=== PATIENT | female | born 1940 | race Caucasian/White ===

== ENCOUNTER 2016-04-25 16:51 | Emergency (ER) | payer MEDICARE ==
[2016-04-25] MEDS ORDERED: Ibuprofen TAB* 600 MG PO ONE (18:44)
--- NOTE | 2016-04-25 18:45 | UC ---
UC General HPI - HPI Summary HPI Summary: 75 year old presents complaining of fatigue, SOB with exertion, cough, chills and fever. Patient has had a recent exposure to influenza in the past two weeks. 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 Onset/Duration: Sudden Onset - Allergy/Home Medications Allergies/Adverse Reactions: Allergies Allergy/AdvReac Type Severity Reaction Status Date / Time Clopidogrel Allergy Severe Dizziness Verified 04/25/16 18:50 Penicillins AdvReac Severe YEAST/THRUSH Verified 04/25/16 18:50 INFECTION Nitrofurantoin AdvReac Intermediate GI Reaction Verified 04/25/16 18:50 [From Macrobid] PMH/Surg Hx/FS Hx/Imm Hx Previously Healthy: Yes Endocrine History Of: Denies: Diabetes, Thyroid Disease Cardiovascular History Of: Reports: Cardiac Disorders - CAD, RI, Hypertension, Deep Vein Thrombosis Respiratory History Of: Reports: COPD Denies: Asthma GI/ History Of: Reports: Ulcer - gerd, hx of ulcers Denies: Renal Disease Psychological History Of: Reports: Anxiety - Surgical History Surgical History: Yes Surgery Procedure, Year, and Place: Neck Surgery. HAND SURGERY (Releasing the pinky finger). Hysterectomy. Carpal tunnel release - Family History Known Family History: Positive: Unknown - Social History Alcohol Use: Occasionally Alcohol Amount: 2 max/day, usually 1 drink per day Substance Use Type: None Smoking Status (MU): Former Smoker - has had thrush in past Type: Cigarettes Amount Used/How Often: 2.5 packs/day for those years Length of Time of Smoking/Using Tobacco: 34 years of smoking Have You Smoked in the Last Year: No When Did the Patient Quit Smoking/Using Tobacco: 1989 - Immunization History Most Recent Influenza Vaccination: 12/11/14 Most Recent Tetanus Shot: Unknown (not within last 10 years) Most Recent Pneumonia Vaccination: Has had, unknown year Review of Systems Constitutional: Negative Skin: Negative Eyes: Negative ENT: Sore Throat, Nasal Discharge Respiratory: Shortness Of Breath - With exertion, Cough Cardiovascular: Negative Gastrointestinal: Other - Feeling nauseated Genitourinary: Negative Motor: Negative Neurovascular: Negative Musculoskeletal: Myalgia - Generalized Neurological: Headache Psychological: Negative All Other Systems Reviewed And Are Negative: Yes Physical Exam Triage Information Reviewed: Yes Appearance: Ill-Appearing Vital Signs Reviewed: Yes Eye Exam: Normal Eyes: Positive: Conjunctiva Clear ENT: Positive: Hearing grossly normal, Pharyngeal erythema, Nasal congestion, TMs normal Dental Exam: Normal Neck: Positive: Supple, Enlarged Nodes @ - Left tonsilar Respiratory: Positive: Chest non-tender, Lungs clear, No respiratory distress, No accessory muscle use, Decreased breath sounds - Posterior lower lobes, Wheezing Cardiovascular: Positive: RRR, No Murmur, Pulses Normal Abdomen Description: Positive: Nontender, No Organomegaly, Soft Bowel Sounds: Positive: Present Musculoskeletal: Positive: Strength Intact, ROM Intact Neurological: Positive: Alert Psychological Exam: Normal Skin Exam: Normal Course/Dx - Differential Dx - Multi-Symptom Provider Diagnoses: R middle lobe pneumonia. COPD exacerbation Discharge - Discharge Plan Condition: Stable Disposition: HOME Prescriptions: Clarithromycin TAB* [Biaxin TAB*] 500 mg PO BID #14 tab Fluconazole 100 MG TAB* [Diflucan 100 MG TAB*] 100 mg PO SEE INSTRUCTIONS #2 tab Patient Education Materials: Pneumonia (ED) Forms: *Work Release Referrals: Noel Johnson MD [Primary Care Provider] - 3 Days ()
[2016-04-25 18:50] VITALS: BP 130/76
[2016-04-25] MEDS ORDERED: cefTRIAXone VIAL(*) 1,000 MG VIAL IM ONE (19:18)
--- NOTE | 2016-04-25 19:30 | RAD ---
INDICATION: Cough and fever. COMPARISON: Comparison is made with a prior chest x-ray study from December 09, 2014. Correlation is also made with a study from March 08, 2009. TECHNIQUE: Dual-energy PA and lateral views of the chest were obtained. FINDINGS: The heart is within normal limits in size. Mediastinal and hilar contours appear within normal limits. The lungs are markedly hyperinflated consistent with chronic obstructive pulmonary disease. There is a focal infiltrate present in the right middle lobe. The lungs are otherwise clear. No pleural effusion is seen. There is a chronic compression fracture of a lower dorsal vertebral body which appears unchanged. IMPRESSION: 1. RIGHT MIDDLE LOBE INFILTRATE. 2. COPD.
[2016-04-25] MEDS ORDERED: Lidocaine 1% MPF* 2 ML VIAL ONE (19:34)
== END 2016-04-25 19:47 | disposition home or self-care (01) ==
LOC: UCEAST 16:51
DX: J18.9 Pneumonia, unspecified organism (principal); J44.1 Chronic obstructive pulmonary disease with (acute) exacerbation; Z88.1 Allergy status to other antibiotic agents; Z88.0 Allergy status to penicillin; Z88.8 Allergy status to other drugs, medicaments and biological substances; F10.99 Alcohol use, unspecified with unspecified alcohol-induced disorder; Z87.891 Personal history of nicotine dependence
CPT/HCPCS: 71020; 87502; 96372; 99212; A9270-GY; G0463; J0696

== ENCOUNTER 2016-06-05 18:56 | Emergency (ER) | payer MEDICARE ==
[2016-06-05 19:54] VITALS: BP 122/58
--- NOTE | 2016-06-05 22:09 | UC ---
Cody, DoctorMyriam, scribed for Nohemy Quinteros MD on 06/05/16 at 2013 . Back Pain HPI - HPI Summary HPI Summary: 75 year old female [place] [facility] [place] pain beginning in the right back extending through the front right groin. She describes the pain as constant since onset this morning at 4:30 AM, and describes the sensation as being "pricked with pins"; her pain is exacerbated with movement. She took [facility] at 14:00 today but did not notice any change to her symptoms. She currently rates her pain as 7/10. Pt also notes that she has chronic pain in the right hip that is no worse than baseline today. She recently recovered from a UTI (dx on 05/16/16, finished abx on 05/22/16); has PMHx of shingles in the same area as her current pain which was diagnosed 1 year ago. She also has PMHx of diverticulitis, Crohn's Disease, COPD, frequent UTIs, and is recovering from pneumonia. She is a former smoker (smoked regularly for 35 years); quit in 1989. - History of Current Complaint Chief Complaint: UC Stated Complaint: FLANK,BANK & ABD PAIN Hx Obtained From: Patient Onset/Duration: Gradual Onset, Lasting Hours - onset 4:30 this morning, Still Present Severity Initially: Moderate Severity Currently: Moderate Pain Intensity: 7 Pain Scale Used: 0-10 Numeric Back Pain: Is Discrete @ - right flank, radiates to RLQ, Radiates To - RLQ Character: Unable to Describe - like "being pricked" Aggravating: Nothing Alleviating: Nothing Associated Signs And Symptoms: Positive: Flank Pain, Other - back pain, groin pain (lower right side). Negative: Swelling, Redness, Fever, Bladder Incontinence, Bowel Incontinence Related History: Similar Episode Dx As - shingles - Risk Factors AAA Risk Factors: Smoking - prior TAD Risk Factors: Smoking - prior Cauda Equina Risk Factors: Negative Epidural Abscess Risk Factors: Negative - Allergies/Home Medications Allergies/Adverse Reactions: Allergies Allergy/AdvReac Type Severity Reaction Status Date / Time Clopidogrel Allergy Severe Dizziness Verified 06/05/16 19:54 Penicillins AdvReac Severe YEAST/THRUSH Verified 06/05/16 19:54 INFECTION Nitrofurantoin AdvReac Intermediate GI Reaction Verified 06/05/16 19:54 [From Macrobid] PMH/Surg Hx/FS Hx/Imm Hx Endocrine History Of: Denies: Diabetes, Thyroid Disease Cardiovascular History Of: Reports: Cardiac Disorders - CAD, ID, Hypertension, Deep Vein Thrombosis Respiratory History Of: Reports: COPD Denies: Asthma GI/ History Of: Reports: Ulcer - gerd, hx of ulcers Denies: Renal Disease Psychological History Of: Reports: Anxiety - Surgical History Surgical History: Yes Surgery Procedure, Year, and Place: Neck Surgery. HAND SURGERY (Releasing the pinky finger). Hysterectomy. Carpal tunnel release - Family History Known Family History: Positive: Cardiac Disease, Diabetes - mother of DM - Social History Alcohol Use: Occasionally Alcohol Amount: 2 max/day, usually 1 drink per day Substance Use Type: None Smoking Status (MU): Former Smoker Type: Cigarettes Amount Used/How Often: 2.5 packs/day for those years Length of Time of Smoking/Using Tobacco: 34 years of smoking Have You Smoked in the Last Year: No When Did the Patient Quit Smoking/Using Tobacco: 1989 - Immunization History Most Recent Influenza Vaccination: 12/11/14 Most Recent Tetanus Shot: Unknown (not within last 10 years) Most Recent Pneumonia Vaccination: Has had, unknown year Review of Systems Constitutional: Other - no fever Respiratory: Negative Cardiovascular: Negative Genitourinary: Negative, Other - no increased frequency, no dysuria Musculoskeletal: Other: - lower right back pain, radiating to groin on right side and RLQ All Other Systems Reviewed And Are Negative: Yes Physical Exam Triage Information Reviewed: Yes Appearance: Well-Nourished, Ill-Appearing, Pain Distress Vital Signs: Initial Vital Signs Temp 98.9 F 06/05/16 19:47 Pulse 92 06/05/16 19:47 Resp 20 06/05/16 19:47 BP 122/58 06/05/16 19:47 Pulse Ox 89 06/05/16 19:47 Vital Signs Reviewed: Yes Eyes: Positive: Conjunctiva Clear ENT: Positive: Normal ENT inspection Neck: Positive: Supple Respiratory: Positive: Lungs clear, Normal breath sounds, No respiratory distress Cardiovascular: Positive: RRR, No Murmur, Pulses Normal, Brisk Capillary Refill Abdomen Description: Positive: No Organomegaly, Soft, McBurney's Point Tenderness, Other: - slight tenderness in RLQ. Negative: Nontender, Bruit, CVA Tenderness (R), CVA Tenderness (L), Distended, Guarding, Hernia @, Hepatomegaly , Peritoneal Signs, Pulsatile Mass, Splenomegaly Bowel Sounds: Positive: Present Musculoskeletal: Positive: Strength Intact, ROM Intact Neurological: Positive: Alert, Muscle Tone Normal Psychological Exam: Normal Skin Exam: Normal Skin: Negative: rashes - no rash in lower right back Back Pain Course/Dx - Course Course Of Treatment: UA neg for blood and leuks - Differential Dx/Diagnosis Differential Diagnosis/HQI/PQRI: Herniated Disc, Renal Colic, Other - Herpes Zoster, AAA, appendicitis, Crohn's exacerbation, pancreatitis, diverticulitis Provider Diagnoses: right flank pain and right abdominal pain - Physician Notifications Discussed Patient Care With: 20:50 - Discussed pt care with Catie Ferreira at [facility]. Agrees with treatment plan to transfer. Pt signs AMA for ambulance. Friend drives pt by private car. Discharge - Discharge Plan Condition: Stable Disposition: AGAINST MEDICAL ADVICE Referrals: Noel Johnson MD [Primary Care Provider] - The documentation as recorded by the Doctor chandra Tahera accurately reflects the service I personally performed and the decisions made by me, Nohemy Quinteros MD.
== END 2016-06-05 21:07 | disposition left against medical advice (07) ==
LOC: UCEAST 18:56
DX: R10.9 Unspecified abdominal pain (principal); I25.2 Old myocardial infarction; J44.9 Chronic obstructive pulmonary disease, unspecified; K21.9 Gastro-esophageal reflux disease without esophagitis; I10 Essential (primary) hypertension; Z87.891 Personal history of nicotine dependence
CPT/HCPCS: 81003; 99213; G0463

== ENCOUNTER 2016-06-05 21:09 | Emergency (ER) | payer MEDICARE ==
[2016-06-05] MEDS ORDERED: NS 0.9% 1000 ML* 1,000 ML IV ONE (21:39)
[2016-06-05 22:10] LABS: Hematocrit 36 % (35-47); Mean Corpuscular HGB Conc 33 g/dl (31-36); Mean Corpuscular Hemoglobin 28 pg (27-31); Mean Corpuscular Volume 85 fL (80-97); Mean Platelet Volume 8 um3 (7.4-10.4); Red Blood Count 4.27 10^6/ul (4.0-5.4); Red Cell Distribution Width 16 % (10.5-15)
[2016-06-05 22:21] LABS: Albumin 3.7 g/dL (3.2-5.2); Calcium 8.9 mg/dL (8.6-10.3); EGFR African American 97.4 (>60); EGFR Non-African American 75.7 (>60); Globulin 3.9 g/dL (2-4); Potassium 3.6 mmol/L (3.5-5.0); Total Bilirubin 0.6 mg/dL (0.2-1.0); Total Protein 7.6 g/dL (6.4-8.9)
[2016-06-05] MEDS ORDERED: Iohexol 300* (CONTRAST) 10 ML SDV IV ONE (22:38)
--- NOTE | 2016-06-05 22:38 | RAD ---
Indication: Right flank pain. 2 views of the chest including dual energy PA views demonstrates hyperinflated lung culver. Chronic pleural changes are noted. When compared to previous exam of April 25, 2016 right base scarring is again noted. Persistent scarring and density is noted in the right lung base. IMPRESSION: Hyperinflated lung culver with persistent scarring or atelectasis in the right lung base.
--- NOTE | 2016-06-05 23:11 | RAD ---
Indication: Right lower quadrant pain. Contrast: Administered 60.0 ml of OMNIPAQUE 300 mgi/ml CT of the abdomen and pelvis was performed after IV contrast administration. No oral contrast was administered. The lung bases demonstrate some scarring and or nodularity in the right middle lobe. This was present on previous exam and is not significantly changed. Scarring is noted in the left lingula. Heart demonstrates no pericardial effusion. Liver is normal in size. No focal lesions or intrahepatic ductal dilatation is noted. The gallbladder demonstrates no calcified gallstones. No pericholecystic fluid or wall thickening is identified. The pancreas demonstrates no mass or pancreatic duct dilatation. The common duct isn't dilated. The spleen is normal in size. No adrenal lesions are noted. The kidneys demonstrate symmetric nephrograms without focal lesions. No hydronephrosis of either kidney is noted. Atherosclerotic aorta without evidence of aneurysmal dilatation is noted. Common iliac and external iliac arteries are unremarkable. No retroperitoneal adenopathy is noted. CT of the pelvis demonstrates no pelvic adenopathy. Urinary bladder is unremarkable. Right hip pinning is noted. Patient is status post hysterectomy. The colon is filled with stool. A segment of narrowing is noted in the ascending colon. This may represent diverticulitis. I cannot totally exclude inflammatory change. This may represent diverticulitis although underlying mass is not excluded. Follow-up exam is suggested after treatment. There are scattered diverticula in the right colon noted. There may be diverticula of the small bowel present as well. No free fluid is identified. The urinary bladder is otherwise unremarkable. The bony structures demonstrates diffuse osteopenia. Mild compression of T12 superior endplate is noted. Grade 1 spondylolisthesis of L4 on 5 is noted. Compression fracture is unchanged from September 06, 2014. IMPRESSION: THERE IS A 2 CM SEGMENT OF NARROWING OF THE ASCENDING COLON OF WHICH ETIOLOGY IS NOT CLEAR. THIS MAY REPRESENT INFLAMMATORY CHANGE ALTHOUGH AN UNDERLYING MASS OR STRICTURE IS NOT EXCLUDED. FOLLOW-UP EXAM IS SUGGESTED. THERE MAY BE UNDERLYING DIVERTICULITIS WITH SCATTERED DIVERTICULA IN THE RIGHT COLON AND SMALL BOWEL. ATHEROSCLEROTIC AORTA. COMPRESSION OF T12 WHICH IS UNCHANGED FROM SEPTEMBER 06, 2014.
[2016-06-05] MEDS ORDERED: metroNIDAZOLE IV 500 MG/100ML* 500 MG/100 ML BAG IVPB ONE (23:22)
[2016-06-05] MEDS ORDERED: Levofloxacin 500 MG IVPREMIX(* 500 MG/100 ML BAG IVPB ONE (23:22)
[2016-06-06 00:22] LABS: Urine Bilirubin Negative (Negative); Urine Glucose Negative (Negative); Urine Nitrite Negative (Negative)
[2016-06-06] MEDS ORDERED: diPHENhydraMINE IV* 50 MG/ML 1 ml VIAL (BENADRYL) IV ONE (01:18)
--- NOTE | 2016-06-06 01:50 | CONSULT ---
Consult Consult: PCP: Ree Johnson MD Date/Time of Evaluation: 06/06/2016 0200 CC: R abdominal/flank pain HPI: Mrs Martínez is a 75YO female HX Crohn's who presents reporting onset of R abdominal/flank pain onset the AM of 06/05 which has continued and worsened to . She denies injury, F/C, N/V/D, B/U/F of urine, black/bloody/mucous stools, or other issues. She does have a HX of shingles in this area, but denies rash. There are no noted exacerbating or alleviating factors. Her last colonoscopy was ~2 years ago and negative per her report. PMedHx Crohn's COPD CAD/[place] POAD s/p RLE bypass graft DVL, lower extremity (uncertain which) anxiety Allergies Clopidogrel Allergy (Severe, Verified 06/05/16 19:54) Dizziness Penicillins Adverse Reaction (Severe, Verified 06/05/16 19:54) YEAST/THRUSH INFECTION Nitrofurantoin [From Macrobid] Adverse Reaction (Intermediate, Verified 19:54) GI Reaction nausia, vomiting, diarrhea Ambulatory Orders Albuterol HFA INHALER* [Proair Hfa Inhaler*] 2 puff INH Q4H PRN 06/02/13 Aspirin EC TAB* [Ecotrin EC TAB*] 325 mg PO DAILY 06/02/13 Pantoprazole TAB (NF) [Protonix TAB (NF)] 40 mg PO DAILY 06/02/13 Acetaminophen TAB* [Tylenol TAB*] 500 mg PO Q6H PRN 09/06/14 ALPRAZolam TAB* [Xanax TAB*] 0.25 mg PO BID PRN 12/09/14 Atorvastatin* [Lipitor*] 20 mg PO DAILY 12/09/14 Gabapentin CAP(*) [Neurontin CAP(*)] 600 mg PO TID 12/09/14 Montelukast Sodium TAB* [Singulair TAB*] 10 mg PO DAILY 12/09/14 Tiotropium CAP.INH* [Spiriva CAP.INH*] 1 cap.inh INH DAILY 12/09/14 amLODIPine TAB* [Norvasc TAB*] 5 mg PO DAILY 12/09/14 Lactulose (Encephalopathy) [Lactulose] DAILY 12/15/14 Mometasone Furoate [Elocon] BID 12/15/14 Metronidazole [Flagyl 500 MG TAB] 500 mg PO TID #30 tab 06/06/16 Sulfamethox/Trimethoprim DS* [Bactrim DS 800/160 TAB*] 1 tab PO BID #20 tab SocHx: former smoker quit ~25years ago w/ >20PYHX, no alcohol or recreational drugs; lives alone; full code status FamHx: positive for CAD, DM ROS: as above, otherwise reviewed and all were negative Constitutional: NAD, normally developed, well-nourished white female vitals: Vital Signs Temp 36.4 C 06/06/16 02:48 Pulse 92 06/06/16 02:48 Resp 16 06/05/16 21:16 BP 128/63 06/06/16 02:48 Pulse Ox 96 06/05/16 21:16 HEENM: atraumatic; sclera/conjunctiva: non-icteric/clear; hearing: clinically intact; oropharynx: clear, mucosa moist Neck: soft tissue: non-tender; thyroid: normal Pulmonary: clear to auscultation bilaterally, good aeration, no accessory muscle use CV: RR/RR, normal S1S2, no carotid bruit, no jugular venous distention, 2+ B DP/ PT, no edema Abdominal: soft, non-distended, mild R lateral abdominal tenderness, no rebound/ guarding/rigidity, normoactive bowel sounds, no hepatosplenomegaly or masses, no costovertebral angle tenderness Musculoskeletal: general: grossly intact Integumental: stippled scarring from H Zoster on L flank near current pain but without hypersensitivity; otherwise normal appearance and texture Psychiatric orientation: AA&O to PPTS affect: calm mood: cooperative eye contact: good content: reliable responses: timely insight: good Testing: Lab Results 06/05/16 06/05/16 06/05/16 Range/Units 21:54 21:54 21:54 WBC 8.0 (3.5-10.8) 10^3/ul RBC 4.27 (4.0-5.4) 10^6/ul Hgb 12.0 (12.0-16.0) g/dl Hct 36 (35-47) % MCV 85 (80-97) fL MCH 28 (27-31) pg MCHC 33 (31-36) g/dl RDW 16 H (10.5-15) % Plt Count 351 (150-450) 10^3/ul MPV 8 (7.4-10.4) um3 Neut % (Auto) 65.2 (38-83) % Lymph % (Auto) 21.8 L (25-47) % Glacier % (Auto) 8.8 (1-9) % Eos % (Auto) 3.3 (0-6) % Baso % (Auto) 0.9 (0-2) % Absolute Neuts (auto) 5.2 (1.5-7.7) 10^3/ul Absolute Lymphs (auto) 1.7 (1.0-4.8) 10^3/ul Absolute Monos (auto) 0.7 (0-0.8) 10^3/ul Absolute Eos (auto) 0.3 (0-0.6) 10^3/ul Absolute Basos (auto) 0.1 (0-0.2) 10^3/ul Absolute Nucleated RBC 0.01 10^3/ul Nucleated RBC % 0.1 INR (Anticoag Therapy) 0.90 (0.89-1.11) APTT 29.6 (26.0-36.3) seconds Sodium 137 (133-145) mmol/L Potassium 3.6 (3.5-5.0) mmol/L Chloride 101 (101-111) mmol/L Carbon Dioxide 27 (22-32) mmol/L Anion Gap 9 (2-11) mmol/L BUN 12 (6-24) mg/dL Creatinine 0.75 (0.51-0.95) mg/dL Est GFR ( Amer) 97.4 (>60) Est GFR (Non-Af Amer) 75.7 (>60) BUN/Creatinine Ratio 16.0 (8-20) Glucose 91 (70-100) mg/dL Calcium 8.9 (8.6-10.3) mg/dL Total Bilirubin 0.60 (0.2-1.0) mg/dL AST 16 (13-39) U/L ALT 6 L (7-52) U/L Alkaline Phosphatase 97 (34-104) U/L Troponin I 0.00 (<0.04) ng/mL Total Protein 7.6 (6.4-8.9) g/dL Albumin 3.7 (3.2-5.2) g/dL Globulin 3.9 (2-4) g/dL Albumin/Globulin Ratio 0.9 L (1-3) Lipase 21 (11.0-82.0) U/L Urine Color Urine Appearance Urine pH (5-9) Ur Specific Orting (1.010-1.030) Urine Protein (Negative) Urine Ketones (Negative) Urine Blood (Negative) Urine Nitrate (Negative) Urine Bilirubin (Negative) Urine Urobilinogen (Negative) Ur Leukocyte Esterase (Negative) Urine Glucose (Negative) 06/05/16 Range/Units 23:40 WBC (3.5-10.8) 10^3/ul RBC (4.0-5.4) 10^6/ul Hgb (12.0-16.0) g/dl Hct (35-47) % MCV (80-97) fL MCH (27-31) pg MCHC (31-36) g/dl RDW (10.5-15) % Plt Count (150-450) 10^3/ul MPV (7.4-10.4) um3 Neut % (Auto) (38-83) % Lymph % (Auto) (25-47) % Glac[place] % (Auto) (1-9) % Eos % (Auto) (0-6) % Baso % (Auto) (0-2) % Absolute Neuts (auto) (1.5-7.7) 10^3/ul Absolute Lymphs (auto) (1.0-4.8) 10^3/ul Absolute Monos (auto) (0-0.8) 10^3/ul Absolute Eos (auto) (0-0.6) 10^3/ul Absolute Basos (auto) (0-0.2) 10^3/ul Absolute Nucleated RBC 10^3/ul Nucleated RBC % INR (Anticoag Therapy) (0.89-1.11) APTT (26.0-36.3) seconds Sodium (133-145) mmol/L Potassium (3.5-5.0) mmol/L Chloride (101-111) mmol/L Carbon Dioxide (22-32) mmol/L Anion Gap (2-11) mmol/L BUN (6-24) mg/dL Creatinine (0.51-0.95) mg/dL Est GFR ( Amer) (>60) Est GFR (Non-Af Amer) (>60) BUN/Creatinine Ratio (8-20) Glucose (70-100) mg/dL Calcium (8.6-10.3) mg/dL Total Bilirubin (0.2-1.0) mg/dL AST (13-39) U/L ALT (7-52) U/L Alkaline Phosphatase (34-104) U/L Troponin I (<0.04) ng/mL Total Protein (6.4-8.9) g/dL Albumin (3.2-5.2) g/dL Globulin (2-4) g/dL Albumin/Globulin Ratio (1-3) Lipase (11.0-82.0) U/L Urine Color Straw Urine Appearance Clear Urine pH 7.0 (5-9) Ur Specific Orting 1.014 (1.010-1.030) Urine Protein Negative (Negative) Urine Ketones Negative (Negative) Urine Blood Negative (Negative) Urine Nitrate Negative (Negative) Urine Bilirubin Negative (Negative) Urine Urobilinogen Negative (Negative) Ur Leukocyte Esterase Negative (Negative) Urine Glucose Negative (Negative) CXR, personally reviewed: IMPRESSION: Hyperinflated lung culver with persistent scarring or atelectasis in the right lung base. CT abd/pel W, personally reviewed: IMPRESSION: THERE IS A 2 CM SEGMENT OF NARROWING OF THE ASCENDING COLON OF WHICH ETIOLOGY IS NOT CLEAR. THIS MAY REPRESENT INFLAMMATORY CHANGE ALTHOUGH AN UNDERLYING MASS OR STRICTURE IS NOT EXCLUDED. FOLLOW-UP EXAM IS SUGGESTED. THERE MAY BE UNDERLYING DIVERTICULITIS WITH SCATTERED DIVERTICULA IN THE RIGHT COLON AND SMALL BOWEL. ATHEROSCLEROTIC AORTA. COMPRESSION OF T12 WHICH IS UNCHANGED FROM SEPTEMBER 06, 2014. Impression: 75F presenting with vague R flank/abdominal pain with an abnormal CT finding. DIAGNOSIS & PLAN Primary R flank/abdominal pain with an abnormal CT finding : discussed option of admission for further evaluation via GI consult & probable endoscopy; however, her she has an appointment in ~1 week with her GI physician at [place] and would rather discuss this with him which I feel is the best possible solution as he is familiar with her previous procedure and can best determine if further evaluation is necessary. She is advised to return for worsening or new symptoms which she feels warrants emergency evaluation. Would discharge on appropriate ABX coverage for abdomen as this CT finding could represent early diverticulitis. CC: Ree Abraham MD
--- NOTE | 2016-06-06 02:19 | ED ---
Diana Ross Matthew, scribed for SebastiantinyRyland on 06/05/16 at 2140 . Abdominal Pain/Female - HPI Summary HPI Summary: A 75 y/o female presents to the ED with constant right flank pain since 04:15 this morning. The pain radiates from the flank into the suprapubic region. The patient denies nausea, vomiting, fever, hematuria, and rash. FHx of daibetes and CAD. The patient had a Hx of shingles in a similar spot 3 years ago. - History of Current Complaint Chief Complaint: EDFlankPain Stated Complaint: RT SIDE PAIN/SENT FROM [facility] Time Seen by Provider: 06/05/16 21:23 Hx Obtained From: Patient ?: No Onset/Duration: Lasting Hours, Still Present Timing: Constant Severity Initially: Moderate Severity Currently: Moderate Pain Intensity: 6 Pain Scale Used: 0-10 Numeric Location: Discrete At: RLQ Radiates: Yes Radiates to: Other - suprapubic Associated Signs and Symptoms: Negative: Fever, Chest Pain, Nausea, Vomiting, Diarrhea Allergies/Adverse Reactions: Allergies Allergy/AdvReac Type Severity Reaction Status Date / Time Clopidogrel Allergy Severe Dizziness Verified 06/05/16 19:54 Penicillins AdvReac Severe YEAST/THRUSH Verified 06/05/16 19:54 INFECTION Nitrofurantoin AdvReac Intermediate GI Reaction Verified 06/05/16 19:54 [From Macrobid] PMH/Surg Hx/FS Hx/Imm Hx Endocrine/Hematology History: Reports: Hx Blood Transfusions, Hx Anemia - Iron deficiency Denies: Hx Diabetes, Hx Thyroid Disease Cardiovascular History: Reports: Hx Coronary Artery Disease, Hx Deep Vein Thrombosis, Hx Hypercholesterolemia, Hx Hypertension, Hx Peripheral Vascular Disease Respiratory History: Reports: Hx Chronic Obstructive Pulmonary Disease (COPD) Denies: Hx Asthma GI History: Reports: Hx Crohn's Disease, Hx Diverticulosis, Hx Gastroesophageal Reflux Disease, Hx Ulcer - gerd, hx of ulcers, Other GI Disorders - Previous issues with incontinence History: Reports: Other Problems/Disorders - Frequent UTIs and yeast infections Denies: Hx Renal Disease Musculoskeletal History: Reports: Hx Arthritis - hands, Hx Osteoporosis, Other Musculoskeletal History - Neck problems s/p surgery Sensory History: Reports: Hx Cataracts, Hx Contacts or Glasses Opthamlomology History: Reports: Hx Cataracts, Hx Contacts or Glasses Psychiatric History: Reports: Hx Anxiety - Surgical History Surgery Procedure, Year, and Place: Neck Surgery. HAND SURGERY (Releasing the pinky finger). Hysterectomy. Carpal tunnel release Hx Anesthesia Reactions: No Infectious Disease History: No Infectious Disease History: Reports: Hx Clostridium Difficile - Accompanied with diverticulitis, Hx Shingles, History Other Infectious Disease Denies: Hx Hepatitis, Hx Human Immunodeficiency Virus (HIV), Hx of Known/ Suspected MRSA, Hx Tuberculosis, Traveled Outside the [place] in Last 30 Days - Family History Known Family History: Positive: Cardiac Disease, Diabetes - Social History Alcohol Use: Occasionally Alcohol Amount: 2 max/day, usually 1 drink per day Substance Use Type: Reports: None Hx Tobacco Use: No Smoking Status (MU): Former Smoker Type: Cigarettes Amount Used/How Often: 2.5 packs/day for those years Length of Time of Smoking/Using Tobacco: 34 years of smoking Have You Smoked in the Last Year: No Review of Systems Constitutional: Negative Negative: Fever, Chills Eyes: Negative ENT: Negative Cardiovascular: Negative Negative: Chest Pain Respiratory: Negative Negative: Shortness Of Breath Positive: Abdominal Pain - right flank . Negative: Vomiting, Diarrhea, Nausea Genitourinary: Negative Musculoskeletal: Negative Skin: Negative Negative: Rash Neurological: Negative Psychological: Normal All Other Systems Reviewed And Are Negative: Yes Physical Exam Triage Information Reviewed: Yes Vital Signs On Initial Exam: Initial Vitals Temp Pulse Resp BP Pulse Ox 98.2 F 93 16 147/56 96 06/05/16 21:16 06/05/16 21:16 06/05/16 21:16 06/05/16 21:16 06/05/16 21:16 Vital Signs Reviewed: Yes Appearance: Positive: Well-Appearing, No Pain Distress Skin: Positive: Warm, Skin Color Reflects Adequate Perfusion, Dry Head/Face: Positive: Normal Head/Face Inspection Eyes: Positive: EOMI, MIN ENT: Positive: Normal ENT inspection Neck: Positive: Supple, Nontender Respiratory/Lung Sounds: Positive: Clear to Auscultation, Breath Sounds Present Cardiovascular: Positive: RRR, Pulses are Symmetrical in both Upper and Lower Extremities Abdomen Description: Positive: Soft, Other: - RLQ tenderness Bowel Sounds: Positive: Present Musculoskeletal: Positive: Normal, Strength/ROM Intact Neurological: Positive: Normal, Sensory/Motor Intact, Alert, Oriented to Person Place, Time Psychiatric: Positive: Affect/Mood Appropriate Diagnostics - Vital Signs Vital Signs Temp Pulse Resp BP Pulse Ox 06/05/16 21:16 98.2 F 93 16 147/56 96 - Laboratory Result Diagrams: 06/05/16 21:54 06/05/16 21:54 Lab Statement: Any lab studies that have been ordered have been reviewed, and results considered in the medical decision making process. - Radiology CXR Xray Interpretation: Positive (See Comments) - IMPRESSION: Hyperinflated lung culver with persistent scarring or atelectasis in the right lung base. Radiology Interpretation Completed By: Radiologist - CT A/P CT CT Interpretation: Positive (See Comments) - IMPRESSION: THERE IS A 2 CM SEGMENT OF NARROWING OF THE ASCENDING COLON OF WHICH ETIOLOGY IS NOT CLEAR. THIS MAY REPRESENT INFLAMMATORY CHANGE ALTHOUGH AN UNDERLYING MASS OR STRICTURE IS NOT EXCLUDED. FOLLOW-UP EXAM IS SUGGESTED. THERE MAY BE UNDERLYING DIVERTICULITIS WITH SCATTERED DIVERTICULA IN THE RIGHT COLON AND SMALL BOWEL. ATHEROSCLEROTIC AORTA. COMPRESSION OF T12 WHICH IS UNCHANGED FROM SEPTEMBER 06, 2014. CT Interpretation Completed By: Radiologist Abdominal Pain Fem Course/Dx - Course Course Of Treatment: Dr. Rose recommended admission, but the patient refused and wants to follow-up with GI. - Diagnoses Provider Diagnoses: Diverticulitis, Colonic mass Discharge - Discharge Plan Condition: Stable Disposition: HOME Prescriptions: Metronidazole [Flagyl 500 MG TAB] 500 mg PO TID #30 tab Sulfamethox/Trimethoprim DS* [Bactrim DS 800/160 TAB*] 1 tab PO BID #20 tab Patient Education Materials: Sulfamethoxazole/Trimethoprim (By mouth), Metronidazole (By mouth), Diverticulitis (ED) Referrals: Noel Johnson MD [Primary Care Provider] - 1 Day Additional Instructions: Please keep your appointment with GI and follow-up with your primary care physician. The documentation as recorded by the Diana chandra Matthew accurately reflects the service I personally performed and the decisions made by , Ryland Hanna.
[2016-06-06 02:52] VITALS: BP 128/63
== END 2016-06-06 02:48 | disposition home or self-care (01) ==
LOC: ED 21:09
DX: K57.92 Diverticulitis of intestine, part unspecified, without perforation or abscess without bleeding (principal); R10.31 Right lower quadrant pain; R10.84 Generalized abdominal pain; Z87.891 Personal history of nicotine dependence
CPT/HCPCS: 36415; 71020; 74177; 80053; 81003; 83690; 84484; 85025; 85610; 85730; 99283; J1956; J3490; Q9967

== ENCOUNTER 2017-01-01 08:13 | Emergency (ER) | payer MEDICARE ==
[2017-01-01 08:38] VITALS: BP 140/62
--- NOTE | 2017-01-01 08:57 | UC ---
Abdominal Pain Female HPI - HPI Summary HPI Summary: Patient presents with one day onset complaints of abdominal pain of the epigastrium that radiates up through her anterior chest chest, with associated n /v/d. She states that she has had many episodes of vomiting and watery diarrhea in the last 24 hours. She denies any recent abx treatment, travel or ill contacts. She states she was recently treated for peptic ulcers, and was released to eat "normal" food and when she did that she started to experience abdominal pain, then vomiting. She is not tolerating anything at this time orally. Denies any sob, chest congestion, joint pain, rashes. - History of Current Complaint Chief Complaint: UCGI Stated Complaint: DIARRHEA VOMITING Time Seen by Provider: 01/01/17 08:39 Hx Obtained From: Patient ?: No Onset/Duration: Sudden Onset, Lasting Days Timing: Constant Severity Currently: Severe Location: Epigastric Radiates to: Chest Character: Burning Aggravating Factor(s): Food Alleviating Factor(s): Other: - eating food Associated Signs and Symptoms: Positive: Decreased Appetite, Nausea, Vomiting, Diarrhea - Risk Factors Ectopic Risk Factor: Negative Ovarian Torsion Risk Factor: Negative Allergies/Adverse Reactions: Allergies Allergy/AdvReac Type Severity Reaction Status Date / Time Clopidogrel Allergy Severe Dizziness Verified 01/01/17 08:27 Metronidazole [From Flagyl] Allergy Swelling Verified 01/01/17 08:27 Penicillins AdvReac Severe YEAST/THRUSH Verified 01/01/17 08:27 INFECTION Nitrofurantoin AdvReac Intermediate GI Reaction Verified 01/01/17 08:27 [From Macrobid] PMH/Surg Hx/FS Hx/Imm Hx Previously Healthy: Yes Respiratory History: COPD GI/ History: Gastroesophageal Reflux - Surgical History Surgical History: Yes Surgery Procedure, Year, and Place: Neck Surgery. HAND SURGERY (Releasing the pinky finger). Hysterectomy. Carpal tunnel release - Family History Known Family History: Positive: Unknown, Cardiac Disease, Diabetes - Social History Occupation: Retired Lives: Alone Alcohol Use: None Alcohol Amount: 2 max/day, usually 1 drink per day Substance Use Type: None Smoking Status (MU): Former Smoker Type: Cigarettes Amount Used/How Often: 2.5 packs/day for those years Length of Time of Smoking/Using Tobacco: 34 years of smoking Have You Smoked in the Last Year: No When Did the Patient Quit Smoking/Using Tobacco: 1989 - Immunization History Most Recent Influenza Vaccination: 12/11/14 Most Recent Tetanus Shot: Unknown (not within last 10 years) Most Recent Pneumonia Vaccination: Has had, unknown year Review of Systems Constitutional: Fatigue Skin: Negative Eyes: Negative ENT: Negative Respiratory: Negative Cardiovascular: Chest Pain Gastrointestinal: Abdominal Pain, Vomiting, Diarrhea, Nausea Genitourinary: Negative Motor: Negative Neurovascular: Negative Musculoskeletal: Negative Neurological: Negative Psychological: Negative All Other Systems Reviewed And Are Negative: Yes Physical Exam Triage Information Reviewed: Yes Appearance: Ill-Appearing Vital Signs: Initial Vital Signs Temp 98.7 F 01/01/17 08:32 Pulse 89 01/01/17 08:32 Resp 18 01/01/17 08:32 BP 140/62 01/01/17 08:32 Pulse Ox 97 01/01/17 08:32 Vital Signs Reviewed: Yes Eye Exam: Normal ENT Exam: Normal Neck exam: Normal Respiratory Exam: Normal Cardiovascular Exam: Normal Abdomen Description: Positive: Other: - BS hyperactive x 4 quadrants, tenderness on palpation of the epigastrium and ruq/luq without rebournd, guarding, or HSM, CVAT. Musculoskeletal Exam: Normal Neurological Exam: Normal Skin Exam: Normal Abd Pain Female Course/Dx - Course Course Of Treatment: Patient was referred directly to [facility] ER via private car. - Differential Dx/Diagnosis Differential Diagnosis: Other - abdominal pain Provider Diagnoses: abdominal pain Discharge - Discharge Plan Condition: Stable Disposition: [facility] Patient Education Materials: Acute Nausea and Vomiting (ED), Acute Diarrhea (ED ), Abdominal Pain (ED) Referrals: Noel Johnson MD [Primary Care Provider] - Additional Instructions: Go immediately to the emergency department at [facility].
== END 2017-01-01 08:51 | disposition home or self-care (01) ==
LOC: UCEAST 08:13
DX: R10.9 Unspecified abdominal pain (principal); K21.9 Gastro-esophageal reflux disease without esophagitis; Z88.3 Allergy status to other anti-infective agents; Z88.0 Allergy status to penicillin; Z87.891 Personal history of nicotine dependence
CPT/HCPCS: 99212; G0463

== ENCOUNTER 2017-01-01 09:09 | Emergency (ER) | payer MEDICARE ==
[2017-01-01] MEDS ORDERED: Al Hydrox/Mg Hydrox/Simet LIQ* 30 ML UDC PO ONE (11:58)
[2017-01-01] MEDS ORDERED: Lidocaine 2% VISCOUS* 15 ML UDC PO ONE (11:58)
[2017-01-01] MEDS ORDERED: Ondansetron INJ* 2 MG/ML VIAL IV ONE (11:58)
[2017-01-01] MEDS ORDERED: Dexamethasone IV* 4 MG/ML 1 ML (4 MG) IV SLOW PU ONE (11:59)
[2017-01-01] MEDS ORDERED: Albuterol/Ipratropium NEB.SOL* Albuterol 2.5 MG/Ipratropium 0.5 MG 3 ML INH ONE (11:59)
[2017-01-01] MEDS: NS 0.9% 1000 ML* 2,000 ML IV ONE (12:40)
[2017-01-01 12:55] LABS: Hematocrit 37 % (35-47); Hemoglobin 12.4 g/dl (12.0-16.0); Mean Corpuscular HGB Conc 34 g/dl (31-36); Mean Corpuscular Hemoglobin 29 pg (27-31); Mean Corpuscular Volume 87 fL (80-97); Mean Platelet Volume 8 um3 (7.4-10.4); Red Blood Count 4.29 10^6/ul (4.0-5.4); Red Cell Distribution Width 15 % (10.5-15); White Blood Count 8.9 10^3/ul (3.5-10.8)
[2017-01-01 13:10] LABS: Albumin 3.6 g/dL (3.2-5.2); BUN/Creatinine Ratio 10.8 (8-20); C Reactive Protein 25.03 mg/L (< 5.00); Calcium 9.2 mg/dL (8.6-10.3); EGFR African American 114.6 (>60); EGFR Non-African American 89.1 (>60); Globulin 4.4 g/dL (2-4); Total Bilirubin 0.7 mg/dL (0.2-1.0)
[2017-01-01 15:40] VITALS: BP 119/57
--- NOTE | 2017-01-06 12:42 | ED ---
Tomi Ross Alfonso, scribed for Chase Sinha MD on 01/01/17 at 1132 . Abdominal Pain/Female - HPI Summary HPI Summary: This patient is a 76 year old F presenting to [facility] accompanied by family with a chief complaint of epigastric abdominal pain since yesterday. She states my stomach is all hot, burning, and there is a big knot. The patient rates the pain 4/10 in severity. Symptoms aggravated by spaghetti and meatballs. Symptoms alleviated by a half tablet of Imodium tab. Patient reports fever (yesterday afternoon), N/V/D, loss of appetite (no food since yesterday morning), myalgia, headache, back pain, shoulder pain, SOB, coughing, dizziness, weakness, and lightheadedness. She reports an endoscopy in June during which 3 ulcers were found. She reports a recent sinus infection sick contact. - History of Current Complaint Chief Complaint: EDNauseaVomitDiarrh Stated Complaint: NAUSEA,DIARRHEA,VOMITTING Time Seen by Provider: 01/01/17 11:14 Hx Obtained From: Patient Onset/Duration: Gradual Onset, Lasting Days - yesterday, Still Present Timing: Constant Severity Currently: Moderate Pain Intensity: 4 Pain Scale Used: 0-10 Numeric Location: Epigastric Aggravating Factor(s): Food - spaghetti and meatballs Alleviating Factor(s): Other: - half tablet of Imodium tab Associated Signs and Symptoms: Positive: Other: - fever (yesterday afternoon), N /V/D, loss of appetite (no food since yesterday morning), myalgia, headache, back pain, shoulder pain, SOB, coughing, dizziness, weakness, and lightheadedness Allergies/Adverse Reactions: Allergies Allergy/AdvReac Type Severity Reaction Status Date / Time Clopidogrel Allergy Severe Dizziness Verified 01/01/17 08:27 Metronidazole [From Flagyl] Allergy Swelling Verified 01/01/17 08:27 Penicillins AdvReac Severe YEAST/THRUSH Verified 01/01/17 08:27 INFECTION Nitrofurantoin AdvReac Intermediate GI Reaction Verified 01/01/17 08:27 [From Macrobid] PMH/Surg Hx/FS Hx/Imm Hx Endocrine/Hematology History: Reports: Hx Blood Transfusions, Hx Anemia - Iron deficiency Denies: Hx Diabetes, Hx Thyroid Disease Cardiovascular History: Reports: Hx Coronary Artery Disease, Hx Deep Vein Thrombosis, Hx Hypercholesterolemia, Hx Hypertension, Hx Peripheral Vascular Disease Respiratory History: Reports: Hx Chronic Obstructive Pulmonary Disease (COPD) Denies: Hx Asthma GI History: Reports: Hx Crohn's Disease, Hx Diverticulosis, Hx Gastroesophageal Reflux Disease, Hx Ulcer - gerd, hx of ulcers, Other GI Disorders - Previous issues with incontinence History: Reports: Other Problems/Disorders - Frequent UTIs and yeast infections Denies: Hx Renal Disease Musculoskeletal History: Reports: Hx Arthritis - hands, Hx Osteoporosis, Other Musculoskeletal History - Neck problems s/p surgery Sensory History: Reports: Hx Cataracts, Hx Contacts or Glasses Opthamlomology History: Reports: Hx Cataracts, Hx Contacts or Glasses Psychiatric History: Reports: Hx Anxiety - Surgical History Surgery Procedure, Year, and Place: Neck Surgery. HAND SURGERY (Releasing the pinky finger). Hysterectomy. Carpal tunnel release Hx Anesthesia Reactions: No Infectious Disease History: Yes Infectious Disease History: Reports: Hx Clostridium Difficile - Accompanied with diverticulitis, Hx Shingles, History Other Infectious Disease Denies: Hx Hepatitis, Hx Human Immunodeficiency Virus (HIV), Hx of Known/ Suspected MRSA, Hx Tuberculosis, Traveled Outside the [place] in Last 30 Days - Family History Known Family History: Positive: Cardiac Disease, Diabetes - Social History Alcohol Use: None Alcohol Amount: 2 max/day, usually 1 drink per day Substance Use Type: Reports: None Hx Tobacco Use: No Smoking Status (MU): Former Smoker Type: Cigarettes Amount Used/How Often: 2.5 packs/day for those years Length of Time of Smoking/Using Tobacco: 34 years of smoking Have You Smoked in the Last Year: No Review of Systems Positive: Fever. Negative: Chills Negative: Erythema Negative: Sore Throat Negative: Chest Pain Positive: Shortness Of Breath, Cough Positive: Abdominal Pain, Vomiting, Diarrhea, Nausea, Other - Loss of appetite Negative: dysuria, hematuria Positive: Myalgia, Other - back pain, shoulder pain. Negative: Edema Negative: Rash Neurological: Other - dizziness, weakness, and lightheadedness Positive: Headache All Other Systems Reviewed And Are Negative: Yes Physical Exam - Summary Physical Exam Summary: Constitutional: Well-developed, Well-nourished, Alert. (-) Distressed Skin: Warm, Dry HENT: Normocephalic; Atraumatic Eyes: Conjunctiva normal, dry oral mucosa Neck: Musculoskeletal ROM normal neck. (-) JVD, (-) Stridor, (-) Tracheal deviation Cardio: Rhythm regular, rate normal, Heart sounds normal; Intact distal pulses; The pedal pulses are 2+ and symmetric. Radial pulses are 2+ and symmetric. (-) Murmur Pulmonary/Chest wall: Effort normal. (-) Respiratory distress, (-) Wheezes, (-) Rales Abd: Soft, Mild epigastric tenderness, (-) Distension, (-) Guarding, (-) Rebound Musculoskeletal: (-) Edema Lymph: (-) Cervical adenopathy Neuro: Alert, Oriented x3 Psych: Mood and affect Normal Triage Information Reviewed: Yes Vital Signs On Initial Exam: Initial Vitals Temp Pulse Resp BP Pulse Ox 98.2 F 86 17 142/108 99 01/01/17 09:24 01/01/17 09:24 01/01/17 09:24 01/01/17 09:24 01/01/17 09:24 Vital Signs Reviewed: Yes - Justus Coma Scale Coma Scale Total: 15 Diagnostics - Vital Signs Vital Signs Temp Pulse Resp BP Pulse Ox 01/01/17 10:30 76 154/65 95 01/01/17 10:05 82 93 01/01/17 10:02 156/71 01/01/17 09:24 98.2 F 86 17 142/108 99 - Laboratory Result Diagrams: 01/01/17 12:33 01/01/17 12:33 Lab Statement: Any lab studies that have been ordered have been reviewed, and results considered in the medical decision making process. - EKG 1139 Cardiac Rate: NL - BPM 87 EKG Rhythm: Sinus Rhythm EKG Interpretation: No STEMI Re-Evaluation - Re-Evaluation First Eval Re-Evaluation Time: 15:00 Change: Improved Comment: Feeling much better. She is tolerating PO. She wants to go home. Abdominal Pain Fem Course/Dx - Course Course Of Treatment: This patient is a 76 year old F presenting to [facility] accompanied by family with a chief complaint of epigastric abdominal pain since yesterday. She states my stomach is all hot, burning, and there is a big knot. The patient rates the pain 4/10 in severity. Symptoms aggravated by spaghetti and meatballs. Symptoms alleviated by a half tablet of Imodium tab. Patient reports fever (yesterday afternoon), N/V/D, loss of appetite (no food since yesterday morning), myalgia, headache, back pain, shoulder pain, SOB, coughing, dizziness, weakness, and lightheadedness. She reports an endoscopy in June during which 3 ulcers were found. She reports a recent sinus infection sick contact. An EKG reveals NSR. The patient began to feel much better in the ED course. Patient will be discharged with prescription for Prilosec and Zofran and follow up from PCP. The patient is agreeable with this plan. - Diagnoses Provider Diagnoses: GERD (gastroesophageal reflux disease), Gastroenteritis Discharge - Discharge Plan Condition: Stable Disposition: HOME Prescriptions: Omeprazole CAP* [Prilosec CAP* 20 MG] 20 mg PO DAILY #7 cap.dr Ondansetron ODT TAB* [Zofran 4 MG Odt TAB*] 4 mg PO Q8H PRN #9 tab.odt PRN Reason: Nausea/Vomiting Patient Education Materials: Gastroesophageal Reflux Disease (ED), Gastroenteritis (ED) Referrals: Noel Johnson MD [Primary Care Provider] - 3 Days Additional Instructions: RETURN TO THE EMERGENCY DEPARTMENT FOR CHANGING OR WORSENING SYMPTOMS. The documentation as recorded by the Tomi chandra Alfonso accurately reflects the service I personally performed and the decisions made by , Chase Sinha MD.
== END 2017-01-01 15:41 | disposition home or self-care (01) ==
LOC: ED 09:09
DX: K21.9 Gastro-esophageal reflux disease without esophagitis (principal); K52.9 Noninfective gastroenteritis and colitis, unspecified; R50.9 Fever, unspecified; R11.2 Nausea with vomiting, unspecified; R19.7 Diarrhea, unspecified; R63.0 Anorexia; M54.9 Dorsalgia, unspecified; M25.519 Pain in unspecified shoulder; R06.02 Shortness of breath; R42 Dizziness and giddiness; R53.1 Weakness
CPT/HCPCS: 36415; 80053; 83605; 83690; 84484; 85025; 85379; 86140; 93005; 94640; 99284; A9270-GY; J1100; J2405

== ENCOUNTER 2018-01-04 09:00 | Observation (INO) | payer MEDICARE ==
[2018-01-04] MEDS ORDERED: methylPREDNISolone 125 MG* 2 ML VIAL IV ONE (09:31)
[2018-01-04] MEDS ORDERED: Albuterol/Ipratropium NEB.SOL* Albuterol 2.5 MG/Ipratropium 0.5 MG 3 ML INH ONE ×2 (09:31→11:22)
[2018-01-04] MEDS ORDERED: Azithromycin IV(*) 500 MG in NS 0.9% 250 ML* 250 ML IVPB ONE (09:32)
[2018-01-04] MEDS ORDERED: cefTRIAXone(*) 1 GM in NS 0.9% 50 ML* 50 ML IVPB ONE (09:32)
--- NOTE | 2018-01-04 09:32 | ED ---
Respiratory - HPI Summary HPI Summary: Patient is a 77-year-old who presents emergency department for ongoing cough, shortness of breath and wheezing times one week. Patient has a history of COPD and is a former smoker. Patient states she saw her family doctor last Monday and was started on Levaquin. She stopped Levaquin because she started having joint pain and stiffness. Patient wears oxygen at night. Admits to mild chest discomfort with coughing and deep inhalation. She admits to chills, diarrhea and nausea. She is currently taking Advair, Singulair, stiolto, and albuterol inhaler as needed. Symptoms are moderate in severity. Activity makes symptoms worse. Rest makes symptoms better. - History of Current Complaint Chief Complaint: EDUpperRespComplaint Stated Complaint: COUGH,WEAKNESS Time Seen by Provider: 01/04/18 09:20 Hx Obtained From: Patient, Family/Search Engine Marketing Manager Pain Intensity: 0 - Allergy/Home Medications Allergies/Adverse Reactions: Allergies Allergy/AdvReac Type Severity Reaction Status Date / Time clopidogrel Allergy Severe Dizziness Verified 01/04/18 09:37 levofloxacin [From Levaquin] Allergy Intermediate Muscle Ache Verified 01/04/18 09:34 nitrofurantoin Allergy Intermediate GI Upset Verified 01/04/18 09:37 [From Macrobid] metronidazole [From Flagyl] Allergy Swelling Verified 01/04/18 09:37 Penicillins Allergy See Comment Verified 01/04/18 09:37 Home Medications: Home Medications Fluticasone-Salmeterol 250-50* [Advair Diskus 250-50*] 1 puff INH DAILY [History Confirmed 01/04/18] Tiotropium Brom/Olodaterol(NF) [Stiolto Respimat Inh [place] (60 puff)(NF)] 1 puff INH DAILY 01/04/18 [History Confirmed 01/04/18] PMH/Surg Hx/FS Hx/Imm Hx Previously Healthy: Yes Endocrine/Hematology History: Reports: Hx Blood Transfusions, Hx Anemia - Iron deficiency Denies: Hx Diabetes, Hx Thyroid Disease Cardiovascular History: Reports: Hx Coronary Artery Disease, Hx Deep Vein Thrombosis, Hx Hypercholesterolemia, Hx Hypertension, Hx Peripheral Vascular Disease Respiratory History: Reports: Hx Chronic Obstructive Pulmonary Disease (COPD) Denies: Hx Asthma GI History: Reports: Hx Crohn's Disease, Hx Diverticulosis, Hx Gastroesophageal Reflux Disease, Hx Ulcer - gerd, hx of ulcers, Other GI Disorders - Previous issues with incontinence History: Reports: Other Problems/Disorders - Frequent UTIs and yeast infections Denies: Hx Renal Disease Musculoskeletal History: Reports: Hx Arthritis - hands, Hx Osteoporosis, Other Musculoskeletal History - Neck problems s/p surgery Sensory History: Reports: Hx Cataracts, Hx Contacts or Glasses Opthamlomology History: Reports: Hx Cataracts, Hx Contacts or Glasses Psychiatric History: Reports: Hx Anxiety - Surgical History Surgery Procedure, Year, and Place: Neck Surgery. HAND SURGERY (Releasing the pinky finger). Hysterectomy. Carpal tunnel release Hx Anesthesia Reactions: No Infectious Disease History: No Infectious Disease History: Reports: Hx Clostridium Difficile - Accompanied with diverticulitis, Hx Shingles, History Other Infectious Disease Denies: Hx Hepatitis, Hx Human Immunodeficiency Virus (HIV), Hx of Known/ Suspected MRSA, Hx Tuberculosis, Traveled Outside the in Last 30 Days - Family History Known Family History: Positive: Unknown, Cardiac Disease, Diabetes - Social History Occupation: Retired Lives: With Family Alcohol Use: Occasionally Alcohol Amount: 2 max/day, usually 1 drink per day Substance Use Type: Reports: None Hx Tobacco Use: No Smoking Status (MU): Former Smoker Type: Cigarettes Amount Used/How Often: 2.5 packs/day for those years Length of Time of Smoking/Using Tobacco: 34 years of smoking Have You Smoked in the Last Year: No Review of Systems Positive: Chills. Negative: Fever Eyes: Negative ENT: Negative Positive: Chest Pain Positive: Shortness Of Breath, Cough Positive: Diarrhea, Nausea. Negative: Abdominal Pain Genitourinary: Negative Musculoskeletal: Negative Neurological: Negative All Other Systems Reviewed And Are Negative: Yes Physical Exam Triage Information Reviewed: Yes Vital Signs On Initial Exam: Initial Vitals Temp Pulse Resp BP Pulse Ox 98.4 F 89 19 107/54 100 01/04/18 09:13 01/04/18 09:13 01/04/18 09:13 01/04/18 09:13 01/04/18 09:13 Vital Signs Reviewed: Yes Appearance: Positive: Well-Appearing - Patient sitting up in bed in no acute distress. Breathing easily on room air. Friend present. Skin: Positive: Warm, Dry Head/Face: Positive: Normal Head/Face Inspection Eyes: Positive: Normal, EOMI Neck: Positive: Supple, Nontender Respiratory/Lung Sounds: Positive: Other - Diffuse inspiratory expiratory wheeze noted throughout. No accessory muscle use. Cardiovascular: Positive: Normal, RRR Abdomen Description: Positive: Nontender, Soft Neurological: Positive: Normal, CN Intact II-III Psychiatric: Positive: Affect/Mood Appropriate Diagnostics - Vital Signs Vital Signs Temp Pulse Resp BP Pulse Ox 01/04/18 09:13 98.4 F 89 19 107/54 100 - Laboratory Result Diagrams: 01/04/18 10:03 01/04/18 10:03 Lab Statement: Any lab studies that have been ordered have been reviewed, and results considered in the medical decision making process. Disposition - Course Course Of Treatment: Patient presenting for worsening cough, shortness of breath and wheezing. Vital signs initially stable. Back COPD exacerbation. Patient was started on IV steroids, DuoNeb, Rocephin and Zithromax. Labs, chest x-ray and EKG ordered. Blood work shows leukocytosis and elevated CRP. EKG done at 0936 shows a sinus rhythm of 80bpm, normal axis, no ST elevation or depression. Chest x-ray shows probable infiltrate at the lingula. 1120: On reexamination patient's wheezing has moderately improved but is still there. We 'll give another DuoNeb. Attempted to ambulate patient on pulse ox and her oxygen saturation dropped to 81% on room air with just standing. Hospitalist consulted for admission. I spoke with Dr. Soler and she accepts pt. to her service. Pt. has remained stable in ED. - Differential Dx - Cardiopulmonary Differential Diagnoses - Cardiopulmonary: Acute Coronary, Acute Dyspnea, Bronchitis, Myocardial Infarction - Diagnoses Provider Diagnoses: Pneumonia, Hypoxia Discharge - Sign-Out/Discharge Documenting (check all that apply): Patient Departure - Discharge Plan Condition: Stable Disposition: ADMITTED TO [facility] - Billing Disposition and Condition Condition: STABLE Disposition: Admitted to [facility]
[2018-01-04 10:21] LABS: ABS Basophils 0.1 10^3/ul (0-0.2); ABS Eosinophils 0 10^3/ul (0-0.6); ABS Lymphocytes 1.3 10^3/ul (1.0-4.8); ABS Monocytes 0.9 10^3/ul (0-0.8); ABS Neutrophils 11.6 10^3/ul (1.5-7.7); ABS Nucleated RBC 0 10^3/ul; Eosinophil % 0.1 % (0-6); Hematocrit 32 % (35-47); Hemoglobin 10.4 g/dl (12.0-16.0); Lymphocyte % 9.3 % (25-47); Mean Corpuscular HGB Conc 33 g/dl (31-36); Mean Corpuscular Hemoglobin 27 pg (27-31); Mean Corpuscular Volume 84 fL (80-97); Mean Platelet Volume 7.5 um3 (7.4-10.4); Nucleated Red Blood Cells % 0; Platelet Count 280 10^3/ul (150-450); Red Blood Count 3.81 10^6/ul (4.00-5.40); Red Cell Distribution Width 16 % (10.5-15); White Blood Count 13.9 10^3/ul (3.5-10.8)
[2018-01-04 10:42] LABS: EGFR Non-African American 81.6 (>60)
--- NOTE | 2018-01-04 10:57 | RAD ---
INDICATION: Cough, weakness. History of COPD. COMPARISON: June 05, 2016 TECHNIQUE: Dual energy PA and routine lateral views of the chest were obtained. REPORT: Elevated lung volumes and both diffuse mild prominence of the interstitial markings and patchy rarefaction of the mid to upper lung zone interstitial markings. Mild alveolar consolidation at the lingula inferiorly without volume loss is concerning for potential pneumonia infiltrate. Negative for pleural effusion or pneumothorax. The heart, pulmonary vasculature, and mediastinal contours are unremarkable. The T12 compression fracture is chronic based on comparison with the CT from June 05, 2016. No additional fractures evident. IMPRESSION: #. Stigmata of chronic obstructive pulmonary disease and emphysema with probable small pneumonia infiltrate at the lingula.
[2018-01-04] MEDS ORDERED: NS 0.9% 1000 ML* 1,000 ML IV ONE (11:54)
[2018-01-04] MEDS ORDERED: Al Hydrox/Mg Hydrox/Simet LIQ* 30 ML UDC PO PRN (13:29)
[2018-01-04] MEDS ORDERED: Acetaminophen TAB* 325 MG PO PRN ×2 (13:29→14:20)
[2018-01-04] MEDS ORDERED: Albuterol 2.5 MG/3 ML NEB.SOL* (0.083%) INH PRN (13:29)
[2018-01-04] MEDS ORDERED: Enoxaparin(*) 40 MG/0.4 ML SYR SUBCUT SCH (14:00)
[2018-01-04] MEDS ORDERED: Lactulose* 15 ML UDC PO PRN (14:20)
[2018-01-04] MEDS ORDERED: Ondansetron ODT TAB* 4 MG PO PRN (14:20)
[2018-01-04] MEDS ORDERED: ALPRAZolam TAB* 0.25 MG PO PRN (14:20)
[2018-01-04] MEDS ORDERED: Albuterol/Ipratropium NEB.SOL* Albuterol 2.5 MG/Ipratropium 0.5 MG 3 ML INH PRN (14:25)
[2018-01-04] MEDS: methylPREDNISolone SOD 40 MG* 1 ML VIAL IV SCH (15:51)
--- NOTE | 2018-01-04 16:59 | HP ---
HISTORY AND PHYSICAL: DATE OF ADMISSION: 01/04/18. TIME OF ADMISSION: 2:30 p.m. PRIMARY CARE PHYSICIAN: Dr. Johnson. CHIEF COMPLAINT: Cough. HISTORY OF PRESENT ILLNESS: This is a 77-year-old female with history of COPD, who follows with [facility] and presented to the emergency department today after approximately a week of a cough with shortness of breath. She says she has felt "overall lousy" and last week she went to Urgent Care and got a prescription for levofloxacin. She started taking it on Monday, and took for 2 days, but felt worse including generalized achiness and weakness. Then yesterday, she went out on a bus trip with her friend and her friend noticed that she was especially sleepy and did seem herself, so she made her come to the emergency department today. She denies any subjective fevers. She does think she a sore throat and a headache. She does not think she has had any sick contacts. She does get some chest heaviness and tightness especially at night. She wears 2 L oxygen only at night. She has had a cough productive of hector brown sputum, she does not normally has sputum. In the emergency department, she was given ceftriaxone and azithromycin. When she got up to the side of the bed her pulse ox dropped to 81% and a chest x-ray showed probable pneumonia, so we were asked to consider admission. PAST MEDICAL HISTORY: 1. Cervical radiculopathy, status post decompression. 2. COPD on 2 L nocturnal oxygen. 3. Upper extremity neuropathy. 4. Peripheral vascular disease with a right lower extremity stent. 5. Palpitations, she says she does follow with a front desk specialist for palpitation, but she has never received a diagnosis and she has had a Holter monitor. 6. Crohn's disease. ALLERGIES: PLAVIX, LEVOFLOXACIN, NITROFURANTOIN, METRONIDAZOLE, and PENICILLIN. SOCIAL HISTORY: She reports history of alcoholism, but now only drinks 1 drink per week. She quit smoking in 1989. She lives with her friend, Anu. Anu is her emergency contact, and her phone number is [phone]. REVIEW OF SYSTEMS: As per the HPI, the remainder of the 14-point review of systems is negative. PHYSICAL EXAMINATION GENERAL: Thin, elderly, frail, female in no acute distress. She appears uncomfortable. VITAL SIGNS: Temperature 98.4, heart rate 107, respiratory rate 18, pulse ox 100% on room air. Of note, she dropped to 81% at the side of the bed with her nurse; blood pressure is 94/56. HEENT: Her pupils are round and reactive to light. Her oral mucosa is moist. I see no pharyngeal exudates or erythema. NECK: She has no cervical adenopathy. LUNGS: Her lungs have diffuse coarse expiratory wheezes with some rhonchi on the right side. CHEST: She is in a regular rhythm and is slightly tachycardic. She has no murmurs. ABDOMEN: Soft, nontender, and nondistended with no guarding or rebound. EXTREMITIES: No edema, no rashes, no ulcers. DIAGNOSTIC STUDIES/LAB DATA: White blood cells 13.9, hemoglobin 10.4, platelets 280. Sodium 138, potassium 3.5, chloride 103, bicarb 26, creatinine 0.70, glucose 107, CRP 161. EKG: Normal sinus rhythm, normal axes, normal intervals, no ST or T-wave changes. Chest x-ray: The chest x-ray read is stigmata of chronic obstructive pulmonary disease with emphysema and probable small pneumonia infiltrate at the lingula. ASSESSMENT AND PLAN: This is a 77-year-old female with a history of chronic obstructive pulmonary disease, who presents to the emergency department with a cough and is found to have pneumonia. 1. Community acquired pneumonia. She has failed outpatient therapy and has an elevated CURB-65 score, so we will admit her on to our service and continue ceftriaxone and azithromycin. Check sputum cultures. Check strep and Legionella urine antigens. Check blood cultures. 2. Acute hypoxic respiratory failure, likely secondary to pneumonia and a chronic obstructive pulmonary disease exacerbation. Continue to titrate O2 as needed. 3. Chronic obstructive pulmonary disease exacerbation. Start DuoNeb and Solu- Medrol. 4. Neuropathy. Continue gabapentin. 5. Peripheral vascular disease. Continue full dose aspirin. She is allergic to PLAVIX. 6. Crohn's disease. She reports taking no medications for Crohn's disease. She takes no injections. She has not had a flare recently. 7. DVT prophylaxis. Lovenox subcutaneously. 8. Diet. Unrestricted diet. 9. Full code. [id number]/[facility] #: [id number] [facility]
[2018-01-04] MEDS: Gabapentin CAP(*) 300 MG PO SCH (19:55)
[2018-01-05] MEDS: methylPREDNISolone SOD 40 MG* 1 ML VIAL IV SCH (03:43)
[2018-01-05 05:48] LABS: ABS Basophils 0 10^3/ul (0-0.2); ABS Eosinophils 0 10^3/ul (0-0.6); ABS Lymphocytes 0.5 10^3/ul (1.0-4.8); ABS Monocytes 0.1 10^3/ul (0-0.8); ABS Neutrophils 6.1 10^3/ul (1.5-7.7); ABS Nucleated RBC 0 10^3/ul; Eosinophil % 0 % (0-6); Hematocrit 31 % (35-47); Hemoglobin 10.4 g/dl (12.0-16.0); Lymphocyte % 7.7 % (25-47); Mean Corpuscular HGB Conc 34 g/dl (31-36); Mean Corpuscular Hemoglobin 28 pg (27-31); Mean Corpuscular Volume 83 fL (80-97); Mean Platelet Volume 7.5 um3 (7.4-10.4); Nucleated Red Blood Cells % 0; Platelet Count 293 10^3/ul (150-450); Red Blood Count 3.71 10^6/ul (4.00-5.40); Red Cell Distribution Width 16 % (10.5-15); White Blood Count 6.8 10^3/ul (3.5-10.8)
[2018-01-05 05:55] LABS: INR 1.06 (0.77-1.02)
[2018-01-05 06:08] LABS: EGFR Non-African American 112.5 (>60)
[2018-01-05 07:22] VITALS: BP 137/54
[2018-01-05] MEDS ORDERED: Omeprazole CAP* 20 MG PO SCH (07:30)
[2018-01-05] MEDS: Gabapentin CAP(*) 300 MG PO SCH (08:39)
[2018-01-05] MEDS ORDERED: Azithromycin TAB* 250 MG PO SCH (09:00)
[2018-01-05] MEDS ORDERED: Pantoprazole TAB (NF) 40 MG TAB PO SCH (09:00)
[2018-01-05] MEDS ORDERED: Montelukast Sodium TAB* 10 MG PO SCH (09:00)
[2018-01-05] MEDS ORDERED: Aspirin EC TAB* 325 MG PO SCH (09:00)
[2018-01-05] MEDS ORDERED: cefTRIAXone(*) 1 GM in NS 0.9% 50 ML* 50 ML IVPB SCH (10:00)
[2018-01-05] MEDS ORDERED: Azithromycin IV(*) 250 MG in NS 0.9% 250 ML* 250 ML IVPB SCH (11:00)
--- NOTE | 2018-01-05 18:55 | DS ---
CC: Dr. Johnson DISCHARGE SUMMARY: DATE OF ADMISSION: DATE OF DISCHARGE: 01/05/18 HISTORY OF PRESENT ILLNESS: This 77-year-old woman presented with cough. She had some hypoxia. I jennifer mooney she is followed by the [place] security systems technician for COPD. She has oxygen machine she uses at night, but she also has portable tank, which she sometimes takes with her to use during the day. She has a nebulizer at home, but she never uses that. She was treated as an outpatient with levofloxacin. She got terrible pains in both wrist and ankle. She also got very sleepy and somewhat confused. She was admitted and started on cefuroxime and azit hromycin. She did not get steroids here. She was markedly improved the next day. Level of mental status was completely normal. She had no mo re aches or pains. Cough has essentially gone. She felt she was back to her baseline. On physical examination, she had diminished breath sounds bilaterally without no wheezing, rales, or rhonchi. She looked quite well. I note that her white blood count fell from 13.9 to 6.8 during this hospital stay. She was afebrile throughout her hospital stay here. Chest x-ray showed questions of lingular pneumonia. FINAL DIAGNOSES: 1. Pneumonia. 2. Chronic obstructive pulmonary disease. 3. Peripheral vascular disease. 4. Crohn's disease, in remission. 5. Levofloxacin adverse reaction. DISCHARGE MEDICATIONS: 1. Azithromycin 250 mg daily for 3 more days. 2. Cefuroxime 500 mg b.i.d. for 10 doses. 3. Pantoprazole 40 mg daily. 4. Aspirin 325 mg daily. 5. Albuterol inhaler 2 puffs every 4 hours p.r.n. 6. Acetaminophen 500 mg every 6 hours p.r.n. 7. Alprazolam 0.25 mg b.i.d. p.r.n. 8. Gabapentin 600 mg t.i.d. 9. Montelukast 10 mg daily. 10. Lactulose 10 g daily p.r.n. 11. Omeprazole 20 mg daily. 12. Ondansetron ODT 4 mg every 8 hours p.r.n. 13. Fluticasone Salmeterol 25/50 one puff daily. 14. Tiotropium 1 inhalation daily. CONDITION ON DISCHARGE: Improved. DISPOSITION ON DISCHARGE: Home. [id number]/[facility] #: [id number]
[2018-01-05] MEDS ORDERED: ceFUROXime TAB(*) 250 MG PO SCH (21:00)
== END 2018-01-05 11:05 | disposition home or self-care (01) ==
LOC: ED 09:00 → INTOOBSV 14:07 → MED 14:07
PROVIDERS: ADMIT Internal Medicine; ATTEND Internal Medicine
DX: J18.9 Pneumonia, unspecified organism (principal); J44.1 Chronic obstructive pulmonary disease with (acute) exacerbation; I73.9 Peripheral vascular disease, unspecified; K50.90 Crohn's disease, unspecified, without complications; T36.8X5A Adverse effect of other systemic antibiotics, initial encounter; X58.XXXA Exposure to other specified factors, initial encounter; G62.9 Polyneuropathy, unspecified; Z79.899 Other long term (current) drug therapy; Z88.8 Allergy status to other drugs, medicaments and biological substances; Z88.1 Allergy status to other antibiotic agents; Z88.0 Allergy status to penicillin; Z87.891 Personal history of nicotine dependence; R06.02 Shortness of breath
CPT/HCPCS: 36415; 71046; 80048; 80053; 84484; 85025; 85610; 86140; 87040; 87070; 87205; 87899; 93005; 96365; 96367; 96372; 96375; 96376; 99284; A9270-GY; G0378; J0456; J0696; J1650; J2920; J2930

== ENCOUNTER 2018-03-11 14:26 | Inpatient (IN) | payer MEDICARE ==
[2018-03-11] MEDS ORDERED: NS 0.9% 1000 ML* 1,000 ML IV ONE (14:43)
[2018-03-11] MEDS ORDERED: Albuterol/Ipratropium NEB.SOL* Albuterol 2.5 MG/Ipratropium 0.5 MG 3 ML INH ONE (14:49)
[2018-03-11] MEDS ORDERED: Levofloxacin 750 MG IVPREMIX(* 750 MG/150 ML BAG IVPB ONE (14:50)
--- NOTE | 2018-03-11 14:54 | ED ---
Shortness of Breath - HPI Summary HPI Summary: Pt is a 77 y/o female who presents to the ED c/o SOB. As per family members, they were out of town in [place] for the past few days. 3 days ago, she began to have a hoarse voice. The pt then began coughing up green-colored sputum. Today she was feeling SOB and took two flights to get back to [place], which exacerbated her SOB. As per family, she couldnt use her oxygen on the plane or else they would kick her off the flight. The SOB is improved when lying flat. Pt also c/o fever, nausea, headache, and dizziness. She uses 2 L O2 NC at home at night, and uses Spiriva and a nebulizer. Pt had PNA in December 2017. She has had this seasons flu shot. Pt has COPD, but denies having CHF. Pt is a former smoker. - History of Current Complaint Chief Complaint: EDShortnessOfBreath Time Seen by Provider: 03/11/18 14:34 Hx Obtained From: Patient, Family/Christian Science Reader - Family Onset/Duration: Gradual Onset, Lasting Days - 3, Worse Since Timing: Constant Dyspnea At: Rest Alleviating Factors: Other - Lying flat Associated Signs & Symptoms: Cough (Productive), Fever, Dizzy - Allergy/Home Medications Allergies/Adverse Reactions: Allergies Allergy/AdvReac Type Severity Reaction Status Date / Time clopidogrel Allergy Severe Dizziness Verified 03/11/18 15:21 levofloxacin [From Levaquin] Allergy Intermediate Muscle Ache Verified 03/11/18 15:21 nitrofurantoin Allergy Intermediate GI Upset Verified 03/11/18 15:21 [From Macrobid] metronidazole [From Flagyl] Allergy Swelling Verified 03/11/18 15:21 Penicillins Allergy See Comment Verified 03/11/18 15:21 PMH/Surg Hx/FS Hx/Imm Hx Endocrine/Hematology History: Reports: Hx Blood Transfusions, Hx Anemia - Iron deficiency Denies: Hx Diabetes, Hx Thyroid Disease Cardiovascular History: Reports: Hx Coronary Artery Disease, Hx Deep Vein Thrombosis, Hx Hypercholesterolemia, Hx Hypertension, Hx Peripheral Vascular Disease Denies: Hx Congestive Heart Failure Respiratory History: Reports: Hx Chronic Obstructive Pulmonary Disease (COPD) Denies: Hx Asthma GI History: Reports: Hx Crohn's Disease, Hx Diverticulosis, Hx Gastroesophageal Reflux Disease, Hx Ulcer - gerd, hx of ulcers, Other GI Disorders - Previous issues with incontinence History: Reports: Other Problems/Disorders - Frequent UTIs and yeast infections Denies: Hx Renal Disease Musculoskeletal History: Reports: Hx Arthritis - hands, Hx Osteoporosis, Other Musculoskeletal History - Neck problems s/p surgery Sensory History: Reports: Hx Cataracts, Hx Contacts or Glasses Denies: Hx Hearing Aid Opthamlomology History: Reports: Hx Cataracts, Hx Contacts or Glasses Psychiatric History: Reports: Hx Anxiety - Surgical History Surgery Procedure, Year, and Place: Neck Surgery. HAND SURGERY (Releasing the pinky finger). Hysterectomy. Carpal tunnel release Hx Anesthesia Reactions: No Infectious Disease History: No Infectious Disease History: Reports: Hx Clostridium Difficile - Accompanied with diverticulitis, Hx Shingles, History Other Infectious Disease Denies: Hx Hepatitis, Hx Human Immunodeficiency Virus (HIV), Hx of Known/ Suspected MRSA, Hx Tuberculosis, Traveled Outside the in Last 30 Days - Family History Known Family History: Positive: Cardiac Disease, Diabetes - Social History Alcohol Use: Occasionally Alcohol Amount: 2 max/day, usually 1 drink per day Hx Substance Use: No Substance Use Type: Reports: None Hx Tobacco Use: Yes Smoking Status (MU): Former Smoker Type: Cigarettes Amount Used/How Often: 2.5 packs/day for those years Length of Time of Smoking/Using Tobacco: 34 years of smoking Have You Smoked in the Last Year: No Review of Systems Positive: Fever Positive: Shortness Of Breath, Cough - sputum Positive: Nausea Neurological: Other - Dizziness Positive: Headache All Other Systems Reviewed And Are Negative: Yes Physical Exam - Summary Physical Exam Summary: Appearance: Well appearing, no pain distress Skin: warm, dry, reflects adequate perfusion Head/face: normal Eyes: EOMI, MIN ENT: mucous membranes tacky, no sinus tenderness Neck: supple, non-tender Respiratory: crackles in left base, breath sounds globally diminished Cardiovascular: tackycardic but regular rhythm, pulses symmetrical Abdomen: non-tender, soft Bowel Sounds: present Musculoskeletal: normal, strength/ROM intact Neuro: normal, sensory motor intact, A&Ox3 Triage Information Reviewed: Yes Vital Signs On Initial Exam: Initial Vitals Temp Pulse Resp BP Pulse Ox 100.1 F 127 29 162/82 97 03/11/18 14:37 03/11/18 14:37 03/11/18 14:37 03/11/18 14:37 03/11/18 14:37 Vital Signs Reviewed: Yes Diagnostics - Vital Signs Vital Signs Temp Pulse Resp BP Pulse Ox 03/11/18 14:42 101.4 F 03/11/18 14:37 100.1 F 127 29 162/82 97 - Laboratory Result Diagrams: 03/11/18 15:10 03/11/18 15:09 Lab Statement: Any lab studies that have been ordered have been reviewed, and results considered in the medical decision making process. - Radiology CXR Radiology Interpretation Completed By: Radiologist Summary of Radiographic Findings: HYPERINFLATION, CONSISTENT WITH COPD. NO ACTIVE CARDIOPULMONARY DISEASE. ED physician reviewed radiology report. - EKG 14:44 Cardiac Rate: Tachycardia - 124 bpm EKG Rhythm: Sinus Rhythm ST Segment: Non-Specific Summary of EKG Findings: Nl axis, nl intervals Course/Dx - Course Course Of Treatment: Nurse's note reviewed. Patient was significant hypoxia and respiratory difficulty after getting off an airplane. Her d-dimer is negative. She does have a fever and sepsis vital signs. X-ray was read as negative by radiology however they may be a blossoming infiltrate and this dry- appearing patient the right lower lobe. She was hydrated here, given IV antibiotics. Rocephin, Zithromax was selected given community-acquired source and patient's Levaquin allergy. PCO2 was only in the 40s. She was doing much better on oxygen and with hydration. Admit to hospitalist service for further. Type and cross for blood. No report of melena. - Diagnoses Differential Diagnosis/HQI/PQRI: Positive: Asthma, CHF, COPD Exacerbation, Pneumonia, Pulmonary Embolism, Pulmonary Edema Provider Diagnoses: COPD exacerbation, Sepsis, Hypoxia, Anemia - Physician Notifications Discussed Care of Patient With: Marge Laboy Time Discussed With Above Provider: 16:00 Instructed by Provider To: Admit As Inpatient Discharge - Sign-Out/Discharge Documenting (check all that apply): Patient Departure - Admit - Discharge Plan Condition: Fair Disposition: ADMITTED TO [facility] Referrals: Noel Johnson MD [Primary Care Provider] - - Billing Disposition and Condition Condition: FAIR Disposition: Admitted to [facility] - Attestation Statements Document Initiated by Scribe: Yes Documenting Scribe: Christiana Grodon Provider For Whom Scribe is Documenting (Include Credential): Tommie Patterson MD Scribe Attestation: I, Christiana Gordon, scribed for Tommie Patterson MD on 03/11/18 at 1611. Scribe Documentation Reviewed: Yes Provider Attestation: The documentation as recorded by the scribeChristiana accurately reflects the service I personally performed and the decisions made by me, Tommie Patterson MD Status of Scribe Document: Viewed
[2018-03-11] MEDS ORDERED: Azithromycin IV(*) 250 MG in NS 0.9% 250 ML* 250 ML IVPB ONE (15:18)
[2018-03-11] MEDS ORDERED: cefTRIAXone(*) 1 GM in NS 0.9% 50 ML* 50 ML IVPB ONE (15:18)
[2018-03-11 15:25] LABS: ABS Basophils 0.2 10^3/ul (0-0.2); ABS Eosinophils 0.2 10^3/ul (0-0.6); ABS Lymphocytes 1.1 10^3/ul (1.0-4.8); ABS Neutrophils 19.3 10^3/ul (1.5-7.7); ABS Nucleated RBC 0 10^3/ul; Eosinophil % 0.7 %; Hematocrit 25 % (35-47); Hemoglobin 7.9 g/dl (12.0-16.0); Lymphocyte % 4.6 %; Mean Corpuscular HGB Conc 33 g/dl (31-36); Mean Corpuscular Hemoglobin 27 pg (27-31); Mean Corpuscular Volume 83 fL (80-97); Mean Platelet Volume 7.8 fL (7.4-10.4); Nucleated Red Blood Cells % 0; Platelet Count 309 10^3/ul (150-450); Red Blood Count 2.95 10^6/ul (4.00-5.40); Red Cell Distribution Width 16 % (10.5-15); White Blood Count 22.7 10^3/ul (3.5-10.8)
[2018-03-11 15:26] LABS: INR 0.98 (0.77-1.02)
[2018-03-11 15:37] LABS: EGFR Non-African American 85.8 (>60)
[2018-03-11] MEDS ORDERED: Al Hydrox/Mg Hydrox/Simet LIQ* 30 ML UDC PO PRN (16:51)
[2018-03-11] MEDS ORDERED: Temazepam CAP* 15 MG PO PRN (16:51)
[2018-03-11] MEDS ORDERED: Albuterol/Ipratropium NEB.SOL* Albuterol 2.5 MG/Ipratropium 0.5 MG 3 ML INH PRN (16:54)
[2018-03-11] MEDS ORDERED: Acetaminophen TAB* 325 MG PO PRN ×2 (16:57→17:18)
[2018-03-11] MEDS ORDERED: Albuterol HFA INHALER* 8 gm MDI INH PRN (16:57)
[2018-03-11] MEDS ORDERED: NS 0.9% 1000 ML* 1,000 ML IV SCH (17:00)
[2018-03-11] MEDS ORDERED: Acetaminophen TAB* 325 MG ONE (17:19)
[2018-03-11] MEDS ORDERED: Acetaminophen TAB* 325 MG PO ONE (17:21)
[2018-03-11 17:43] LABS: Corrected Retic Count 0.7 % (0.5-1.5); Hematocrit for Retic CNT 30 % (35-47); RBC Retic Count 3.59 10^6/ul (4.6-6.2)
[2018-03-11] MEDS: methylPREDNISolone SOD 40 MG* 1 ML VIAL IV SCH (18:46)
[2018-03-11] MEDS ORDERED: Albuterol/Ipratropium NEB.SOL* Albuterol 2.5 MG/Ipratropium 0.5 MG 3 ML INH SCH (19:00)
[2018-03-11] MEDS: Gabapentin CAP(*) 300 MG PO SCH (20:38)
[2018-03-11] MEDS: Docusate CAP* 100 MG PO SCH (20:40)
[2018-03-11] MEDS: Heparin VIAL(*) 5000 UNITS/ML VIAL (FIVE THOUSAND) SUBCUT SCH (20:40)
--- NOTE | 2018-03-11 20:50 | HP ---
CC: Dr. Johnson * HISTORY AND PHYSICAL: DATE OF ADMISSION: 03/11/18 PRIMARY CARE PROVIDER: Dr. Johnson. CHIEF COMPLAINT: Shortness of breath and cough. HISTORY OF PRESENT ILLNESS: Nohemy Martínez is a 77-year-old female with a history of COPD, on oxygen at night, who arrived from [place] from [place] where she spent the last 5 days. She got off the plane and she was so sick, she came into the ER right away. The patient's niece, who was traveling with her, stated that when they changed planes in [facility], she was " almost not allowed to fly" due to her severe dyspnea. The patient stated that she started feeling sick 4 days ago, the day after arrival to [place]. She complained of shortness of breath, cough with green sputum production and sore throat. She has not eaten anything significant for the past 3 days. When she presented to the emergency department, she was hypoxemic and tachypneic. She is going to be admitted with a diagnosis of COPD exacerbation and likely pneumonia, although her chest x-ray does not show any significant infiltrate. PAST MEDICAL HISTORY: 1. History of cervical radiculopathy, status post decompression. 2. History of COPD, on oxygen at night only at 2 L. 3. Upper extremity neuropathy. 4. History of peripheral vascular disease and a right lower extremity stent in the past. 5. History of palpitations, but with negative workup. 6. History of Crohn's. MEDICATIONS: 1. Aspirin 325 mg daily. 2. Albuterol inhaler on a p.r.n. basis. 3. Acetaminophen on a p.r.n. basis. 4. Gabapentin 600 mg 3 times a day. 5. Protonix 40 mg daily. 6. Zofran on a p.r.n. basis. 7. Singulair 10 mg daily. 8. Lactulose on a p.r.n. basis. ALLERGIES: PLAVIX, LEVOFLOXACIN, NITROFURANTOIN, METRONIDAZOLE, and PENICILLIN. SOCIAL HISTORY: The patient has a history of remote alcoholism, but currently she drinks rarely. She quit smoking in 1989, but she has a history of 30-pack- year smoking. Her surrogate is her friend, Ernestina Carballo, who also lives in the same house where the patient lives. REVIEW OF SYSTEMS: The patient stated that she has lost over 25 pounds in the past 1 year. She stated that she just "doesn't feel like eating." She stated that in the morning she does not feel like eating and in the evening is "too late to eat." She had an episode of nausea on the way to the hospital, but denies any vomiting or abdominal pain. She is usually constipated and that is her norm. In regards to her complaints with breathing, she complains of shortness of breath, cough, and purulent sputum production, but denies chest pain. All the remaining 12 systems were reviewed with the patient and were otherwise negative. PHYSICAL EXAMINATION GENERAL: The patient is a pleasant 77-year-old female with a BMI of 19. The patient appears of thin body habitus and chronically ill. The patient is in no acute distress. Alert, awake, and oriented x3. VITAL SIGNS: Blood pressure of 137/66, heart rate of 114 and regular, respiratory rate 25, oxygen saturation 100% on 2 L of oxygen via nasal cannula, and temperature of 100.7. HEENT: Head: Atraumatic, normocephalic. Eyes: Pupils equal and reactive to light and accommodation. Oropharynx clear. Mucosa dry. NECK: Supple. No JVD. No bruits bilaterally. RESPIRATORY: Distant breath sounds bilaterally with scant mid lung wheezes and crackles at bilateral bases. CARDIOVASCULAR: Regular rate and rhythm. No murmur. Tachycardia. ABDOMEN: Soft, nontender. Bowel sounds present in all 4 quadrants. EXTREMITIES: There is no edema. Pulses +2 bilaterally. No clubbing or cyanosis. NEURO EVALUATION: Speech is clear. Cranial nerves II through XII grossly intact. Motor strength is 5/5 bilaterally. EVALUATION OF THE SKIN: No ecchymotic areas or rashes noted. PSYCHIATRIC EVALUATION: Pleasant and cooperative with evaluation with no evidence of anxiety or depression. DIAGNOSTIC STUDIES/LAB DATA: Laboratory data show a white blood cell count of 22.7, hemoglobin of 7.9, hematocrit of 25, MCV of 83, and platelets of 309. D-dimer below 200. ABG showed pH of 7.4, pCO2 of 46, pO2 of 109, bicarb level of 28. Sodium of 137, potassium 4.2, chloride 100, carbon dioxide 28, BUN 10, creatinine 0.97. Liver function tests were unremarkable. C-reactive protein of 110, troponin of 0. Influenza rapid testing was negative. Portable chest x-ray reviewed by myself did not show an infiltrate, but positive for hyperinflation. The patient's EKG showed sinus tachycardia with a heart rate of 124 beats per minute with ST depression in inferior leads. The ST depression appears more pronounced now than comparing with EKG from December of this year. ASSESSMENT AND PLAN: 1. The patient is septic, and although she does not have a pneumonia infiltrate noted on an x-ray, clinically she has pneumonia. She is going to be placed on treatment for pneumonia with ceftriaxone and azithromycin. Sputum culture as well as Legionella and strep pneumo antigens are going to be obtained. She is going to be placed on intravenous hydration. 2. In regards to the patient's chronic obstructive pulmonary disease, she does appear to be in exacerbation. She has very decreased breath sounds. She is going to be placed on Solu-Medrol and nebulizer treatments scheduled. 3. The patient's normocytic anemia as well as recent weight loss is worrisome for suspected malignancy. For the time being, iron studies are going to be obtained as well as stool occult for blood, although the patient denies hematochezia, hematemesis, melena or bright red blood per rectum. 4. For DVT prophylaxis, the patient is going to be placed on heparin subcutaneously. 5. The patient's code status is full. Her surrogate is her friend, Ernestina. TIME SPENT: Approximately 65 minutes were spent on evaluation and discussion with the patient, more than half that time was spent in direct [id number] conversation during history and physical. [id number]/[facility] #: [id number] MTDD
[2018-03-11] MEDS: Benzonatate CAP* 100 MG PO PRN (23:29)
[2018-03-12] MEDS: methylPREDNISolone SOD 40 MG* 1 ML VIAL IV SCH ×2 (02:01→09:49)
[2018-03-12] MEDS: Heparin VIAL(*) 5000 UNITS/ML VIAL (FIVE THOUSAND) SUBCUT SCH ×3 (05:20→20:17)
[2018-03-12 06:49] LABS: ABS Basophils 0 10^3/ul (0-0.2); ABS Eosinophils 0 10^3/ul (0-0.6); ABS Lymphocytes 0.6 10^3/ul (1.0-4.8); ABS Monocytes 0.1 10^3/ul (0-0.8); ABS Neutrophils 12.5 10^3/ul (1.5-7.7); ABS Nucleated RBC 0 10^3/ul; Eosinophil % 0 %; Hematocrit 30 % (35-47); Hemoglobin 9.6 g/dl (12.0-16.0); Lymphocyte % 4.3 %; Mean Corpuscular HGB Conc 32 g/dl (31-36); Mean Corpuscular Hemoglobin 27 pg (27-31); Mean Corpuscular Volume 84 fL (80-97); Mean Platelet Volume 7.7 fL (7.4-10.4); Nucleated Red Blood Cells % 0; Platelet Count 228 10^3/ul (150-450); Red Blood Count 3.55 10^6/ul (4.00-5.40); Red Cell Distribution Width 16 % (10.5-15); White Blood Count 13.2 10^3/ul (3.5-10.8)
[2018-03-12 07:12] LABS: EGFR Non-African American 105.5 (>60)
[2018-03-12] MEDS: Omeprazole CAP* 20 MG PO SCH (09:49)
[2018-03-12] MEDS: Benzonatate CAP* 100 MG PO PRN (09:49)
[2018-03-12] MEDS: Aspirin EC TAB* 325 MG PO SCH (09:49)
[2018-03-12] MEDS: Gabapentin CAP(*) 300 MG PO SCH ×3 (09:49→19:49)
[2018-03-12] MEDS: Montelukast Sodium TAB* 10 MG PO SCH (09:49)
[2018-03-12] MEDS: Docusate CAP* 100 MG PO SCH ×3 (09:49→19:51)
--- NOTE | 2018-03-12 13:23 | PN ---
Subjective Date of Service: 03/12/18 Interval History: Pt feels much better. C/o SOB for "a long time". Has seen Dr. Griffin in the past Objective Active Medications: Acetaminophen (Tylenol Tab*) 487.5 mg PO Q6H PRN PRN Reason: PAIN Al Hydrox/Mg Hydrox/Simethicone (Maalox Plus*) 30 ml PO Q6H PRN PRN Reason: INDIGESTION Albuterol (Ventolin Hfa Inhaler*) 2 puff INH Q4H PRN PRN Reason: WHEEZING Albuterol/Ipratropium (Duoneb (Albuterol 2.5 Mg/Ipratropium 0.5 Mg)) 1 neb INH Q2H PRN PRN Reason: SOB/WHEEZING Aspirin (Ecotrin Ec Tab*) 325 mg PO DAILY [facility] Last Admin: 03/12/18 09:49 Dose: 325 mg Benzonatate (Tessalon Cap*) 100 mg PO TID PRN PRN Reason: COUGH Last Admin: 03/12/18 09:49 Dose: 100 mg Docusate Sodium (Colace Cap*) 100 mg PO BID [facility] Last Admin: 03/12/18 10:04 Dose: Not Given Gabapentin (Neurontin Cap(*)) 600 mg PO TID [facility] Last Admin: 03/12/18 09:49 Dose: 600 mg Heparin Sodium (Porcine) (Heparin Vial(*)) 5,000 units SUBCUT Q8HR [facility] Last Admin: 03/12/18 05:20 Dose: 5,000 units Ceftriaxone Sodium 1 gm/ (Sodium Chloride) 50 mls @ 200 mls/hr IVPB Q24H [facility] Azithromycin 500 mg/ Sodium (Chloride) 250 mls @ 250 mls/hr IVPB Q24H [facility] Methylprednisolone Sodium Succinate (Solu-Medrol 40 Mg) 40 mg IV Q8H [facility] Last Admin: 03/12/18 09:49 Dose: 40 mg Montelukast Sodium (Singulair Tab*) 10 mg PO DAILY [facility] Last Admin: 03/12/18 09:49 Dose: 10 mg Omeprazole (Prilosec Cap*) 20 mg PO DAILY [facility] Last Admin: 03/12/18 09:49 Dose: 20 mg Temazepam (Restoril Cap*) 15 mg PO BEDTIME PRN PRN Reason: INSOMNIA Vital Signs - 8 hr 03/12/18 03/12/18 03/12/18 07:15 09:49 10:28 Temperature 97.7 F Pulse Rate 94 Respiratory 18 18 18 Rate Blood Pressure 107/92 (mmHg) O2 Sat by Pulse 96 Oximetry 03/12/18 03/12/18 11:32 12:06 Temperature 97.7 F Pulse Rate 89 Respiratory 16 18 Rate Blood Pressure 113/44 (mmHg) O2 Sat by Pulse 100 Oximetry Oxygen Devices in Use Now: Nasal Cannula Appearance: 77 yo F , thin body habitus in NAD, aAOx3 Eyes: No Scleral Icterus, PERRLA Ears/Nose/Mouth/Throat: NL Teeth, Lips, Gums, Mucous Membranes Moist Neck: NL Appearance and Movements; NL JVP, Trachea Midline Respiratory: Symmetrical Chest Expansion and Respiratory Effort, - - decreased breath sounds b/l mild b/l lower lung wheezes Cardiovascular: NL Sounds; No Murmurs; No JVD Abdominal: NL Sounds; No Tenderness; No Distention Lymphatic: No Cervical Adenopathy Extremities: No Edema, No Clubbing, Cyanosis Skin: No Rash or Ulcers, No Nodules or Sclerosis Neurological: Alert and Oriented x 3, NL Muscle Strength and Tone - Nutrition: Malnutrition Diagnosis/Plan Malnutrition Assessment by Registered Dietitian: Malnutrition Assessment Clinical Characteristics Chronic,Moderate Malnutrition Assessment: SOB, reduced appetite, ?MD considering Criteria malignancy, recurrent GI issues resulting in chronic reduction in energy intake and acute severe reduction (currently 10%, negligible intake X at least 3 days, chronic decrease in intake X past year), 18% weight loss in past year, subcutaneous fat loss Malnutrition Assessment: Ensure enlive BID (700 kcals, 40 gms protein) Interventions Pt self selection of menu to maximize tolerance / acceptance in consideration of GI hx Malnutrition Assessment: Goals 1. Tolerates oral intake w/o GI distress. 2. Adequate oral intake to support weight regain, restore/maintain lean body mass. 3. Maintain bowel regularity w/o constipation or diarrhea. Result Diagrams: 03/12/18 06:34 03/12/18 06:34 Microbiology and Other Data: Microbiology 03/12/18 06:18 Streptococcus pneumoniae Ag Screen - Final Urine Negative S. pneumo Antigen 03/12/18 06:18 Legionella Urinary Antigen - Final Urine Negative Legionella Antigen 03/11/18 16:25 Gram Stain - Final Sputum Expectorated 03/11/18 14:37 Influenza Types A,B Antigen - Final Nasal Specimen received for Influenza A/B Molecular testing Assess/Plan/Problems-Billing Assessment: 77 yo F with h/o COPD(02 at night), neuropathy presents with PNA - Patient Problems (1) COPD (chronic obstructive pulmonary disease) Comment: was in exacerbation at admission, now improved. will place pt on PO Prednisone (2) Pneumonia Comment: cont Ceftriaxone/Azithro, cx neg so far (3) Neuropathy Comment: stable , cont gabapentin (4) DVT prophylaxis Comment: HSQ (5) Anemia Comment: normocytic, likely anemia of chronic disease. Stool guaiac pending today Hb closer to pt's baseline. The CBC drawn on 03/11/18 must have been a lab error Status and Disposition: inpatient
[2018-03-12] MEDS ORDERED: Spiriva Inhaler DEVICE* 1 EACH DEVICE INH SCH (14:00)
[2018-03-12] MEDS ORDERED: Spiriva Inhaler DEVICE* 1 EACH DEVICE SCH (14:00)
--- NOTE | 2018-03-12 14:16 | PTEDU ---
Patient Name: CHYNA RODRIGUEZ JENNIFERCHYNA SHANE selected video: COPD to view on 03/12/2018 at 2:15:25 PM from [id number]
[2018-03-12] MEDS ORDERED: cefTRIAXone(*) 1 GM in NS 0.9% 50 ML* 50 ML IVPB SCH (17:00)
[2018-03-12] MEDS ORDERED: Azithromycin IV(*) 500 MG in NS 0.9% 250 ML* 250 ML IVPB SCH (18:00)
[2018-03-13] MEDS: Heparin VIAL(*) 5000 UNITS/ML VIAL (FIVE THOUSAND) SUBCUT SCH (05:16)
[2018-03-13 07:01] LABS: ABS Basophils 0 10^3/ul (0-0.2); ABS Eosinophils 0 10^3/ul (0-0.6); ABS Lymphocytes 1.3 10^3/ul (1.0-4.8); ABS Monocytes 1.4 10^3/ul (0-0.8); ABS Neutrophils 11.7 10^3/ul (1.5-7.7); ABS Nucleated RBC 0 10^3/ul; Eosinophil % 0 %; Hematocrit 29 % (35-47); Hemoglobin 9.3 g/dl (12.0-16.0); Lymphocyte % 9.1 %; Mean Corpuscular HGB Conc 33 g/dl (31-36); Mean Corpuscular Hemoglobin 28 pg (27-31); Mean Corpuscular Volume 84 fL (80-97); Mean Platelet Volume 7.8 fL (7.4-10.4); Nucleated Red Blood Cells % 0; Platelet Count 247 10^3/ul (150-450); Red Blood Count 3.38 10^6/ul (4.00-5.40); Red Cell Distribution Width 16 % (10.5-15); White Blood Count 14.4 10^3/ul (3.5-10.8)
[2018-03-13 07:16] LABS: EGFR Non-African American 117.6 (>60)
[2018-03-13 08:24] VITALS: BP 115/47
[2018-03-13] MEDS: Gabapentin CAP(*) 300 MG PO SCH (08:34)
[2018-03-13] MEDS: Aspirin EC TAB* 325 MG PO SCH (08:34)
[2018-03-13] MEDS: Omeprazole CAP* 20 MG PO SCH (08:34)
[2018-03-13] MEDS: Docusate CAP* 100 MG PO SCH (08:34)
[2018-03-13] MEDS: Montelukast Sodium TAB* 10 MG PO SCH (08:34)
[2018-03-13] MEDS: Benzonatate CAP* 100 MG PO PRN (08:39)
[2018-03-13] MEDS ORDERED: Tiotropium CAP.INH* CAP.INH/18 MCG (USE ORDER SET !) INH SCH (09:00)
[2018-03-13] MEDS ORDERED: predniSONE TAB* 50 MG PO SCH (09:00)
--- NOTE | 2018-03-13 22:27 | DS ---
CC: Dr. Johnson; Dr. Griffin, Pulmonology, [place] * DISCHARGE SUMMARY: DATE OF ADMISSION: 03/11/18 DATE OF DISCHARGE: 03/13/18 PRIMARY CARE PROVIDER: Dr. Johnson. DISCHARGE DIAGNOSES: 1. Community-acquired pneumonia. 2. Chronic obstructive pulmonary disease exacerbation. 3. Slight worsening of chronic normocytic anemia. SECONDARY DIAGNOSES: 1. History of cervical radiculopathy, status post decompression. 2. History of chronic obstructive pulmonary disease, on oxygen at night at 2 L. 3. History of upper extremity neuropathy. 4. Peripheral vascular disease. 5. History of palpitations with negative workup. 6. History of Crohn's. MEDICATIONS AT DISCHARGE: Include: 1. Prednisone 50 mg daily for another 4 days. 2. Spiriva inhaler 1 inhalation daily. 3. Zofran on a p.r.n. basis. 4. Omeprazole 20 mg daily. 5. Dulera 100/50 one inhalation b.i.d. 6. Cefdinir 300 mg b.i.d. for a total of 5 days, then stop. 7. Azithromycin 250 mg daily for a total of 3 days to complete 5 days treatment. 8. Singulair 10 mg daily. 9. Gabapentin 600 mg 3 times a day. 10. Albuterol inhaler on a p.r.n. basis. 11. Aspirin 325 mg daily. LABORATORY DATA AND STUDIES PERFORMED DURING HOSPITAL STAY: Included: On , white blood cell count of 14.4, hemoglobin of 9.3, hematocrit of 29, and platelets of 247. Sodium of 144, potassium 4.0, chloride 107, carbon dioxide 31 , BUN 14, creatinine 0.51. The patient's troponins were 0 to 0.01 throughout her hospital stay. C-reactive protein was 110. Rapid influenza testing was unremarkable. Strep pneumo antigen and Legionella antigens were negative. Sputum culture grew "normal bradley." Blood cultures were negative. The patient's portable chest x-ray obtained on admission, impression: "Hyperinflation. Consistent with COPD. No active cardiopulmonary disease." HOSPITALIZATION COURSE: Nohemy Martínez is a 77-year-old female with history of COPD, who went to [place], [place], for her niece's graduation. On the way back, she did not make it through the plane due to severe dyspnea. She came into the hospital severely tachypneic, hypoxemic. She had been coughing up green sputum. Although her chest x-ray initially did not show pneumonia, clinically she was diagnosed with pneumonia. The patient also appeared to be dehydrated. The patient was placed on intravenous hydration and treated with antibiotics and steroids for COPD exacerbation with good results. By the time of discharge, she was ambulating down the hallway with oxygen saturation of 93% on room air. Her cough almost resolved. She is going to be discharged home on azithromycin and cefdinir to complete the course as well as prednisone to complete 5-day course. I prescribed her Dulera since the patient stated that Advair costs her 150 dollars to fill at a pharmacy for a month's supply. She also was re-prescribed her Spiriva. The patient is recommended to follow up with her primary care provider in 4 to 7 days and follow up with Dr. Griffin in approximately a month or two. PHYSICAL EXAM: At the time of discharge, blood pressure of 115/47, heart rate of 92 and regular, respiratory rate 16, oxygen saturation 100% on room air, temperature 97.9. General: The patient is a very pleasant 77-year-old female, who is in no acute distress. Alert, awake, and oriented x3. HEENT: Head: Atraumatic and normocephalic. Eyes: Pupils are equal, reactive to light and accommodation. Oropharynx is clear. Mucosa moist. Neck: Supple. No JVD. No bruits bilaterally. Cardiovascular: Regular rate and rhythm. No murmur. Respiratory: Distant breath sounds bilaterally with scant bibasilar wheezes. Abdomen: Soft, nontender. Bowel sounds are present in all 4 quadrants. Extremities: There is no edema. Pulses +2 bilaterally. There is no clubbing or cyanosis. On neuro evaluation, speech is clear. Cranial nerves II through XII are grossly intact. Motor strength is 5/5 bilaterally. Please also note that the patient was noted to have exacerbation of her chronic anemia with hemoglobin level of 9.3 on the day of discharge. Her anemia workup showed iron level of 18, TIBC of 332, percent iron saturation 5, transferrin of 237. Her reticulocyte count was 1.0 and reticulocyte production index of 0.5. At this point, the patient has likely anemia of chronic disease. Nevertheless, she is recommended to follow up with her primary care provider in regards to further evaluation with possible colonoscopy and further workup of her anemia as an outpatient. Please note that this is a short summary of the patient's hospital stay. Please refer to further medical records for details. TIME SPENT: Approximately 40 minutes were spent on the patient's discharge. [id number]/[facility] #: [id number] ELVA
== END 2018-03-13 11:30 | disposition home or self-care (01) | DRG 190 ==
LOC: ED 14:26 → MED 16:51
PROVIDERS: ADMIT Internal Medicine; ATTEND Internal Medicine
DX: J44.1 Chronic obstructive pulmonary disease with (acute) exacerbation (principal); J18.9 Pneumonia, unspecified organism; K50.90 Crohn's disease, unspecified, without complications; Z99.81 Dependence on supplemental oxygen; G62.9 Polyneuropathy, unspecified; D64.9 Anemia, unspecified; I73.9 Peripheral vascular disease, unspecified; F10.21 Alcohol dependence, in remission; Z79.1 Long term (current) use of non-steroidal anti-inflammatories (NSAID); Z79.82 Long term (current) use of aspirin; Z79.51 Long term (current) use of inhaled steroids; Z79.899 Other long term (current) drug therapy; Z88.1 Allergy status to other antibiotic agents; Z88.0 Allergy status to penicillin; Z88.8 Allergy status to other drugs, medicaments and biological substances; Z87.891 Personal history of nicotine dependence
CPT/HCPCS: 36415; 71046; 80048; 80053; 82550; 82728; 82803; 83540; 83550; 83605; 83880; 84484; 85025; 85045; 85379; 85610; 86140; 86850; 86900; 86901; 87040; 87070; 87205; 87899; 93005; 94640; 99284; A9270-GY; J0456; J0696; J1644; J2920; J7512

== ENCOUNTER 2018-03-19 09:59 | Emergency (ER) | payer MEDICARE ==
--- NOTE | 2018-03-19 10:47 | ED ---
Influenza-Like Illness - HPI Summary HPI Summary: This patient is a 77 year old F presenting to [facility] accompanied by her family with a chief complaint of a productive cough that returned again yesterday. The patient rates the pain 5/10 in severity. Patient reports CP with coughing, nausea, and SOB. She also began having diarrhea without blood two days ago and began having myalgia yesterday. Additionally she c/o lightheadedness and dehydration. Patient denies weakness, Le edema, and ABD pain. The patient was recently admitted for PNA and COPD exacerbation and discharged on the of this month. She states she improved but began to decline again and is concerned she has PNA. She is not immunocompromised and has finished her abx course yesterday. Vlad states one of her family members is off all week and is willing to take care of her, so she feels comfortable going home. - History of Current Complaint Chief Complaint: EDFluSymptoms Time Seen by Provider: 03/19/18 10:31 Hx Obtained From: Patient Onset/Duration: Still Present, Worse Since - yesterday Severity: Moderate Associated Signs & Symptoms: Myalgia, Cough, Diarrhea - Allergy/Home Medications Allergies/Adverse Reactions: Allergies Allergy/AdvReac Type Severity Reaction Status Date / Time clopidogrel Allergy Severe Dizziness Verified 03/19/18 10:07 levofloxacin [From Levaquin] Allergy Intermediate Muscle Ache Verified 03/19/18 10:07 nitrofurantoin Allergy Intermediate GI Upset Verified 03/19/18 10:07 [From Macrobid] metronidazole [From Flagyl] Allergy Swelling Verified 03/19/18 10:07 Penicillins Allergy See Comment Verified 03/19/18 10:07 PMH/Surg Hx/FS Hx/Imm Hx Endocrine/Hematology History: Reports: Hx Blood Transfusions, Hx Anemia - Iron deficiency Denies: Hx Diabetes, Hx Thyroid Disease Cardiovascular History: Reports: Hx Coronary Artery Disease, Hx Deep Vein Thrombosis, Hx Hypercholesterolemia, Hx Hypertension, Hx Peripheral Vascular Disease Denies: Hx Congestive Heart Failure Respiratory History: Reports: Hx Chronic Obstructive Pulmonary Disease (COPD) Denies: Hx Asthma GI History: Reports: Hx Crohn's Disease, Hx Diverticulosis, Hx Gastroesophageal Reflux Disease, Hx Ulcer - gerd, hx of ulcers, Other GI Disorders - Previous issues with incontinence History: Reports: Other Problems/Disorders - Frequent UTIs and yeast infections Denies: Hx Renal Disease Musculoskeletal History: Reports: Hx Arthritis - hands, Hx Osteoporosis, Other Musculoskeletal History - Neck problems s/p surgery Sensory History: Reports: Hx Cataracts, Hx Contacts or Glasses Denies: Hx Hearing Aid Opthamlomology History: Reports: Hx Cataracts, Hx Contacts or Glasses Psychiatric History: Reports: Hx Anxiety - Surgical History Surgery Procedure, Year, and Place: Neck Surgery. HAND SURGERY (Releasing the pinky finger). Hysterectomy. Carpal tunnel release Hx Anesthesia Reactions: No Infectious Disease History: No Infectious Disease History: Reports: Hx Clostridium Difficile - Accompanied with diverticulitis, Hx Shingles, History Other Infectious Disease Denies: Hx Hepatitis, Hx Human Immunodeficiency Virus (HIV), Hx of Known/ Suspected MRSA, Hx Tuberculosis, Traveled Outside the [place] in Last 30 Days - Family History Known Family History: Positive: Unknown, Cardiac Disease, Diabetes - Social History Alcohol Use: Occasionally Alcohol Amount: three drinks per week Hx Substance Use: No Substance Use Type: Reports: None Hx Tobacco Use: Yes Smoking Status (MU): Former Smoker Type: Cigarettes Amount Used/How Often: 2.5 packs/day for those years Length of Time of Smoking/Using Tobacco: 34 years of smoking Have You Smoked in the Last Year: No Review of Systems Constitutional: Other - feels dehydrated Positive: Chest Pain - with coughing Positive: Shortness Of Breath, Cough Positive: Diarrhea, Nausea. Negative: Abdominal Pain Negative: Edema Neurological: Other - lightheadedness Negative: Weakness All Other Systems Reviewed And Are Negative: Yes Physical Exam - Summary Physical Exam Summary: General: mildly-appearing, no pain distress Skin: warm, color reflects adequate perfusion, dry Head: normal Eyes: EOMI, MIN ENT: normal Neck: supple, nontender Respiratory: bilateral inspiratory crackles Cardiovascular: RRR Abdomen: soft, nontender Bowel: present Musculoskeletal: normal, strength/ROM intact Neurological: sensory/motor intact, A&O x3 Psychological: affect/mood appropriate Triage Information Reviewed: Yes Vital Signs On Initial Exam: Initial Vitals Temp Pulse Resp BP Pulse Ox 99.3 F 95 20 130/38 96 03/19/18 10:06 03/19/18 10:06 03/19/18 10:06 03/19/18 10:06 03/19/18 10:06 Vital Signs Reviewed: Yes Diagnostics - Vital Signs Vital Signs Temp Pulse Resp BP Pulse Ox 03/19/18 10:06 99.3 F 95 20 130/38 96 - Laboratory Result Diagrams: 03/19/18 11:20 03/19/18 11:20 Lab Statement: Any lab studies that have been ordered have been reviewed, and results considered in the medical decision making process. - Radiology CXR Radiology Interpretation Completed By: Radiologist Summary of Radiographic Findings: Stigmata of obstructive lung disease. No acute pulmonary or cardiac process evident. ED physician has reviewed this radiology report. - EKG 1017 Cardiac Rate: NL EKG Rhythm: Sinus Rhythm - at [address] Segment: Normal Ectopy: None Flu Symptom Course/Dx - Course Course Of Treatment: Patient feels less short of breath in the emergency department after Solu-Medrol and a breathing treatment. I discussed the lab results with the patient and the chest x-ray results. Patient wishes to go home. The plan is to repeat the cefdinir and azithromycin and prednisone. Follow up with her doctor return to emergency department if she is worse or has any other questions or concerns. - Diagnoses Provider Diagnoses: Bronchitis, Asthma exacerbation Discharge - Sign-Out/Discharge Documenting (check all that apply): Patient Departure - Discharge Plan Condition: Stable Disposition: HOME Prescriptions: Azithromycin 250 mg PO DAILY #4 tablet Cefdinir cap (NF) [Cefdinir 300 MG cap (NF)] 300 mg PO BID #20 cap predniSONE TAB* [Deltasone 20 MG TAB*] 40 mg PO DAILY #10 tab Patient Education Materials: Acute Bronchitis (ED), Asthma (ED) Referrals: Noel Johnson MD [Primary Care Provider] - Additional Instructions: FOLLOW UP WITH YOUR DOCTOR. GO TO THE EMERGENCY DEPARTMENT FOR ANY WORSENING OF YOUR CONDITION; CHEST PAIN, SHORTNESS OF BREATH, FEVER, YOU FEEL ILL OR QUESTIONS OR CONCERNS. - Billing Disposition and Condition Condition: STABLE Disposition: Home - Attestation Statements Document Initiated by Scribe: Yes Documenting Scribe: Jose J Ortiz Provider For Whom Rekha is Documenting (Include Credential): Gerardo Pabon MD Scribe Attestation: Jose J Ross , scribed for Gerardo Pabon MD on 03/19/18 at 1254. Scribe Documentation Reviewed: Yes Provider Attestation: The documentation as recorded by the Jose J chandra accurately reflects the service I personally performed and the decisions made by me, Gerardo Pabon MD Status of Scribe Document: Viewed
[2018-03-19] MEDS ORDERED: NS 0.9% 1000 ML*IV.FLUID IV ONE (10:50)
[2018-03-19] MEDS ORDERED: Azithromycin IV(*) 500 MG in NS 0.9% 250 ML* 250 ML IVPB ONE (10:54)
[2018-03-19] MEDS ORDERED: cefTRIAXone(*) 1 GM in NS 0.9% 50 ML* 50 ML IVPB ONE (10:54)
[2018-03-19] MEDS ORDERED: Albuterol/Ipratropium NEB.SOL* Albuterol 2.5 MG/Ipratropium 0.5 MG 3 ML INH ONE (10:54)
[2018-03-19] MEDS ORDERED: methylPREDNISolone 125 MG* 2 ML VIAL IV ONE (10:54)
[2018-03-19] MEDS ORDERED: NS 0.9% 250 ML* 250 ML ONE (11:36)
[2018-03-19 11:56] LABS: ABS Basophils 0 10^3/ul (0-0.2); ABS Eosinophils 0.2 10^3/ul (0-0.6); ABS Lymphocytes 0.9 10^3/ul (1.0-4.8); ABS Neutrophils 4.8 10^3/ul (1.5-7.7); ABS Nucleated RBC 0 10^3/ul; Eosinophil % 3.2 %; Hematocrit 32 % (35-47); Hemoglobin 10.4 g/dl (12.0-16.0); Mean Corpuscular HGB Conc 33 g/dl (31-36); Mean Corpuscular Hemoglobin 27 pg (27-31); Mean Corpuscular Volume 83 fL (80-97); Mean Platelet Volume 7.8 fL (7.4-10.4); Nucleated Red Blood Cells % 0.1; Platelet Count 293 10^3/ul (150-450); Red Blood Count 3.83 10^6/ul (4.00-5.40); Red Cell Distribution Width 16 % (10.5-15); White Blood Count 6.9 10^3/ul (3.5-10.8)
[2018-03-19 12:03] LABS: Activated Partial Thrombo Time 25.7 seconds (26.0-36.3); INR 0.91 (0.77-1.02)
[2018-03-19] MEDS ORDERED: Azithromycin IV* 500 MG ADVAN VIAL/BAG IVPB ONE (12:04)
[2018-03-19 12:07] LABS: Albumin 3.1 g/dL (3.2-5.2); Albumin/Globulin Ratio 0.9 (1-3); BUN/Creatinine Ratio 16.9 (8-20); C Reactive Protein 31.88 mg/L (<8.01); Calcium 8.3 mg/dL (8.6-10.3); EGFR Non-African American 99.4 (>60); Globulin 3.3 g/dL (2-4); Potassium 3.7 mmol/L (3.5-5.0); Total Bilirubin 0.5 mg/dL (0.2-1.0); Total Protein 6.4 g/dL (6.4-8.9)
[2018-03-19 12:38] LABS: Urine Appearance Clear; Urine Bilirubin Negative (Negative); Urine Blood Negative (Negative); Urine Color Yellow; Urine Glucose Negative (Negative); Urine Ketones Negative (Negative); Urine Nitrite Negative (Negative); Urine Protein Negative (Negative); Urine Specific Gravity 1.008 (1.010-1.030); Urine Urobilinogen Negative (Negative)
[2018-03-19 13:35] VITALS: BP 123/60
== END 2018-03-19 13:34 | disposition home or self-care (01) ==
LOC: ED 09:59
DX: J40 Bronchitis, not specified as acute or chronic (principal); J45.901 Unspecified asthma with (acute) exacerbation; R05 Cough; Z88.0 Allergy status to penicillin; Z87.891 Personal history of nicotine dependence; R06.02 Shortness of breath; R19.7 Diarrhea, unspecified
CPT/HCPCS: 36415; 71045; 80053; 81003; 83605; 83880; 84484; 85025; 85610; 85730; 86140; 87040; 93005; 96361; 96365; 96366; 96374; 99283; A9270-GY; J0456; J0696; J2930

== ENCOUNTER 2018-08-25 23:53 | Inpatient (IN) | payer MEDICARE ==
[2018-08-26] MEDS ORDERED: Ondansetron INJ* 2 MG/ML VIAL IV ONE (02:22)
[2018-08-26] MEDS ORDERED: NS 0.9% 1000 ML** 2,000 ML IV ONE (03:05)
--- NOTE | 2018-08-26 03:08 | ED ---
GI/ HPI - HPI Summary HPI Summary: This patient is a 78 year old F presenting to ED with a chief complaint of N/V/ D since 08/15/18. Patient had a respiratory infection in the beginning of June. The raspy cough has lingered since. Patient was on Augmentin until 08/15/18. She was switched to cephalexin on 08/16/18. On both medications, patient reports N/V/D. Patient reports loose diarrhea about 5x a day, no blood in stool. The patient rates the pain 5/10 in severity. Symptoms aggravated by nothing. Symptoms alleviated by nothing. Patient reports right-sided abdominal pain and subjective fever. PMHx of COPD, Crohns, diverticulitis. - History of Current Complaint Chief Complaint: EDNauseaVomitDiarrh Stated Complaint: NAUSEA/VOMITING/SOB PER PT Hx Obtained From: Patient Onset/Duration: Started Weeks Ago - June, Still Present, Worse Since Timing: Lasting Weeks Severity: Moderate Pain Intensity: 5 Associated Signs and Symptoms: Positive: Nausea, Vomiting, Diarrhea, Fever, Cough Aggravating Factor(s): Nothing Alleviating Factor(s): Nothing - Additional Pertinent History Primary Care Physician: [id number] - Allergy/Home Medications Allergies/Adverse Reactions: Allergies Allergy/AdvReac Type Severity Reaction Status Date / Time clopidogrel Allergy Severe Dizziness Verified 08/25/18 23:59 levofloxacin [From Levaquin] Allergy Intermediate Muscle Ache Verified 08/25/18 23:59 nitrofurantoin Allergy Intermediate GI Upset Verified 08/25/18 23:59 [From Macrobid] metronidazole [From Flagyl] Allergy Swelling Verified 08/25/18 23:59 Penicillins Allergy See Comment Verified 08/25/18 23:59 Home Medications: Home Medications Fluticasone/Umeclidin/Vilanter [Trelegy Ellipta 100-62.5-25] 1 inh INH DAILY 05/15 [History Confirmed 08/26/18] Pantoprazole TAB * [Protonix TAB*] 40 mg PO DAILY 08/26/18 [History Confirmed ] Solifenacin Succinate [Vesicare] 5 mg PO DAILY 08/26/18 [History Confirmed 08/26] cefUROXime axetil [Cefuroxime] 250 mg PO BID 08/26/18 [History Confirmed 06/02/ 19] PMH/Surg Hx/FS Hx/Imm Hx Endocrine/Hematology History: Reports: Hx Blood Transfusions, Hx Anemia - Iron deficiency Denies: Hx Diabetes, Hx Thyroid Disease Cardiovascular History: Reports: Hx Coronary Artery Disease, Hx Deep Vein Thrombosis, Hx Hypercholesterolemia, Hx Hypertension, Hx Peripheral Vascular Disease Denies: Hx Congestive Heart Failure Respiratory History: Reports: Hx Chronic Obstructive Pulmonary Disease (COPD) Denies: Hx Asthma GI History: Reports: Hx Crohn's Disease, Hx Diverticulosis, Hx Gastroesophageal Reflux Disease, Hx Ulcer - gerd, hx of ulcers, Other GI Disorders - Previous issues with incontinence History: Reports: Other Problems/Disorders - Frequent UTIs and yeast infections Denies: Hx Renal Disease Musculoskeletal History: Reports: Hx Arthritis - hands, Hx Osteoporosis, Other Musculoskeletal History - Neck problems s/p surgery Sensory History: Reports: Hx Cataracts, Hx Contacts or Glasses Denies: Hx Hearing Aid Opthamlomology History: Reports: Hx Cataracts, Hx Contacts or Glasses Psychiatric History: Reports: Hx Anxiety - Surgical History Surgery Procedure, Year, and Place: Neck Surgery. HAND SURGERY (Releasing the pinky finger). Hysterectomy. Carpal tunnel release Hx Anesthesia Reactions: No Infectious Disease History: No Infectious Disease History: Reports: Hx Clostridium Difficile - Accompanied with diverticulitis, Hx Shingles, History Other Infectious Disease Denies: Hx Hepatitis, Hx Human Immunodeficiency Virus (HIV), Hx of Known/ Suspected MRSA, Hx Tuberculosis, Traveled Outside the [place] in Last 30 Days - Family History Known Family History: Positive: Unknown, Cardiac Disease, Diabetes - Social History Alcohol Use: Occasionally Alcohol Amount: three drinks per week Hx Substance Use: No Substance Use Type: Reports: None Hx Tobacco Use: Yes Smoking Status (MU): Former Smoker Type: Cigarettes Amount Used/How Often: 2.5 packs/day for those years Length of Time of Smoking/Using Tobacco: 34 years of smoking Have You Smoked in the Last Year: No Review of Systems Positive: Fever Positive: Cough Positive: Abdominal Pain - Right-side, Vomiting, Diarrhea, Nausea All Other Systems Reviewed And Are Negative: Yes Physical Exam - Summary Physical Exam Summary: Appearance:very emaciated, elderly woman lying in stretcher, NAD, dehydrated Skin:poor skin turgor Eyes:sunken ENT:mucous membranes moist Neck:deferred Respiratory:No signs of respiratory distress Cardiovascular:Appears well perfused, pulses are nml Abdomen:deferred Musculoskeletal:Moving all 4 extremities without obvious discomfort Neurological:Awakeand alert, mentation is normal, speech is fluent and appropriate Psychiatric:affect is normal, does not appear anxious or depressed Triage Information Reviewed: Yes Vital Signs On Initial Exam: Initial Vitals Temp Pulse Resp BP Pulse Ox 100.6 F 130 20 140/63 91 08/25/18 23:54 08/25/18 23:54 08/25/18 23:54 08/25/18 23:54 08/25/18 23:54 Vital Signs Reviewed: Yes Diagnostics - Vital Signs Vital Signs Temp Pulse Resp BP Pulse Ox 08/25/18 23:54 100.6 F 130 20 140/63 91 - Laboratory Result Diagrams: 08/26/18 03:43 08/26/18 03:43 Lab Statement: Any lab studies that have been ordered have been reviewed, and results considered in the medical decision making process. - Radiology CXR Radiology Interpretation Completed By: ED Physician Summary of Radiographic Findings: Findings consistent with COPD, no acute processes, pending official radiology report. - EKG 0446 Cardiac Rate: NL - 94 BPM EKG Rhythm: Sinus Rhythm ST Segment: Normal Summary of EKG Findings: NSR at 94 BPM, P waves, QRS complex, and T waves are within normal limits, T waves and intervals are normal, no ischemic changes. This is a normal EKG. Re-Evaluation - Re-Evaluation First Eval Re-Evaluation Time: 07:00 Comment: Discussed results with patient. GIGU Course/Dx - Course Course Of Treatment: This patient is a 78 year old F presenting to ED with a chief complaint of N/V/D since 08/15/18. In the ED course, patient received fluids and Zofran. CXR revealed: Findings consistent with COPD, no acute processes, pending official radiology report. EKG revealed NSR at 94 BPM, P waves, QRS complex, and T waves are within normal limits, T waves and intervals are normal, no ischemic changes. This is a normal EKG. Blood work and UA obtained. This patient will be signed out from Dr. Asif Beal to Dr. Pop Miner at shift change at 0700 on 08/26/[address] reading. - Diagnoses Provider Diagnoses: Nausea and vomiting, Acute diarrhea, Pneumonia Discharge - Sign-Out/Discharge Documenting (check all that apply): Sign-Out Patient Signing out patient TO: Pop Miner Receiving patient FROM: Asif Beal Patient Received Moderate/Deep Sedation with Procedure: No - Discharge Plan Condition: Stable Disposition: ADMITTED TO [facility] - Billing Disposition and Condition Condition: STABLE Disposition: Admitted to [facility] - Attestation Statements Document Initiated by Lettyibe: Yes Documenting Scribe: Noel Enciso Provider For Whom Rekha is Documenting (Include Credential): Asif Beal MD Scribe Attestation: Noel Ross, scribed for Asif Beal MD on 08/27/18 at 0309. Scribe Documentation Reviewed: Yes Provider Attestation: The documentation as recorded by the Noel chandra accurately reflects the service I personally performed and the decisions made by me, Asif Beal MD Status of Scribe Document: Viewed
[2018-08-26 04:06] LABS: ABS Basophils 0.2 10^3/ul (0-0.2); ABS Eosinophils 0.1 10^3/ul (0-0.6); ABS Lymphocytes 1.1 10^3/ul (1.0-4.8); ABS Monocytes 1.5 10^3/ul (0-0.8); Eosinophil % 0.3 %; Hematocrit 30 % (35-47); Hemoglobin 9.6 g/dL (12.0-16.0); Lymphocyte % 5.4 %; Mean Corpuscular HGB Conc 32 g/dL (31-36); Mean Corpuscular Hemoglobin 27 pg (27-31); Mean Corpuscular Volume 84 fL (80-97); Mean Platelet Volume 7.5 fL (7.4-10.4); Platelet Count 352 10^3/uL (150-450); Red Blood Count 3.55 10^6 /uL (3.70-4.87); Red Cell Distribution Width 17 % (10.5-15); White Blood Count 20.8 10^3/uL (3.5-10.8)
[2018-08-26 04:34] LABS: ALT 5 U/L (7-52); AST 12 U/L (13-39); Albumin/Globulin Ratio 0.8 (1-3); Alkaline Phosphatase 94 U/L (34-104); Anion Gap 9 mmol/L (2-11); BUN/Creatinine Ratio 17.3 (8-20); Blood Urea Nitrogen 9 mg/dL (6-24); CO2 Carbon Dioxide 26 mmol/L (22-32); Calcium 8.4 mg/dL (8.6-10.3); Chloride 103 mmol/L (101-111); EGFR African American 138.7 (>60); EGFR Non-African American 114.6 (>60); Globulin 3.8 g/dL (2-4); Glucose 111 mg/dL (70-100); Sodium 138 mmol/L (135-145); Total Protein 6.8 g/dL (6.4-8.9)
[2018-08-26] MEDS ORDERED: Iohexol 300* (CONTRAST) 10 ML SDV IV ONE (05:00)
[2018-08-26 05:24] LABS: Urine Appearance Cloudy; Urine Bacteria Absent (Absent); Urine Bilirubin Negative (Negative); Urine Blood Negative (Negative); Urine Color Yellow; Urine Glucose Negative (Negative); Urine Ketones 2+ (Negative); Urine Nitrite Negative (Negative); Urine Protein Negative (Negative); Urine Red Blood Cell 1+(3-5/hpf) (Absent); Urine Specific Gravity 1.012 (1.010-1.030); Urine Squamous Epithelial Cell Present (Absent); Urine Urobilinogen Negative (Negative); Urine White Blood Cell 1+(6-10/hpf) (Absent)
[2018-08-26] MEDS ORDERED: Ondansetron ODT TAB* 4 MG SL ONE (06:28)
[2018-08-26] MEDS ORDERED: cefTRIAXone(*) 1 GM in NS 0.9% 50 ML* 50 ML IVPB ONE (08:08)
[2018-08-26] MEDS ORDERED: cefTRIAXone(*) 1 GM ADVAN/BAG ONE (08:14)
--- NOTE | 2018-08-26 08:25 | ED ---
Progress - Progress Note Progress Note: This patient is signed out from Dr. Beal at [address] A/P. CT A/P revelas, " 1. Status post open reduction and internal fixation of an old fracture of the proximal right femur. 2. Left lower lobe pulmonary infiltrate. 3. Pulmonary emphysema. 4. Pancreatic atrophy. 5. Hysterectomy. 6. Colonic diverticulosis.' as per radiologist ED Physician has reviewed this report. Re-Evaluation - Re-Evaluation First Eval Re-Evaluation Time: 07:30 Comment: This patient is a 78 year old F presenting with acute on chronic vomiting and diarrhea secondary to a ten day course of Augmentin which was switched to ceftriaxone three days ago for PNA. Discussed liklihood of admission. Patient and daughter are agreeable with that plan. VITAL SIGNS: Reviewed. GENERAL: Patient is a cachectic female who appears uncomfortable in the stretcher. Patient is not in any acute respiratory distress. HEAD AND FACE : No signs of trauma. No ecchymosis, hematomas or skull depressions. No sinus tenderness. EYES: PERRLA, EOMI x 2, No injected conjunctiva, no nystagmus. EARS: Hearing grossly intact. Ear canals and tympanic membranes are within normal limits. MOUTH: Oropharynx within normal limits. NECK: Supple, trachea is midline, no adenopathy, no JVD, no carotid bruit, no c-spine tenderness, neck with full ROM. CHEST: Symmetric, no tenderness at palpation. LUNGS: Crackles in the bases bilaterally. No signs of respiratory distress. CVS: Regular rate and rhythm, S1 and S2 present, no murmurs or gallops appreciated. ABDOMEN: Soft, non-tender. No signs of distention. No rebound no guarding, and no masses palpated. Bowel sounds are normal. EXTREMITIES: FROM in all major joints, no edema, no cyanosis or clubbing. NEURO: Alert and oriented x 3. No acute neurological deficits. Speech is normal and follows commands. SKIN: Dry and warm. Course/Dx - Course Course Of Treatment: This patient is signed out from Dr. Beal at 0700. This patient is a 78 year old F presenting with acute on chronic vomiting and diarrhea secondary to a ten day course of Augmentin which was switched to ceftriaxone three days ago for PNA. Discussed liklihood of admission. Patient and daughter are agreeable with that plan. CT A/P reveals, "1. Status post open reduction and internal fixation of an old fracture of the. proximal right femur. 2. Left lower lobe pulmonary infiltrate. 3. Pulmonary emphysema. 4. Pancreatic atrophy. 5. Hysterectomy. 6. Colonic diverticulosis." as per radiologist. At [address] Abernathy, hospitalist who agrees to admission. Patient and family agreeable with this plan. - Diagnoses Provider Diagnoses: Nausea and vomiting, Acute diarrhea, Pneumonia Discharge - Sign-Out/Discharge Documenting (check all that apply): Patient Departure - admit Patient Received Moderate/Deep Sedation with Procedure: No - Discharge Plan Condition: Stable Disposition: ADMITTED TO [facility] Referrals: Noel Johnson MD [Primary Care Provider] - - Billing Disposition and Condition Condition: STABLE Disposition: Admitted to [facility] - Attestation Statements Document Initiated by Rekha: Yes Documenting Scribe: Carin Tabares Provider For Whom Rekha is Documenting (Include Credential): Pop Miner MD Scribe Attestation: ICarin, scribed for Pop Miner MD on 08/26/18 at 0953. Scribe Documentation Reviewed: Yes Provider Attestation: The documentation as recorded by the Carin chandra accurately reflects the service I personally performed and the decisions made by me, Pop Miner MD Status of Scribe Document: Viewed
[2018-08-26] MEDS ORDERED: Albuterol 2.5 MG/3 ML NEB.SOL* (0.083%) INH PRN (10:12)
[2018-08-26] MEDS ORDERED: Benzonatate CAP* 100 MG PO PRN (10:12)
[2018-08-26] MEDS ORDERED: Azithromycin 500 mg/250 ml NS 500 MG/250 ML BAG IVPB ONE (10:12)
[2018-08-26] MEDS ORDERED: Albuterol HFA INHALER* 8 gm MDI INH PRN (10:21)
[2018-08-26] MEDS ORDERED: Acetaminophen TAB* 325 MG PO PRN (10:40)
[2018-08-26] MEDS ORDERED: Ondansetron INJ* 2 MG/ML VIAL IV PRN (10:40)
[2018-08-26 10:54] LABS: Total Iron Binding Capacity 232 mcg/dL (250-450); Transferrin 166 mg/dL (203-362)
[2018-08-26 10:57] LABS: % Iron Saturation 7 % (15-55); Iron < 17 ug/dL (50-212)
[2018-08-26] MEDS ORDERED: Spiriva Inhaler DEVICE* 1 EACH DEVICE INH SCH (11:00)
[2018-08-26 11:14] LABS: Ferritin 67.4 ng/mL (11-307)
[2018-08-26] MEDS: predniSONE TAB* 20 MG PO SCH (11:23)
[2018-08-26] MEDS: Enoxaparin(*) 40 MG/0.4 ML SYR SUBCUT SCH (11:23)
[2018-08-26] MEDS: guaiFENesin ER TAB 600 MG PO SCH ×2 (11:24→20:09)
[2018-08-26] MEDS: Albuterol/Ipratropium NEB.SOL* Albuterol 2.5 MG/Ipratropium 0.5 MG 3 ML INH SCH ×3 (11:34→19:48)
[2018-08-26] MEDS: Lactated Ringers 1000 ML Bag* 1,000 ML IV SCH ×2 (12:35→22:31)
[2018-08-26] MEDS: Tiotropium CAP.INH* CAP.INH/18 MCG (USE ORDER SET !) INH SCH (14:24)
[2018-08-26] MEDS: Mometasone/Formoter 200/5 MDI INH SCH ×2 (14:37→19:48)
[2018-08-26] MEDS: Gabapentin CAP(*) 300 MG PO SCH ×2 (15:01→20:08)
--- NOTE | 2018-08-26 15:29 | HP ---
CC: Dr. Noel Johnson * HISTORY AND PHYSICAL: DATE OF ADMISSION: 08/26/18 PRIMARY CARE PROVIDER: Dr. Noel Johnson. MY ATTENDING WHILE IN THE HOSPITAL: Dr. Anna Charlton.* (DICTATED BY JACKSON TORRES) CHIEF COMPLAINT: Shortness of breath x2 months. HISTORY OF PRESENT ILLNESS: Ms. Martínez is a 78-year-old female with a past medical history significant for COPD, on 2 L oxygen at night, peripheral vascular disease, status post stenting, and Crohn's disease for which she is on no treatment, who was feeling in her normal state of health until the end of May when she went on a trip to [place]. The whole trip she was with tour groups and felt very cold and began to feel sick by the end of her trip. When she came back, she had a persistent cough, shortness of breath, wheezing, and decreased exercise tolerance that persisted and did not get better or worse. She had no blood in her sputum. She took her home inhalers, which helped to certain degree, but did not make her feel all the way better. The patient at the end of June had chest x-ray through her primary care doctor, but does not know the results of this. The patient did not feel any better, went to see her primary care provider again and was started on Augmentin. At that time, with taking the Augmentin, she began to have severe nausea, vomiting of any food she ate, and diarrhea without blood or abdominal pain. The patient has had no chest pain, swelling of legs, difficulty breathing lying flat. The patient went back to her primary care doctor and switched to Keflex, but had similar problems with this. The patient today presented to the emergency department due to concerns for persistent shortness of breath. In the emergency department, the patient was found to have a white blood count of 20, tachycardia, borderline low blood pressure, borderline elevated temperatures. The patient, per her report, has lost over 20 pounds since beginning of this illness due to inability to tolerate oral intake. The patient was desaturating to the high 80s on room air. In the emergency department, the patient was given Zofran, normal saline for her sepsis and ceftriaxone, but did not feel any better. The patient had occasional dizziness on standing, but has not passed out. The patient denies hemoptysis. The patient was in the emergency department for 10 hours and had no bowel movements and states she was initially having 3 to 4 a day, but then they began to decrease within the last 3 to 4 days. Due to the concern for acute hypoxic respiratory failure and diarrhea in the setting of antibiotics, we were asked to evaluate the patient for admission to the hospital. The patient's medication reconciliation was reviewed and showed that the medications she was prescribed actually were ciprofloxacin, doxycycline, levofloxacin, Augmentin, and then cefuroxime in that order. The most recent prescription being from 08/23/18. PAST MEDICAL HISTORY: COPD, on 2 L of oxygen at night, Crohn's disease, neuropathy, radiculopathy, peripheral vascular disease, status post stenting, anemia. PAST SURGICAL HISTORY: Stent in the right lower extremity. MEDICATIONS: Per medication reconciliation. 1. Aspirin 325 mg daily. 2. Ventolin 2 puffs inhalation q.4 hours as needed. 3. Tylenol 500 mg p.o. q.6 hours. 4. Gabapentin 600 mg t.i.d. 5. Lactulose 10 mg p.o. daily as needed. 6. Omeprazole 20 mg p.o. daily. 7. Keflex, unknown dose. External Medication History: 1. Pantoprazole 40 mg p.o. daily. 2. Singulair 10 mg p.o. daily. 3. Gabapentin 600 mg p.o. t.i.d. 4. VESIcare 5 mg p.o. daily. 5. Benzonatate 100 mg p.o. b.i.d. 6. Trelegy Ellipta 100-62.5-25 one inhalation daily. 7. Cefuroxime 250 mg p.o. b.i.d. 8. Aspirin 325 mg p.o. daily. 9. Albuterol inhaler 2 puffs inhalation q.4 hours as needed. ALLERGIES: PLAVIX, LEVAQUIN, MACROBID, FLAGYL, PENICILLIN. FAMILY HISTORY: The patient's father's family history is unknown. The patient' s mother of complications of diabetes. The patient has no known siblings. SOCIAL HISTORY: The patient had smoked for 30-pack years, quitting in 1989. 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 The patient used to work at [employer] and then at [employer]. The patient is no longer . The patient has 3 biological sons. The patient's surrogate decision maker will be her friend, Anu Givens. The patient is generally very active, going on trips and is on committees at her work and at her [employer] and still works. REVIEW OF SYSTEMS: A 14-point review of systems was reviewed and is negative except as above in the HPI. PHYSICAL EXAMINATION GENERAL: The patient is a 78-year-old female who appears stated age and sitting comfortably in bed, in no acute distress. VITAL SIGNS: At the time of evaluation, temperature 100.6, pulse rate 99, respiratory rate 20, oxygen saturation 95% on 1 L, blood pressure 122/59. HEENT: Head: Normocephalic, atraumatic. Sclerae anicteric. No conjunctival injection. Nasal mucosa moist. Oral mucosa moist. No pharyngeal erythema, discharge, or exudate. NECK: Supple, nontender. No lymphadenopathy. No carotid bruits auscultated. No JVD. RESPIRATORY: Rhonchi throughout bilaterally. Slight expiratory wheezes. No adventitious lung sounds. CARDIAC: Tachycardic. No clicks, murmurs, gallops, or rubs. Pulses are 2+ in the bilateral dorsalis pedis, posterior tibialis, and radial areas. ABDOMEN: Soft, nontender, nondistended. Bowel sounds present in all 4 quadrants. No hepatosplenomegaly. No abdominal bruits auscultated. No hepatojugular reflux. GENITOURINARY: No suprapubic or CVA tenderness. NEURO: Cranial nerves II through XII intact. No focal deficits. Alert and oriented x3. PSYCHIATRIC: Pleasant and cooperative. SKIN: Clean, dry, intact. No rash. DIAGNOSTIC STUDIES/LAB DATA: White blood cell count 20.8, hemoglobin 9.6, RDW 17, platelet count 352. Sodium 138, potassium 4.0, chloride 103, carbon dioxide 26, anion gap 9, BUN 9, creatinine 0.52, glucose 119, calcium 8.4, bilirubin 0.5, AST 12, ALT 5, alkaline phosphatase 94, protein 6.8, albumin 3.0 , lipase less than 10. Urine shows trace leukocyte esterase, 1+ white blood cells, 1+ red blood cells, 2+ ketones. Negative bacteria. Negative glucose. EKG shows tachycardia. No ST segment elevation or depression. Normal axis. QTc of 492. Rate of 94. Possible left atrial enlargement. Chest x-ray read as stable density at the posterior left lung base, could be due atelectasis or scarring without change compared to 03/11/2018 chest x-ray. Appears consistent with COPD. Abdomen and pelvis CT from 08/26/18 read as status post open reduction and internal fixation of an old fracture of the proximal right femur, left lower lobe pulmonary infiltrate, pulmonary emphysema, pancreatic atrophy, hysterectomy , colonic diverticulosis. ASSESSMENT AND PLAN/IMPRESSION: Ms. Martínez is a 78-year-old female with past medical history significant for chronic obstructive pulmonary disease, Crohn's disease, peripheral vascular disease, who presented to the emergency department after 2 months of shortness of breath and 1 month of diarrhea with 20-pound weight loss with no improvement in symptoms. The patient will be admitted to the hospital for chronic obstructive pulmonary disease exacerbation, concern for pneumonia, and possibility of diarrheal illness. 1. Acute hypoxic respiratory failure. The patient's acute hypoxic respiratory failure requiring 1 L of oxygen at this time to maintain the sats about 90 is likely due to combination of possible pneumonia and chronic obstructive pulmonary disease exacerbation. The patient will be treated with ceftriaxone and azithromycin for her possible pneumonia. Given the patient's stable chest x -ray, this is not necessarily likely; however, the patient does not have another obvious source of her symptoms consistent with infection. The patient will be treated as well with prednisone and inhaler therapy. The patient is on triple inhaler therapy at home and will be continued on this. The patient may simply need oxygen at home. 2. Sepsis. The patient meets sepsis criteria with an elevated white blood cell and fever, tachycardia. The patient does not meet severe sepsis criteria, though the patient never had lactic acid, that will be ordered at this time. The patient did receive her fluid bolus for sepsis while in the emergency department. The patient has been started on appropriate broad-spectrum antibiotics and will be monitored closely. 3. Diarrhea. The patient's diarrhea is likely antibiotic related. Based on the patient's symptoms and the appearance of her CT abdomen and pelvis, C. diff is not likely. However, given the patient's etiology consistent with severe infection, we will check for C. diff and get a stool culture as well as fecal lactoferrin. The patient will be on prednisone, which may concurrently treat to certain degree her Crohn's disease if there is a Crohn's flare going on as well, but this is not likely given lack of abdominal cramping or blood in the stool and the relatively quiescent course of the patient's disease. 4. Anemia. The patient has chronic anemia which was consistent with iron deficiency on testing from 2018, it is not clear the patient has been on iron. We will repeat patient's iron studies. It is likely the patient is iron deficient from poor oral intake; however, the patient should have a colonoscopy outpatient. 5. Peripheral vascular disease. Continue the patient's statins. Hold aspirin at this time due to abdominal upset. 6. FEN. The patient will have a regular unrestricted diet and a nutrition consult. TIME SPENT: Approximately 60 minutes was spent on this admission, 30 of which was spent [id number] with the patient obtaining history and physical and discussing treatment plan. The plan has been discussed with my attending Dr. Anna Charlton; she in agreement. JACKSON TORRES [id number]/[facility] #: [id number]
[2018-08-27] MEDS: Albuterol 2.5 MG/3 ML NEB.SOL* (0.083%) INH SCH ×2 (03:59→07:27)
[2018-08-27 05:03] LABS: ABS Lymphocytes 0.6 10^3/ul (1.0-4.8); ABS Monocytes 0.3 10^3/ul (0-0.8); ABS Neutrophils 11.2 10^3/ul (1.5-7.7); Hematocrit 26 % (35-47); Hemoglobin 8.3 g/dL (12.0-16.0); Lymphocyte % 5.2 %; Mean Corpuscular HGB Conc 32 g/dL (31-36); Mean Corpuscular Hemoglobin 27 pg (27-31); Mean Corpuscular Volume 84 fL (80-97); Mean Platelet Volume 7.2 fL (7.4-10.4); Platelet Count 352 10^3/uL (150-450); Red Cell Distribution Width 17 % (10.5-15); White Blood Count 12.2 10^3/uL (3.5-10.8)
[2018-08-27 05:25] LABS: BUN/Creatinine Ratio 20.4 (8-20); Calcium 8.2 mg/dL (8.6-10.3); EGFR African American 148.6 (>60); EGFR Non-African American 122.8 (>60); Potassium 3.9 mmol/L (3.5-5.0)
[2018-08-27] MEDS: Tiotropium CAP.INH* CAP.INH/18 MCG (USE ORDER SET !) INH SCH (07:27)
[2018-08-27] MEDS: Mometasone/Formoter 200/5 MDI INH SCH ×2 (07:27→21:13)
[2018-08-27] MEDS: Gabapentin CAP(*) 300 MG PO SCH ×3 (08:28→21:56)
[2018-08-27] MEDS: cefTRIAXone(*) 1 GM in NS 0.9% 50 ML* 50 ML IVPB SCH (08:28)
[2018-08-27] MEDS: Pantoprazole TAB * 40 MG TAB PO SCH (08:29)
[2018-08-27] MEDS: guaiFENesin ER TAB 600 MG PO SCH ×2 (08:29→21:56)
[2018-08-27] MEDS: predniSONE TAB* 20 MG PO SCH (08:29)
[2018-08-27] MEDS ORDERED: Azithromycin IV(*) 250 MG in NS 0.9% 250 ML* 250 ML IVPB SCH (11:00)
[2018-08-27] MEDS: Enoxaparin(*) 40 MG/0.4 ML SYR SUBCUT SCH (12:21)
--- NOTE | 2018-08-27 13:40 | PN ---
Subjective Date of Service: 08/27/18 Interval History: Patient states she is still feeling SOB with exertion and is still coughing up significant amounts of yellow sputum. Patient states her chest sometimes feels heavy when she wakes up, but this clears with deep breathing and coughing. Patient denies abdominal pain, diarrhea, dizziness, wheezing, or other pain. Patient is also feeling "down" and her appetite is still poor. Family History: Unchanged from Admission Social History: Unchanged from Admission Past Medical History: Unchanged from Admission Objective Active Medications: Acetaminophen (Tylenol Tab*) 650 mg PO Q6H PRN PRN Reason: FEVER/PAIN Last Admin: 08/26/18 13:19 Dose: 650 mg Albuterol (Ventolin 2.5 Mg/3 Ml Neb.Michelle*) 2.5 mg INH Q2H PRN PRN Reason: SOB/WHEEZING Albuterol (Ventolin Hfa Inhaler*) 2 puff INH Q4H PRN PRN Reason: WHEEZING Benzonatate (Tessalon Cap*) 100 mg PO BID PRN PRN Reason: COUGH Device (Tiotropium Inhaler Device*) 1 each INH .USE w/ SPIRIVA CAPS [facility] Enoxaparin Sodium (Lovenox(*)) 40 mg SUBCUT Q24H [facility] Last Admin: 08/27/18 12:21 Dose: 40 mg Gabapentin (Neurontin Cap(*)) 600 mg PO TID [facility] Last Admin: 08/27/18 08:28 Dose: 600 mg Guaifenesin (Mucinex*) 1,200 mg PO BID [facility] Last Admin: 08/27/18 08:29 Dose: 1,200 mg Azithromycin 250 mg/ Sodium (Chloride) 250 mls @ 250 mls/hr IVPB Q24H [facility] Last Admin: 08/27/18 12:15 Dose: 250 mls/hr Lactated Ringer's (Lactated Ringers 1000 Ml Bag*) 1,000 mls @ 100 mls/hr IV PER RATE [facility] Stop: 08/27/18 20:59 Last Admin: 08/26/18 22:31 Dose: 100 mls/hr Ceftriaxone Sodium 1 gm/ (Sodium Chloride) 50 mls @ 200 mls/hr IVPB Q24H [facility] Last Admin: 08/27/18 08:28 Dose: 200 mls/hr Mometasone Furoate/Formoterol Fumar (Dulera 200/5 Mdi*) 2 puff INH BID [facility] Last Admin: 08/27/18 07:27 Dose: 2 puff Ondansetron HCl (Zofran Inj*) 4 mg IV Q6H PRN PRN Reason: NAUSEA Pantoprazole Sodium (Protonix Tab*) 40 mg PO DAILY [facility] Last Admin: 08/27/18 08:29 Dose: 40 mg Prednisone (Deltasone Tab*) 60 mg PO DAILY [facility] Last Admin: 08/27/18 08:29 Dose: 60 mg Tiotropium [place] (Spiriva Cap.Inh*) 1 cap INH DAILY [facility] Last Admin: 08/27/18 07:27 Dose: 1 cap Vital Signs - 8 hr 08/27/18 08/27/18 08/27/18 07:29 07:54 08:00 Temperature 97.7 F Pulse Rate 55 54 Respiratory 18 17 17 Rate Blood Pressure 100/49 (mmHg) O2 Sat by Pulse 97 80 Oximetry 08/27/18 08/27/18 08/27/18 08:20 08:26 08:28 Temperature Pulse Rate 100 Respiratory 17 Rate Blood Pressure (mmHg) O2 Sat by Pulse 94 97 Oximetry 08/27/18 12:45 Temperature 98.1 F Pulse Rate 83 Respiratory 17 Rate Blood Pressure 101/55 (mmHg) O2 Sat by Pulse 100 Oximetry Oxygen Devices in Use Now: Nasal Cannula Appearance: Patient is a 78yo female who appears very underweight and is sitting in the bed in [facility]. Eyes: No Scleral Icterus, PERRLA Ears/Nose/Mouth/Throat: NL Teeth, Lips, Gums, Clear Oropharnyx, Mucous Membranes Moist Neck: NL Appearance and Movements; NL JVP, Trachea Midline Respiratory: Symmetrical Chest Expansion and Respiratory Effort, - - Slight Wheezing and Rhonchi throughout. Cardiovascular: NL Sounds; No Murmurs; No JVD, RRR, No Edema Abdominal: NL Sounds; No Tenderness; No Distention Lymphatic: No Cervical Adenopathy Extremities: No Edema, No Clubbing, Cyanosis Skin: No Rash or Ulcers, No Nodules or Sclerosis Neurological: Alert and Oriented x 3, NL Sensation, NL Muscle Strength and Tone , - - CN II-XII intact. - Nutrition: Malnutrition Diagnosis/Plan Malnutrition Assessment by Registered Dietitian: Malnutrition Assessment Clinical Characteristics Chronic,Moderate Malnutrition Assessment: severe wt loss: 10% x 2 mos; 11.4% x 6 mos - Criteria severe Moderate temporal wasting; mild-moderate orbital fat pad wasting, and moderate subcutaneous triceps muscle mass loss - per observation Malnutrition Assessment: Ensure Enlive daily at BLD: 350 kcal, 20 g pro Interventions per serving soft texture diet to ease swallowing Young yogurt @ B & L daily: ~140 kcal, 6 g pro per serving Malnutrition Assessment: Goals 1. pt will tolerate regular diet and choose appropriate items to ease swallowing 2. intake will be adequate to promote wt gain to at least 95# 3. Adequate BG control in setting of steroid tx Result Diagrams: 08/27/18 04:41 08/27/18 04:41 Microbiology and Other Data: Microbiology 08/26/18 05:03 Urine Culture - Preliminary Urine Enterococcus Faecium Normal Laya 08/26/18 19:15 Stool Gross Appearance - Final Stool C. difficile DNA Amplification - Final Stool Lactoferrin - Final 08/26/18 05:03 Legionella Urinary Antigen - Final Urine Negative Legionella Antigen Streptococcus pneumoniae Ag Screen - Final Negative S. pneumo Antigen 08/26/18 12:40 Gram Stain - Final Sputum Expectorated Assess/Plan/Problems-Billing Assessment: Patient is a 78yo female with a PMH for COPD, Ulcers, Crohns, and PVD, who is admitted with pneumonia and COPD exacerbation who is improving slowly on antibiotics and steroids. - Patient Problems (1) Pneumonia Current Visit: No Status: Acute Code(s): J18.9 - PNEUMONIA, UNSPECIFIED ORGANISM SNOMED Code(s): 173140340 Comment: - Cont Ceftriaxone/Azithro - Sputum and Blood Cultures pending - ISB and flutter valve. (2) COPD (chronic obstructive pulmonary disease) Current Visit: No Status: Acute Code(s): J44.9 - CHRONIC OBSTRUCTIVE PULMONARY DISEASE, UNSPECIFIED SNOMED Code(s): 27771952 Comment: - In acute exacerbation due to pneumonia - Continue steroids, antibiotics, Chronic inhalers, Flutter valve, ISB, and nebs. - Needing 2L O2 at this time, may need chronic oxygen at D/C. (3) Gastric ulcer Current Visit: Yes Status: Acute Code(s): K25.9 - GASTRIC ULCER, UNSP ACUTE OR CHRONIC, W/O HEMOR OR PERF SNOMED Code(s): 604432451 Comment: - Per patient report, Seen on previous EGD - Continue Omeprazole - Associated with food getting stuck in esophagus, follow up outpatient GI. (4) Anemia Current Visit: No Status: Acute Code(s): D64.9 - ANEMIA, UNSPECIFIED SNOMED Code(s): 894141754 Comment: - Iron deficient, Start Iron through PCP when nausea improved - Needs outpatient EGD and Colonoscopy. Patient is aware. (5) Hypertension Current Visit: No Status: Acute Code(s): I10 - ESSENTIAL (PRIMARY) HYPERTENSION SNOMED Code(s): 34823081 Comment: - Borderline low BPs, on no meds at home. (6) Neuropathy Current Visit: No Status: Acute Code(s): G62.9 - POLYNEUROPATHY, UNSPECIFIED SNOMED Code(s): 910725721 Comment: - Chronic, Continue gabapentin (7) DVT prophylaxis Current Visit: No Status: Acute Code(s): QJW1886 - SNOMED Code(s): 016535171 Comment: - HSQ Status and Disposition: Inpatient for treatment of COPD/Pneumonia
[2018-08-28 05:53] LABS: ABS Lymphocytes 0.9 10^3/ul (1.0-4.8); ABS Monocytes 0.8 10^3/ul (0-0.8); ABS Neutrophils 9.8 10^3/ul (1.5-7.7); Hematocrit 24 % (35-47); Hemoglobin 7.9 g/dL (12.0-16.0); Mean Corpuscular HGB Conc 33 g/dL (31-36); Mean Corpuscular Hemoglobin 27 pg (27-31); Mean Corpuscular Volume 84 fL (80-97); Mean Platelet Volume 7.3 fL (7.4-10.4); Platelet Count 347 10^3/uL (150-450); Red Blood Count 2.88 10^6 /uL (3.70-4.87); Red Cell Distribution Width 17 % (10.5-15); White Blood Count 11.6 10^3/uL (3.5-10.8)
[2018-08-28 06:15] LABS: Calcium 8.7 mg/dL (8.6-10.3); EGFR African American 168.2 (>60); Potassium 4.2 mmol/L (3.5-5.0)
[2018-08-28] MEDS: Tiotropium CAP.INH* CAP.INH/18 MCG (USE ORDER SET !) INH SCH (08:15)
[2018-08-28] MEDS: Mometasone/Formoter 200/5 MDI INH SCH (08:15)
[2018-08-28] MEDS: predniSONE TAB* 20 MG PO SCH (08:29)
[2018-08-28] MEDS: Gabapentin CAP(*) 300 MG PO SCH ×2 (08:29→13:08)
[2018-08-28] MEDS: cefTRIAXone(*) 1 GM in NS 0.9% 50 ML* 50 ML IVPB SCH (08:29)
[2018-08-28] MEDS: guaiFENesin ER TAB 600 MG PO SCH (08:30)
[2018-08-28] MEDS: Pantoprazole TAB * 40 MG TAB PO SCH (08:30)
[2018-08-28] MEDS: Enoxaparin(*) 40 MG/0.4 ML SYR SUBCUT SCH (11:03)
[2018-08-28] MEDS ORDERED: Azithromycin TAB* 250 MG PO SCH (12:00)
[2018-08-28] MEDS ORDERED: ceFUROXime TAB(*) 250 MG PO SCH (12:00)
[2018-08-28] MEDS ORDERED: Lactobacillus Acidophilus* 1 TAB PO ONE (12:43)
[2018-08-28] MEDS ORDERED: Loperamide CAP* 2 MG PO ONE (12:43)
[2018-08-28 15:31] VITALS: BP 106/61
--- NOTE | 2018-08-30 04:02 | DS ---
CC: Dr. Noel Johnson * DISCHARGE SUMMARY: DATE OF ADMISSION: 08/26/18 DATE OF DISCHARGE: 08/28/18 PRIMARY CARE PROVIDER: Dr. Noel Johnson. MY ATTENDING WHILE IN THE HOSPITAL: Dr. Kaushik Espinoza * (DICTATED BY JACKSON TORRES) PRIMARY DISCHARGE DIAGNOSES: 1. Probable community-acquired pneumonia. 2. Chronic obstructive pulmonary disease exacerbation. SECONDARY DISCHARGE DIAGNOSES: 1. Chronic obstructive pulmonary disease with chronic hypoxic respiratory failure, needing 2 L oxygen at night and intermittent oxygen therapy during the day. 2. Crohn's disease. 3. Neuropathy. 4. Peripheral vascular disease. 5. Anemia. 6. Multiple gastric ulcers. STUDIES DONE WHILE IN HOSPITAL: Chest x-ray from 08/26/18 read as stable density at posterior lung base could be due to atelectasis or scarring without change compared to 03/11/18 chest x-ray, appearance consistent with COPD. Abdomen and pelvis CT from 08/26/18 read as status post open reduction internal fixation of an old fracture of the proximal right femur, left lower lobe pulmonary infiltrate and pulmonary emphysema, pancreatic atrophy, hysterectomy, and colonic diverticulosis. MEDICATIONS AT DISCHARGE: 1. Aspirin 325 mg daily. 2. Tylenol 500 mg p.o. q. 6 hours as needed. 3. Gabapentin 600 mg p.o. t.i.d. 4. Pantoprazole 40 mg p.o. daily. 5. VESIcare 5 mg p.o. daily. 6. Trelegy Ellipta 100-62.5-25 one inhalation p.o. daily. 7. Tylenol 650 mg p.o. q. 6 hours as needed. 8. Azithromycin 250 mg p.o. daily x2. 9. Benzonatate 100 mg p.o. b.i.d. p.r.n. 10. Cefuroxime mg p.o. b.i.d. x10 doses. 11. Mucinex 1200 mg p.o. b.i.d. 12. Lactobacillus acidophilus 1 tab p.o. b.i.d. 13. Imodium 2 mg p.o. with loose bowel movements. 14. Zofran 4 mg p.o. q. 6 hours as needed. 15. Prednisone 60 mg p.o. daily x3 days. New medication at discharge: Erythromycin, benzonatate, Ceftin, guaifenesin, Lactobacillus, loperamide, Zofran, prednisone. Medications discontinued at discharge: Cefuroxime 250 mg p.o. b.i.d., omeprazole 20 mg p.o. daily. HOSPITAL COURSE: This is a brief summary of the patient's presentation. For more details, please see the history and physical from JACK[facility] Torres on 05/15. In brief, the patient is a 78-year-old female with past medical history significant for the above who presented to the emergency department after a complicated 2-month course of waxing and weaning shortness of breath with intermittently productive cough, shortness of breath, and suspected fevers and chills as well as recent onset of nausea, vomiting, and diarrhea. The patient was admitted to the hospital. The patient's diarrhea at that point had essentially subsided. This began with the initiation of Augmentin. Given the above chest x-ray findings though chronic and elevated white blood cell count, tachycardia, and borderline low blood pressures, was admitted to the hospital and treated for community-acquired pneumonia. The patient was also treated with inhalers, steroids, and pulmonary toileting for COPD exacerbation. The patient improved greatly over the first 2 days of her admission; however, the patient was unable to be weaned off of the oxygen. The patient did state that she did use oxygen frequently at home at 2 L, particularly with exertion, but was able to be weaned off of her oxygen entirely while in the hospital and was needing it 24 hours a day. The patient's tachycardia improved. The patient's blood pressure improved. The patient still had rhonchi on the day of her discharge, but had significant improvement in her wheezing. The patient's white blood cell count declined from 28.8 to 11.6. The patient in the hospital was found to be iron deficient; however, the patient continued to have significant nausea requiring medication. The patient also stated that she had previously been diagnosed with gastric ulcers on endoscopy, so oral iron was not started while in the hospital. The patient's hemoglobin on the day of her discharge was 7.9. The patient was asymptomatic and this was likely at least partially dilution from fluids. The patient was stable enough to discharge on 08/29/18. PHYSICAL EXAMINATION ON THE DAY OF DISCHARGE: General: The patient is a 78- year- old female who appears stated age and sitting comfortably in the bed, in acute distress. Vital Signs: At the time of evaluation, temperature 98.4, pulse rate 87, respiratory rate 16, oxygen saturation 92% on 2 L. Blood pressure 106/61. HEENT: Head normocephalic, atraumatic. Sclerae anicteric. No conjunctival injection. Nasal mucosa moist. Oral mucosa moist. No pharyngeal erythema, discharge or exudates. Neck: Supple, nontender. No lymphadenopathy. No carotid bruits. No JVD. Cardiac: Regular rate and rhythm. No clicks, murmurs, gallops, or rubs. Pulses are 2+ in the bilateral dorsalis pedis, posterior tibialis, and radial areas. No bilateral lower extremity edema noted. Respiratory: Slight rhonchi heard in the bilateral lower lobes. No other adventitial lung sounds. Good air exchange bilaterally. Abdomen: Soft, nontender, nondistended. Bowel sounds present. Normoactive in all 4 quadrants. No hepatosplenomegaly. No abdominal bruits auscultated. No hepatojugular reflux. Genitourinary: No suprapubic or CVA tenderness. Skin: Clear, dry, intact, no rash. Neuro: Cranial nerves II through XII are intact. No focal deficits. Alert and oriented x3. Psychiatric: Pleasant and cooperative. DISCHARGE PLAN: The patient will be discharged to home. The patient will be continued on prednisone, antibiotics and inhalers as above. The patient has been instructed to use oxygen 24 hours a day until she is able to tolerate using it only p.r.n. If this is possible, the patient should follow up with primary care provider and her fern gatherer as scheduled. The patient should discuss with them the possibility of pulmonary rehab. The patient on the day of discharge had several loose bowel movements. The patient was negative to C. diff while in the hospital, after the patient's antibiotics she was started on probiotics and given Imodium. The patient's stool test negative for fecal lactoferrin making the patient's diarrhea unlikely to be from the inflammatory source. History of Crohn's disease. The patient was instructed to follow up with her sheet metal roofer for repeat colonoscopy and endoscopy to assess for occult blood loss. If the patient does not have ulcers at that time, the patient may be trialed on oral iron, however, the patient may at some point need IV iron as well when she is not actively infected. The patient weighs 89 pounds and had been recently been losing weight likely related to nausea, vomiting from antibiotics. The patient was trialed on oral antibiotics in the hospital and did not have any nausea from them. The patient should use antiemetics as needed and eat as much high calorie food as she can. The patient started on regular unrestricted diet. Engage in activity as tolerated. The patient will return to hospital for severe shortness of breath, passing out, chest pain or other alarming symptoms. TIME SPENT: Approximately 60 minutes was spent upon discharge of this patient, 30 of which was spent [id number] with the patient, obtaining history and physical and discussing treatment plan. JACKSON TORRES [id number]/CPS #: [id number] MTDD
== END 2018-08-28 16:45 | disposition home health service (06) | DRG 871 ==
LOC: ED 23:53 → SSU 08-26 11:10
PROVIDERS: ADMIT Internal Medicine; ATTEND Internal Medicine
DX: A41.9 Sepsis, unspecified organism (principal); J18.9 Pneumonia, unspecified organism; J96.21 Acute and chronic respiratory failure with hypoxia; E43 Unspecified severe protein-calorie malnutrition; J44.0 Chronic obstructive pulmonary disease with (acute) lower respiratory infection; J44.1 Chronic obstructive pulmonary disease with (acute) exacerbation; K50.90 Crohn's disease, unspecified, without complications; J98.11 Atelectasis; Z68.1 Body mass index [BMI] 19.9 or less, adult; Z99.81 Dependence on supplemental oxygen; G62.9 Polyneuropathy, unspecified; I73.9 Peripheral vascular disease, unspecified; K25.9 Gastric ulcer, unspecified as acute or chronic, without hemorrhage or perforation; D50.9 Iron deficiency anemia, unspecified; M54.10 Radiculopathy, site unspecified; Z79.1 Long term (current) use of non-steroidal anti-inflammatories (NSAID); Z79.82 Long term (current) use of aspirin; Z79.51 Long term (current) use of inhaled steroids; Z79.899 Other long term (current) drug therapy; Z88.1 Allergy status to other antibiotic agents; Z88.0 Allergy status to penicillin; Z88.8 Allergy status to other drugs, medicaments and biological substances; Z83.3 Family history of diabetes mellitus; Z87.891 Personal history of nicotine dependence
CPT/HCPCS: 36415; 71046; 74177; 80048; 80053; 81003; 81015; 82728; 83540; 83550; 83605; 83630; 83690; 83735; 85025; 87070; 87077; 87086; 87186; 87205; 87493; 87899; 93005; 94640; 99285; A9270-GY; J0456; J0696; J1650; J2405; J7512; Q9967

== ENCOUNTER 2018-12-10 19:52 | Emergency (ER) | payer MEDICARE ==
--- OUTSIDE RECORDS SUMMARY | 2018-12-10 20:08 | XMS REPORT | Summary of Care ---
:1940 Author Organization [facility] Address [address] [address] Care Team Providers Name Role Phone Sheri Cosby MD Primary Care Provider Marquita Deleon RNretail zone specialist Reason for Referral MRI/CAT/PET Scan (Routine) Status Reason Specialty Diagnoses / Procedures Referred By Referred To Contact Contact Pending Review Diagnoses Chronic chest pain Preoperative cardiovascular examination Atypical angina (HCC) Sarah, Bonnie NM SPECT/CT CHEST HEART PHARMACOLOGIC STRESS/REST NM REST STRESS PERF W GATED SPECT PHARMACOLOGIC MD Adriel [address] [id number] Reason for Visit Reason Comments Cardiac Evaluation Pt. in for a Pre-Op evaluation. Schedule for Laparoscopic Cholecystectomy with Dr. Ortiz on 12/06/18. Echo done on 09/26/18, EKG done on 11/20/18 (Dr. Gunter) Encounter Details Date Type Department Care Team Description 12/03/2018 Office Visit Nadine Smith Preoperative cardiovascular examination (Primary Dx); Cardiology MD Adriel Atypical angina (HCC); [address] [facility] [place] [address] [place] [address] [phone] Allergies Active Allergy Reactions Severity Noted Date Comments Metronidazole GI Reaction 06/13/2016 Severe nausea, headache and dizziness Escitalopram Rash Medium 04/03/2018 Nitrofurantoin GI Reaction 02/28/2013 Penicillins Hives 09/09/2004 Yeast infection in mouth and vagina documented as of this encounter (statuses as of 12/03/2018) Medications Medication Sig Dispensed Refills Start Date End Date Status lactulose (CEPHULAC) 10 Take 30 mL by 900 mL 5 03/04/2015 Active GM/15ML Oral Solution mouth DAILY. Additional information Patient taking differently: 20 g Oral PRN, Reported on 10/06/2015 1:10 PM Multiple Vitamin (MULTIVITAMINS Take by mouth DAILY. 0 06/02/2013 Active PO) Acetaminophen (TYLENOL) 325 MG Take 500 mg by mouth 0 09/06/2014 Active Oral Cap EVERY SIX HOURS NEEDED. colchicine (COLSALIDE) 0.6 MG Take 1 Tab by mouth 10 Tab 5 02/03/2017 Active Oral TabIndications: Acute TWICE DAILY. idiopathic gout involving toe of left foot Additional information Patient taking differently: 0.6 mg Oral BID PRN, Reported on 06/23/2017 10:14 AM aspirin 325 MG Oral Tab Take 325 mg by mouth 0 Active DAILY. albuterol HFA (VENTOLIN) 108 Take 2 Puffs by 3 Inhaler 5 01/09/2018 Active (90 Base) MCG/ACT Inhalation inhalation EVERY FOUR Aero SolnIndications: COPD HOURS NEEDED (SOB). exacerbation (HCC) montelukast (SINGULAIR) 10 Take 1 Tab by mouth 90 Tab 2 02/27/2018 Active MG Oral Tab DAILY. pantoprazole (PROTONIX) 40 Take 1 Tab by mouth DAILY 90 Tab 3 02/27/2018 Active MG Oral Tab EC 0700 on Empty Stomach. ALPRAZolam (XANAX) 0.25 MG Take 1 Tab by mouth EVERY 30 Tab 0 04/03/2018 Active Oral TabIndications: Anxiety BEDTIME NEEDED (anxiety). Max Daily Amount: 1 Tab. gabapentin (NEURONTIN) 300 Take 2 Caps by mouth 540 Cap 5 06/12/2018 Active MG Oral CapIndications: THREE TIMES DAILY. Anxiety state Ozvdnfeatwa-Sykgseeok-Wyecdp Take 1 INHL by inhalation 1 Each 5 08/09/2018 Active (TRELEGY ELLIPTA) DAILY. 100-62.5-25 MCG/INH Inhalation AEROSOL POWDER, BREATH ACTIVATED azithromycin (ZITHROMAX) 250 Take 1 tab on Monday, 12 Tab 6 09/20/2018 Active MG Oral Tab Monday and Monday oxybutynin (DITROPAN XL) 5 Take 1 Tab by mouth 30 Tab 1 11/16/2018 Active MG Oral TABLET SR 24 HR DAILY. documented as of this encounter (statuses as of 12/03/2018) Active Problems Problem Noted Date Fluttering heart 11/10/2018 Gallstones 11/10/2018 Overview: Added automatically from request for surgery [id number] Right arm pain 11/08/2018 Fluttering heart 08/15/2018 Pneumonia of right middle lobe due to infectious organism 08/15/2018 Hypoxemia 10/26/2017 Overview: 2 LPM q HS through [employer] Stenosis of peripheral vascular stent 06/20/2017 Overview: Added automatically from request for surgery [id number] Esophageal stricture 09/15/2016 Overview: S/p dilation esophago-gastroduodenoscopy [facility] 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 Muscle tension headache 08/06/2015 Cubital tunnel syndrome on right 03/12/2014 Chronic cervical radiculopathy 08/21/2013 Overview: Due to cervical spinal stenosis Femoral hernia 03/11/2013 Osteoporosis 10/15/2012 Overview: Bone density scan 2008, bone density scan 2012 Raynauds syndrome 05/03/2012 Osteoarthritis 05/03/2012 Dupuytren's contracture of hand 01/16/2012 Degenerative cervical spinal stenosis 04/04/2011 Overview: Dr Ya [facility] Gout attack 03/28/2011 Overview: 2009 right big toe 03/2011 left big toe Carpal tunnel syndrome 06/10/2010 Overview: Dr. Bhat 05/2010 COPD (chronic obstructive pulmonary disease) 01/29/2009 Overview: Reversible component on PFT's 02/02: FEV1 .78 (42%) improved to .98 (52%). Moderate severity. [facility] admission 02/02 On oxygen at 2 liters, getting from [employer] False positive cardiac stress test 01/16/2009 Overview: 01/13/09 Dr Nicholas Cardiac cath [facility] 01/02: SUMMARY: 1. No significant coronary artery disease. 2. Normal left ventricular systolic function and filling pressure. 3. Possible dissection or thrombus in the right common femoral artery. PVD (peripheral vascular disease) 08/11/2008 Overview: S/p right SFA percutaneous transluminal angiolasty/stent [facility] 06/02 TOBACCO ABUSE, IN REMISSION 04/16/2008 Overview: Quit smoking . Crohn disease Overview: [facility] Colonoscopy nov 2010 GERD (gastroesophageal reflux disease) Essential hypertension, benign documented as of this encounter (statuses as of 12/03/2018) Resolved Problems Problem Noted Date Resolved Date Knee pain 02/14/2014 03/21/2014 Knee pain, right 01/24/2014 11/27/2014 Recurrent UTI 08/21/2013 03/21/2014 Recurrent UTI 07/05/2013 08/21/2013 UTI (lower urinary tract infection) 07/23/2012 10/15/2012 Atherosclerosis of arteries of extremities 03/12/2012 09/15/2016 Diabetes mellitus 01/30/2012 04/16/2013 Hematuria, unspecified 12/22/2011 10/15/2012 Cervical spondylosis with myelopathy 10/03/2011 10/15/2012 Hiatal hernia 09/14/2011 10/15/2012 Gastritis 09/14/2011 08/21/2013 Gastric erosion 09/14/2011 10/15/2012 Shoulder pain, right 05/16/2011 07/26/2011 Cervical spondylosis with myelopathy 04/04/2011 07/26/2011 Degeneration of cervical intervertebral disc 01/25/2011 04/08/2011 Personal history of allergy to penicillin 05/08/2008 01/24/2014 Mixed hyperlipidemia 01/25/2007 11/22/2016 Closed fracture of dorsal (thoracic) vertebra without 09/15/2004 03/28/2011 mention of spinal cord injury Unspecified prolapse of vaginal michel 08/30/2004 08/21/2013 Osteoporosis 07/26/2011 documented as of this encounter (statuses as of 12/03/2018) Immunizations Name Administration Dates Next Due Influenza (IM) Preservative Free 01/05/2010, 01/09/2008 Influenza Vaccine High Dose 12/08/2017, 11/25/2016, 12/02/2015, 12/02/2013 Influenza Vaccine Whole 01/11/2007, 02/03/2005, 01/05/2004, 01/16/2003, 01/17/2001 Influenza Virus Vaccine Pres Free 6-35 01/09/2012, 12/24/2010 Months PNEUMOCOCCAL POLYSACCHARIDE VACCINE 01/14/2009 Pneumococcal Conjugate(13 Valent) 08/26/2014 dT Vaccine 11/14/2001 documented as of this encounter Social History Tobacco Use Types Packs/Day Years Used Date Former Smoker Cigarettes 1 35 Quit: 03/27/1993 Smokeless Tobacco: Never Used Alcohol Use Drinks/Week oz/Week Comments Yes 7 Standard drinks or equivalent 7.0 RUM AND COKE Q PM Sex Assigned at Date Recorded Not on file Job Start Date Occupation Industry Not on file Not on file Not on file Travel History Travel Start Travel End No recent travel history available. documented as of this encounter Last Filed Vital Signs Vital Sign Reading Time Taken Comments Blood Pressure 118/58 12/03/2018 1:50 PM EDT Pulse 78 12/03/2018 1:50 PM EDT Temperature - - Respiratory Rate - - Oxygen Saturation - - Inhaled Oxygen Concentration - - Weight 38.6 kg (85 lb) 12/03/2018 1:50 PM EDT Height 149.9 cm (4' 11") 12/03/2018 1:50 PM EDT Body Mass Index 17.17 12/03/2018 1:50 PM EDT documented in this encounter Patient Instructions Patient InstructionsAdriel Smith MD - 12/03/2018 2:00 PM EDT No medication changes today. Schedule a nuclear stress test AALIYAH in [place]. If the nuclear test is normal, then it's OK for you to proceed with your planned gallbladder surgery. Follow up with me sometime in January/February. documented in this encounter Progress Notes Adriel Smith MD - 12/03/2018 2:00 PM EDT [facility] Patient: Nohemy Martínez Date of : 1940 Date of Service: 12/03/2018 REFERRING PRACTITIONER: Sheri Cosby PRIMARY CARE PROVIDER: Sheri Cosby Chief Complaint: Chief Complaint Patient presents with Cardiac Evaluation Pt. in for a Pre-Op evaluation. Schedule for Laparoscopic Cholecystectomy with Dr. Ortiz on 12/06/18. Echo done on 09/26/18, EKG done on 11/20/18 (Dr. Gunter) History of Present Illness: We had the pleasure of seeing Nohemy Martínez today at the [facility] Cardiology Office. She is a 78-y.o. female with HTN, hyperlipidemia, Crohn's disease, COPD on nightly O2, PAD s/p R SFA PCI by Dr. Garcia 2008 and cath showing no significant CAD in 2008 (for false positive stress echo). Ms. Martínez returns to cardiology clinic today for perioperative evaluation prior to undergoing lap sreedhar with Dr. Ortiz on 12/06. From a symptom standpoint, she reports that she gets discomfort in her upper abdomen and lower chest that is most noticeable in the AM right before she gets out of bed. Saysthat it feels like something is sitting on her upper abdomen and lower chest, and it's associated with some SOB. Symptom usually goes away once she gets up and doesn' t recur throughout the day. Has been happening for most of the summer and she gets it almost every day. Says that she's able to climba flight of stairs. However, climbing a flight of stairs will make her SOB and also cause the lowerchest pressure pretty reproducibly. Does get some lightheadedness with standing up quickly and feels unsteady on her feet. No clear syncope but does sometimes has had to go to the floor b/c she's so off balance. Continues to have some occasional palpitations. No sig LE edema. Patient Active Problem List Diagnosis Crohn disease ([facility]) GERD (gastroesophageal reflux disease) Essential hypertension, benign TOBACCO ABUSE, IN REMISSION PVD (peripheral vascular disease) ([facility]) False positive cardiac stress test COPD (chronic obstructive pulmonary disease) ([facility]) Carpal tunnel syndrome Gout attack Degenerative cervical spinal stenosis Dupuytren's contracture of hand Raynauds syndrome Osteoarthritis Osteoporosis Femoral hernia Chronic cervical radiculopathy Cubital tunnel syndrome on right Muscle tension headache Urethral stenosis Esophageal stricture Stenosis of peripheral vascular stent ([facility]) Hypoxemia Fluttering heart Pneumonia of right middle lobe due to infectious organism ([facility]) Right arm pain Fluttering heart Gallstones Past Medical History: Diagnosis Date Colon obstruction (HCC) COPD (chronic obstructive pulmonary disease) ([facility]) Crohn disease ([facility]) Degenerative disc disease 11/17/09 Diverticulitis DVT (deep venous thrombosis) ([facility]) FX DORSAL VERTEBRA-CLOSE 09/15/2004 Gastritis GERD (gastroesophageal reflux disease) Hiatal hernia Hypertension Loss of sensation Osteoporosis Other and unspecified hyperlipidemia 01/25/2007 PVD (peripheral vascular disease) ([facility]) URETHRAL STRICTURE NOS 07/30/2003 VAGINAL WALL PROLAPSE NOS 08/30/2004 Past Surgical History: Procedure Laterality Date BALO ANGIOP ICRA PRQ CARDIAC CATH leg stent CARPAL TUNNEL RELEASE CATARACT/LENS SURGERY SECTION NEC COLONOSCOPY N/A 07/05/2016 Procedure: COLONOSCOPY; Surgeon: Bertha Orlando MD; Location: [facility] GI OR COLONOSCOPY DIAGNOSTIC CYSTOCELE REPAIR CYSTOSCOPY 12/27/2011 Procedure: CYSTOSCOPY; Surgeon: Case Sanchez MD, FACS; Location: [facility] ANCILLARY OR; Laterality: N/A; EGD N/A 07/05/2016 Procedure: ENDOSCOPY UPPER GI; Surgeon: Bertha Orlando MD; Location: [facility] GI OR EGD N/A 09/15/2016 Procedure: EGD with biopsy and balloon dilation; Surgeon: Aleksander Aquino Jr., MD; Location: [facility] MAIN OR EGD N/A 11/22/2016 Procedure: ENDOSCOPY UPPER GI w/ dilation; Surgeon: Aleksander Aquino Jr., MD ; Location: [facility] GI OR EGD (HAHN / NON HAHN) HIP REPAIR NEC Right 12/09/14 Dr Guajardo PHACOEMULSIFICATION WITH INTRA OCULAR LENS 06/03 IA ANGIO AORTOBIFEMORAL W CATH N/A 06/26/2017 Procedure: Aortoiliac angiogram with runoff right leg with angioplasty and stent to left Iliac artery, angioplasty of right superficial femoral artery; Surgeon: Marcell Vazquez MD; Location: [facility] MAIN OR IA EXCIS INTRASP LESN,XDURAL,LUMBAR 1.19.[address] YA IA NUCLEAR EXAM UNLISTED IA HAND/FINGER SURGERY UNLISTED IA LIGATE FALLOPIAN TUBE IA NERVOUS SYSTEM SURGERY UNLISTED IA ORBIT SURGERY PROC UNLISTED IA TOTAL ABDOM HYSTERECTOMY IA UNLISTED PROCEDURE, VASCULAR SURGERY IA UPPER ARM/ELBOW SURGERY UNLISTED RELEASE CARPAL TUNNEL 08/18/2010 Procedure:RELEASE CARPAL TUNNEL; Surgeon:COLLIN BACA; Location:[facility] OR; Laterality:Right; RIGHT CARPAL TUNNEL RELEASE TOTAL ABD HYSTERECTOMY Allergies Allergen Reactions Lexapro [Escitalopram] Rash Flagyl [Metronidazole] GI Reaction Severe nausea, headache and dizziness Macrobid [Nitrofurantoin] GI Reaction Penicillins Hives Yeast infection in mouth and vagina Current Outpatient Medications Medication Acetaminophen (TYLENOL) 325 MG Oral Cap albuterol HFA (VENTOLIN) 108 (90 Base) MCG/ACT Inhalation Aero Soln ALPRAZolam (XANAX) 0.25 MG Oral Tab aspirin 325 MG Oral Tab azithromycin (ZITHROMAX) 250 MG Oral Tab colchicine (COLSALIDE) 0.6 MG Oral Tab Bbxnlmhnzym-Fldjfgjsz-Wpwsrr (TRELEGY ELLIPTA) 100-62.5-25 MCG/INH Inhalation AEROSOL POWDER,BREATH ACTIVATED gabapentin (NEURONTIN) 300 MG Oral Cap lactulose (CEPHULAC) 10 GM/15ML Oral Solution montelukast (SINGULAIR) 10 MG Oral Tab Multiple Vitamin (MULTIVITAMINS PO) oxybutynin (DITROPAN XL) 5 MG Oral TABLET SR 24 HR pantoprazole (PROTONIX) 40 MG Oral Tab EC Family History Problem Relation Age of Onset Diabetes Mother Obesity Son Respiratory Son asthma Diabetes Unknown Heart Unknown CHF Cancer Maternal Aunt No Known Problems Son Anesth Problems No family history Clotting Disorder No family history Hypertension No family history Kidney Disease No family history Thyroid Disease No family history Glaucoma No family history Blindness No family history Macular Degeneration No family history Other Eye Problems No family history Social History Socioeconomic History Marital status: Spouse name: Not on file Number of children: Not on file Years of education: Not on file Highest education level: Not on file Occupational History Not on file Social Needs Financial resource strain: Not on file Food insecurity: Worry: Not on file Inability: Not on file Transportation needs: Medical: Not on file Non-medical: Not on file Tobacco Use Smoking status: Former Smoker Packs/day: 1.00 Years: 35.00 Pack years: 35.00 Types: Cigarettes Last attempt to quit: 03/27/1993 Years since quittin.7 Smokeless tobacco: Never Used Substance and Sexual Activity Alcohol use: Yes Alcohol/week: 7.0 standard drinks Types: 7 Standard drinks or equivalent per week Comment: RUM AND COKE Q PM Drug use: No Sexual activity: Never Lifestyle Physical activity: Days per week: Not on file Minutes per session: Not on file Stress: Not on file Relationships Social connections: Talks on phone: Not on file Gets together: Not on file Attends mandaen service: Not on file Active member of club or organization: Not on file Attends meetings of clubs or organizations: Not on file Relationship status: Not on file Intimate partner violence: Fear of current or ex partner: Not on file Emotionally abused: Not on file Physically abused: Not on file Forced sexual activity: Not on file Other Topics Concern Back Care Not Asked Bike Helmet Not Asked Blood Transfusions Not Asked Caffeine Concern No Exercise No Hobby Hazards Not Asked International Travel Not Asked Service Not Asked Occupational Exposure Not Asked Seat Belt Not Asked Self-Exams Not Asked Sleep Concern Not Asked Special Diet Yes Comment: low cholesterol Stress Concern Not Asked Weight Concern Not Asked Social History Narrative Retired from [employer]- no known exposure to asbestos, silica or tuberculosis Lives in [facility] area. Has roommate Review of Systems - Negative except as noted in HPI. Physical Exam: Vitals: 12/03/18 1350 BP: 118/58 BP Location: Left arm Patient Position: Sitting Pulse: 78 Weight: (!) 85 lb (38.6 kg) Height: 4' 11" (1.499 m) Body mass index is 17.17 kg/m. General: Thin, alert 78-y.o. female in NAD HEENT: anicteric, MMM, no E/E OP, conj pink Neck: JVP approx 5 cm above RA, no carotid bruits or LAD CV: RRR, distant s1/s2, no appreciable murmurs, rubs, or gallops Pulm: CTA bilaterally except for scant expiratory wheezes. No increased work of breathing at rest. Abd: soft, mildly TTP in RUQ without rebound/guarding, ND, +BS. No appreciable pulsatile masses or bruits. Ext: no lower extremity edema, no cyanosis, no cords, redness, or warmth, 2+ radial pulses but diminished pedal pulses as before. Neuro: no gross focal deficits Skin: no visible lesions Labs: Lab Results Component Value Date NA 144 10/10/2018 K 4.3 10/10/2018 CL 103 10/10/2018 CO2 33 (H) 10/10/2018 GLUCOSE 108 (H) 10/10/2018 BUN 11 10/10/2018 CREATININE 0.7 10/10/2018 CALCIUM 9.4 10/10/2018 TP 8.5 (H) 10/10/2018 ALBUMIN 4.0 10/10/2018 AST 32 10/10/2018 ALT 12 10/10/2018 ALK 121 10/10/2018 TBILI 0.3 10/10/2018 EGFR >60 10/10/2018 No results found for: BNP Lab Results Component Value Date CHOL 117 01/13/2017 TRIG 79 01/13/2017 HDL 42 01/13/2017 LDL 59 01/13/2017 LDLHDLRATIO 1.4 01/13/2017 CHOLHDLRATIO 2.8 01/13/2017 Cardiac Studies: EKG 11/20/2018 (I personally reviewed): NSR in 80s. Nonspecific T wave abnormality in inferior leadsnew compared to 08/2017. TTE 09/26/2018: FINAL IMPRESSION: Left ventricular size is normal with mildly increased wall thickness. No regional wall motion abnormalities. Global systolic function is normal, with an estimated ejection fraction of 60-65%. Grade I left ventricular diastolic dysfunction. Normal RA/LA/RV size. Normal RV function. No hemodynamically significant valvular disease by pulse wave, continuous wave and color flow doppler analysis. No pericardial effusion. Compared to prior study dated 06/19/17 no significant change. Holter Monitor 03/23/17: CONCLUSIONS: 1. 24-hour Holter monitor recording reveals frequent sinus tachycardia, but is otherwise essentially within normal limits. 2. No clear cardiac rhythm explanation for the patient's reported events. 3. Compared to prior Holter monitor report 02/29/2016, the time spent in tachycardia has decreased from 31% to 20% of the 24-hour period. No other significant changes are noted. Left Heart Cath 01/13/2009: SUMMARY: 1. No significant coronary artery disease. 2. Normal left ventricular systolic function and filling pressure. 3. Possible dissection or thrombus in the right common femoral artery. Assessment & Plan: Nohemy Martínez is a 78-y.o. female with HTN, hyperlipidemia, Crohn's disease, COPD on nightly O2, PAD s/p R SFA PCI by Dr. Garcia 2008 and cath showing no significant CAD in 2008 (for false positive stress echo). ICD-9-CM ICD-10-CM 1. Preoperative cardiovascular examination V72.81 Z01.810 NM SPECT/CT CHEST HEART PHARMACOLOGIC STRESS/REST CANCELED: NM REST STRESS PERF W GATED SPECT PHARMACOLOGIC 2. Atypical angina (HCC) 413.9 I20.8 NM SPECT/CT CHEST HEART PHARMACOLOGIC STRESS/REST CANCELED: NM REST STRESS PERF W GATED SPECT PHARMACOLOGIC 3. Chronic chest pain 786.50 R07.9 NM SPECT/CT CHEST HEART PHARMACOLOGIC STRESS/ REST 338.29 G89.29 CANCELED: NM REST STRESS PERF W GATED SPECT PHARMACOLOGIC 1. Perioperative Risk Assessment and Atypical Angina: According to the [place] Perioperative Cardiac Risk Assessment Tool, Nohemy Martínez has an estimated risk for perioperative MO or cardiac arrest withnoncardiac surgery of approximately 0.62%. According to the Revised Cardiac Risk Index, her estimated risk for perioperative MO, PE, cardiac arrest, or complete heart block with noncardiac surgery is approximately 0.4%. Her functional status is not greater than or equal to 4 METs, and she currently describes some atypical anginal symptoms that are a bit concerning in the context of her PAD (CAD risk equivalent): I'm checking a pharmacologic nuclear stress test in [place] on Monday. If this shows no ischemia, then I feel she can proceed to her planned cholecystectomy on . However, if there are ischemia findings on the nuc then we'll need to postpone the procedure and probably repeat a heart cath. Continue with ASA, but it's OK to hold perioperatively if needed. Pt not on a BB and I'm not starting at this time. If nuclear test is positive then I'll plan to start 2.5mg of bisoprolol. Thank you for allowing me to participate in the care of Nohemy Martínez. We have scheduled f/u in ouroffice in and I'll be in touch with her regarding her stress test results. If youhave any questions or concerns please feel free to call our office at . Adriel Smith MD, 12/03/2018, 15:52 This note was created using my previous note as a template; changes were made where appropriate, andall information in the current note is up to date to the best of my knowledge. documented in this encounter Plan of Treatment Date Type Specialty Care Team Description 12/05/2018 Appointment Radiology 12/05/2018 Appointment Radiology 12/05/2018 Appointment Radiology 12/05/2018 Appointment Radiology 12/06/2018 Hospital Encounter Anesthesiology Veterinary Technician Instructor, Brandon F, Short Procedure [address] [place] [id number] 12/06/2018 Surgery Brandon Ortiz, LAPAROSCOPIC MD CHOLECYSTECTOMY [address] [place] [id number] 12/28/2018 Office Visit General Surgery Brandon Ortiz MD [address] [place] [id number] 01/10/2019 Office Visit Pulmonary Ricco Griffin MD [address] [place] [address] [phone] Name Type Priority Associated Diagnoses Order Schedule NM SPECT/CT CHEST HEART Imaging Routine Chronic chest pain Expected: PHARMACOLOGIC Preoperative 12/03/2018 STRESS/REST cardiovascular (Approximate), examination Expires: 12/03/2019 Atypical angina (HCC) Health Maintenance Due Date Last Done Comments ZOSTER IMMUNIZATION SERIES 1992 (1 of 2) LUNG CANCER SCREENING 1997 MEDICARE ANNUAL WELLNESS 12/05/2017 12/05/2016, 12/02/2015, VISIT 12/02/2015, Additional history exists INFLUENZA VACCINE (#1) 2018 12/08/2017, 11/25/2016, 12/02/2015, Additional history exists COLONOSCOPY SCREENING 07/06/2019 07/05/2016, 07/05/2016, 11/04/2013, Additional history exists DEPRESSION SCREENING 08/16/2019 08/15/2018, 02/13/2014 FALL RISK ASSESSMENT 08/16/2019 08/15/2018, 08/15/2018 OSTEOPOROSIS SCREENING 10/23/2022 10/23/2012, 07/25/2008 (Previously completed) PNEUMOCOCCAL 65+YRS Completed 08/26/2014, 01/14/2009 HPV IMMUNIZATION SERIES Aged Out No longer eligible based on patient's age to complete this topic MENINGOCOCCAL VACCINE IMM Aged Out No longer eligible based on patient's age to complete this topic documented as of this encounter Goals Goal Patient Goal Associated Recent Patient-Stated? Author Type Problems Progress Blood Pressure Blood Pressure Essential 118/58 No [place], < 140/90 hypertension, (12/03/2018 Noel Arias, benign 1:50 PM EDT) Note: Hypertension Care Plan Based on the patient's clinical history and according to JNC 8 guidelines target blood pressure goal is less than 140/90. Based on the patient's last blood pressure of BP: 120/68 mmHg the patient is at at goal. As your provider, it is important that I advise you regarding: your current medications and help you with any challenges you may face taking your medications as directed (ex. instructions, cost, side effects, and interactions). Important lifestyle changes: exercise and dietary sodium reduction your clinical goals and how you can achieve success: diet improvements medication management: N/A diet only patient education/self-management tools provided: Current self-management tools adequate To successfully manage my Hypertension I will: monitor my blood pressure daily, understanding that my goal is less than 140/ 90 per my healthcare provider's recommendation. I will schedule an appointment with my provider if consistent abnormal readings greater than 160/100. take medications every day as prescribed by my healthcare provider and if unable to take them I will discuss with my provider. monitor for symptoms of chest pain, chest tightness/pressure, irregular heartbeat, persistent dizziness, radiating arm pain, and neck or jaw pain. If any of these symptoms are noticed I will seek medical attention immediately by calling 911 exercise/walk 30 minutes 5 day(s) per week. If I experience chest pain, chest tightness, or shortness of breath, I will seek medical attention immediately. follow a diet rich in fruits, vegetables, and low-fat dairy products with reduced content of saturated & total fat. I will reduce my sodium intake daily. An example is the DASH diet. To obtain more information please refer to the DASH Eating Plan listed in Educational Resources. record my blood pressure results. Hamzahe is safe and secure way for you to do this in your medical record online. try to obtain an ideal body weight. My recent weight was Weight: 102 lb ( 46.267 kg). My weight loss goal for my next office visit is 102. limit alcohol consumption. For men two drinks per day and women one drink per day. if currently smoking, will discuss how to quit smoking with my healthcare provider and work towards quitting. Educational Resources: National Heart, Lung, & Blood [place] http://nhlbi.nih.gov/hbp/index.html The DASH Diet Eating Plan http://www.nhlbi.nih.gov/health/health-topics/ topics/dash/ Academy of Nutrition & DIetetics http://eatright.org National Smoking Cessation Site http://smokefree.gov Blood Pressure < Blood Pressure 118/58 (12/03/2018 1:50 No Noel Johnson, 150/90 PM EDT) Note: This is an individualized treatment (blood pressure) goal for Nohemy Martínez: Displayed above (on the left) is your goal for blood pressure control. Your most recent blood pressure is also shown above, on the right. You should try to achieve blood pressures that are lower than your goal listed above (on the left). Keep immunizations current Lifestyle Noel Tai MD Note: This is an individualized lifestyle goal for Nohemy Moses Mauricio: Please be sure to keep up-to-date on recommended immunizations. For example, this would include a yearly influenza vaccine. Immunization status can be seen by looking at the Health Maintenance sections of your eGuthrie, Plan of Care, and any After Visit Summaries. Take all prescribed medications as Self-management Noel Tai MD directed Note: This is an individualized self-management goal for Nohemy Martínez: Please take all prescribed medications as directed. 1. Do not skip doses. If you cannot afford your medications, talk with your doctor. 2. Use a pill reminder system such as a pill box if needed. Your pharmacist can help you with this. 3. Contact your Pharmacy 5 days before your medication runs out. If you cannot take your medications for any reasons, talk with your doctor. 4. Please bring all of your medication bottles and inhalers (or a list of all your medications/inhalers) with you to every visit. Potential barriers to meeting all of your care plan goals will continue to be addressed on an ongoing basis. documented as of this encounter Implants Implanted Type Area Press Leader Device Shelf Model / Serial Identifier Expiration / Lot Date Iol, [id number] 22.5 Diopter - [id number] Right: Eye STORZ [id number] / Implanted: Qty: 1 on 06/08/2009 at [facility] / [id number] Everflex Entrust Stent [id number] - [id number] Left: [employer] 02/22/2020 [id number] / Implanted: Qty: 1 on 06/26/2017 by Marcell Vazquez MD at [facility] / [id number] documented as of this encounter Results Not on filedocumented in this encounter Visit Diagnoses Diagnosis Preoperative cardiovascular examination - Primary Pre-operative cardiovascular examination 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 Chronic chest pain Chest pain, unspecified documented in this encounter Insurance Payer Benefit Plan / Subscriber ID Effective Dates Phone Address Type Group [facility] xxxxxxxx 2018-Prese Medicare TODAYS OPTIONS TODAYS OPTIONS nt Advantage Guarantor Name Account Type Relation to Date of Phone Billing Address Patient Nohemy Martínez Personal/Family 1940 [address] [place], [place] [phone] (Work) documented as of this encounter Advance Directives Type Date Recorded 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 yes
--- OUTSIDE RECORDS SUMMARY | 2018-12-10 20:08 | XMS REPORT | Summary of Care ---
:1940 Author Organization [facility] Address [address] [place] [address] Care Team Providers Name Role Phone Sheri Cosby MD Primary Care Provider Marquita Deleon RNharness repairer Reason for Referral Refer to Department Only (Routine) Status Reason Specialty Diagnoses / Referred By Referred To Procedures Contact Contact Pending Review CARDIOLOGY / Diagnoses Other chest pain Nadine Cosby Cardiology MD Sheri Cardiology [address] [facility] [address] [place], [place] [id number] [place] [address] Phone: [phone] Phone: Reason for Visit Reason Comments Surgery Approval for gallbaldder removal, 12-07-[address] Demetrius Ortiz Encounter Details Date Type Department Care Team Description 11/20/2018 Office Visit Drea Cosby Preop examination ( Primary Dx); Practice MD Sheri Other chest pain [address] [facility] [address] [place] [address] [place] [address] [phone] Allergies Active Allergy Reactions Severity Noted Date Comments Metronidazole GI Reaction 06/13/2016 Severe nausea, headache and dizziness Escitalopram Rash Medium 04/03/2018 Nitrofurantoin GI Reaction 02/28/2013 Penicillins Hives 09/09/2004 Yeast infection in mouth and vagina documented as of this encounter (statuses as of 11/20/2018) Medications Medication Sig Dispensed Refills Start Date [...] 06/23/2017 10:14 AM aspirin 325 MG Oral Take 325 mg by mouth 0 Active Tab DAILY. albuterol HFA Take 2 Puffs by 3 Inhaler 5 Active (VENTOLIN) 108 (90 inhalation EVERY 8 Base) MCG/ACT FOUR HOURS Inhalation Aero NEEDED (SOB). SolnIndications: COPD exacerbation (HCC) montelukast Take 1 Tab by mouth 90 Tab 2 Active (SINGULAIR) 10 MG Oral DAILY. 8 Tab pantoprazole Take 1 Tab by mouth 90 Tab 3 Active (PROTONIX) 40 MG Oral DAILY 0700 on Empty 8 Tab EC Stomach. ALPRAZolam (XANAX) Take 1 Tab by mouth 30 Tab 0 Active 0.25 MG Oral EVERY BEDTIME 9 TabIndications: NEEDED (anxiety). Anxiety Max Daily Amount: 1 Tab. gabapentin (NEURONTIN) Take 2 Caps by mouth 540 Cap 5 Active 300 MG Oral THREE TIMES DAILY. 9 CapIndications: Anxiety state Fluticasone-Umeclidin- Take 1 INHL by 1 Each 5 Active Vilant (TRELEGY inhalation DAILY. 9 ELLIPTA) 100-62.5-25 MCG/INH Inhalation AEROSOL POWDER, BREATH ACTIVATED azithromycin Take 1 tab on 12 Tab 6 Active (ZITHROMAX) 250 MG Monday, Monday 9 Oral Tab and Monday oxybutynin (DITROPAN Take 1 Tab by mouth 30 Tab 1 Active XL) 5 MG Oral TABLET DAILY. 9 SR 24 HR Solifenacin Succinate Take 1 Tab by mouth 90 Tab 1 Discontinued (VESICARE) 5 MG Oral DAILY. 9 9 Tab documented as of this encounter (statuses as of 11/20/2018) Active Problems Problem Noted Date Fluttering heart 11/10/2018 Gallstones 11/10/2018 Overview: Added automatically from request for surgery [id number] Right arm pain 11/08/2018 Fluttering heart 08/15/2018 Pneumonia of right middle lobe due to infectious organism 08/15/2018 Hypoxemia 10/26/2017 Overview: 2 LPM q HS through [employer] Stenosis of peripheral vascular stent 06/20/2017 Overview: Added automatically from request for surgery [id number] Esophageal stricture 09/15/2016 Overview: [facility] 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 Muscle tension headache 08/06/2015 Cubital tunnel syndrome on right 03/12/2014 Chronic cervical radiculopathy 08/21/2013 Overview: Due to cervical spinal stenosis Femoral hernia 03/11/2013 Osteoporosis 10/15/2012 Overview: Bone density scan 2008, bone density scan 2012 Raynauds syndrome 05/03/2012 Osteoarthritis 05/03/2012 Dupuytren's contracture of hand 01/16/2012 Degenerative cervical spinal stenosis 04/04/2011 Overview: Dr Ya [facility] Gout attack 03/28/2011 Overview: 2009 right big toe 03/2011 left big toe Carpal tunnel syndrome 06/10/2010 Overview: Dr. Bhat 05/2010 COPD (chronic obstructive pulmonary disease) 01/29/2009 Overview: Reversible component on PFT's 02/02: FEV1 .78 (42%) improved to .98 (52%). Moderate severity. [facility] admission 02/02 On oxygen at 2 liters, getting from [employer] False positive cardiac stress test 01/16/2009 Overview: 01/13/09 Dr Nicholas Cardiac cath [facility] 01/02: SUMMARY: 1. No significant coronary artery disease. 2. Normal left ventricular systolic function and filling pressure. 3. Possible dissection or thrombus in the right common femoral artery. PVD (peripheral vascular disease) 08/11/2008 Overview: S/p right SFA [facility] TOBACCO ABUSE, IN REMISSION 04/16/2008 Overview: Quit smoking . Crohn disease Overview: [facility] Colonoscopy nov 2010 GERD (gastroesophageal reflux disease) Essential hypertension, benign documented as of this encounter (statuses as of 11/20/2018) Resolved Problems Problem Noted Date Resolved Date [...] as of this encounter (statuses as of 11/20/2018) Immunizations Name Administration Dates Next Due Influenza [...] Sign Reading Time Taken Comments Blood Pressure 99/58 11/20/2018 2:02 PM EDT Pulse 99 11/20/2018 2:02 PM EDT Temperature 36.9 11/20/2018 2:02 PM EDT C (98.4 F) Respiratory Rate - - Oxygen Saturation 90% 11/20/2018 2:02 PM EDT Inhaled Oxygen Concentration - - Weight 38.8 kg (85 lb 9.6 oz) 11/20/2018 2:02 PM EDT Height 149.9 cm (4' 11") 11/20/2018 2:02 PM EDT Body Mass Index 17.29 11/20/2018 2:02 PM EDT documented in this encounter Patient Instructions Patient InstructionsSheri Cosby MD - 11/20/2018 2:00 PM EDT1. Schedule appointment with cardiology for preop- cardiac clearance documented in this encounter Progress Notes Sheri Cosby MD - 11/20/2018 2:00 PM EDT PATIENT: Nohemy Martínez : 1940 DATE OF SERVICE: 11/20/2018 Subjective SUBJECTIVE: Nohemy Martínez is a 78-y.o. female who presents to the office today for a preoperative consultation at the request of Dr. Santiago, who will perform a cholecystectomy on 12/06/18. Patient complains of cardiac symptoms: non exertional chest pressure/discomfort , mostly at night, exertional dyspnea. Patient denies cardiac symptoms: palpitations, irregular heart beats, near- syncope, syncope. Past history of pulmonary embolism/deep vein thrombosis: no. There is a history of bleeding complications: no Past history of anesthetic problem: no. Exercise capacity: Can you walk 2 blocks on level ground, or carry 2 bags of groceries up 2 flights of stairs? Yes, but will be SOB Count the number of risk factors in the revised Chacon cardiac risk index. ( RCRI): High risk procedure: eg vascular surgery, any open intraperitoneal or intrathoracic History of ischemic heart disease (history of OK or a positive exercise test, current complaint of chest pain considered to be secondary to myocardial ischemia, use of nitrate therapy, or ECG with pathological Q waves; do not count prior coronary revascularization procedure unless one of the other criteria for ischemic heart disease is present) Hx of CHF, either systolic or diastolic History of cerebrovascular disease (TIA or Stroke) Diabetes mellitus requiring treatment with insulin Preoperative serum creatinine >2.0 mg/dl The risk of cardiac , nonfatal myocardial infarction, and nonfatal cardiac arrest according to the number of above risk predictors is estimated to be: No risk factors - 0.4 percent (95% CI: 0.1 - 0.8) Current active problems are: Patient Active Problem List Diagnosis Date Noted Fluttering heart 11/10/2018 Gallstones 11/10/2018 Added automatically from request for surgery [id number] Right arm pain 11/08/2018 Fluttering heart 08/15/2018 Pneumonia of right middle lobe due to infectious organism (HCC) 2018 Hypoxemia 10/26/2017 2 LPM q HS through [employer] Stenosis of peripheral vascular stent (HCC) 06/20/2017 Added automatically from request for surgery [id number] Esophageal stricture 09/15/2016 S/p dilation esophago-gastroduodenoscopy [facility] 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 Bhat 05/2010 COPD (chronic obstructive pulmonary disease) ([facility]) 01/29/2009 Reversible component on PFT's 02/02: FEV1 .78 (42%) improved to .98 (52%). Moderate severity. [facility] admission 02/02 On oxygen at 2 liters, getting from [employer] False positive cardiac stress test 01/16/2009 01/13/09 Dr Nicholas Cardiac cath [facility] 01/02: SUMMARY: 1. No significant coronary artery disease. 2. Normal left ventricular systolic function and filling pressure. 3. Possible dissection or thrombus in the right common femoral artery. PVD (peripheral vascular disease) ([facility]) 08/11/2008 S/p right SFA percutaneous transluminal angiolasty/stent Dr Garcia [facility] 06/02 TOBACCO ABUSE, IN REMISSION 04/16/2008 Quit smoking . Crohn disease ([facility]) [facility] Colonoscopy nov 2010 GERD (gastroesophageal reflux disease) Essential hypertension, benign Past Medical History: Diagnosis Date Colon obstruction ([facility]) COPD (chronic obstructive pulmonary disease) ([facility]) Crohn disease ([facility]) Degenerative disc disease 11/17/09 Diverticulitis DVT (deep venous thrombosis) ([facility]) FX DORSAL VERTEBRA-CLOSE 09/15/2004 Gastritis GERD (gastroesophageal reflux disease) Hiatal hernia Hypertension Loss of sensation Osteoporosis Other and unspecified hyperlipidemia 01/25/2007 PVD (peripheral vascular disease) ([facility]) URETHRAL STRICTURE NOS 07/30/2003 VAGINAL WALL PROLAPSE NOS 08/30/2004 Family History Problem Relation Age of Onset [...] history Other Eye Problems No family history Current Outpatient Medications Medication Sig Acetaminophen (TYLENOL) 325 MG Oral Cap Take 500 mg by mouth EVERY SIX HOURS NEEDED. albuterol HFA (VENTOLIN) 108 (90 Base) MCG/ACT Inhalation Aero Soln Take 2 Puffs by inhalation EVERY FOUR HOURS NEEDED (SOB). ALPRAZolam (XANAX) 0.25 MG Oral Tab Take 1 Tab by mouth EVERY BEDTIME NEEDED (anxiety). Max Daily Amount: 1 Tab. aspirin 325 MG Oral Tab Take 325 mg by mouth DAILY. azithromycin (ZITHROMAX) 250 MG Oral Tab Take 1 tab on Monday, Monday and Monday colchicine (COLSALIDE) 0.6 MG Oral Tab Take 1 Tab by mouth TWICE DAILY. ( Patient taking differently: Take 0.6 mg by mouth TWO TIMES DAILY NEEDED.) Eaeflygskhx-Btwagsoql-Nuvqck (TRELEGY ELLIPTA) 100-62.5-25 MCG/INH Inhalation AEROSOL POWDER,BREATH ACTIVATED Take 1 INHL by inhalation DAILY. gabapentin (NEURONTIN) 300 MG Oral Cap Take 2 Caps by mouth THREE TIMES DAILY. lactulose (CEPHULAC) 10 GM/15ML Oral Solution Take 30 mL by mouth DAILY. (Patient taking differently: Take 20 g by mouth NEEDED.) montelukast (SINGULAIR) 10 MG Oral Tab Take 1 Tab by mouth DAILY. Multiple Vitamin (MULTIVITAMINS PO) Take by mouth DAILY. oxybutynin (DITROPAN XL) 5 MG Oral TABLET SR 24 HR Take 1 Tab by mouth DAILY. pantoprazole (PROTONIX) 40 MG Oral Tab EC Take 1 Tab by mouth DAILY 0700 on Empty Stomach. No current facility-administered medications for this visit. Allergies Allergen Reactions Lexapro [Escitalopram] Rash Flagyl [Metronidazole] GI Reaction Severe nausea, headache and dizziness Macrobid [Nitrofurantoin] GI Reaction Penicillins Hives Yeast infection in mouth and vagina Social History Socioeconomic History Marital status: Spouse [...] Last attempt to quit: 03/27/1993 Years since quittin.6 Smokeless tobacco: Never Used Substance and Sexual [...] file Gets together: Not on file Attends congregation service: Not on file Active member of [...] Not Asked Social History Narrative Retired from [employer]- no known exposure to asbestos, silica or tuberculosis Lives in [facility]. Has roommate REVIEW OF SYSTEMS: All remaining review of systems was negative. Objective OBJECTIVE: BP 99/58 (BP Location: Left arm, Patient Position: Sitting) | Pulse 99 | Temp 98.4 F (36.9 C) | Ht 4' 11" (1.499 m) | Wt (!) 85 lb 9.6 oz (38.8 kg) | SpO2 90% | BMI 17.29 kg/m GENERAL: alert, cachectic. SKIN: normal. EYES: conjunctivae/corneas clear. Pupils equal, round, reactive to light. Equal ocular movements intact. MOUTH: moist mucous membranes, no lesions. LYMPH NODES: cervical, supraclavicular, and axillary nodes normal.. LUNGS: Bilaterally reduced air entry, R anterior rales, no wheezing HEART: regular rate and rhythm, S1, S2 normal, no murmur, click, rub or gallop. ABDOMEN: soft, non-tender. Bowel sounds normal. No masses, no organomegaly. FLANK TENDERNESS: absent. EXTREMITIES: extremities normal, atraumatic, no cyanosis or edema. NEUROLOGIC: Negative. EKG: unchanged from previous tracings, normal sinus rhythm. ICD-9-CM ICD-10-CM 1. Preop examination V72.84 Z01.818 AMBULATORY 12 LEAD EKG (GLOBAL) 2 3. Other chest pain Patient has history of false positive stress ECHO- in 2008 Will refer to cardiology due to multiple risk factors COPD Stable on current treatment Uses O2 at night Continue same treatment perioperatively 786.59 R07.89 REFER TO CARDIOLOGY ( GENERAL) Addendum will be added to the note after cardiac evaluation is done Author: Sheri Cosby MD 11/20/2018 14:14 documented in this encounter Plan of Treatment Date Type Specialty Care Team Description 11/29/2018 Office Visit Gastroenterology Nasrin Lovell, PLACE [facility] BOLTER [address] [place] [address] 12/06/2018 Hospital Encounter Anesthesiology Brandon Ortiz, Short Procedure MD [address] [place] [address] 12/06/2018 Surgery Brandon Ortiz, LAPAROSCOPIC MD CHOLECYSTECTOMY [address] [place] [address] 12/28/2018 Office Visit General Surgery Brandon Ortiz MD [address] [place] [address] 01/10/2019 Office Visit Pulmonary Ricco Griffin MD [address] [place] [address] [phone] Name Type Priority Associated Diagnoses Order Schedule AMBULATORY 12 LEAD EKG EKG Routine Preop examination Ordered: 11/20/2018 (GLOBAL) Name Type Priority Associated Diagnoses Order Schedule REFER TO CARDIOLOGY Referral Routine Other chest pain Expected: 11/20/2018, (GENERAL) Expires: 11/21/2019 Health Maintenance Due Date Last Done Comments [...] Problems Progress Blood Pressure Blood Pressure Essential 99/58 No [place], < 140/90 hypertension, (11/20/2018 Noel Arias, benign 2:02 PM EDT) Note: Hypertension Care Plan Based [...] Educational Resources. record my blood pressure results. Osmetechjudsone is safe and secure way for you [...] Educational Resources: National Heart, Lung, & Blood [place] http://nhlbi.nih.gov/hbp/index.html The DASH Diet Eating Plan http://www.nhlbi.nih.gov/health/health-topics/ topics/dash/ Academy of Nutrition & DIetetics http://eatright.org National Smoking Cessation Site http://smokefree.gov Blood Pressure < Blood Pressure 99/58 (11/20/2018 2:02 Noel Tai, 150/90 PM EDT) Note: This is an [...] is an individualized lifestyle goal for Nohemy Martínez: Please be sure to keep up-to-date on [...] of this encounter Implants Implanted Type Area Parachute Inspector Device Shelf Model / Serial Identifier Expiration / Lot Date Iol, [id number] 22.5 Diopter - [id number] Right: Eye STORZ [id number] / Implanted: Qty: 1 on 06/08/2009 at [facility] / [id number] Entrust Stent [id number] - [id number] Left: [employer] 02/22/2020 [id number] / Implanted: Qty: 1 on 06/26/2017 by Marcell Vazquez MD at [facility] / [id number] documented as of this encounter Results Not on filedocumented in this encounter Visit Diagnoses Diagnosis Preop examination - Primary Preoperative examination, unspecified Other chest pain documented in this encounter Insurance Payer Benefit Plan / Subscriber ID Effective Dates Phone Address Type Group [facility] xxxxxxxx 2018-Prese Medicare TODAYS OPTIONS TODAYS OPTIONS nt Advantage Guarantor Name Account Type Relation to Date of Phone Billing Address Patient Nohemy Martínez Aurelia Personal/Family 1940 [address]) [place], [place] [phone] (Work) documented as of this encounter Advance Directives Type Date Recorded 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 yes
--- OUTSIDE RECORDS SUMMARY | 2018-12-10 20:08 | XMS REPORT | Summary of Care ---
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 Reason for Visit MRI/CAT/PET Scan (Routine) Status Reason Specialty Diagnoses / Procedures Referred By Referred To Contact Contact Closed RADIOLOGY - Diagnoses Chronic chest pain Preoperative cardiovascular examination Atypical angina (HCC) Janelle Smith Nm NUCLEAR MEDICINE Procedures NM SPECT/CT CHEST HEART PHARMACOLOGIC STRESS/REST NM REST STRESS PERF W GATED SPECT PHARMACOLOGIC MD Adriel [address] / Radiology [address] [facility] [address] [place], [place] [address] [place] [address] Phone: [phone] Phone: Encounter Details Date Type Department Care Team Description 12/05/2018 Hospital Encounter Sarbjit Elise [place] Outpatient [address] [address] Allergies Active Allergy Reactions Severity Noted Date Comments Metronidazole GI Reaction 06/13/2016 Severe nausea, headache and dizziness Escitalopram Rash Medium 04/03/2018 Nitrofurantoin GI Reaction 02/28/2013 Penicillins Hives 09/09/2004 Yeast infection in mouth and vagina documented as of this encounter (statuses as of 12/07/2018) Medications Medication Sig Dispensed Refills Start Date [...] Oral CapIndications: THREE TIMES DAILY. Anxiety state Wowmqydwuoa-Cuvrcsrho-Xujrco Take 1 INHL by inhalation 1 Each [...] as of this encounter (statuses as of 12/07/2018) Active Problems Problem Noted Date Fluttering heart 11/10/2018 Gallstones 11/10/2018 Overview: Added automatically from request for surgery [id number] Right arm pain 11/08/2018 Fluttering heart 08/15/2018 Pneumonia of right middle lobe due to infectious organism 08/15/2018 Hypoxemia 10/26/2017 Overview: 2 LPM q HS through [employer] Stenosis of peripheral vascular stent 06/20/2017 Overview: Added automatically from request for surgery [id number] Esophageal stricture 09/15/2016 Overview: S/p dilation esophago-gastroduodenoscopy [facility] 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 Bhat 05/2010 COPD (chronic obstructive pulmonary disease) 01/29/2009 Overview: Reversible component on PFT's 02/02: FEV1 .78 (42%) improved to .98 (52%). Moderate severity. [facility] admission 02/02 On oxygen at 2 liters, getting from [employer] [facility] [employer] False positive cardiac stress test 01/16/2009 Overview: 01/13/09 Dr Nicholas Cardiac cath [facility] 01/02: SUMMARY: 1. No significant coronary artery disease. 2. Normal left ventricular systolic function and filling pressure. 3. Possible dissection or thrombus in the right common femoral artery. PVD (peripheral vascular disease) 08/11/2008 Overview: S/p right SFA percutaneous transluminal angiolasty/stent Dr Garcia [facility] 06/02 TOBACCO ABUSE, IN REMISSION 04/16/2008 Overview: Quit smoking . Crohn disease Overview: [facility] Colonoscopy nov 2010 GERD (gastroesophageal reflux disease) Essential hypertension, benign documented as of this encounter (statuses as of 12/07/2018) Resolved Problems Problem Noted Date Resolved Date [...] as of this encounter (statuses as of 12/07/2018) Immunizations Name Administration Dates Next Due Influenza [...] of this encounter Last Filed Vital Signs Not on filedocumented in this encounter Plan of Treatment Date Type Specialty Care Team Description 12/28/2018 Office Visit General Surgery Brandon Ortiz MD [address] [address] 01/10/2019 Office Visit Pulmonary Ricco Griffin MD [address] [place] [address] [phone] Health Maintenance Due Date Last Done Comments [...] Problems Progress Blood Pressure Blood Pressure Essential 114/56 No [place], < 140/90 hypertension, (12/06/2018 Noel Arias, benign 12:45 PM EDT) Note: Hypertension Care Plan Based [...] Educational Resources: National Heart, Lung, & Blood [place] http://nhlbi.nih.gov/hbp/index.html The DASH Diet Eating Plan http://www.nhlbi.nih.gov/health/health-topics/ topics/dash/ Academy of Nutrition & DIetetics http://eatright.org National Smoking Cessation Site http://smokefree.gov Blood Pressure < Blood Pressure 114/56 (12/06/2018 12:45 Noel Tai, 150/90 PM EDT) Note: This [...] of this encounter Implants Implanted Type Area Firm Administrator Device Shelf Model / Serial Identifier Expiration / Lot Date Iol, [id number] 22.5 Diopter - [id number] Right: Eye STORZ [id number] / Implanted: Qty: 1 on 06/08/2009 at [facility] / [id number] Everflex [employer] Stent [id number] - [id number] Left: [employer] 02/22/2020 [id number] / Implanted: Qty: 1 on 06/26/2017 by Marcell Vazquez MD at [facility] / [id number] documented as of this encounter Procedures Procedure Name Priority Date/Time Associated Diagnosis Comments NM SPECT/CT CHEST Routine 12/05/2018 2:24 Chronic chest pain Results for this HEART PHARMACOLOGIC PM EDT Preoperative procedure are in STRESS/REST cardiovascular the results examination section. Atypical angina (HCC) documented in this encounter Results NM SPECT/CT CHEST HEART PHARMACOLOGIC STRESS/REST (12/05/2018 2:24 PM EDT) Specimen Addenda Addendum by Nikhil Garces MD on 12/06/2018 10:[address] findings: Atherosclerotic calcification of the thoracic aorta and coronary arteries. Patchy/linear opacities are seen in the right middle lobe, lingula, and both lower lobes, which is indeterminate, and may correspond to atelectasis, scarring, or infiltrate. IMPRESSION: See original report. Patchy/linear opacities are seen in the right middle lobe, lingula, and both lower lobes, which is indeterminate, and may correspond to atelectasis, scarring, or infiltrate. Signed by Nikhil Garces on 12/06/2018 10:32 PM Impressions Performed At 1. No evidence of reversible ischemia. 2. No fixed perfusion defect suggestive of myocardial scar. 3. Small-sized left ventricle with likely normal systolic function with ejection fraction of 87%. EF is likely overestimated due to small left ventricular end diastolic volume. 4. There is no visual evidence of transient ischemic dilation. 5. No focal or regional wall motion abnormalities. The above study was reviewed with the cardiovascular fellow, Dr. Kaushik Shields Urgency: Routine. This is a routine medical imaging report. Recommendation: No specific imaging recommendation Eduardo Cedillo has reviewed the images and preliminary report. Signed by Eduardo Cedillo on 12/05/2018 2:51 PM Narrative Performed At Procedure(s): NM SPECT/CT CHEST HEART PHARMACOLOGIC STRESS/REST Date of service: 12/05/2018 11:48 AM Provided clinical information: 78 years, Female, "Chest pain, chronic, high probability of CAD" Procedure: Standard protocol. lexiscan-sit Radiopharmaceutical: Technetium 99m tetrofosmin Comparison studies: None. Observations: Technetium 99m tetrofosmin was used as the imaging agent given intravenously. 8.82 mCi given for resting imaging and 25.1 mCi was given for stress imaging. Patient was given 0.4mg of Lexiscan as the stressing agent. Patient's resting vital signs were heart rate 71 beats per minute and blood pressure of 139/63 mmHg. Patient's peak stress vital signs were heart rate 116 bpm and blood pressure of 139/63 mmHg. The patient experienced no symptoms during the stress portion of the examination. EKG tracings: Resting EKG reveals sinus rhythm, nonspecific T wave changes Stress EKG reveals sinus rhythm, no ischemic changes SPECT images show a small sized left ventricular cavity. There is no evidence of reversible ischemia. Gated images: Gated images reveal no regional wall motion abnormalities Left ventricle ejection fraction is listed at 87% which is likely overestimated due to small left ventricular end diastolic volume. Left ventricular end-diastolic volume is 31 mL Left ventricle end-systolic volume is 4 mL. Transient ischemic dilatation index of 1.23. No visual TID noted. Low dose, non contrast CT is also performed for attenuation correction. This CT does not replace, diagnostic CT with specific imaging protocols for different body parts and indication. CT findings: diffuse atherosclerotic disease in coronary arteries and aorta. Additional CT findings will be reported separately by radiology Procedure Note Interface, Rad Results - 12/05/2018 2:53 PM EDT Procedure(s): NM SPECT/CT CHEST HEART PHARMACOLOGIC STRESS/REST Date of service: 12/05/2018 11:48 AM Provided clinical information: 78 years, Female, "Chest pain, chronic, high probability of CAD" Procedure: Standard protocol. lexiscan-sit Radiopharmaceutical: Technetium 99m tetrofosmin Comparison studies: None. Observations: Technetium 99m tetrofosmin was used as the imaging agent given intravenously. 8.82 mCi given for resting imaging and 25.1 mCi was given for stress imaging. Patient was given 0.4mg of Lexiscan as the stressing agent. Patient's resting vital signs were heart rate 71 beats per minute and blood pressure of 139/63 mmHg. Patient's peak stress vital signs were heart rate 116 bpm and blood pressure of 139/63 mmHg. The patient experienced no symptoms during the stress portion of the examination. EKG tracings: Resting EKG reveals sinus rhythm, nonspecific T wave changes Stress EKG reveals sinus rhythm, no ischemic changes SPECT images show a small sized left ventricular cavity. There is no evidence of reversible ischemia. Gated images: Gated images reveal no regional wall motion abnormalities Left ventricle ejection fraction is listed at 87% which is likely overestimated due to small left ventricular end diastolic volume. Left ventricular end-diastolic volume is 31 mL Left ventricle end-systolic volume is 4 mL. Transient ischemic dilatation index of 1.23. No visual TID noted. Low dose, non contrast CT is also performed for attenuation correction. This CT does not replace, diagnostic CT with specific imaging protocols for different body parts and indication. CT findings: diffuse atherosclerotic disease in coronary arteries and aorta. Additional CT findings will be reported separately by radiology IMPRESSION 1. No evidence of reversible ischemia. 2. No fixed perfusion defect suggestive of myocardial scar. 3. Small-sized left ventricle with likely normal systolic function with ejection fraction of 87%. EF is likely overestimated due to small left ventricular end diastolic volume. 4. There is no visual evidence of transient ischemic dilation. 5. No focal or regional wall motion abnormalities. The above study was reviewed with the cardiovascular fellow, Dr. Kaushik Shields Urgency: Routine. This is a routine medical imaging report. Recommendation: No specific imaging recommendation Eduardo Cedillo has reviewed the images and preliminary report. Signed by Eduardo Cedillo on 12/05/2018 2:51 PM documented in this encounter Insurance Payer Benefit Plan / Subscriber ID Effective Dates Phone Address Type Group [facility] x[facility]xxx 2018-Prese Medicare TODAYS OPTIONS TODAYS OPTIONS nt Advantage Guarantor Name Account Type Relation to Date of Phone Billing Address Patient Nohemy aMrtínez Personal/Family 1940 [address] [place], [place] [phone] (Work) documented as of this encounter Advance Directives Type Date Recorded Patient Pearl Fisherman 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 yes
--- OUTSIDE RECORDS SUMMARY | 2018-12-10 20:08 | XMS REPORT | Summary of Care ---
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 Reason for Visit MRI/CAT/PET Scan (Routine) Status Reason Specialty Diagnoses / Procedures Referred By Referred To Contact Contact Closed RADIOLOGY - Diagnoses Chronic chest pain Preoperative cardiovascular examination Atypical angina (HCC) Janelle Smith Nm NUCLEAR MEDICINE Procedures NM SPECT/CT CHEST HEART PHARMACOLOGIC STRESS/REST NM REST STRESS PERF W GATED SPECT PHARMACOLOGIC MD Adriel [address] / Radiology [address] [facility] [address] [place], [place] [address] [place] [address] Phone: [phone] Phone: Encounter Details Date Type Department Care Team Description 12/05/2018 Hospital Encounter Sarbjit Elise [place] Outpatient [address] [address] Allergies Active Allergy Reactions Severity Noted Date [...] Oral CapIndications: THREE TIMES DAILY. Anxiety state Xgocfhewiqz-Ammbwgjze-Aunopr Take 1 INHL by inhalation 1 Each [...] Overview: Added automatically from request for surgery [id number] Right arm pain 11/08/2018 Fluttering heart 08/15/2018 Pneumonia of right middle lobe due to infectious organism 08/15/2018 Hypoxemia 10/26/2017 Overview: 2 LPM q HS through [employer] Stenosis of peripheral vascular stent 06/20/2017 Overview: Added automatically from request for surgery [id number] Esophageal stricture 09/15/2016 Overview: S/p dilation esophago-gastroduodenoscopy [facility] 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 Muscle tension headache 08/06/2015 Cubital tunnel syndrome on right 03/12/2014 Chronic cervical radiculopathy 08/21/2013 Overview: Due to cervical spinal stenosis Femoral hernia 03/11/2013 Osteoporosis 10/15/2012 Overview: Bone density scan 2008, bone density scan 2012 Raynauds syndrome 05/03/2012 Osteoarthritis 05/03/2012 Dupuytren's contracture of hand 01/16/2012 Degenerative cervical spinal stenosis 04/04/2011 Overview: Dr Ya [facility] Gout attack 03/28/2011 Overview: 2009 right big toe 03/2011 left big toe Carpal tunnel syndrome 06/10/2010 Overview: Dr. Bhat 05/2010 COPD (chronic obstructive pulmonary disease) 01/29/2009 Overview: Reversible component on PFT's 02/02: FEV1 .78 (42%) improved to .98 (52%). Moderate severity. [facility] admission 02/02 On oxygen at 2 liters, getting from [employer] [facility] False positive cardiac stress test 01/16/2009 Overview: 01/13/09 Dr Nicholas Cardiac cath [facility] 01/02: SUMMARY: 1. No significant coronary artery disease. 2. Normal left ventricular systolic function and filling pressure. 3. Possible dissection or thrombus in the right common femoral artery. PVD (peripheral vascular disease) 08/11/2008 Overview: S/p right SFA percutaneous transluminal angiolasty/stent Dr Garcia [facility] 06/02 TOBACCO ABUSE, IN REMISSION 04/16/2008 Overview: [...] Sign Reading Time Taken Comments Blood Pressure - - Pulse - - Temperature - - Respiratory Rate - - Oxygen Saturation - - Inhaled Oxygen Concentration - - Weight 38.6 kg (85 lb) 12/05/2018 12:00 PM EDT Height 149.9 cm (4' 11") 12/05/2018 12:00 PM EDT Body Mass Index 17.17 12/05/2018 12:00 PM EDT documented in this encounter Plan of Treatment Date Type Specialty Care Team Description 12/28/2018 Office Visit General Surgery Brandon Ortiz MD [address] [address] 01/10/2019 Office Visit Pulmonary Ricco Griffin MD [address] [place] [address] Health Maintenance Due Date Last Done Comments [...] Blood Pressure Blood Pressure Essential 114/56 No [place], < 140/90 hypertension, (12/06/2018 Noel Arias, benign [...] Educational Resources: National Heart, Lung, & Blood [place] http://nhlbi.nih.gov/hbp/index.html The DASH Diet Eating Plan http://www.nhlbi.nih.gov/health/health-topics/ [...] of this encounter Implants Implanted Type Area Battery Recharger Device Shelf Model / Serial Identifier Expiration / Lot Date Iol, [id number] 22.5 Diopter - [id number] Right: Eye STORZ [id number] / Implanted: Qty: 1 on 06/08/2009 at [facility] / [id number] Everflex [employer] Stent [id number] - [id number] Left: [employer] 02/22/2020 [id number] / Implanted: Qty: 1 on 06/26/2017 by Marcell Vazquez MD at [facility] / [id number] documented as of this encounter Procedures Procedure Name Priority Date/Time Associated Diagnosis Comments NM SPECT/CT CHEST Routine 12/05/2018 2:24 Chronic chest pain Results for this HEART PHARMACOLOGIC PM EDT Preoperative procedure are in STRESS/REST cardiovascular the results examination section. Atypical angina (HCC) documented in this encounter Results Not on filedocumented in this encounter Administered Medications Medication Order MAR Action Action Date Dose Rate Site regadenoson (LEXISCAN) IV Given 12/05/2018 12:54 PM EDT 0.4 mg injection 0.4 mg 0.4 mg, Intravenous Push, X1, 1 dose, First dose on Mon12/05/18 at 1310 documented in this encounter Insurance Payer Benefit Plan / Subscriber ID Effective Dates Phone Address Type Group [facility] xxxxxxxx 2018-Prese Medicare TODAYS OPTIONS TODAYS OPTIONS nt Advantage Guarantor Name Account Type Relation to Date of Phone Billing Address Patient Nohemy Martínez Personal/Family 1940 [address] [place], [place] [phone] (Work) documented as of this encounter Advance Directives Type Date Recorded 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 yes
--- OUTSIDE RECORDS SUMMARY | 2018-12-10 20:08 | XMS REPORT | Summary of Care ---
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 Reason for Visit MRI/CAT/PET Scan (Routine) Status Reason Specialty Diagnoses / Procedures Referred By Referred To Contact Contact Closed RADIOLOGY - Diagnoses Chronic chest pain Preoperative cardiovascular examination Atypical angina (HCC) Janelle Smith Nm NUCLEAR MEDICINE Procedures NM SPECT/CT CHEST HEART PHARMACOLOGIC STRESS/REST NM REST STRESS PERF W GATED SPECT PHARMACOLOGIC MD Adriel [address] / Radiology [address] [facility] [address] [place], [place] [address] [place] [address] Phone: [phone] Phone: Encounter Details Date Type Department Care Team Description 12/05/2018 Hospital Encounter Sarbjit Elise [place] Outpatient [address] [address] Allergies Active Allergy Reactions Severity Noted Date [...] Oral CapIndications: THREE TIMES DAILY. Anxiety state Depofevuaau-Cfnbtqkep-Pghztf Take 1 INHL by inhalation 1 Each [...] Overview: Added automatically from request for surgery [id number] Right arm pain 11/08/2018 Fluttering heart 08/15/2018 Pneumonia of right middle lobe due to infectious organism 08/15/2018 Hypoxemia 10/26/2017 Overview: 2 LPM q HS through [employer] Stenosis of peripheral vascular stent 06/20/2017 Overview: Added automatically from request for surgery [id number] Esophageal stricture 09/15/2016 Overview: S/p dilation esophago-gastroduodenoscopy [facility] 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 Muscle tension headache 08/06/2015 Cubital tunnel syndrome on right 03/12/2014 Chronic cervical radiculopathy 08/21/2013 Overview: Due to cervical spinal stenosis Femoral hernia 03/11/2013 Osteoporosis 10/15/2012 Overview: Bone density scan 2008, bone density scan 2012 Raynauds syndrome 05/03/2012 Osteoarthritis 05/03/2012 Dupuytren's contracture of hand 01/16/2012 Degenerative cervical spinal stenosis 04/04/2011 Overview: Dr Ya [facility] Gout attack 03/28/2011 Overview: 2009 right big toe 03/2011 left big toe Carpal tunnel syndrome 06/10/2010 Overview: Dr. Bhat 05/2010 COPD (chronic obstructive pulmonary disease) 01/29/2009 Overview: Reversible component on PFT's 02/02: FEV1 .78 (42%) improved to .98 (52%). Moderate severity. [facility] admission 02/02 On oxygen at 2 liters, getting from [employer] [facility] False positive cardiac stress test 01/16/2009 Overview: 01/13/09 Dr Nicholas Cardiac cath [facility] 01/02: SUMMARY: 1. No significant coronary artery disease. 2. Normal left ventricular systolic function and filling pressure. 3. Possible dissection or thrombus in the right common femoral artery. PVD (peripheral vascular disease) 08/11/2008 Overview: S/p right SFA percutaneous transluminal angiolasty/stent Dr Garcia [facility] 06/02 TOBACCO ABUSE, IN REMISSION 04/16/2008 Overview: [...] Visit Pulmonary Ricco Griffin MD [address] [place] [address] [phone] Health Maintenance Due Date Last Done Comments [...] Blood Pressure Blood Pressure Essential 114/56 No [place], < 140/90 hypertension, (12/06/2018 Noel Arias, benign [...] Educational Resources: National Heart, Lung, & Blood [place] http://nhlbi.nih.gov/hbp/index.html The DASH Diet Eating Plan http://www.nhlbi.nih.gov/health/health-topics/ [...] of this encounter Implants Implanted Type Area Medical Accountant Device Shelf Model / Serial Identifier Expiration / Lot Date Iol, [id number] 22.5 Diopter - [id number] Right: Eye STORZ [id number] / Implanted: Qty: 1 on 06/08/2009 at [facility] / [id number] Ever[employer] Stent [id number] - [id number] Left: [employer] 02/22/2020 [id number] / Implanted: Qty: 1 on 06/26/2017 by Marcell Vazquez MD at [facility] / [id number] documented as of this encounter Procedures Procedure [...] ID Effective Dates Phone Address Type Group [facility] xxxxxxxx 2018-Prese Medicare TODAYS OPTIONS TODAYS OPTIONS nt Advantage Guarantor Name Account Type Relation to Date of Phone Billing Address Patient Nohemy Martínez Personal/Family 1940 [address] [place], [place] [phone] (Work) documented as of this encounter Advance Directives Type Date Recorded Patient Sciences Dean 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 yes
--- OUTSIDE RECORDS SUMMARY | 2018-12-10 20:08 | XMS REPORT | Summary of Care ---
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 Reason for Referral MRI/CAT/PET Scan (Routine) Status Reason Specialty Diagnoses / Procedures Referred By Referred To Contact Contact Closed RADIOLOGY - Diagnoses Chronic chest pain Preoperative cardiovascular examination Atypical angina (HCC) Janelle Smith Nm NUCLEAR MEDICINE Procedures NM SPECT/CT CHEST HEART PHARMACOLOGIC STRESS/REST NM REST STRESS PERF W GATED SPECT PHARMACOLOGIC MD Adriel [address] [place] [address] / Radiology [address] [place] [address] [place] [address] Phone: [phone] Phone: Reason for Visit MRI/CAT/PET Scan (Routine) Status Reason Specialty Diagnoses / Procedures Referred By Referred To Contact Contact Closed RADIOLOGY - Diagnoses Chronic chest pain Preoperative cardiovascular examination Atypical angina (HCC) Janelle Smith Nm NUCLEAR MEDICINE Procedures NM SPECT/CT CHEST HEART PHARMACOLOGIC STRESS/REST NM REST STRESS PERF W GATED SPECT PHARMACOLOGIC MD Linette Morel [place] / Radiology [address] [place] [address] [place] [address] [place], [place] Phone: [phone] Phone: Encounter Details Date Type Department Care Team Description 12/05/2018 Hospital Encounter [facility] [place] Outpatient [address] [place] [address] Allergies Active Allergy Reactions Severity Noted Date [...] Oral CapIndications: THREE TIMES DAILY. Anxiety state Qoenhldhftg-Nclexrbgs-Srylrm Take 1 INHL by inhalation 1 Each [...] Overview: Added automatically from request for surgery [id number] Right arm pain 11/08/2018 Fluttering heart 08/15/2018 Pneumonia of right middle lobe due to infectious organism 08/15/2018 Hypoxemia 10/26/2017 Overview: 2 LPM q HS through [employer] Stenosis of peripheral vascular stent 06/20/2017 Overview: Added automatically from request for surgery [id number] Esophageal stricture 09/15/2016 Overview: S/p dilation esophago-gastroduodenoscopy [facility] 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 Muscle tension headache 08/06/2015 Cubital tunnel syndrome on right 03/12/2014 Chronic cervical radiculopathy 08/21/2013 Overview: Due to cervical spinal stenosis Femoral hernia 03/11/2013 Osteoporosis 10/15/2012 Overview: Bone density scan 2008, bone density scan 2012 Raynauds syndrome 05/03/2012 Osteoarthritis 05/03/2012 Dupuytren's contracture of hand 01/16/2012 Degenerative cervical spinal stenosis 04/04/2011 Overview: Dr Ya [facility] Gout attack 03/28/2011 Overview: 2009 right big toe 03/2011 left big toe Carpal tunnel syndrome 06/10/2010 Overview: Dr. Bhat 05/2010 COPD (chronic obstructive pulmonary disease) 01/29/2009 Overview: Reversible component on PFT's 02/02: FEV1 .78 (42%) improved to .98 (52%). Moderate severity. [facility] admission 02/02 On oxygen at 2 liters, getting from [facility] False positive cardiac stress test 01/16/2009 Overview: 01/13/09 Dr Nicholas Cardiac cath [facility] 01/02: SUMMARY: 1. No significant coronary artery disease. 2. Normal left ventricular systolic function and filling pressure. 3. Possible dissection or thrombus in the right common femoral artery. PVD (peripheral vascular disease) 08/11/2008 Overview: S/p right SFA percutaneous transluminal angiolasty/stent Dr Garcia [facility] 06/02 TOBACCO ABUSE, IN REMISSION 04/16/2008 [...] Ricco Griffin MD [address] [place] [address] [phone] Health Maintenance Due Date Last Done Comments [...] Blood Pressure Blood Pressure Essential 114/56 No [place], < 140/90 hypertension, (12/06/2018 Noel Arias, benign [...] Educational Resources: National Heart, Lung, & Blood [place] http://nhlbi.nih.gov/hbp/index.html The DASH Diet Eating Plan http://www.nhlbi.nih.gov/health/health-topics/ [...] of this encounter Implants Implanted Type Area Financial Reporting Manager Device Shelf Model / Serial Identifier Expiration / Lot Date Iol, [id number] 22.5 Diopter - [id number] Right: Eye STORZ [id number] / Implanted: Qty: 1 on 06/08/2009 at [facility] / [id number] Everflex Entrust Stent [id number] - [id number] Left: [employer] 02/22/2020 [id number] / Implanted: Qty: 1 on 06/26/2017 by Marcell Vazquez MD at [facility] Iliac / [id number] documented as of this encounter Procedures Procedure [...] 12/05/2018 2:51 PM documented in this encounter Visit Diagnoses Diagnosis Chronic chest pain Chest pain, unspecified Preoperative cardiovascular examination Pre-operative cardiovascular examination 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 documented in this encounter Insurance Payer Benefit Plan / Subscriber ID Effective Dates Phone Address Type Group [facility] xxxxxxxx 2018-Prese Medicare TODAYS OPTIONS TODAYS OPTIONS nt Advantage Guarantor Name Account Type Relation to Date of Phone Billing Address Patient Nohemy Martínez Personal/Family 1940 [address] ([place]) [place], [place] [phone] (Work) documented as of this encounter Advance Directives Type Date Recorded 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 yes
--- OUTSIDE RECORDS SUMMARY | 2018-12-10 20:08 | XMS REPORT | Summary of Care ---
:1940 Author Organization [facility] Address 1 [facility] [place] [address] Care Team Providers Name Role Phone Sheri Cosby MD Primary Care Provider Marquita Deleon RNneuroscience director na Reason for Visit Auth/Cert Status Reason Specialty Diagnoses / Procedures Referred By Contact Referred To Contact Diagnoses Calculus of gallbladder without cholecystitis without obstruction Procedures TN LAP,CHOLECYSTECTOMY Encounter Details Date Type Department Care Team Description 12/06/2018 Hospital Encounter [facility] Brandon Ortiz MD Short Procedure [address] [place] [address] [place] [address] [phone] Allergies Active Allergy Reactions Severity Noted Date [...] mouth 0 Active DAILY. albuterol HFA (VENTOLIN) Take 2 Puffs by 3 Inhaler 5 01/09/2018 Active 108 (90 Base) MCG/ACT inhalation EVERY FOUR Inhalation Aero HOURS NEEDED SolnIndications: COPD (SOB). exacerbation (HCC) montelukast (SINGULAIR) Take 1 Tab by mouth 90 Tab 2 02/27/2018 Active 10 MG Oral Tab DAILY. pantoprazole (PROTONIX) Take 1 Tab by mouth 90 Tab 3 02/27/2018 Active 40 MG Oral Tab EC DAILY 0700 on Empty Stomach. ALPRAZolam (XANAX) 0.25 Take 1 Tab by mouth 30 Tab 0 04/03/2018 Active MG Oral TabIndications: EVERY BEDTIME Anxiety NEEDED (anxiety). Max Daily Amount: 1 Tab. gabapentin (NEURONTIN) Take 2 Caps by mouth 540 Cap 5 06/12/2018 Active 300 MG Oral THREE TIMES DAILY. CapIndications: Anxiety state Pkoxcxgqiun-Qqhaaalhr-Gf Take 1 INHL by 1 Each 5 08/09/2018 Active lant (TRELEGY ELLIPTA) inhalation DAILY. 100-62.5-25 MCG/INH Inhalation AEROSOL POWDER, BREATH ACTIVATED azithromycin (ZITHROMAX) Take 1 tab on Monday, 12 Tab 6 09/20/2018 Active 250 MG Oral Tab Monday and Monday oxybutynin (DITROPAN XL) Take 1 Tab by mouth 30 Tab 1 11/16/2018 Active 5 MG Oral TABLET SR 24 DAILY. HR OXYcodone Take 1 Tab by mouth 6 Tab 0 12/06/2018 Active (OXY-IR,OXY-FAST) 5 MG EVERY FOUR HOURS Oral Tab NEEDED (pain). Max Daily Amount: 20 mg. methocarbamol (ROBAXIN) Take 0.5 Tabs by 15 Tab 0 12/06/2018 12/16/2018 Active 500 MG Oral Tab mouth THREE TIMES DAILY for 10 days. documented as of this encounter (statuses as of 12/07/2018) Active Problems Problem Noted Date Fluttering heart 11/10/2018 Gallstones 11/10/2018 Overview: Added automatically from request for surgery [id number] Right arm pain 11/08/2018 Fluttering heart 08/15/2018 Pneumonia of right middle lobe due to infectious organism 08/15/2018 Hypoxemia 10/26/2017 Overview: 2 LPM q HS through [employer] Stenosis of peripheral vascular stent 06/20/2017 Overview: Added automatically from request for surgery [id number] Esophageal stricture 09/15/2016 Overview: S/p dilation esophago-gastroduodenoscopy [facility] 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 Muscle tension headache 08/06/2015 Cubital tunnel syndrome on right 03/12/2014 Chronic cervical radiculopathy 08/21/2013 Overview: Due to cervical spinal stenosis Femoral hernia 03/11/2013 Osteoporosis 10/15/2012 Overview: Bone density scan 2008, bone density scan 2012 Raynauds syndrome 05/03/2012 Osteoarthritis 05/03/2012 Dupuytren's contracture of hand 01/16/2012 Degenerative cervical spinal stenosis 04/04/2011 Overview: Dr Ya [facility] Gout attack 03/28/2011 Overview: 2009 right big toe 03/2011 left big toe Carpal tunnel syndrome 06/10/2010 Overview: Dr. Bhat 05/2010 COPD (chronic obstructive pulmonary disease) 01/29/2009 Overview: Reversible component on PFT's 02/02: FEV1 .78 (42%) improved to .98 (52%). Moderate severity. [facility] admission 02/02 On oxygen at 2 liters, getting from [facility] False positive cardiac stress test 01/16/2009 Overview: 01/13/09 Dr Nicholas Cardiac cath [facility] 01/02: SUMMARY: 1. No significant coronary artery disease. 2. Normal left ventricular systolic function and filling pressure. 3. Possible dissection or thrombus in the right common femoral artery. PVD (peripheral vascular disease) 08/11/2008 Overview: S/p right SFA percutaneous transluminal angiolasty/stent Dr Garcia [facility] 06/02 TOBACCO ABUSE, IN REMISSION 04/16/2008 Overview: Quit smoking 1990s. Crohn disease Overview: Gastro-intestinal [facility] [...] Sign Reading Time Taken Comments Blood Pressure 114/56 12/06/2018 12:45 PM EDT Pulse 63 12/06/2018 12:45 PM EDT Temperature 36.9 12/06/2018 12:45 PM EDT C (98.5 F) Respiratory Rate 16 12/06/2018 12:45 PM EDT Oxygen Saturation 97% 12/06/2018 12:45 PM EDT Inhaled Oxygen Concentration - - Weight 38.6 kg (85 lb 1.6 oz) 12/06/2018 7:23 AM EDT Height 149.9 cm (4' 11") 12/06/2018 7:23 AM EDT Body Mass Index 17.19 12/06/2018 7:23 AM EDT documented in this encounter Discharge Summaries Catalino Guerra MD - 12/06/2018 10:30 AM EDTGUTHRIE SP/OP DISCHARGE NOTE [place] [address] PATIENT: Nohemy Martínez SURGEON: Primary: Brandon Ortiz MD Resident - Assisting: Catalino Guerra MD; ToBen MD : 1940 DATE OF SURGERY: 12/06/2018 Procedure: LAPAROSCOPIC CHOLECYSTECTOMY (N/A ) Principle Diagnosis: Gallstones Associated Condition(s): Same as pre-op, unless otherwise indicated Mental Status: Same as pre-op, unless otherwise indicated. Condition: Stable, unless otherwise indicated Disposition of Care: Discharge to home. Appointment with/ or Follow-up with Dr. Ortiz on 12/28/2018 at [facility] Other Comments: None Author: Catalino Guerra MD 12/06/2018 documented in this encounter Discharge Instructions Lucy Doss RN - 12/06/2018General Anesthesia For the next 24 hours: Limit yourself to moderate activity when you go home. It is not necessary for you to go to bed, but it is important to rest for 24 hours following surgery. No drinking alcohol, driving, or operating any machinery. Do not sign any legal documents or make any critical decisions. Do not do anything that requires balance, judgement or coordination. Nutrition: Your should eat light foods after surgery, avoiding spicy, hot or gaseous foods such as pizza, chili, beans, etc. If you do become nauseated, fluids high in sugar content such as soda, mady-aid and nonacid juices are recommended. You must have a responsible adult stay with you for 24 hours after receiving general anesthesia. Provider's Instructions Reason for Admission or Diagnosis:Gallstones, Biliary disease Activity/Restrictions: Activity as tolerated, but no heavy lifting > 10 lbs ( nothing heavier thana gallon of milk) or strenuous exercise for 4 weeks or until cleared by a physician at your post-operative appointment. No driving while on narcotic pain medications. Exercise and walk daily. Skin/Wound Care: Keep incision clean and dry. Observe for redness, swelling, or drainage. It is okayto showers 48 hours after surgery. Let soap and water rinse over wounds then pat dry carefully. No soaking baths or swimming for 2 weeks after surgery. Use ice packs and heat packs as needed for additional pain relief. Discharge Diet: diet that you were on prior to hospitalization. Please take stool softener while you are on narcotic pain medication since it can cause constipation. Special Instructions: Follow up with in General Surgery Clinic in 2018. Please call the clinic if you have any questions or concerns before your appointment. Discharge Provider: Ben Whitney MD Attending: Brandon Ortiz MD Time: 10:17 Nurse's Instructions Problems to report to your Physician: Excessive pain or discomfort Fever > 100.5 degrees Difficulty breathing Increase or smell in wound drainage Skin/Wound Care: Skin intact on discharge: {SKIN/WOUND CARE:60892} Medical Equipment/Supplies to help you at home: {MEDICAL SUPPLIES:08878} Patient's medications returned: {N/A:57007} Help arranged for you Home Health/Receiving Agency: {HOME HEALTH/RECEIVING AGENCY:83460} Other preprinted instructions reviewed and given: {PREPRINTED DISCHARGE INSTRUCTIONS:92809} Follow-Up Care: Call to schedule your appointment with in {NUMBERS 0 - 7:005175} weeks, Phone Blood work needed: X-rays needed: Reminded patient that they can VIEW, DOWNLOAD and TRANSMIT their hospital information in [facility]: {YES/NO:64} [email or web address]/[email or web address]%20patient%20will% 20see%[email or web address]_[email or web address].pdf Smoking: If you or your caregiver smoke, we recommend that you quit. For smoking cessation help, please callthe National Quit Line at . QUESTIONS OR CONCERNS AFTER DISCHARGE Dietitian Home Care Needs *Please Return Patient Satisfaction Survey* documented in this encounter Plan of Treatment Date Type Specialty Care Team Description 12/19/2018 Office Visit General Surgery Louise Vicente, [employer] [address] [place] [address] [phone] 01/10/2019 Office Visit Pulmonary Ricco Griffin MD [address] [place] [address] [phone] Name Type Priority Associated Diagnoses Date/Time TISSUE EXAM Lab Routine Gallstones 12/06/2018 9:49 AM EDT Name Type Priority Associated Diagnoses Order Schedule TISSUE EXAM Lab Routine Gallstones *ONE TIME for 1 Occurrences starting 12/06/2018, 1 completed Health Maintenance Due Date Last Done Comments [...] Blood Pressure Blood Pressure Essential 114/56 No [place], < 140/90 hypertension, (12/06/2018 Noel Arias, benign [...] Educational Resources. record my blood pressure results. [place] is safe and secure way for you [...] Educational Resources: National Heart, Lung, & Blood [place] http://nhlbi.nih.gov/hbp/index.html The DASH Diet Eating Plan http://www.nhlbi.nih.gov/health/health-topics/ topics/dash/ Academy of Nutrition & DIetetics http://eatright.org National Smoking Cessation Site http://smokefree.gov Blood Pressure < Blood Pressure 114/56 (12/06/2018 12:45 Noel Tai, 150/90 PM EDT) Note: This is an individualized treatment (blood pressure) goal for Noehmy Martínez: Displayed above (on the left) is [...] of this encounter Implants Implanted Type Area Forest Economics Professor Device Shelf Model / Serial Identifier Expiration / Lot Date Iol, [id number] 22.5 Diopter - [id number] Right: Eye STORZ [id number] / Implanted: Qty: 1 on 06/08/2009 at [facility] / [id number] Everflex [employer]trust Stent [id number] - [id number] Left: [employer] 02/22/2020 [id number] / Implanted: Qty: 1 on 06/26/2017 by Marcell Vazquez MD at [facility] / [id number] documented as of this encounter Procedures Procedure Name Priority Date/Time Associated Comments Diagnosis SURGICAL PHOTO 12/06/2018 12:00 PM EDT SIGN PERMIT 12/06/2018 12:00 PM EDT LAPAROSCOPIC Planned Trip to 12/06/2018 7:41 Gallstones CHOLECYSTECTOMY OR AM EDT Case Notes 2ND CASE documented in this encounter Results Not on filedocumented in this encounter Visit Diagnoses Diagnosis Gallstones Calculus of gallbladder without mention of cholecystitis or obstruction documented in this encounter Administered Medications Medication Order MAR Action Action Date Dose Rate Site acetaminophen (TYLENOL) tablet Given 12/06/2018 7:40 AM EDT 1,000 mg 1,000 mg 1,000 mg, Oral, NOW, 1 dose, Mey 12/06/18 at 0550, 2 Day of Surgery Pre Procedure acetaminophen (TYLENOL) tablet 650 mg 650 mg, Oral, Q6 HRS, First dose on Mey 12/06/18 at 1120, Until Discontinued FentaNYL (PF) (SUBLIMAZE) injection (PF) 25 mcg 25 mcg, Intravenous Push, PRU Q5MIN PRN, Starting Mey 12/06/18 at 1036, Until Mey 12/06/18 at 1435, Mild Pain (pain scale 1-3) - IV - 1st line - if immediate effect required or patient cannot tolerate PO, 4 Recovery FentaNYL (PF) (SUBLIMAZE) injection (PF) 50 mcg 50 mcg, Intravenous Push, PRU Q5MIN PRN, Starting Mey 12/06/18 at 1036, Until Mey 12/06/18 at 1548, Moderate Pain (pain scale 4-6) - IV - 1st line - if immediate effect required or patient cannot tolerate PO, Severe Pain (pain scale 7-10) - IV - 1st line - if immediate effect required or patient cannot tolerate PO, 4 Recovery gabapentin (NEURONTIN) capsule 300 mg Given 12/06/2018 7:40 AM EDT 300 mg 300 mg, Oral, X1, 1 dose, First dose on Mey 12/06/18 at 0810 haloperidol (HALDOL) injection 0.65 mg 0.65 mg, Intravenous Push, PRU X1 PRN, 1 dose, Starting Mey 12/06/18 at 1036, Until Mey 12/06/18 at 1548, Nausea/Vomiting - IV - 3rd line - if immediate effect required or patient cannot tolerate PO and no relief 1 hour after administration of 2nd line agent, 4 Recovery HYDROmorphone (DILAUDID) syringe 0.3 mg 0.3 mg, Intravenous Push, PRU Q5MIN PRN, Starting [facility] 12/06/18 at 1036, Until Mey 12/06/18 at 1435, Mild Pain (pain scale 1-3) IV - 2nd line - if immediate effect required or cannot tolerate PO & still had mild pain 4 hrs after admin of 1st line agent or patient did not tolerate 1st line agent, 4 Recovery HYDROmorphone (DILAUDID) syringe 0.5 mg 0.5 mg, Intravenous Push, PRU Q5MIN PRN, 2 doses, Starting [facility] 12/06/18 at 1036 , Until Mey 12/06/18 at 1548, Moderate Pain (pain scale 4-6)IV 2nd line- if immediate effect required or cannot tolerate PO & still had moderate pain 2 hrs after admin of 1st line agent or did not tolerate 1st line agent, Severe Pain (pain scale 7-10)IV 2nd line - if immediate effect required or cannot tolerate PO & no still has severe pain 1 hr after admin of 1st line agent or did not tolerate 1st line agent, 4 Recovery lactated ringers IV Intravenous, at 100 mL/hr, PRU CONTINUOUS, Starting [facility] 12/06/18 at 1040, Until Mey 12/06/18 at 1548, 4 Recovery midazolam (VERSED) injection 0.5 mg 0.5 mg, Intravenous Push, PRU Q5MIN PRN, Starting Mey 12/06/18 at 1036, Until Mey 12/06/18 at 1435, Anxiety - IV - 1st line - if immediate effect required or patient cannot tolerate PO, 4 Recovery ondansetron (ZOFRAN) injection 4 mg 4 mg, Intravenous Push, PRU X1 PRN, 1 dose, Starting Mey 12/06/18 at 1036, Until Mey 12/06/18 at 1548, Nausea/Vomiting - IV - 1st line - If immediate effect required or patient cannot tolerate PO, 4 Recovery OXYcodone (OXY-IR,OXY-FAST) immediate release Given 12/06/2018 12:30 PM EDT 5 mg tablet 5 mg 5 mg, Oral, X1 BEFORE DISCHARGE, 1 dose, First dose on Mey 12/06/18 at 1040, 4 Recovery prochlorperazine (COMPAZINE) injection 10 mg 10 mg, Intravenous Push, PRU PRN, 2 doses, Starting Mey 12/06/18 at 1036, Until Mey 12/06/18 at 1548, Nausea/Vomiting - IV - 2nd line - if immediate effect required or patient cannot tolerate PO and no relief 1 hours after administration of 1st line agent, 4 Recovery documented in this encounter Insurance Payer Benefit Plan / Subscriber ID Effective Dates Phone Address Type Group [facility] x[facility]xxx 2018-Prese Medicare TODAYS OPTIONS TODAYS OPTIONS nt Advantage Guarantor Name Account Type Relation to Date of Phone Billing Address Patient Nohemy Martínez Personal/Family 1940 [address] ([place]) [place], [place] [phone] (Work) documented as of this encounter Advance Directives Type Date Recorded 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 yes
[2018-12-10] MEDS ORDERED: Acetaminophen TAB* 325 MG PO ONE (20:40)
[2018-12-10] MEDS ORDERED: Morphine 4 MG/ML VIAL (1 ml) 4 MG/ML VIAL IV ONE (20:40)
[2018-12-10] MEDS ORDERED: NS 0.9% 1000 ML** 2,000 ML IV ONE (20:40)
--- NOTE | 2018-12-10 20:43 | ED ---
GI/ HPI - HPI Summary HPI Summary: Patient is a 78 y/o F who had a recent cholecystectomy who presents to [facility] with roommate for chief complaint of right flank pain. On vitals, fever is noted. Patient additionally notes SOB and cough. Patient had scheduled cholecystectomy at [facility] on 12/06/18. She went home the same day. Roommate reports that the patient was doing well and was capable of ambulation at the time. Yesterday, 12/09/18, patient had some pain, and this morning, 12/10/18, she had severe pain. Patient's doctor was called, there were concerns that the patient was gaseous. She took milk of magnesia with no relief in Sx. As a result , patient came to ED for evaluation. Pain is characterized as steady. Patient reports no fever this morning, but, on vitals, temp is 101.3 F. Patient had a nuclear stress test last week, which is reported to have been "fine". She is a former smoker with Hx of COPD. On triage, pain is rated 8/10, nothing is noted to aggravate/alleviate Sx. Home medications and allergies are reviewed. - History of Current Complaint Chief Complaint: EDFlankPain Time Seen by Provider: 12/10/18 20:25 Stated Complaint: PAIN AFTER SURGERY PER PT Hx Obtained From: Patient Onset/Duration: Started Days Ago, Still Present, Worse Since Timing: Constant, Lasting Days Severity: Moderate Current Severity: Severe Pain Intensity: 8 Location of Pain: Flank - right Associated Signs and Symptoms: Positive: Fever, Flank Pain - right flank, Cough , Other: - SOB Aggravating Factor(s): Nothing Alleviating Factor(s): Nothing - Additional Pertinent History Primary Care Physician: [id number] - Allergy/Home Medications Allergies/Adverse Reactions: Allergies Allergy/AdvReac Type Severity Reaction Status Date / Time clopidogrel Allergy Severe Dizziness Verified 12/10/18 20:01 levofloxacin [From Levaquin] Allergy Intermediate Muscle Ache Verified 12/10/18 20:01 nitrofurantoin Allergy Intermediate GI Upset Verified 12/10/18 20:01 [From Macrobid] metronidazole [From Flagyl] Allergy Swelling Verified 12/10/18 20:01 Penicillins Allergy See Comment Verified 12/10/18 20:01 Home Medications: Home Medications Aspirin EC TAB* [Ecotrin EC Low Dose 81 MG*] 81 mg PO DAILY 12/10/18 [History Confirmed 12/10/18] Azithromycin TAB* [Zithromax TAB (Z-CHENG) 250 mg #6 tabs] 250 mg PO MOWEFR [History Confirmed 12/10/18] Loperamide CAP* [Imodium CAP*] 2 mg PO Q4H PRN 12/10/18 [History Confirmed 12/10] Oxybutynin XL TAB* [Ditropan XL TAB*] 5 mg PO DAILY 12/10/18 [History Confirmed 12/10/18] PMH/Surg Hx/FS Hx/Imm Hx Endocrine/Hematology History: Reports: Hx Blood Transfusions, Hx Anemia - Iron deficiency Denies: Hx Diabetes, Hx Thyroid Disease Cardiovascular History: Reports: Hx Coronary Artery Disease, Hx Deep Vein Thrombosis, Hx Hypercholesterolemia, Hx Hypertension, Hx Peripheral Vascular Disease Denies: Hx Congestive Heart Failure Respiratory History: Reports: Hx Chronic Obstructive Pulmonary Disease (COPD), Hx Pneumonia Denies: Hx Asthma GI History: Reports: Hx Crohn's Disease, Hx Diverticulosis, Hx Gastroesophageal Reflux Disease, Hx Ulcer - gerd, hx of ulcers, Other GI Disorders - Previous issues with incontinence History: Reports: Other Problems/Disorders - Frequent UTIs and yeast infections Denies: Hx Renal Disease Musculoskeletal History: Reports: Hx Arthritis - hands, Hx Gout, Hx Osteoporosis , Other Musculoskeletal History - Neck problems s/p surgery Sensory History: Reports: Hx Cataracts, Hx Contacts or Glasses Denies: Hx Hearing Aid Opthamlomology History: Reports: Hx Cataracts, Hx Contacts or Glasses Neurological History: Reports: Hx Headaches - last 2 weeks, Other Neuro Impairments/Disorders - neuropathy UE bilat Psychiatric History: Reports: Hx Anxiety - Surgical History Surgery Procedure, Year, and Place: Neck Surgery. HAND SURGERY (Releasing the pinky finger). Hysterectomy. Carpal tunnel release Hx Anesthesia Reactions: No Infectious Disease History: No Infectious Disease History: Reports: Hx Clostridium Difficile - Accompanied with diverticulitis, Hx Shingles, History Other Infectious Disease Denies: Hx Hepatitis, Hx Human Immunodeficiency Virus (HIV), Hx of Known/ Suspected MRSA, Hx Tuberculosis, Traveled Outside the [place] in Last 30 Days - Family History Known Family History: Positive: Cardiac Disease, Diabetes - Social History Alcohol Use: Occasionally Alcohol Amount: three drinks per week Hx Substance Use: No Substance Use Type: Reports: None Hx Tobacco Use: Yes Smoking Status (MU): Former Smoker Type: Cigarettes Amount Used/How Often: 2.5 packs/day for those years Length of Time of Smoking/Using Tobacco: 34 years of smoking Have You Smoked in the Last Year: No Review of Systems Positive: Fever Positive: Shortness Of Breath, Cough Positive: flank pain - right All Other Systems Reviewed And Are Negative: Yes Physical Exam - Summary Physical Exam Summary: Appearance: Well-appearing, Slender-appearing, lying in bed comfortably, no jaundice Skin: Warm, dry, no obvious rash Eyes: sclera anicteric, no conjunctival pallor ENT: mucous membranes moist, pharynx appears normal Neck: Supple, nontender Respiratory: She has crackles at left lung base with no focal signs of consolidation, no signs of respiratory distress Cardiovascular: Normal S1, S2. No murmurs. Normal distal pulses in tibial and radial bilaterally. Abdomen: Generalized abdominal tenderness, worse on right, is noted. No peritoneal signs appreciated. Soft, normal active bowel sounds present Musculoskeletal: Normal, Strength/ROM Intact Neurological: A&Ox3, awake and alert, mentation is normal, speech is fluent and appropriate Psychiatric: affect is normal, does not appear anxious or depressed Triage Information Reviewed: Yes Vital Signs On Initial Exam: Initial Vitals Temp Pulse Resp BP Pulse Ox 101.3 F 125 18 122/79 92 12/10/18 19:59 12/10/18 19:59 12/10/18 19:59 12/10/18 19:59 12/10/18 19:59 Vital Signs Reviewed: Yes Diagnostics - Vital Signs Vital Signs Temp Pulse Resp BP Pulse Ox 12/10/18 19:59 101.3 F 125 18 122/79 92 - Laboratory Result Diagrams: 12/10/18 21:11 12/10/18 21:11 Lab Statement: Any lab studies that have been ordered have been reviewed, and results considered in the medical decision making process. - Radiology CXR Radiology Interpretation Completed By: ED Physician Summary of Radiographic Findings: NAD, pending official report. - CT CT ABD/PEL CT Interpretation Completed By: Radiologist Summary of CT Findings: CT ABD/PEL IMPRESSION: 1. Decreased left base infiltrate and consolidation since 08/26/2018. 2. Interval and recent cholecystectomy since the prior study. 3. Free air within the abdomen and mild gas in the right abdominal wall which. is somewhat greater than expected for 4 days postop. 4. Colonic diverticulosis without diverticulitis. 5. Status post hysterectomy. 6. Pelvic floor relaxation. THIS REPORT WAS REVIEWED BY DR. BENAVIDEZ Re-Evaluation - Re-Evaluation First Eval Re-Evaluation Time: 00:30 Comment: Patient is agreeable with transfer. GIGU Course/Dx - Course Course Of Treatment: Patient is a 78 y/o F who had a recent cholecystectomy who presents to [facility] with roommate for chief complaint of right flank pain. On vitals, fever is noted. Patient additionally notes SOB and cough. Patient had scheduled cholecystectomy at [facility] on 12/06/18. She went home the same day. Roommate reports that the patient was doing well and was capable of ambulation at the time. Yesterday, 12/09/18, patient had some pain, and this morning, , she had severe pain. Patient's doctor was called, there were concerns that the patient was gaseous. She took milk of magnesia with no relief in Sx. As a result, patient came to ED for evaluation. Pain is characterized as steady. Patient reports no fever this morning, but, on vitals, temp is 101.3 F. On physical exam, generalized abdominal tenderness, worse on right, is noted. No peritoneal signs appreciated. She has crackles at left lung base with no focal signs of consolidation. Patient is not jaundiced and does not have icteric sclera. Patient is slender-appearing, vital signs notable for fever and tachycardia. CXR showed no acute process. Bloodwork was obtained. Abnormal values include WBC 11.7, Hgb 10.2, Hct 31, RDW 17, MPV 7.2, absolute neuts 9.1, absolute monos 1.4, creatinine 0.49, glucose 106, calcium 8.4, ALT 5, CRP 113.57 , albumin/globulin ratio 0.9. UA showed 2+ ketones, 1+ blood, trace WBC and RBC , present squamous eptih cells are present. During ED course, patient received fluids, 4 mg morphine IV, Tylenol 975 mg PO. 2139 - Patient's case was discussed with Dr. Jaylan Jenkins, the patient's surgeon from [facility]. CT ABD/ PEL to be obtained, will call back with results. CT ABD/PEL IMPRESSION: 1. Decreased left base infiltrate and consolidation since 08/26/2018. 2. Interval and recent cholecystectomy since the prior study. 3. Free air within the abdomen and mild gas in the right abdominal wall which. is somewhat greater than expected for 4 days postop. 4. Colonic diverticulosis without diverticulitis. 5. Status post hysterectomy. 6. Pelvic floor relaxation. 0026 - Patient's CT was discussed with Dr. Jenkins. Patient will be transferred to [facility]. Patient is agreeable with transfer. - Diagnoses Provider Diagnoses: Abdominal pain - Physician Notifications Discussed Care Of Patient With: Jalyan Jenkins Time Discussed With Above Provider: 21:40 Instructed by Provider To: Other - 2139 - Patient's case was discussed with Dr. Jaylan Jenkins, the patient's surgeon from [facility]. CT ABD/PEL to be obtained, will call back with results. 002 - Patient's case was discussed with Dr. Jenkins. Patient will be transferred to [facility]. Discharge ED - Sign-Out/Discharge Documenting (check all that apply): Patient Departure - transfer Patient Received Moderate/Deep Sedation with Procedure: No - Discharge Plan Condition: Fair Disposition: TRANS HIGHER LVL OF CARE FAC Referrals: Noel Johnson MD [Primary Care Provider] - - Billing Disposition and Condition Condition: FAIR Disposition: Trans Higher Lvl of Care Fac - Attestation Statements Document Initiated by Rekha: Yes Documenting Scribe: FAHAD HERNANDEZ Provider For Whom Rekha is Documenting (Include Credential): ADALI BENAVIDEZ MD Scribe Attestation: FAHAD Ross, scribed for ADALI BENAVIDEZ MD on 12/11/18 at 0211. Scribe Documentation Reviewed: Yes Provider Attestation: The documentation as recorded by the FAHAD chandra accurately reflects the service I personally performed and the decisions made by me, ADALI BENAVIDEZ MD Status of Scribe Document: Viewed
[2018-12-10 21:18] LABS: ABS Basophils 0.1 10^3/ul (0-0.2); ABS Lymphocytes 1.1 10^3/ul (1.0-4.8); ABS Monocytes 1.4 10^3/ul (0-0.8); ABS Neutrophils 9.1 10^3/ul (1.5-7.7); Eosinophil % 0.3 %; Hematocrit 31 % (35-47); Hemoglobin 10.2 g/dL (12.0-16.0); Lymphocyte % 9.4 %; Mean Corpuscular HGB Conc 34 g/dL (31-36); Mean Corpuscular Hemoglobin 27 pg (27-31); Mean Corpuscular Volume 80 fL (80-97); Mean Platelet Volume 7.2 fL (7.4-10.4); Nucleated Red Blood Cells % 0.1; Platelet Count 277 10^3/uL (150-450); Red Cell Distribution Width 17 % (10-15); White Blood Count 11.7 10^3/uL (3.5-10.8)
[2018-12-10 21:35] LABS: Albumin 3.2 g/dL (3.2-5.2); Albumin/Globulin Ratio 0.9 (1-3); BUN/Creatinine Ratio 16.3 (8-20); C Reactive Protein 113.57 mg/L (<8.01); Calcium 8.4 mg/dL (8.6-10.3); EGFR African American 148.6 (>60); EGFR Non-African American 122.8 (>60); Globulin 3.7 g/dL (2-4); Potassium 3.9 mmol/L (3.5-5.0); Total Bilirubin 0.9 mg/dL (0.2-1.0); Total Protein 6.9 g/dL (6.4-8.9)
[2018-12-10] MEDS ORDERED: Iohexol 300* (CONTRAST) 10 ML SDV IV ONE (21:37)
[2018-12-10 21:54] LABS: Urine Appearance Clear; Urine Bacteria Absent (Absent); Urine Bilirubin Negative (Negative); Urine Blood 1+ (Negative); Urine Color Yellow; Urine Glucose Negative (Negative); Urine Ketones 2+ (Negative); Urine Nitrite Negative (Negative); Urine Protein Negative (Negative); Urine Red Blood Cell Trace(0-2/hpf) (Absent); Urine Specific Gravity 1.011 (1.010-1.030); Urine Squamous Epithelial Cell Present (Absent); Urine Urobilinogen Negative (Negative); Urine White Blood Cell Trace(0-5/hpf) (Absent)
[2018-12-11 02:33] VITALS: BP 126/64
== END 2018-12-11 02:32 | disposition short-term general hospital (02) ==
LOC: ED 19:52
DX: R10.84 Generalized abdominal pain (principal); R05 Cough; Z79.82 Long term (current) use of aspirin; Z88.0 Allergy status to penicillin; I25.10 Atherosclerotic heart disease of native coronary artery without angina pectoris; Z86.718 Personal history of other venous thrombosis and embolism; E78.00 Pure hypercholesterolemia, unspecified; I10 Essential (primary) hypertension; J44.9 Chronic obstructive pulmonary disease, unspecified; F41.9 Anxiety disorder, unspecified; Z87.891 Personal history of nicotine dependence; R06.02 Shortness of breath
CPT/HCPCS: 36415; 71046; 74177; 80053; 81003; 81015; 83605; 83690; 85025; 86140; 87040; 87086; 96374; 99284; A9270-GY; J2270; Q9967

== ENCOUNTER 2019-02-13 19:57 | Emergency (ER) | payer MEDICARE ==
--- OUTSIDE RECORDS SUMMARY | 2019-02-13 20:23 | XMS REPORT | Summary of Care ---
:1940 Author Organization [facility] Address [address] [place] [address] Care Team Providers Name Role Phone AleaAmadora Primary Care Provider Marquita Deleon gerontology aide Reason for Visit Reason Comments Surgical Followup s/p laparoscopic cholecystectomy 12/06/2018 Encounter Details Date Type Department Care Team Description 12/19/2018 Office Visit [facility] Louise Vicente, LINOLEUM LAYER APPRENTICE-BC Postop check (Primary [address]) [place] [id number] [place] [id number] Allergies Active Allergy Reactions Severity Noted Date Comments Metronidazole GI Reaction 06/13/2016 Severe nausea, headache and dizziness Escitalopram Rash Medium 04/03/2018 Nitrofurantoin GI Reaction 02/28/2013 Penicillins Hives 09/09/2004 Yeast infection in mouth and vagina documented as of this encounter (statuses as of 12/19/2018) Medications Medication Sig Dispensed Refills Start Date End Date Status lactulose (CEPHULAC) 10 Take 30 mL by 900 mL 5 03/04/2015 Active GM/15ML Oral Solution mouth DAILY. Additional information Patient taking differently: 20 g Oral PRN, Reported on 10/06/2015 1:10 PM Multiple Vitamin Take by mouth 0 06/02/2013 Active (MULTIVITAMINS PO) DAILY. Acetaminophen (TYLENOL) Take 500 mg by 0 09/06/2014 Active 325 MG Oral Cap mouth EVERY SIX HOURS NEEDED. aspirin 325 MG Oral Tab Take 325 mg by 0 Active mouth DAILY. pantoprazole (PROTONIX) Take 1 Tab by 90 Tab 3 02/27/2018 Active 40 MG Oral Tab EC mouth DAILY 0700 on Empty Stomach. ALPRAZolam (XANAX) 0.25 Take 1 Tab by 30 Tab 0 04/03/2018 Active MG Oral TabIndications: mouth EVERY Anxiety BEDTIME NEEDED (anxiety). Max Daily Amount: 1 Tab. gabapentin (NEURONTIN) Take 2 Caps by 540 Cap 5 06/12/2018 Active 300 MG Oral mouth THREE TIMES CapIndications: Anxiety DAILY. state Ohstdwrwqop-Kibzashqj-I Take 1 INHL by 1 Each 5 08/09/2018 Active ilant (TRELEGY ELLIPTA) inhalation DAILY. 100-62.5-25 MCG/INH Inhalation AEROSOL POWDER, BREATH ACTIVATED azithromycin Take 1 tab on 12 Tab 6 09/20/2018 Active (ZITHROMAX) 250 MG Oral Monday, Monday Tab and Monday montelukast (SINGULAIR) Take 1 Tab by 90 Tab 1 12/17/2018 Active 10 MG Oral Tab mouth DAILY. colchicine (COLSALIDE) Take 1 Tab by 10 Tab 5 02/03/2017 12/20/19 Discontinued 0.6 MG Oral mouth TWICE DAILY. 19 TabIndications: Acute idiopathic gout involving toe of left foot albuterol HFA Take 2 Puffs by 3 Inhaler 5 01/09/2018 12/20/19 Discontinued (VENTOLIN) 108 (90 inhalation EVERY 19 Base) MCG/ACT FOUR HOURS Inhalation Aero NEEDED (SOB). SolnIndications: COPD exacerbation (HCC) oxybutynin (DITROPAN Take 1 Tab by 30 Tab 1 11/16/2018 12/20/19 Discontinued XL) 5 MG Oral TABLET SR mouth DAILY. 19 24 HR OXYcodone Take 1 Tab by 6 Tab 0 12/06/2018 12/20/19 Discontinued (OXY-IR,OXY-FAST) 5 MG mouth EVERY FOUR 19 Oral Tab HOURS NEEDED (pain). Max Daily Amount: 20 mg. cyclobenzaprine Take 1 Tab by 42 Tab 0 12/10/2018 12/20/19 Discontinued (FLEXERIL) 10 MG Oral mouth THREE TIMES 19 Tab DAILY NEEDED (use as needed). documented as of this encounter (statuses as of 12/19/2018) Active Problems Problem Noted Date Abdominal pain 12/11/2018 Fluttering heart 11/10/2018 Gallstones 11/10/2018 Overview: Added automatically from request for surgery [id number] Right arm pain 11/08/2018 Fluttering heart 08/15/2018 Pneumonia of right middle lobe due to infectious organism 08/15/2018 Hypoxemia 10/26/2017 Overview: 2 LPM q HS through [facility] [employer] Stenosis of peripheral vascular stent 06/20/2017 Overview: Added automatically from request for surgery [id number] Esophageal stricture 09/15/2016 Overview: S/p dilation esophago-gastroduodenoscopy [facility] 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 Bhat 05/2010 COPD (chronic obstructive pulmonary disease) 01/29/2009 Overview: Reversible component on PFT's 02/02: FEV1 .78 (42%) improved to .98 (52%). Moderate severity. [facility] admission 02/02 On oxygen at 2 liters, getting from [employer] [facility] False positive cardiac stress test 01/16/2009 Overview: 01/13/09 Dr Nicholas Cardiac cath [facility] 01/02: SUMMARY: 1. No significant coronary artery disease. 2. Normal left ventricular systolic function and filling pressure. 3. Possible dissection or thrombus in the right common femoral artery. PVD (peripheral vascular disease) 08/11/2008 Overview: S/p right SFA percutaneous transluminal angiolasty/stent Dr Garcia [facility] 06/02 TOBACCO ABUSE, IN REMISSION 04/16/2008 Overview: Quit smoking . Crohn disease Overview: Gastro-intestinal [facility] Colonoscopy nov 2010 GERD (gastroesophageal reflux disease) Essential hypertension, benign documented as of this encounter (statuses as of 12/19/2018) Resolved Problems Problem Noted Date Resolved Date [...] as of this encounter (statuses as of 12/19/2018) Immunizations Name Administration Dates Next Due Influenza (IM) Preservative Free 12/13/2018, 01/05/2010, 01/09/2008 Influenza Vaccine High Dose 12/08/2017, [...] Sign Reading Time Taken Comments Blood Pressure 110/58 12/19/2018 1:23 PM EDT Pulse 86 12/19/2018 1:23 PM EDT Temperature 36.7 12/19/2018 1:23 PM EDT C (98 F) Respiratory Rate - - Oxygen Saturation 93% 12/19/2018 1:23 PM EDT Inhaled Oxygen Concentration - - Weight 38.3 kg (84 lb 6.4 oz) 12/19/2018 1:23 PM EDT Height 149.9 cm (4' 11") 12/19/2018 1:23 PM EDT Body Mass Index 17.05 12/19/2018 1:23 PM EDT documented in this encounter Patient Instructions Patient InstructionsLouise Vicente FNP-BC - 12/19/2018 1:30 PM EDTFoods that thicken stools: White rice, peanut butter, bananas, high fiber foods - oatmeal Loose stools should get better within 6 weeks. You may need to undergo another dilation of your esophagus, contact your primary care doctor if you develop difficulty with swallowing or feel like food is getting stuck. documented in this encounter Progress Notes Louise Vicente FNP-BC - 12/19/2018 1:30 PM EDT NAME: Nohemy Martínez DATE OF : 1940 DATE OF SERVICE: 12/19/2018 REFERRING PROVIDER: Brandon Ortiz MD PRIMARY CARE PROVIDER: Sheri Cosby Chief Complaint Patient presents with Surgical Followup s/p laparoscopic cholecystectomy 12/06/2018 HPI: Nohemy Martínez is a 78-y.o. female who returns to the office today for her initial postop visit. She is status post laparoscopic cholecystectomy for symptomatic cholelithiasis on 12/06/2018. Preoperative LFT's were normal back in 09/2018. Pathology results revealed mild chronic inflammation andcholelithiasis. The patient began to experience significant RUQ pain w/ radiation to her back a fewdays postop. She returned to the hospital and further evaluation noted a retained stone w/i the CBD.On 12/12/2018 she underwent an ERCP w/ sphincterotomy. Post-procedure LFT's returned to baseline. Of note, she was also noted to have several areas of esophageal stricture ( Shatski's rings) that were dilated during this procedure. The remainder of her hospital stay was unremarkable. She returns to the office now for her postop visit. She denies any complaints of fever, chills, nausea or vomiting. Her appetite is fine with no food intolerances. No complaints of urinary issues. She does admit to loose stools that are improving slightly. The right upper quadrant pain experienced preoperatively has now fully resolved. PHYSICAL EXAMINATION: BP 110/58 | Pulse 86 | Temp 98 F (36.7 C) | Ht 4' 11" (1.499 m) | Wt (!) 84 lb 6.4 oz (38.3 kg) | SpO2 93% | BMI 17.05 kg/m Laparoscopic incisions sites: healing well w/o erythema or drainage. ASSESSMENT: ICD-9-CM ICD-10-CM 1. Postop check V67.00 Z09 Status post laparoscopic cholecystectomy PLAN: No dietary restrictions. No activity restrictions May resume driving. Recommend dietary modification for stool thickening. Foods that thicken stools: White rice, peanut butter, bananas, high fiber foods - oatmeal Loose stools should get better within 6 weeks. If not improved after 6 weeks contact your PCP for a referral to the GI department for medical management. You may need to undergo another dilation of your esophagus, contact your primary care doctor if you develop difficulty with swallowing or feel like food is getting stuck. LUC Gil 12/19/2018 14:06 documented in this encounter Plan of Treatment Date Type Specialty Care Team Description 12/21/2018 Office Visit [facility] Sheri Cosby MD [address] [place] [address] [phone] 01/10/2019 Office Visit Pulmonary Ricco Griffin MD [address] [place] [address] [phone] Health Maintenance Due Date Last Done Comments ZOSTER IMMUNIZATION SERIES 1992 (1 of 2) LUNG CANCER SCREENING 1997 MEDICARE ANNUAL WELLNESS 12/05/2017 12/05/2016, 12/02/2015, VISIT 12/02/2015, Additional history exists COLONOSCOPY SCREENING 07/06/2019 07/05/2016, 07/05/2016, 11/04/2013, Additional history exists DEPRESSION SCREENING 08/16/2019 08/15/2018, 02/13/2014 FALL RISK ASSESSMENT 08/16/2019 08/15/2018, 08/15/2018 OSTEOPOROSIS SCREENING 10/23/2022 10/23/2012, 07/25/2008 (Previously completed) PNEUMOCOCCAL 65+YRS Completed 08/26/2014, 01/14/2009 INFLUENZA VACCINE Completed 12/13/2018, 12/08/2017, 11/25/2016, Additional history exists HPV IMMUNIZATION SERIES Aged Out No longer eligible based on patient's age to complete this topic MENINGOCOCCAL VACCINE IMM Aged Out No longer eligible based on patient's age to complete this topic documented as of this encounter Goals Goal Patient Goal Associated Recent Patient-Stated? Author Type Problems Progress Blood Pressure Blood Pressure Essential 110/58 No [place], < 140/90 hypertension, (12/19/2018 Noel R, benign 1:23 PM EDT) Note: Hypertension Care Plan Based [...] Educational Resources. record my blood pressure results. [place] is safe and secure way for you [...] Educational Resources: National Heart, Lung, & Blood Hernandez http://nhlbi.nih.gov/hbp/index.html The DASH Diet Eating Plan http://www.nhlbi.nih.gov/health/health-topics/ topics/dash/ Academy of Nutrition & DIetetics http://eatright.org National Smoking Cessation Site http://smokefree.gov Blood Pressure < Blood Pressure 110/58 (12/19/2018 1:23 Noel Tai, 150/90 PM EDT) Note: This is an individualized treatment (blood pressure) goal for Nohemy Moses Mauricio: Displayed above (on the left) is your goal for blood pressure control. Your most recent blood pressure is also shown above, on the right. You should try to achieve blood pressures that are lower than your goal listed above (on the left). Keep immunizations current Lifestyle Noel Tai MD Note: This is an individualized lifestyle goal for Noehmy Martínez: Please be sure to keep up-to-date [...] of this encounter Implants Implanted Type Area Software Development Analyst Device Shelf Model / Serial Identifier Expiration / Lot Date Iol, [id number] 22.5 Diopter - [id number] Right: Eye STORZ [id number] / Implanted: Qty: 1 on 06/08/2009 at [facility] / [id number] [employer] Stent [id number] - [id number] Left: [employer] 02/22/2020 [id number] / Implanted: Qty: 1 on 06/26/2017 by Marcell Vazquez MD at [facility] / [id number] Description: Static magnetic field of 3-Minal or 1.5T. * Maximum spatial gradient magnetic field of 720-Gauss/cm or less. * Normal operating mode (maximum WBA-BHAVANA of 2.0 W/kg) for 15 minutes of scanning. documented as of this encounter Results Not on filedocumented in this encounter Visit Diagnoses Diagnosis Postop check - Primary Follow-up examination, following unspecified surgery documented in this encounter Insurance Payer Benefit Plan / Subscriber ID Effective Dates Phone Address Type Group [facility] xxxxxxxx 2018-Prese Medicare TODAYS OPTIONS TODAYS OPTIONS nt Advantage Guarantor Name Account Type Relation to Date of Phone Billing Address Patient Nohemy Martínez Personal/Family 1940 [address]) [place], [place] [phone] (Work) documented as of this encounter Advance Directives Type Date 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 yes
--- OUTSIDE RECORDS SUMMARY | 2019-02-13 20:23 | XMS REPORT | Summary of Care ---
:1940 Author Organization [facility] Address [address] [place] [address] Care Team Providers Name Role Phone Alea Sheri Primary Care Provider Marquita Deleon RNstore administrative assistant Reason for Visit Reason Comments COPD Encounter Details Date Type Department Care Team Description 01/10/2019 Office Visit [facility] Ricco Griffin, Centrilobular emphysema (HCC) (Primary Dx); [address] Chronic obstructive pulmonary disease with acute exacerbation (HCC) [place] [address] [address] [phone] [place] [address] Allergies Active Allergy Reactions Severity Noted Date Comments Metronidazole GI Reaction 06/13/2016 Severe nausea, headache and dizziness Escitalopram Rash Medium 04/03/2018 Nitrofurantoin GI Reaction 02/28/2013 Penicillins Hives 09/09/2004 Yeast infection in mouth and vagina documented as of this encounter (statuses as of 01/10/2019) Medications Medication Sig Dispensed Refills Start Date End Date Status lactulose (CEPHULAC) 10 Take 30 mL by 900 mL 5 03/04/2015 Active GM/15ML Oral Solution mouth DAILY. Additional information Patient taking differently: 20 g Oral PRN, Reported on 10/06/2015 1:10 PM Multiple Vitamin Take by mouth DAILY. 0 06/02/2013 Active (MULTIVITAMINS PO) Acetaminophen (TYLENOL) 325 MG Take 500 mg by mouth 0 09/06/2014 Active Oral Cap EVERY SIX HOURS NEEDED. aspirin 325 MG Oral Tab Take 325 mg by mouth 0 Active DAILY. pantoprazole (PROTONIX) 40 MG Take 1 Tab by mouth DAILY 90 Tab 3 2017 Active Oral Tab EC 0700 on Empty Stomach. ALPRAZolam (XANAX) 0.25 MG Take 1 Tab by mouth EVERY 30 Tab 0 04/03/2018 Active Oral TabIndications: Anxiety BEDTIME NEEDED (anxiety). Max Daily Amount: 1 Tab. gabapentin (NEURONTIN) 300 MG Take 2 Caps by mouth 540 Cap 5 06/12/2018 Active Oral CapIndications: Anxiety THREE TIMES DAILY. state Vkwbkmecirl-Turrnlxfq-Ptbsjd Take 1 INHL by inhalation 1 Each 5 08/09/2018 Active (TRELEGY ELLIPTA) 100-62.5-25 DAILY. MCG/INH Inhalation AEROSOL POWDER, BREATH ACTIVATED azithromycin (ZITHROMAX) 250 Take 1 tab on Monday, 12 Tab 6 09/20/2018 Active MG Oral Tab Monday and Monday montelukast (SINGULAIR) 10 MG Take 1 Tab by mouth 90 Tab 1 12/17/2018 Active Oral Tab DAILY. levofloxacin (LEVAQUIN) 750 MG Take 1 Tab by mouth DAILY 10 Tab 0 2018 Active Oral Tab 0700 on Empty Stomach. documented as of this encounter (statuses as of 01/10/2019) Active Problems Problem Noted Date Abdominal pain 12/11/2018 Fluttering heart 11/10/2018 Gallstones 11/10/2018 Overview: Added automatically from request for surgery [id number] Right arm pain 11/08/2018 Fluttering heart 08/15/2018 Pneumonia of right middle lobe due to infectious organism 08/15/2018 Hypoxemia 10/26/2017 Overview: 2 LPM q HS through [facility] [employer] Stenosis of peripheral vascular stent 06/20/2017 Overview: Added automatically from request for surgery [id number] Esophageal stricture 09/15/2016 Overview: S/p dilation esophago-gastroduodenoscopy [facility] 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 Muscle tension headache 08/06/2015 Cubital tunnel syndrome on right 03/12/2014 Chronic cervical radiculopathy 08/21/2013 Overview: Due to cervical spinal stenosis Femoral hernia 03/11/2013 Osteoporosis 10/15/2012 Overview: Bone density scan 2008, bone density scan 2012 Raynauds syndrome 05/03/2012 Osteoarthritis 05/03/2012 Dupuytren's contracture of hand 01/16/2012 Degenerative cervical spinal stenosis 04/04/2011 Overview: Dr Ya [facility] Gout attack 03/28/2011 Overview: 2009 right big toe 03/2011 left big toe Carpal tunnel syndrome 06/10/2010 Overview: Dr. Bhat 05/2010 COPD (chronic obstructive pulmonary disease) 01/29/2009 Overview: Reversible component on PFT's 02/02: FEV1 .78 (42%) improved to .98 (52%). Moderate severity. [facility] admission 02/02 On oxygen at 2 liters, getting from [employer] False positive cardiac stress test 01/16/2009 Overview: 01/13/09 Dr Nicholas Cardiac cath [facility] 01/02: SUMMARY: 1. No significant coronary artery disease. 2. Normal left ventricular systolic function and filling pressure. 3. Possible dissection or thrombus in the right common femoral artery. PVD (peripheral vascular disease) 08/11/2008 Overview: S/p right SFA percutaneous transluminal angiolasty/stent Dr Garcia [facility] 06/02 TOBACCO ABUSE, IN REMISSION 04/16/2008 Overview: Quit smoking . Crohn disease Overview: [facility] Colonoscopy nov 2010 GERD (gastroesophageal reflux disease) Essential hypertension, benign documented as of this encounter (statuses as of 01/10/2019) Resolved Problems Problem Noted Date Resolved Date [...] as of this encounter (statuses as of 01/10/2019) Immunizations Name Administration Dates Next Due Influenza [...] Sign Reading Time Taken Comments Blood Pressure 112/64 01/10/2019 2:28 PM EDT Pulse 88 01/10/2019 2:28 PM EDT Temperature - - Respiratory Rate 17 01/10/2019 2:28 PM EDT Oxygen Saturation 97% 01/10/2019 2:28 PM EDT on r/a at rest Inhaled Oxygen Concentration - - Weight 39.5 kg (87 lb) 01/10/2019 2:28 PM EDT Height 149.9 cm (4' 11") 01/10/2019 2:28 PM EDT Body Mass Index 17.57 01/10/2019 2:28 PM EDT documented in this encounter Progress Notes Ricco Griffin MD - 01/10/2019 2:30 PM EDT Name: Nohemy Martínez : 1940 Date of Service: 01/10/2019 Referring Practioner: Ricco Griffin Primary Care Provider: Sheri Cosby History of Present Illness Nohemy Martínez is a 78-y.o. female who presents for a reevaluation of her COPD. The patient just came back from the [facility] and, since being back here, she has been coughing up more mucus which is yellow in color. Yesterday, she had some chills. She is not taking any daily antibiotic. She is on Zithromax 3 times a week. The patient denies any chest pain, abdominal pain, melena, hematuria,rash or swelling of any joints. The patient is also taking Trelegy once a day and albuterol as needed. Allergies Allergen Reactions Lexapro [Escitalopram] Rash Flagyl [...] Last attempt to quit: 03/27/1993 Years since quittin.8 Smokeless tobacco: Never Used Substance and Sexual [...] file Gets together: Not on file Attends temple service: Not on file Active member of [...] Not Asked Social History Narrative Retired from [employer]- no known exposure to asbestos, silica or tuberculosis Lives in [facility]. Has roommate Current Outpatient Medications Medication Sig Acetaminophen (TYLENOL) 325 MG Oral Cap Take 500 mg by mouth EVERY SIX HOURS NEEDED. ALPRAZolam (XANAX) 0.25 MG Oral Tab Take 1 Tab by mouth EVERY BEDTIME NEEDED (anxiety). Max Daily Amount: 1 Tab. aspirin 325 MG Oral Tab Take 325 mg by mouth DAILY. azithromycin (ZITHROMAX) 250 MG Oral Tab Take 1 tab on Monday, Monday and Monday Igksdfkkrby-Nbbkrhtyo-Idbyot (TRELEGY ELLIPTA) 100-62.5-25 MCG/INH Inhalation AEROSOL POWDER,BREATH ACTIVATED Take 1 INHL by inhalation DAILY. gabapentin (NEURONTIN) 300 MG Oral Cap Take 2 Caps by mouth THREE TIMES DAILY. lactulose (CEPHULAC) 10 GM/15ML Oral Solution Take 30 mL by mouth DAILY. (Patient taking differently: Take 20 g by mouth NEEDED.) levofloxacin (LEVAQUIN) 750 MG Oral Tab Take 1 Tab by mouth DAILY 0700 on Empty Stomach. montelukast (SINGULAIR) 10 MG Oral Tab Take 1 Tab by mouth DAILY. Multiple Vitamin (MULTIVITAMINS PO) Take by mouth DAILY. pantoprazole (PROTONIX) 40 MG Oral Tab EC Take 1 Tab by mouth DAILY 0700 on Empty Stomach. No current facility-administered medications for this visit. Past Medical History: Diagnosis Date Colon obstruction (HCC) COPD (chronic obstructive pulmonary disease) (HCC) Crohn disease (HCC) Degenerative disc disease 11/17/09 Diverticulitis DVT (deep venous thrombosis) (HCC) FX DORSAL VERTEBRA-CLOSE 09/15/2004 Gastritis GERD (gastroesophageal reflux disease) Hiatal hernia Hypertension Loss of sensation Osteoporosis Other and unspecified hyperlipidemia 01/25/2007 PVD (peripheral vascular disease) ([facility]) URETHRAL STRICTURE NOS 07/30/2003 VAGINAL WALL PROLAPSE NOS 08/30/2004 Past Surgical History: Procedure Laterality Date BALO ANGIOP ICRA PRQ CARDIAC CATH leg stent SECTION NEC COLONOSCOPY N/A 07/05/2016 Procedure: COLONOSCOPY; Surgeon: Bertha Orlando MD; Location: [facility] GI OR CYSTOCELE REPAIR CYSTOSCOPY 12/27/2011 Procedure: CYSTOSCOPY; Surgeon: Case Sanchez MD, FACS; Location: [facility] ANCILLARY OR; Laterality: N/A; EGD N/A 07/05/2016 Procedure: ENDOSCOPY UPPER GI; Surgeon: Bertha Orlando MD; Location: [facility] GI OR EGD N/A 09/15/2016 Procedure: EGD with biopsy and balloon dilation; Surgeon: Aleksander Aquino Jr., MD; Location: [facility] MAIN OR EGD N/A 11/22/2016 Procedure: ENDOSCOPY UPPER GI w/ dilation; Surgeon: Aleksander Aquino Jr., MD ; Location: [facility] GI OR EGD N/A 12/12/2018 Procedure: ENDOSCOPY UPPER GI with osophageal dilation; Surgeon: Kaushik Meija MD [facility];Location: [facility] MAIN OR HIP REPAIR NEC Right 12/09/14 Dr Guajardo LAPAROSCOPIC CHOLECYSTECTOMY N/A 12/06/2018 Procedure: LAPAROSCOPIC CHOLECYSTECTOMY; Surgeon: Brandon Ortiz MD; Location : [facility] MAIN OR PHACOEMULSIFICATION WITH INTRA OCULAR LENS Right 05/2009 MA ANGIO AORTOBIFEMORAL W CATH N/A 06/26/2017 Procedure: Aortoiliac angiogram with runoff right leg with angioplasty and stent to left Iliac artery, angioplasty of right superficial femoral artery; Surgeon: Marcell Vazquez MD; Location: [facility] MAIN OR MA EXCIS INTRASP LESN,XDURAL,LUMBAR 1.19.[address] YA MA LIGATE FALLOPIAN TUBE MA NERVOUS SYSTEM SURGERY UNLISTED MA UPPER ARM/ELBOW SURGERY UNLISTED RELEASE CARPAL TUNNEL 08/18/2010 Procedure:RELEASE CARPAL TUNNEL; Surgeon:COLLIN BACA; Location:[facility] MAIN OR; Laterality:Right; RIGHT CARPAL TUNNEL RELEASE TOTAL ABD HYSTERECTOMY Family History Problem Relation Age of Onset [...] history Other Eye Problems No family history REVIEW OF SYSTEMS: A remaining review of systems was negative except for as noted in the history of present illness/subjective. PHYSICAL EXAMINATION: VITALS: Vitals: 01/10/19 1428 BP: 112/64 BP Location: Left arm Patient Position: Sitting Pulse: 88 Resp: 17 SpO2: 97% Weight: (!) 87 lb (39.5 kg) Height: 4' 11" (1.499 m) GENERAL: alert, oriented, no acute distress, cachectic HEENT: sclera normal, anicteric, mucous membrane moist, conjunctivitis pink and pale, pupils equal,round, reactive to light, extraocular movement intact, posterior pharynx: small pharynx, tongue midline , dry mucous membranes. NECK: no mass, no adenopathy, no thyromegaly, supple, thyroid: not enlarged, symmetric, no tenderness/mass/nodules, no jugular venous distention. LUNGS: diminished breath sounds bilateral. Scattered rhonchi bilaterally HEART: regular rhythm, no murmurs, no gallops, no rubs S1: normal S2: normal. ABDOMEN: soft, non tender, without masses or organomegaly, nondistended, normal bowel sounds. EXTREMITIES: no clubbing, cyanosis, or edema. NEUROLOGICAL: alert and oriented x3 gait: normal. Impression/Plan: 1. Severe COPD with an exacerbation. At this point, I will discontinue the Zithromax 3 times a week for now and, instead, I will put her on Levaquin 750 mg a day for 7 days. Once she is done with the Levaquin, the patient was told to go back on Zithromax. If she is not any better next week, the patient was told to let me know. 2. Immunization. The patient already has received her influenza vaccination. The patient will come back for follow-up in the spring. Author: Ricco Griffin MD 14:44 01/10/2019 documented in this encounter Plan of Treatment Date Type Specialty Care Team Description 01/23/2019 Office Visit Family Practice Sheri Cosby MD [address] [place] [address] [phone] Health Maintenance Due Date Last Done Comments [...] Problems Progress Blood Pressure Blood Pressure Essential 112/64 No [place], < 140/90 hypertension, (01/10/2019 Noel R, benign 2:28 PM EDT) Note: Hypertension Care Plan Based [...] Educational Resources. record my blood pressure results. Elastagene is safe and secure way for you [...] Educational Resources: National Heart, Lung, & Blood [place] http://nhlbi.nih.gov/hbp/index.html The DASH Diet Eating Plan http://www.nhlbi.nih.gov/health/health-topics/ topics/dash/ Academy of Nutrition & DIetetics http://eatright.org National Smoking Cessation Site http://smokefree.gov Blood Pressure < Blood Pressure 112/64 (01/10/2019 2:28 Noel Tai, 150/90 PM EDT) Note: This is an individualized treatment (blood pressure) goal for Nohemy Aurelia Martínez: Displayed above (on the left) is your goal for blood pressure control. Your most recent blood pressure is also shown above, on the right. You should try to achieve blood pressures that are lower than your goal listed above (on the left). Keep immunizations current Lifestyle No Noel Johnson MD Note: This is an individualized lifestyle goal for Nohemy Andrewyt: Please be sure to keep up-to-date on [...] of this encounter Implants Implanted Type Area Conservation Biology Professor Device Shelf Model / Serial Identifier Expiration / Lot Date Iol, [id number] 22.5 Diopter - [id number] Right: Eye STORZ [id number] / Implanted: Qty: 1 on 06/08/2009 at [facility] / [id number] [employer] Stent [id number] - [id number] Left: [employer] 02/22/2020 [id number] / Implanted: Qty: 1 on 06/26/2017 by Marcell Vazquez MD at [facility] / [id number] Description: Static magnetic field of 3-Minal or 1.5T. * Maximum spatial gradient magnetic field of 720-Gauss/cm or less. * Normal operating mode (maximum WBA-BHAVANA of 2.0 W/kg) for 15 minutes of scanning. documented as of this encounter Results Not on filedocumented in this encounter Visit Diagnoses Diagnosis Centrilobular emphysema (HCC) - Primary Other emphysema Chronic obstructive pulmonary disease with acute exacerbation (HCC) Obstructive chronic bronchitis with exacerbation documented in this encounter Insurance Payer Benefit Plan / Subscriber ID Effective Dates Phone Address Type Group [facility] xxxxxxxx 2018-Prese Medicare TODAYS OPTIONS TODAYS OPTIONS nt Advantage Guarantor Name Account Type Relation to Date of Phone Billing Address Patient Nohemy Martínez Personal/Family 1940 [address] [place], [place] [phone] (Work) documented as of this encounter Advance Directives Type Date Recorded Patient Core Analyst 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 yes
--- OUTSIDE RECORDS SUMMARY | 2019-02-13 20:23 | XMS REPORT | Summary of Care ---
:1940 Author Organization [facility] Address [address] [place] [address] Care Team Providers Name Role Phone Sheri Cosby Primary Care Provider Marquita Deleon RNedi coordinator Reason for Referral Durable Medical Equipment (Routine) Status Reason Specialty Diagnoses / Referred By Referred To Procedures Contact Contact Pending Review Diagnoses Chronic obstructive pulmonary disease, unspecified COPD type (HCC) Sheri Cosby MD [address] [place] [address] Durable Medical Equipment (Routine) Status Reason Specialty Diagnoses / Referred By Referred To Procedures Contact Contact Pending Review Diagnoses Chronic obstructive pulmonary disease, unspecified COPD type (HCC) [facility] [place] [id number] Reason for Visit Reason Comments Transitional Care Management from RP from surgeries, needs new scripts [facility] for portible consentraor and at home one Encounter Details Date Type Department Care Team Description 12/21/2018 Office Visit Drea Cosby, S/P cholecystectomy ( Primary Dx); Practice MD Sheri Anemia, unspecified type; [address] [facility] [address] Chronic obstructive pulmonary disease, unspecified COPD type (HCC) [place] [address] [place] [address] [phone] Allergies Active Allergy Reactions Severity Noted Date Comments Metronidazole GI Reaction 06/13/2016 Severe nausea, headache and dizziness Escitalopram Rash Medium 04/03/2018 Nitrofurantoin GI Reaction 02/28/2013 Penicillins Hives 09/09/2004 Yeast infection in mouth and vagina documented as of this encounter (statuses as of 12/21/2018) Medications Medication Sig Dispensed Refills Start Date [...] Oral CapIndications: Anxiety THREE TIMES DAILY. state Rzbkxmvdvbp-Adnjnkfqs-Fecusy Take 1 INHL by inhalation 1 Each 5 08/09/2018 Active (TRELEGY ELLIPTA) 100-62.5-25 DAILY. MCG/INH Inhalation AEROSOL POWDER, BREATH ACTIVATED azithromycin (ZITHROMAX) 250 Take 1 tab on Monday, 12 Tab 6 09/20/2018 Active MG Oral Tab Monday and Monday montelukast (SINGULAIR) 10 MG Take 1 Tab by mouth 90 Tab 1 12/17/2018 Active Oral Tab DAILY. documented as of this encounter (statuses as of 12/21/2018) Active Problems Problem Noted Date Abdominal pain 12/11/2018 Fluttering heart 11/10/2018 Gallstones 11/10/2018 Overview: Added automatically from request for surgery [id number] Right arm pain 11/08/2018 Fluttering heart 08/15/2018 Pneumonia of right middle lobe due to infectious organism 08/15/2018 Hypoxemia 10/26/2017 Overview: 2 LPM q HS through [facility] Stenosis of peripheral vascular stent 06/20/2017 Overview: Added automatically from request for surgery [id number] Esophageal stricture 09/15/2016 Overview: S/p dilation esophago-gastroduodenoscopy Dr Cook [facility] 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 Muscle tension headache 08/06/2015 Cubital tunnel syndrome on right 03/12/2014 Chronic cervical radiculopathy 08/21/2013 Overview: Due to cervical spinal stenosis Femoral hernia 03/11/2013 Osteoporosis 10/15/2012 Overview: Bone density scan 2008, bone density scan 2012 Raynauds syndrome 05/03/2012 Osteoarthritis 05/03/2012 Dupuytren's contracture of hand 01/16/2012 Degenerative cervical spinal stenosis 04/04/2011 Overview: Dr Ya [facility] Gout attack 03/28/2011 Overview: 2009 right big toe 03/2011 left big toe Carpal tunnel syndrome 06/10/2010 Overview: Dr. Bhat 05/2010 COPD (chronic obstructive pulmonary disease) 01/29/2009 Overview: Reversible component on PFT's 02/02: FEV1 .78 (42%) improved to .98 (52%). Moderate severity. [facility] admission 02/02 On oxygen at 2 liters, getting from [facility] False positive cardiac stress test 01/16/2009 Overview: 01/13/09 Dr Nicholas Cardiac cath [facility] 01/02: SUMMARY: 1. No significant coronary artery disease. 2. Normal left ventricular systolic function and filling pressure. 3. Possible dissection or thrombus in the right common femoral artery. PVD (peripheral vascular disease) 08/11/2008 Overview: S/p right SFA percutaneous transluminal angiolasty/stent Dr Garcia [facility] 06/02 TOBACCO ABUSE, IN REMISSION 04/16/2008 Overview: Quit smoking 1990s. Crohn disease Overview: [facility] Colonoscopy nov 2010 GERD (gastroesophageal reflux disease) Essential hypertension, benign documented as of this encounter (statuses as of 12/21/2018) Resolved Problems Problem Noted Date Resolved Date [...] as of this encounter (statuses as of 12/21/2018) Immunizations Name Administration Dates Next Due Influenza [...] Reading Time Taken Comments Blood Pressure 110/58 12/21/2018 3:06 PM EDT Pulse 99 12/21/2018 3:06 PM EDT Temperature 37.1 12/21/2018 3:06 C (98.8 PM EDT F) Respiratory Rate - - Oxygen Saturation 98% 12/21/2018 3:38 with 2 lpm of o2 PM EDT while walking 100ft Inhaled Oxygen - - Concentration Weight 38.1 kg (84 lb) 12/21/2018 3:06 PM EDT Height 149.9 cm (4' 11") 12/21/2018 3:06 PM EDT Body Mass Index 16.97 12/21/2018 3:06 PM EDT documented in this encounter Patient Instructions Patient InstructionsSheri Cosby MD - 12/21/2018 3:00 PM EDT1. Follow up in 1 month 3: 43 PM EDT documented in this encounter Progress Notes Sheri Cosby MD - 12/21/2018 3:00 PM EDT Patient: Nohemy Martínez Date of Service: 12/21/2018 Subjective: Nohemy Martínez is a 78-y.o. female who presents for Chief Complaint Patient presents with Transitional Care Management from from surgeries, needs new scripts sent to [facility] for portible consentraor and athome one TCM Statement. Review of the hospitalization: I am seeing for transition of care following hospitalization. The date of discharge was: 12/13/18 The discharge diagnosis was Abdominal pain The patient had a laparoscopic cholecystectomy on 12/06/2018 Presented to [facility] on 12/11/[address] scan of the abdomen showed intraperitoneal free air ERCP done 12/12 showed choledocholithiasis with successful retrieval of the stone via sphincterotomy and balloon extraction Discharged home in stable condition with adequate oral intake, good pain control I reviewed the discharge summary, discharge instructions, and pertinent additional documentation obtained during hospitalization. I reconciled the medications. I also reviewed the Transition of Care documentation done by staff. Coordination of care. (delete one and this phrase) - I am satisfied that appropriate referrals are in place to deal with the problems identified during hospitalization, and that the patient has adequate community resources and support in place. - Additional testing related to hospitalization was requested today: yes See orders. I The current and discharge medications were reconciled by me, today The source document was hospital discharge summary Patient also needs today to be evaluated for home O2 Patient's O2 sat reduced to 88% after ambulation on RA. Ambulation with O2 2 l/ min by NC - O2 improved to 98 % Past Medical History: Diagnosis Date Colon obstruction (HCC) COPD (chronic obstructive pulmonary disease) ([facility]) Crohn disease (HCC) Degenerative disc disease 11/17/09 Diverticulitis DVT (deep venous thrombosis) ([facility]) FX DORSAL VERTEBRA-CLOSE 09/15/2004 Gastritis GERD (gastroesophageal reflux disease) Hiatal hernia Hypertension Loss of sensation Osteoporosis Other and unspecified hyperlipidemia 01/25/2007 PVD (peripheral vascular disease) ([facility]) URETHRAL STRICTURE NOS 07/30/2003 VAGINAL WALL PROLAPSE NOS 08/30/2004 Outpatient Medications as of 12/21/2018 Medication Sig Dispense Refill Acetaminophen (TYLENOL) 325 MG Oral Cap Take 500 mg by mouth EVERY SIX HOURS NEEDED. ALPRAZolam (XANAX) 0.25 MG Oral Tab Take 1 Tab by mouth EVERY BEDTIME NEEDED (anxiety). Max Daily Amount: 1 Tab. 30 Tab 0 aspirin 325 MG Oral Tab Take 325 mg by mouth DAILY. azithromycin (ZITHROMAX) 250 MG Oral Tab Take 1 tab on Monday, Monday and Monday 12 Tab 6 Wbiqidxbdqy-Xiqnyazgo-Dheygv (TRELEGY ELLIPTA) 100-62.5-25 MCG/INH Inhalation AEROSOL POWDER,BREATH ACTIVATED Take 1 INHL by inhalation DAILY. 1 Each 5 gabapentin (NEURONTIN) 300 MG Oral Cap Take 2 Caps by mouth THREE TIMES DAILY. 540 Cap 5 lactulose (CEPHULAC) 10 GM/15ML Oral Solution Take 30 mL by mouth DAILY. (Patient taking differently: Take 20 g by mouth NEEDED.) 900 mL 5 montelukast (SINGULAIR) 10 MG Oral Tab Take 1 Tab by mouth DAILY. 90 Tab 1 Multiple Vitamin (MULTIVITAMINS PO) Take by mouth DAILY. pantoprazole (PROTONIX) 40 MG Oral Tab EC Take 1 Tab by mouth DAILY 0700 on Empty Stomach. 90Tab 3 No current facility-administered medications on file as of 12/21/2018. Allergies Allergen Reactions Lexapro [Escitalopram] Rash Flagyl [Metronidazole] GI Reaction Severe nausea, headache and dizziness Macrobid [Nitrofurantoin] GI Reaction Penicillins Hives Yeast infection in mouth and vagina Review of Systems: All remaining review of systems was negative. Objective: BP 110/58 (BP Location: Left arm, Patient Position: Sitting) Pulse 99 Temp 98.8 F (37.1 C) Ht 4' 11" (1.499 m) Wt 84 lb (38.1 kg) SpO2 98% BMI 16.97 kg/m2 GENERAL: alert, fatigued THROAT: lips, mucosa, and tongue normal: teeth and gums normal NECK: supple, symmetrical, trachea midline and no adenopathy LUNGS: clear to auscultation bilaterally HEART: regular rate and rhythm, S1, S2 normal, no murmur, click, rub or gallop EXTREMITIES: no edema, redness or tenderness in the calves or thighs ICD-9-CM ICD-10-CM 1. S/P cholecystectomy V45.79 Z90.49 CBC WITH DIFFERENTIAL 2. Anemia, unspecified type 285.9 D64.9 COMPREHENSIVE METABOLIC PANEL FERRITIN IRON 3. Chronic obstructive pulmonary disease, unspecified COPD type (HCC) 496 J44.9 DME EQUIPMENT GENERIC (AMB) DME EQUIPMENT GENERIC (AMB) Patient Instructions 1. Follow up in 1 month Author: Sheri Cosby MD documented in this encounter Plan of Treatment Date Type Specialty Care Team Description 01/10/2019 Office Visit Pulmonary Ricco Griffin MD [address] [place] [address] [phone] 01/23/2019 Office Visit Family Practice Sheri Cosby MD [address] [place] [address] Name Type Priority Associated Diagnoses Date/Time COMPREHENSIVE METABOLIC Lab Routine Anemia, unspecified type 12/21/2018 4: 03 PM PANEL EDT FERRITIN Lab Routine Anemia, unspecified type 12/21/2018 4:03 PM EDT IRON Lab Routine Anemia, unspecified type 12/21/2018 4:03 PM EDT Name Type Priority Associated Diagnoses Order Schedule DME EQUIPMENT GENERIC Referral Routine Chronic obstructive Ordered: 2018 (AMB) pulmonary disease, unspecified COPD type (HCC) DME EQUIPMENT GENERIC Referral Routine Chronic obstructive Ordered: 2018 (AMB) pulmonary disease, unspecified COPD type (HCC) Health Maintenance Due Date Last Done [...] Blood Pressure Blood Pressure Essential 110/58 No [place], < 140/90 hypertension, (12/21/2018 Noel Arias, benign 3:06 PM EDT) Note: Hypertension Care Plan Based [...] Educational Resources. record my blood pressure results. [facility] is safe and secure way for you [...] Educational Resources: National Heart, Lung, & Blood [place] http://nhlbi.nih.gov/hbp/index.html The DASH Diet Eating Plan http://www.nhlbi.nih.gov/health/health-topics/ topics/dash/ Academy of Nutrition & DIetetics http://eatright.org National Smoking Cessation Site http://smokefree.gov Blood Pressure < Blood Pressure 110/58 (12/21/2018 3:06 Noel Tai, 150/90 PM EDT) Note: This [...] of this encounter Implants Implanted Type Area Silver Plater Device Shelf Model / Serial Identifier Expiration / Lot Date Iol, [id number] 22.5 Diopter - [id number] Right: Eye STORZ [id number] / Implanted: Qty: 1 on 06/08/2009 at [facility] / [id number] [employer] Stent [id number] - [id number] Left: [employer] 02/22/2020 [id number] / Implanted: Qty: 1 on 06/26/2017 by Marcell Vazquez MD at [facility] / [id number] Description: Static magnetic field of 3-Minal or 1.5T. * Maximum spatial gradient magnetic field of 720-Gauss/cm or less. * Normal operating mode (maximum WBA-BHAVANA of 2.0 W/kg) for 15 minutes of scanning. documented as of this encounter Procedures Procedure Name Priority Date/Time Associated Diagnosis Comments CBC WITH DIFFERENTIAL Routine 12/21/2018 4:03 S/P cholecystectomy Results for this PM EDT procedure are in the results section. documented in this encounter Results CBC WITH DIFFERENTIAL (12/21/2018 4:03 PM EDT) WBC Count 7.40 3.98 - 10.04 K/uL [facility] RBC Count 4.03 3.93 - 5.22 M/UL [facility] Hemoglobin 10.7 (L) 11.2 - 15.7 g/dL [facility] Hematocrit 34.1 34.1 - 44.9 % [facility] MCV 84.6 79.4 - 94.8 FL [facility] MCH 26.6 25.6 - 32.2 PG [facility] MCHC 31.4 (L) 32.2 - 35.5 g/dL [facility] Platelet Count 425 (H) 182 - 369 K/uL [facility] MPV 9.6 9.4 - 12.3 FL [facility] RDW 18.1 (H) 11.7 - 14.4 % [facility] Neutrophil % 59.4 34.0 - 71.1 % [facility] Lymphocyte % 22.6 19.3 - 51.7 % [facility] Monocyte % 13.6 (H) 4.7 - 12.5 % [facility] Eosinophil % 2.7 0.7 - 5.8 % [facility] Basophil % 1.4 (H) 0.1 - 1.2 % [facility] nRBC % 0.0 0.0 - 0.2 % [facility] Neutrophil # 4.40 1.56 - 6.13 K/UL [facility] Lymphocyte # 1.67 1.18 - 3.74 K/UL [facility] Monocyte # 1.01 (H) 0.24 - 0.86 K/UL [facility] Eosinophil # 0.20 0.04 - 0.36 K/UL [facility] Basophil # 0.10 (H) 0.01 - 0.08 K/UL [facility] Immature Gran % 0.3 0.0 - 0.4 % [facility] Immature Gran # 0.02 0.00 - 0.03 K/uL [facility] NRBC # 0.00 0.00 - 0.12 K/uL [facility] Specimen Blood - Blood specimen (specimen) Performing Organization Address City/State/Zipcode Phone Number [facility] [address] [place] [address] documented in this encounter Visit Diagnoses Diagnosis S/P cholecystectomy - Primary Other acquired absence of organ Anemia, unspecified type Chronic obstructive pulmonary disease, unspecified COPD type (HCC) documented in this encounter Insurance Payer Benefit Plan / Subscriber ID Effective Dates Phone Address Type Group [facility] xxxxxxxx 2018-Prese Medicare TODAYS OPTIONS TODAYS OPTIONS nt Advantage Guarantor Name Account Type Relation to Date of Phone Billing Address Patient Nohemy Martínez Personal/Family 1940 [address] ([place]) [place], [place] [phone] (Work) documented as of this encounter Advance Directives Type Date Recorded Patient 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 yes
--- OUTSIDE RECORDS SUMMARY | 2019-02-13 20:23 | XMS REPORT | Summary of Care ---
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 Reason for Visit Reason Comments Follow Up Congestion chest congestion Cough productive Encounter Details Date Type Department Care Team Description 01/23/2019 Office Visit Drea Cosby, COPD exacerbation (HCC) ( Primary Dx); Practice MD Sheri Iron deficiency [address] [place] [address] [place] [address] [phone] Allergies Active Allergy Reactions Severity Noted Date Comments Metronidazole GI Reaction 06/13/2016 Severe nausea, headache and dizziness Levaquin Hives 01/23/2019 Escitalopram Rash Medium 04/03/2018 Nitrofurantoin GI Reaction 02/28/2013 Penicillins Other 09/09/2004 Yeast infection in mouth and vagina documented as of this encounter (statuses as of 01/23/2019) Medications Medication Sig Dispensed Refills Start Date [...] mouth THREE TIMES CapIndications: Anxiety DAILY. state Aveuaxbncsy-Zgehxrzgf-L Take 1 INHL by 1 Each 5 08/09/2018 Active ilant (TRELEGY ELLIPTA) inhalation DAILY. 100-62.5-25 MCG/INH Inhalation AEROSOL POWDER, BREATH ACTIVATED azithromycin Take 1 tab on 12 Tab 6 09/20/2018 Active (ZITHROMAX) 250 MG Oral Monday, Monday Tab and Monday montelukast (SINGULAIR) Take 1 Tab by mouth 90 Tab 1 12/17/2018 Active 10 MG Oral Tab DAILY. amoxicillin-clavulanic Take 1 Tab by mouth 42 Tab 0 01/11/2019 Active acid (AUGMENTIN) TWICE DAILY. 875-125 MG Oral Tab cefuroxime (CEFTIN) 500 Take 1 Tab by mouth 20 Tab 0 01/23/2019 Active MG Oral Tab EVERY TWELVE HOURS. levofloxacin (LEVAQUIN) Take 1 Tab by mouth 10 Tab 0 01/10/2019 Discontinued 750 MG Oral Tab DAILY 0700 on Empty 9 Stomach. documented as of this encounter (statuses as of 01/23/2019) Active Problems Problem Noted Date Abdominal pain 12/11/2018 Fluttering heart 11/10/2018 Gallstones 11/10/2018 Overview: Added automatically from request for surgery [id number] Right arm pain 11/08/2018 Fluttering heart 08/15/2018 Pneumonia of right middle lobe due to infectious organism 08/15/2018 Hypoxemia 10/26/2017 Overview: 2 LPM q HS through [employer] Stenosis of peripheral vascular stent 06/20/2017 Overview: Added automatically from request for surgery [id number] Esophageal stricture 09/15/2016 Overview: S/p dilation esophago-gastroduodenoscopy Dr Cook [facility] 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 Bhat 05/2010 COPD (chronic obstructive pulmonary disease) 01/29/2009 Overview: Reversible component on PFT's 02/02: FEV1 .78 (42%) improved to .98 (52%). Moderate severity. [facility] admission 02/02 On oxygen at 2 liters, getting from [employer] False positive cardiac stress test 01/16/2009 Overview: 01/13/09 Dr Nicholas Cardiac cath [facility] 01/02: SUMMARY: 1. No significant coronary artery disease. 2. Normal left ventricular systolic function and filling pressure. 3. Possible dissection or thrombus in the right common femoral artery. PVD (peripheral vascular disease) 08/11/2008 Overview: S/p right SFA percutaneous transluminal angiolasty/stent Dr Garcia [facility] 06/02 TOBACCO ABUSE, IN REMISSION 04/16/2008 Overview: Quit smoking 1990s. Crohn disease Overview: [facility] Colonoscopy nov 2010 GERD (gastroesophageal reflux disease) Essential hypertension, benign documented as of this encounter (statuses as of 01/23/2019) Resolved Problems Problem Noted Date Resolved Date [...] as of this encounter (statuses as of 01/23/2019) Immunizations Name Administration Dates Next Due Influenza [...] Reading Time Taken Comments Blood Pressure 118/58 01/23/2019 2:30 PM EDT Pulse 71 01/23/2019 2:30 PM EDT Temperature 37 01/23/2019 2:30 PM C (98.6 EDT F) Respiratory Rate - - Oxygen Saturation 98% 01/23/2019 2:30 PM on RTA at rest EDT Inhaled Oxygen Concentration - - Weight 38.5 kg (84 lb 14.4 01/23/2019 2:30 PM oz) EDT Height 149.9 cm (4' 11") 01/23/2019 2:30 PM EDT Body Mass Index 17.15 01/23/2019 2:30 PM EDT documented in this encounter Patient Instructions Patient InstructionsSheri Cosby MD - 01/23/2019 2:40 PM EDT1. Stop Augmentin 2. Start Ceftin 500 mg 2 times a day for 10 days 3. Take Mucinex 600 mg 2 times a day 4. Start Iron sulfate 325 mg once a day 5. Schedule non fasting blood tests in 1 month 6. Follow up in 1 week and as needed documented in this encounter Progress Notes Sheri Cosby MD - 01/23/2019 2:40 PM EDT Patient: Nohemy Martínez Date of Service: 01/23/2019 Subjective: Nohemy Martínez is a 78-y.o. female who presents for Chief Complaint Patient presents with Follow Up Congestion chest congestion Cough productive Patient comes with complains of increased productive cough, wheezing Seen recently pulmonary. Started on Levaquin, but developed rash. Changed to Augmentin about 1 week ago without improvement Past Medical History: Diagnosis Date Colon obstruction (HCC) COPD (chronic obstructive pulmonary disease) ([facility]) Crohn disease ([facility]) Degenerative disc disease 11/17/09 Diverticulitis DVT (deep venous thrombosis) ([facility]) FX DORSAL VERTEBRA-CLOSE 09/15/2004 Gastritis GERD (gastroesophageal reflux disease) Hiatal hernia Hypertension Loss of sensation Osteoporosis Other and unspecified hyperlipidemia 01/25/2007 PVD (peripheral vascular disease) ([facility]) URETHRAL STRICTURE NOS 07/30/2003 VAGINAL WALL PROLAPSE NOS 08/30/2004 Outpatient Medications as of 01/23/2019 Medication Sig Dispense Refill Acetaminophen (TYLENOL) 325 MG Oral Cap Take 500 mg by mouth EVERY SIX HOURS NEEDED. ALPRAZolam (XANAX) 0.25 MG Oral Tab Take 1 Tab by mouth EVERY BEDTIME NEEDED (anxiety). Max Daily Amount: 1 Tab. 30 Tab 0 amoxicillin-clavulanic acid (AUGMENTIN) 875-125 MG Oral Tab Take 1 Tab by mouth TWICE DAILY. 42 Tab 0 aspirin 325 MG Oral Tab Take 325 mg by mouth DAILY. azithromycin (ZITHROMAX) 250 MG Oral Tab Take 1 tab on Monday, Monday and Monday 12 Tab 6 Clsrnirnugt-Tysolnrlb-Mubwwg (TRELEGY ELLIPTA) 100-62.5-25 MCG/INH Inhalation AEROSOL POWDER,BREATH [...] current facility-administered medications on file as of 01/23/2019. Allergies Allergen Reactions Lexapro [Escitalopram] Rash Flagyl [Metronidazole] GI Reaction Severe nausea, headache and dizziness Levaquin Hives Macrobid [Nitrofurantoin] GI Reaction Penicillins Other Yeast infection in mouth and vagina Review of Systems: All remaining review of systems was negative. Objective: BP 118/58 Pulse 71 Temp 98.6 F (37 C) (Tympanic) Ht 4' 11" (1.499 m) Wt 84 lb 14.4 oz (38.5 kg) SpO2 98% BMI 17.15 kg/m2 GENERAL: alert, fatigued THROAT: lips, mucosa, and tongue normal: teeth and gums normal NECK: supple, symmetrical, trachea midline and no adenopathy LUNGS: Bilaterally reduced air entry, L base rales HEART: regular rate and rhythm, S1, S2 normal, no murmur, click, rub or gallop CBC - anemia, Iron - low, CMP - no significant abnormalities Component Latest Ref Rng & Units 12/21/2018 12/21/2018 12/21/2018 12/21/2018 4:03 PM 4:03 PM 4:03 PM 4:03 PM WBC COUNT 3.98 - 10.04 K/uL 7.40 RBC 3.93 - 5.22 M/UL 4.03 Hemoglobin 11.2 - 15.7 g/dL 10.7 (L) Hematocrit 34.1 - 44.9 % 34.1 MCV 79.4 - 94.8 FL 84.6 MCH 25.6 - 32.2 PG 26.6 MCHC 32.2 - 35.5 g/dL 31.4 (L) Platelet Count 182 - 369 K/uL 425 (H) MPV 9.4 - 12.3 FL 9.6 RDW 11.7 - 14.4 % 18.1 (H) NEUTROPHILS 34.0 - 71.1 % 59.4 Lymphocyte % 19.3 - 51.7 % 22.6 MONOCYTES 4.7 - 12.5 % 13.6 (H) Eosinophils 0.7 - 5.8 % 2.7 Basophil % 0.1 - 1.2 % 1.4 (H) nRBC % 0.0 - 0.2 % 0.0 Neutrophil # 1.56 - 6.13 K/UL 4.40 Lymphocyte # 1.18 - 3.74 K/UL 1.67 Monocyte # 0.24 - 0.86 K/UL 1.01 (H) Eosinophil # 0.04 - 0.36 K/UL 0.20 Basophil # 0.01 - 0.08 K/UL 0.10 (H) Immature Gran % 0.0 - 0.4 % 0.3 Immature Gran # 0.00 - 0.03 K/uL 0.02 NRBC # 0.00 - 0.12 K/uL 0.00 Sodium 134 - 145 mmol/L 140 Potassium 3.5 - 5.1 mmol/L 4.1 Chloride 98 - 107 mmol/L 98 CO2 22 - 30 mmol/L 32 (H) Calcium 8.3 - 10.1 mg/dl 9.5 Albumin 3.5 - 5.0 g/dl 4.0 BUN 7 - 17 mg/dl 14 Creatinine 0.7 - 1.2 mg/dl 0.8 Glucose (Lab) 70 - 99 mg/dl 108 (H) Protein,Total 6.3 - 8.2 g/dl 8.4 (H) Total Bilirubin 0.0 - 1.1 MG/DL 0.3 AST 15 - 46 U/L 24 ALT 9 - 52 U/L 14 ALKALINE PHOSPHATASE 40 - 150 U/L 113 eGFR See Interpretation Below ml/min/1.73ml Sq >60 BUN/Creatinine Ratio 6 - 22 RATIO 18 Anion Gap 3 - 11 mmol/L 10 A/G Ratio 0.8 - 2.0 ratio 0.9 Ferritin 11.1 - 264.0 NG/ML 23.2 Iron Serum 37 - 170 UG/DL 22 (L) Patient advised on tests results ICD-9-CM ICD-10-CM 1. COPD exacerbation (HCC) 491.21 J44.1 2. Iron deficiency 280.9 E61.1 CBC WITH DIFFERENTIAL Recent surgery FERRITIN IRON Patient Instructions 1. Stop Augmentin 2. Start Ceftin 500 mg 2 times a day for 10 days 3. Take Mucinex 600 mg 2 times a day 4. Start Iron sulfate 325 mg once a day 5. Schedule non fasting blood tests in 1 month 6. Follow up in 1 week and as needed Author: Sheri Cosby MD documented in this encounter Plan of Treatment Date Type Specialty Care Team Description 01/30/2019 Office Visit Family Practice Sheri Cosby MD [address] [place] [address] [phone] 02/20/2019 Lab Internal Medicine 06/27/2019 Office Visit Pulmonary Ricco Griffin MD [address] [place] [address] [phone] Name Type Priority Associated Diagnoses Order Schedule CBC WITH DIFFERENTIAL Lab Routine Iron deficiency Expected: 01/23/2019 (Approximate), Expires: 01/24/2020 FERRITIN Lab Routine Iron deficiency Expected: 01/23/2019 (Approximate), Expires: 01/24/2020 IRON Lab Routine Iron deficiency Expected: 01/23/2019 (Approximate), Expires: 01/24/2020 Health Maintenance Due Date Last Done Comments [...] Blood Pressure Blood Pressure Essential 118/58 No [place], < 140/90 hypertension, (01/23/2019 Noel Arias, benign 2:30 PM EDT) Note: Hypertension Care Plan Based [...] Educational Resources. record my blood pressure results. [employer] is safe and secure way for you [...] Educational Resources: National Heart, Lung, & Blood [place] http://nhlbi.nih.gov/hbp/index.html The DASH Diet Eating Plan http://www.nhlbi.nih.gov/health/health-topics/ topics/dash/ Academy of Nutrition & DIetetics http://eatright.org National Smoking Cessation Site http://smokefree.gov Blood Pressure < Blood Pressure 118/58 (01/23/2019 2:30 Noel Tai, 150/90 PM EDT) Note: This [...] of this encounter Implants Implanted Type Area Publications Inspector Device Shelf Model / Serial Identifier Expiration / Lot Date Iol, [id number] 22.5 Diopter - [id number] Right: Eye STORZ [id number] / Implanted: Qty: 1 on 06/08/2009 at [facility] / [id number] Everflex Entrust Stent [id number] - [id number] Left: [employer] 02/22/2020 [id number] / Implanted: Qty: 1 on 06/26/2017 by Marcell Vazquez MD at [facility] / [id number] Description: Static magnetic field of 3-Minal or 1.5T. * Maximum spatial gradient magnetic field of 720-Gauss/cm or less. * Normal operating mode (maximum WBA-BHAVANA of 2.0 W/kg) for 15 minutes of scanning. documented as of this encounter Results Not on filedocumented in this encounter Visit Diagnoses Diagnosis COPD exacerbation (HCC) - Primary Obstructive chronic bronchitis with exacerbation Iron deficiency Iron deficiency anemia, unspecified documented in this encounter Insurance Payer Benefit Plan / Subscriber ID Effective Dates Phone Address Type Group [facility] xxxxxxxx 2018-Prese Medicare TODAYS OPTIONS TODAYS OPTIONS nt Advantage Guarantor Name Account Type Relation to Date of Phone Billing Address Patient Nohemy Martínez Personal/Family 1940 [address] [place], [place] [phone] (Work) documented as of this encounter Advance Directives Type Date Recorded 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 yes
--- OUTSIDE RECORDS SUMMARY | 2019-02-13 20:23 | XMS REPORT | Summary of Care ---
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 Reason for Visit Reason Comments Follow Up 1 wk, Encounter Details Date Type Department Care Team Description 01/30/2019 Office Visit [place] [facility], COPD exacerbation Practice MD Sheri ([facility]) (Primary Dx) [address] [place] [address] [place] [address] [phone] Allergies Active Allergy Reactions Severity Noted Date Comments Metronidazole GI Reaction 06/13/2016 Severe nausea, headache and dizziness Levaquin Hives Low 01/23/2019 Escitalopram Rash Medium 04/03/2018 Nitrofurantoin GI Reaction 02/28/2013 Penicillins Other 09/09/2004 Yeast infection in mouth and vagina documented as of this encounter (statuses as of 01/30/2019) Medications Medication Sig Dispensed Refills Start Date [...] mouth THREE TIMES CapIndications: Anxiety DAILY. state Ufngwjwhtxp-Pqvfrqkao-N Take 1 INHL by 1 Each 5 08/09/2018 Active ilant (TRELEGY ELLIPTA) inhalation DAILY. 100-62.5-25 MCG/INH Inhalation AEROSOL POWDER, BREATH ACTIVATED montelukast (SINGULAIR) Take 1 Tab by mouth 90 Tab 1 12/17/2018 Active 10 MG Oral Tab DAILY. cefuroxime (CEFTIN) 500 Take 1 Tab by mouth 20 Tab 0 01/23/2019 Active MG Oral Tab EVERY TWELVE HOURS. azithromycin Take 1 tab on 12 Tab 6 09/20/2018 Discontinued (ZITHROMAX) 250 MG Oral Monday, Monday 9 Tab and Monday amoxicillin-clavulanic Take 1 Tab by mouth 42 Tab 0 01/11/2019 Discontinued acid (AUGMENTIN) TWICE DAILY. 9 875-125 MG Oral Tab documented as of this encounter (statuses as of 01/30/2019) Active Problems Problem Noted Date Abdominal pain 12/11/2018 Fluttering heart 11/10/2018 Gallstones 11/10/2018 Overview: Added automatically from request for surgery [id number] Right arm pain 11/08/2018 Fluttering heart 08/15/2018 Pneumonia of right middle lobe due to infectious organism 08/15/2018 Hypoxemia 10/26/2017 Overview: 2 LPM q HS through [employer] Stenosis of peripheral vascular stent 06/20/2017 Overview: Added automatically from request for surgery [id number] Esophageal stricture 09/15/2016 Overview: S/[facility] 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 Bhat 05/2010 COPD (chronic obstructive pulmonary disease) 01/29/2009 Overview: Reversible component on PFT's 02/02: FEV1 .78 (42%) improved to .98 (52%). Moderate severity. [facility] admission 02/02 On oxygen at 2 liters, getting from [employer] False positive cardiac stress test 01/16/2009 Overview: 01/13/09 Dr Nicholas Cardiac cath [facility] 01/02: SUMMARY: 1. No significant coronary artery disease. 2. Normal left ventricular systolic function and filling pressure. 3. Possible dissection or thrombus in the right common femoral artery. PVD (peripheral vascular disease) 08/11/2008 Overview: S/p right SFA percutaneous transluminal angiolasty/stent Dr Garcia [facility] 06/02 TOBACCO ABUSE, IN REMISSION 04/16/2008 Overview: Quit smoking . Crohn disease Overview: [facility] Colonoscopy nov 2010 GERD (gastroesophageal reflux disease) Essential hypertension, benign documented as of this encounter (statuses as of 01/30/2019) Resolved Problems Problem Noted Date Resolved Date [...] as of this encounter (statuses as of 01/30/2019) Immunizations Name Administration Dates Next Due Influenza [...] Sign Reading Time Taken Comments Blood Pressure 130/76 01/30/2019 1:51 PM EST Pulse 76 01/30/2019 1:51 PM EST Temperature 36.9 01/30/2019 1:51 PM EST C (98.4 F) Respiratory Rate - - Oxygen Saturation 96% 01/30/2019 1:51 PM EST Inhaled Oxygen Concentration - - Weight 38.6 kg (85 lb) 01/30/2019 1:51 PM EST Height 149.9 cm (4' 11") 01/30/2019 1:51 PM EST Body Mass Index 17.17 01/30/2019 1:51 PM EST documented in this encounter Patient Instructions Patient InstructionsSheri Cosby MD - 01/30/2019 1:40 PM EST1. Continue same treatment 2. Follow up in 1 month for Medicare wellness and as needed documented in this encounter Progress Notes Sheri Cosby MD - 01/30/2019 1:40 PM EST PATIENT: Nohemy Martínez : 1940 DATE OF SERVICE: 01/30/2019 Patient comes follow up COPD exacerbation Improved cough, reduced sputum production on Ceftin Past Medical History: Diagnosis Date Colon obstruction ([facility]) COPD (chronic obstructive pulmonary disease) ([facility]) Crohn disease ([facility]) Degenerative disc disease 11/17/09 Diverticulitis DVT (deep venous thrombosis) ([facility]) FX DORSAL VERTEBRA-CLOSE 09/15/2004 Gastritis GERD (gastroesophageal reflux disease) Hiatal hernia Hypertension Loss of sensation Osteoporosis Other and unspecified hyperlipidemia 01/25/2007 PVD (peripheral vascular disease) ([facility]) URETHRAL STRICTURE NOS 07/30/2003 VAGINAL WALL PROLAPSE NOS 08/30/2004 Outpatient Medications as of 01/30/2019 Medication Sig Dispense Refill Acetaminophen (TYLENOL) 325 MG Oral Cap Take 500 mg by mouth EVERY SIX HOURS NEEDED. ALPRAZolam (XANAX) 0.25 MG Oral Tab Take 1 Tab by mouth EVERY BEDTIME NEEDED (anxiety). Max Daily Amount: 1 Tab. 30 Tab 0 aspirin 325 MG Oral Tab Take 325 mg by mouth DAILY. cefuroxime (CEFTIN) 500 MG Oral Tab Take 1 Tab by mouth EVERY TWELVE HOURS. 20 Tab 0 Cqfbkjkbsvc-Twjivoiby-Iisqkb (TRELEGY ELLIPTA) 100-62.5-25 MCG/INH Inhalation AEROSOL POWDER,BREATH [...] current facility-administered medications on file as of 01/30/2019. BP 130/76 (BP Location: Right arm, Patient Position: Sitting) | Pulse 76 | Temp 98.4 F (36.9 C) (Tympanic) | Ht 4' 11" (1.499 m) | Wt (!) 85 lb ( 38.6 kg) | SpO2 96% | BMI 17.17 kg/m General appearance: alert, and in no distress. Chest: L base chronic rales. CVS exam: normal rate, regular rhythm, normal S1, S2, no murmurs, rubs, clicks or gallops. ICD-9-CM ICD-10-CM 1. COPD exacerbation (HCC) Improved 491.21 J44.1 Patient Instructions 1. Continue same treatment 2. Follow up in 1 month for Medicare wellness and as needed Author: Sheri Cosby MD 01/30/2019 14:36 documented in this encounter Plan of Treatment Date Type Specialty Care Team Description 02/20/2019 Lab Internal Medicine 03/04/2019 Office Visit Family Practice Sheri Cosby MD [address] [place] [address] [phone] 06/27/2019 Office Visit Pulmonary Ricco Griffin MD [address] [place] [address] Health Maintenance Due Date Last Done [...] Problems Progress Blood Pressure Blood Pressure Essential 130/76 No [place], < 140/90 hypertension, (01/30/2019 Noel Juana, benign 1:51 PM EST) Note: Hypertension Care Plan Based on the [...] Educational Resources. record my blood pressure results. [employer] is safe and secure way for you [...] Educational Resources: National Heart, Lung, & Blood [place] http://nhlbi.nih.gov/hbp/index.html The DASH Diet Eating Plan http://www.nhlbi.nih.gov/health/health-topics/ topics/dash/ Academy of Nutrition & DIetetics http://eatright.org National Smoking Cessation Site http://smokefree.gov Blood Pressure < Blood Pressure 130/76 (01/30/2019 1:51 No Noel Johnson, 150/90 PM EST) Note: This is an individualized treatment (blood [...] of this encounter Implants Implanted Type Area Nematology Teacher Device Shelf Model / Serial Identifier Expiration / Lot Date Iol, [id number] 22.5 Diopter - [id number] Right: Eye STORZ [id number] / Implanted: Qty: 1 on 06/08/2009 at [facility] / [id number] Everflex Entrust Stent [id number] - [id number] Left: [employer] 02/22/2020 [id number] / Implanted: Qty: 1 on 06/26/2017 by Marcell Vazquez MD at [facility] / [id number] Description: Static magnetic field of 3-Minal or 1.5T. * Maximum spatial gradient magnetic field of 720-Gauss/cm or less. * Normal operating mode (maximum WBA-BHAVANA of 2.0 W/kg) for 15 minutes of scanning. documented as of this encounter Results Not on filedocumented in this encounter Visit Diagnoses Diagnosis COPD exacerbation (HCC) - Primary Obstructive chronic bronchitis with exacerbation documented in this encounter Insurance Payer Benefit Plan / Subscriber ID Effective Dates Phone Address Type Group [facility] xxxxxxxx 2018-Prese Medicare TODAYS OPTIONS TODAYS OPTIONS nt Advantage Guarantor Name Account Type Relation to Date of Phone Billing Address Patient Nohemy Martínez Personal/Family 1940 [address] [place], [place] [phone] (Work) documented as of this encounter Advance Directives Type Date Recorded Patient Group Contract Analyst 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 yes
[2019-02-13 20:55] LABS: ABS Basophils 0.1 10^3/ul (0-0.2); ABS Eosinophils 0.2 10^3/ul (0-0.6); ABS Lymphocytes 1.2 10^3/ul (1.0-4.8); ABS Monocytes 1.2 10^3/ul (0-0.8); ABS Neutrophils 10.2 10^3/ul (1.5-7.7); Eosinophil % 1.4 %; Hematocrit 34 % (35-47); Hemoglobin 11.2 g/dL (12.0-16.0); Mean Corpuscular HGB Conc 33 g/dL (31-36); Mean Corpuscular Hemoglobin 27 pg (27-31); Mean Corpuscular Volume 81 fL (80-97); Mean Platelet Volume 7.3 fL (7.4-10.4); Platelet Count 398 10^3/uL (150-450); Red Blood Count 4.19 10^6 /uL (3.70-4.87); Red Cell Distribution Width 17 % (10-15); White Blood Count 12.9 10^3/uL (3.5-10.8)
--- NOTE | 2019-02-13 20:55 | ED ---
Complex/Multi-Sys Presentation - HPI Summary HPI Summary: 78 year old F presenting to [facility] accompanied by female family member complains of constipation, vomiting, diarrhea, decreased appetite, urinary sx, weakness in her lower extremities, difficulty ambulating x3 days. States that she had some discomfort in her abdomen this past weekend but sx did not start until Sunday 02/11. Constipation and vomiting on Sunday 02/11, diarrhea today 02/13 for which she took Imodium. Decreased appetite in last couple days, has been drinking eric obdulia and Pedialyte per family member. Additionally complains of feeling like she needs to urinate but is unable to, weakness in her bilateral lower extremities, and difficulty ambulating. The patient rates the pain 4/10 in severity. Symptoms aggravated by nothing. Symptoms alleviated by nothing. - History Of Current Complaint Chief Complaint: EDNauseaVomitDiarrh Time Seen by Provider: 02/13/19 20:49 Hx Obtained From: Patient Onset/Duration: Lasting Days - 3, Still Present Timing: Constant, Intermittent, Lasting: Severity Currently: Moderate - 4/10 Aggravating Factor(s): Nothing Alleviating Factor(s): Nothing - Allergies/Home Medications Allergies/Adverse Reactions: Allergies Allergy/AdvReac Type Severity Reaction Status Date / Time clopidogrel Allergy Severe Dizziness Verified 12/10/18 20:01 levofloxacin [From Levaquin] Allergy Intermediate Muscle Ache Verified 12/10/18 20:01 nitrofurantoin Allergy Intermediate GI Upset Verified 12/10/18 20:01 [From Macrobid] metronidazole [From Flagyl] Allergy Swelling Verified 12/10/18 20:01 Penicillins Allergy See Comment Verified 12/10/18 20:01 PMH/Surg Hx/FS Hx/Imm Hx Endocrine/Hematology History: Reports: Hx Blood Transfusions, Hx Anemia - Iron deficiency Denies: Hx Diabetes, Hx Thyroid Disease Cardiovascular History: Reports: Hx Coronary Artery Disease, Hx Deep Vein Thrombosis, Hx Hypercholesterolemia, Hx Hypertension, Hx Peripheral Vascular Disease Denies: Hx Congestive Heart Failure Respiratory History: Reports: Hx Chronic Obstructive Pulmonary Disease (COPD), Hx Pneumonia Denies: Hx Asthma GI History: Reports: Hx Crohn's Disease, Hx Diverticulosis, Hx Gastroesophageal Reflux Disease, Hx Ulcer - gerd, hx of ulcers, Other GI Disorders - Previous issues with incontinence History: Reports: Other Problems/Disorders - Frequent UTIs and yeast infections Denies: Hx Renal Disease Musculoskeletal History: Reports: Hx Arthritis - hands, Hx Gout, Hx Osteoporosis , Other Musculoskeletal History - Neck problems s/p surgery Sensory History: Reports: Hx Cataracts, Hx Contacts or Glasses Denies: Hx Hearing Aid Opthamlomology History: Reports: Hx Cataracts, Hx Contacts or Glasses Neurological History: Reports: Hx Headaches - last 2 weeks, Other Neuro Impairments/Disorders - neuropathy UE bilat Psychiatric History: Reports: Hx Anxiety - Surgical History Surgery Procedure, Year, and Place: Neck Surgery. HAND SURGERY (Releasing the pinky finger). Hysterectomy. Carpal tunnel release Hx Anesthesia Reactions: No Infectious Disease History: No Infectious Disease History: Reports: Hx Clostridium Difficile - Accompanied with diverticulitis, Hx Shingles, History Other Infectious Disease Denies: Hx Hepatitis, Hx Human Immunodeficiency Virus (HIV), Hx of Known/ Suspected MRSA, Hx Tuberculosis, Traveled Outside the in Last 30 Days - Family History Known Family History: Positive: Unknown, Cardiac Disease, Diabetes - Social History Alcohol Use: Occasionally Alcohol Amount: three drinks per week Hx Substance Use: No Substance Use Type: Reports: None Hx Tobacco Use: Yes Smoking Status (MU): Former Smoker Type: Cigarettes Amount Used/How Often: 2.5 packs/day for those years Length of Time of Smoking/Using Tobacco: 34 years of smoking Have You Smoked in the Last Year: No Review of Systems Positive: Vomiting, Diarrhea, Other - decreased appetite, constipation Genitourinary: Other - feeling like she needs to urinate but is unable to Positive: Weakness - bilateral lower extremities with resulting difficulty ambulating All Other Systems Reviewed And Are Negative: Yes Physical Exam - Summary Physical Exam Summary: Appearance: Frail, elderly woman who is lying in bed comfortably in no acute distress with noted tachycardia Skin: Warm, dry, no obvious rash. Skin turgor is pour Eyes: sclera anicteric, no conjunctival pallor. Eyes are sunken ENT: mucous membranes moist, pharynx appears normal Neck: Supple, nontender Respiratory: Clear to auscultation, no signs of respiratory distress Cardiovascular: Tachycardia. Normal S1, S2. No murmurs. Normal distal pulses in tibial and radial bilaterally. Abdomen: Soft, nontender, normal active bowel sounds present Rectal exam chaperoned by [facility] aide: soft stool in rectal vault without any impaction Musculoskeletal: Normal, Strength/ROM Intact Neurological: A&Ox3, awake and alert, mentation is normal, speech is fluent and appropriate Psychiatric: affect is normal, does not appear anxious or depressed Triage Information Reviewed: Yes Vital Signs On Initial Exam: Initial Vitals Temp Pulse Resp BP Pulse Ox 99.6 F 118 18 100/65 99 02/13/19 20:08 02/13/19 20:08 02/13/19 20:08 02/13/19 20:08 02/13/19 20:08 Vital Signs Reviewed: Yes Procedures - Sedation Patient Received Moderate/Deep Sedation with Procedure: No Diagnostics - Vital Signs Vital Signs Temp Pulse Resp BP Pulse Ox 02/13/19 20:08 99.6 F 118 18 100/65 99 - Laboratory Result Diagrams: 02/13/19 20:47 02/13/19 20:47 Lab Statement: Any lab studies that have been ordered have been reviewed, and results considered in the medical decision making process. - CT Abd/Pel CT Interpretation Completed By: Radiologist Summary of CT Findings: 1. As previously seen, there is bibasilar atelectatic change or scarring. There is increasing tree in bud opacity in the lung bases suspicious for bronchiolitis. 2. There is a small hiatal hernia. 3. Stable colonic diverticulosis without evidence for acute diverticulitis. 4. There is perirectal fat stranding including fluid in the presacral region. which is new since the prior exam, cannot exclude proctitis. ED physician has reviewed this report. - EKG 2043 Cardiac Rate: Tachycardia - 110 BPM EKG Rhythm: Sinus Tachycardia Summary of EKG Findings: Sinus tachycardia at 110 BPM, P waves, QRS complex, and T waves are within normal limits, T waves and intervals are normal, no ischemic changes. This is a normal EKG. Re-Evaluation - Re-Evaluation First Eval Re-Evaluation Time: 02:46 Comment: informed of CT and lab findings. agrees to d/c Complex Multi-Symp Course/Dx Course Of Treatment: 78 year old F complains of constipation, vomiting, diarrhea , decreased appetite, urinary sx, weakness in her lower extremities, difficulty ambulating x3 days. Upon exam, the patient is a frail, elderly woman who is lying in bed comfortably in no acute distress with noted tachycardia, sunken eyes. Rectal exam chaperoned by hospital aide shows soft stool in rectal vault without any impaction. Bloodwork results with no significant abnormalities except for WBC 12.9, Hgb 11.2, Hct 34, RDW 17, MPV 7.3, absolute neuts 10.2, absolute monos 1.2, glucose 108, AlT 4, alkaline phosphatase 121, globulin 4.6, albumin/globulin 0.7. Urinalysis results with no significant abnormalities. EKG shows sinus tachycardia at 110 BPM, P waves, QRS complex, and T waves are within normal limits, T waves and intervals are normal, no ischemic changes. This is a normal EKG. Bladder scan 600 cc urine which was drained with catheter. In the ED course, the patient was given normal saline fluids [address] Abd/Pel shows, per radiologist: 1. As previously seen, there is bibasilar atelectatic change or scarring. There is increasing tree in bud opacity in the lung bases suspicious for bronchiolitis. 2. There is a small hiatal hernia. 3. Stable colonic diverticulosis without evidence for acute diverticulitis. 4. There is perirectal fat stranding including fluid in the presacral region. which is new since the prior exam, cannot exclude proctitis. Patient will be discharged home with prescription for mesalamine rectal suppositories and follow up from GI in the morning to schedule an appointment. Patient was instructed to return to Emergency Department for new or worsening symptoms. Patient understands and is agreeable to this plan. - Diagnoses Provider Diagnoses: Crohn's disease, Bronchiolitis Discharge ED - Sign-Out/Discharge Documenting (check all that apply): Patient Departure - d/c - Discharge Plan Condition: Good Disposition: HOME Prescriptions: Mesalamine RECTAL SUSP* 4 gm MT BEDTIME #14 [email or web address] Referrals: Noel Johnson MD [Primary Care Provider] - Additional Instructions: Please contact your data communications analyst in the morning to schedule a followup. I suspect your symptoms are coming from some inflammation in the tail end of the colon from your Crohn's so have sent in a prescription for suppositories that should help. - Attestation Statements Document Initiated by Scribe: Yes Documenting Scribe: Rea Marsh Provider For Whom Scribe is Documenting (Include Credential): Asif Beal MD Scribe Attestation: I, Rea Marsh, scribed for Asif Beal MD on 02/14/19 at 0255. Status of Scribe Document: Ready
[2019-02-13] MEDS ORDERED: NS 0.9% 1000 ML** 1,000 ML IV ONE (20:56)
[2019-02-13 21:04] LABS: Albumin 3.2 g/dL (3.2-5.2); Calcium 8.9 mg/dL (8.6-10.3); Potassium 4.4 mmol/L (3.5-5.0); Total Bilirubin 0.5 mg/dL (0.2-1.0)
[2019-02-13 21:10] LABS: Albumin/Globulin Ratio 0.7 (1-3); BUN/Creatinine Ratio 18.3 (8-20); EGFR African American 117.6 (>60); EGFR Non-African American 97.2 (>60); Globulin 4.6 g/dL (2-4); Total Protein 7.8 g/dL (6.4-8.9)
[2019-02-13 21:27] LABS: Urine Appearance Clear; Urine Bilirubin Negative (Negative); Urine Blood Negative (Negative); Urine Color Yellow; Urine Glucose Negative (Negative); Urine Ketones Negative (Negative); Urine Nitrite Negative (Negative); Urine Protein Negative (Negative); Urine Specific Gravity 1.014 (1.010-1.030); Urine Urobilinogen Negative (Negative)
[2019-02-13] MEDS ORDERED: Iohexol 300* (CONTRAST) 10 ML SDV IV ONE (23:20)
[2019-02-14 03:57] VITALS: BP 138/88
== END 2019-02-14 02:55 | disposition home or self-care (01) ==
LOC: ED 19:57
DX: K50.90 Crohn's disease, unspecified, without complications (principal); J21.9 Acute bronchiolitis, unspecified; I25.10 Atherosclerotic heart disease of native coronary artery without angina pectoris; Z86.718 Personal history of other venous thrombosis and embolism; E78.00 Pure hypercholesterolemia, unspecified; I10 Essential (primary) hypertension; K21.9 Gastro-esophageal reflux disease without esophagitis; F41.9 Anxiety disorder, unspecified; Z87.891 Personal history of nicotine dependence
CPT/HCPCS: 36415; 74177; 80053; 81003; 83605; 85025; 93005; 96360; 96361; 99284; Q9967

== ENCOUNTER 2019-02-14 19:14 | Emergency (ER) | payer MEDICARE ==
--- NOTE | 2019-02-14 21:36 | ED ---
Abdominal Pain/Female - HPI Summary HPI Summary: This pt is a 78 Y/O F presenting to [facility] with a CC of the inability to urinate and excessive diarrhea since 02/11/19 and has been taking Imodium without relief. She states that while she is unable to urinate she has severe abdominal pain rated a 7/10 in her suprapubic region. She states that on the onset she had one episode of vomiting and nausea at the onset. She states that her symptoms have worsened since yesterday when she was unable to urinate and states that she has loss an appetite. She states that she has never had these symptoms before. She states that she had 5 separate episodes of diarrhea that was dark brown but had no red or black stools. She denies any headaches, fevers , chills, SOB, and CP. She states that her inability to urinate has increased her abdominal pain. She states no relief. She was diagnosed with bronchitis and given a Z-pack and amoxicillin 2 weeks [employer] DES[employer]. She has a PMHx of CAD, COPD, Chrons , and HTN. She was seen here at [facility] yesterday for similar Sxs. - History of Current Complaint Chief Complaint: EDNauseaVomitDiarrh Stated Complaint: DIARRHEA/UNABLE TO URINATE PER PT Time Seen by Provider: 02/14/19 21:04 Hx Obtained From: Patient ?: No Onset/Duration: Sudden Onset, Lasting Days - 3, Still Present Timing: Constant Severity Initially: Moderate Severity Currently: Moderate Pain Intensity: 7 Pain Scale Used: 0-10 Numeric Location: Suprapubic Radiates: No Aggravating Factor(s): Other: - inability to urinate Alleviating Factor(s): Nothing Associated Signs and Symptoms: Positive: Negative - chills, SOB, CP, Urinary Symptoms - inability to urinate, Decreased Appetite, Nausea, Vomiting, Diarrhea. Negative: Fever, Chest Pain Simlar Episode/Dx as:: 02/13/19 Allergies/Adverse Reactions: Allergies Allergy/AdvReac Type Severity Reaction Status Date / Time clopidogrel Allergy Severe Dizziness Verified 02/14/19 19:29 levofloxacin [From Levaquin] Allergy Intermediate Muscle Ache Verified 02/14/19 19:29 nitrofurantoin Allergy Intermediate GI Upset Verified 02/14/19 19:29 [From Macrobid] metronidazole [From Flagyl] Allergy Swelling Verified 02/14/19 19:29 Penicillins Allergy See Comment Verified 02/14/19 19:29 PMH/Surg Hx/FS Hx/Imm Hx Previously Healthy: Yes Endocrine/Hematology History: Reports: Hx Blood Transfusions, Hx Anemia - Iron deficiency Denies: Hx Diabetes, Hx Thyroid Disease Cardiovascular History: Reports: Hx Coronary Artery Disease, Hx Deep Vein Thrombosis, Hx Hypercholesterolemia, Hx Hypertension, Hx Peripheral Vascular Disease Denies: Hx Congestive Heart Failure Respiratory History: Reports: Hx Chronic Obstructive Pulmonary Disease (COPD), Hx Pneumonia Denies: Hx Asthma GI History: Reports: Hx Crohn's Disease, Hx Diverticulosis, Hx Gastroesophageal Reflux Disease, Hx Ulcer - gerd, hx of ulcers, Other GI Disorders - Previous issues with incontinence History: Reports: Other Problems/Disorders - Frequent UTIs and yeast infections Denies: Hx Renal Disease Musculoskeletal History: Reports: Hx Arthritis - hands, Hx Gout, Hx Osteoporosis , Other Musculoskeletal History - Neck problems s/p surgery Sensory History: Reports: Hx Cataracts, Hx Contacts or Glasses Denies: Hx Hearing Aid Opthamlomology History: Reports: Hx Cataracts, Hx Contacts or Glasses Neurological History: Reports: Hx Headaches - last 2 weeks, Other Neuro Impairments/Disorders - neuropathy UE bilat Psychiatric History: Reports: Hx Anxiety - Surgical History Surgery Procedure, Year, and Place: Neck Surgery. HAND SURGERY (Releasing the pinky finger). Hysterectomy. Carpal tunnel release Hx Anesthesia Reactions: No - Immunization History Immunizations Up to Date: Yes Infectious Disease History: No Infectious Disease History: Reports: Hx Clostridium Difficile - Accompanied with diverticulitis, Hx Shingles, History Other Infectious Disease Denies: Hx Hepatitis, Hx Human Immunodeficiency Virus (HIV), Hx of Known/ Suspected MRSA, Hx Tuberculosis, Traveled Outside the [place] in Last 30 Days - Family History Known Family History: Positive: Cardiac Disease, Diabetes - Social History Occupation: Retired Lives: Alone Alcohol Use: Occasionally Alcohol Amount: three drinks per week Hx Substance Use: No Substance Use Type: Reports: None Hx Tobacco Use: Yes Smoking Status (MU): Former Smoker Type: Cigarettes Amount Used/How Often: 2.5 packs/day for those years Length of Time of Smoking/Using Tobacco: 34 years of smoking Have You Smoked in the Last Year: No Household Exposure: No Review of Systems - ROS Summary Review of Systems Summary: Home Medications Medication Instructions Recorded Confirmed Type Gabapentin CAP(*) [Neurontin 300 600 mg PO TID 12/09/14 02/14/19 History CAP(*)] Fluticasone/Umeclidin/Vilanter 1 inh INH DAILY 08/26/18 02/14/19 History [Trelegy Ellipta 100-62.5-25] Acetaminophen TAB* [Tylenol TAB*] 650 mg PO Q6H PRN tab 08/28/18 02/14/19 Rx Albuterol HFA INHALER* [Ventolin 2 puff INH Q4H PRN #1 mdi 08/28/18 02/14/19 Rx HFA Inhaler*] Aspirin EC TAB* [Ecotrin EC Low 81 mg PO DAILY 12/10/18 02/14/19 History Dose 81 MG*] Azithromycin TAB* [Zithromax TAB 250 mg PO MOWEFR 12/10/18 02/14/19 History (Z-CHENG) 250 mg #6 tabs] Loperamide CAP* [Imodium CAP*] 2 mg PO Q4H PRN 12/10/18 02/14/19 History Oxybutynin XL TAB* [Ditropan XL 5 mg PO DAILY 12/10/18 02/14/19 History TAB*] Mesalamine RECTAL SUSP* 4 gm MO BEDTIME #14 rectal.ru 02/14/19 02/14/19 Rx Negative: Fever, Chills Negative: Chest Pain Negative: Shortness Of Breath Positive: Abdominal Pain - suprapubic, Vomiting, Diarrhea - described as dark brown, reports no blood or black stools, Nausea Positive: other - inability to urinate Negative: Headache All Other Systems Reviewed And Are Negative: Yes Physical Exam - Summary Physical Exam Summary: General: Well-developed, Well-nourished Cachectic appearing elderly female in moderate discomfort upon arrival HEENT: Normocephalic, Atraumatic. Eyes: Conjuctiva normal, PERRL. Ears: TMs within normal limits. Nares: (-) discharge, (-) erythema. Oropharynx: Clear, mucous membranes moist, (-) exudates. Neck: Soft, FROM, (-) lymphadenopathy, (-) thyromegaly, (-) JVD. Cardiovascular: Normal sinus rhythm, (-) murmur. Lungs: Clear to auscultation bilaterally (-) wheezes, (-) rales, (-) rhonchi. Abdomen: Soft, Swelling and tenderness to her suprapubic area, non-distended, (- ) organomegaly, normal bowel sounds. Back: (-) CVA tenderness Extremities: No edema. Skin: Warm, dry, (-) rash. Neuro: Alert and oriented x3, no focal deficits. Psychiatric: Mood normal, affect normal. Triage Information Reviewed: Yes Vital Signs On Initial Exam: Initial Vitals Temp Pulse Resp BP Pulse Ox 99.5 F 102 16 134/77 93 02/14/19 19:22 02/14/19 19:22 02/14/19 19:22 02/14/19 19:22 02/14/19 19:22 Vital Signs Reviewed: Yes Procedures - Sedation Patient Received Moderate/Deep Sedation with Procedure: No Diagnostics - Vital Signs Vital Signs Temp Pulse Resp BP Pulse Ox 02/14/19 19:22 99.5 F 102 16 134/77 93 - Laboratory Result Diagrams: 02/14/19 21:39 02/14/19 21:39 Lab Statement: Any lab studies that have been ordered have been reviewed, and results considered in the medical decision making process. Re-Evaluation - Re-Evaluation First Eval Re-Evaluation Time: 00:32 Change: Improved Comment: I have discussed results with the patient and her abdominal pain is resolved. Discussed symptoms that warrant immediate return to ED Abdominal Pain Fem Course/Dx - Course Course Of Treatment: 78-year-old female presents with abdominal pain. Has had a history of diarrhea. Feels like she can't urinate. Patient was seen here for this yesterday. Had a straight catheter done. Since then patient states she hasn't been able to urinate. Bladder scan demonstrates over 600 cc in her bladder. A Denis catheter was placed with good urine return. Workup essentially negative except for a slightly elevated white count. Patient had a CAT scan done last night of her abdomen and pelvis. That was not repeated. Patient feeling much better after Denis was placed. No further diarrhea while here. Patient discharged home. Follow up with PCP. Follow up sooner for any worsening symptoms. APAP, albuterol, ASA, Azithromycin, Gabapentin, Loperamide , Mesalamine, Oxybutynin chloride, sodium chloride - Diagnoses Provider Diagnoses: Urinary retention, Diarrhea Discharge ED - Sign-Out/Discharge Documenting (check all that apply): Patient Departure - discharge - Discharge Plan Condition: Stable Disposition: HOME Patient Education Materials: Acute Diarrhea (ED), Acute Urinary Retention in Women (ED) Referrals: Noel Johnson MD [Primary Care Provider] - 2 Days Additional Instructions: PLEASE RETURN TO THE EMERGENCY DEPARTMENT FOR ANY NEW OR WORSENING SYMPTOMS. FOLLOW UP WITH YOUR PRIMARY CARE PROVIDER IN 1-3 DAYS. - Billing Disposition and Condition Condition: STABLE Disposition: Home - Attestation Statements Document Initiated by Lettyibe: Yes Documenting Scribe: Anuj Crain Provider For Whom Lettyibe is Documenting (Include Credential): Malu Davis MD Scribe Attestation: Anuj Ross, scribed for Malu Davis MD on 02/15/19 at 0320. Scribe Documentation Reviewed: Yes Provider Attestation: The documentation as recorded by the Anuj chandra accurately reflects the service I personally performed and the decisions made by me, Malu Davis MD Status of Scribe Document: Viewed
[2019-02-14] MEDS: NS 0.9% 1000 ML** 1,000 ML IV ONE (21:50)
[2019-02-14 21:52] LABS: ABS Basophils 0.2 10^3/ul (0-0.2); ABS Eosinophils 0.1 10^3/ul (0-0.6); ABS Lymphocytes 1.5 10^3/ul (1.0-4.8); ABS Monocytes 0.9 10^3/ul (0-0.8); ABS Neutrophils 9.7 10^3/ul (1.5-7.7); Eosinophil % 0.9 %; Hematocrit 35 % (35-47); Hemoglobin 11.3 g/dL (12.0-16.0); Lymphocyte % 11.8 %; Mean Corpuscular HGB Conc 32 g/dL (31-36); Mean Corpuscular Hemoglobin 26 pg (27-31); Mean Corpuscular Volume 82 fL (80-97); Mean Platelet Volume 7.3 fL (7.4-10.4); Platelet Count 331 10^3/uL (150-450); Red Blood Count 4.27 10^6 /uL (3.70-4.87); Red Cell Distribution Width 18 % (10-15); White Blood Count 12.4 10^3/uL (3.5-10.8)
[2019-02-14 21:53] LABS: Urine Appearance Clear; Urine Bilirubin Negative (Negative); Urine Blood 1+ (Negative); Urine Color Yellow; Urine Glucose Negative (Negative); Urine Ketones 1+ (Negative); Urine Nitrite Negative (Negative); Urine Protein Negative (Negative); Urine Specific Gravity 1.018 (1.010-1.030); Urine Urobilinogen Negative (Negative)
[2019-02-14 21:55] LABS: Urine Bacteria Absent (Absent); Urine Red Blood Cell 1+(3-5/hpf) (Absent); Urine Squamous Epithelial Cell Present (Absent); Urine White Blood Cell Trace(0-5/hpf) (Absent)
[2019-02-14 21:57] LABS: INR 1.04 (0.82-1.09)
[2019-02-14 22:10] LABS: Albumin 3.6 g/dL (3.2-5.2); Albumin/Globulin Ratio 0.8 (1-3); BUN/Creatinine Ratio 11.5 (8-20); C Reactive Protein 93.96 mg/L (<8.01); Calcium 9.5 mg/dL (8.6-10.3); EGFR African American 138.7 (>60); EGFR Non-African American 114.6 (>60); Globulin 4.8 g/dL (2-4); Potassium 3.8 mmol/L (3.5-5.0); Total Bilirubin 0.9 mg/dL (0.2-1.0); Total Protein 8.4 g/dL (6.4-8.9)
[2019-02-15] MEDS ORDERED: Acetaminophen TAB* 325 MG PO PRN (00:19)
[2019-02-15] MEDS ORDERED: Albuterol HFA INHALER* 8 gm MDI INH PRN (00:19)
[2019-02-15] MEDS ORDERED: Loperamide CAP* 2 MG PO PRN (00:19)
[2019-02-15 00:36] VITALS: BP 143/79
[2019-02-15] MEDS ORDERED: Azithromycin TAB* 250 MG PO SCH (01:00)
[2019-02-15] MEDS ORDERED: Aspirin EC TAB* 81 MG TAB.EC PO SCH (09:00)
[2019-02-15] MEDS ORDERED: Gabapentin CAP(*) 300 MG PO SCH (09:00)
[2019-02-15] MEDS ORDERED: FLUTICASONE/UMECLIDIN/VILANTER 1 PUFF MDI INH SCH (09:00)
[2019-02-15] MEDS ORDERED: Oxybutynin XL TAB* 5 MG PO SCH (09:00)
[2019-02-15] MEDS ORDERED: MESALAMINE 4 GM/60 ML PR SCH (21:00)
== END 2019-02-15 00:40 | disposition home or self-care (01) ==
LOC: ED 19:14
DX: R33.9 Retention of urine, unspecified (principal); R19.7 Diarrhea, unspecified; I25.10 Atherosclerotic heart disease of native coronary artery without angina pectoris; E78.00 Pure hypercholesterolemia, unspecified; I10 Essential (primary) hypertension; I73.9 Peripheral vascular disease, unspecified; J44.9 Chronic obstructive pulmonary disease, unspecified; K50.90 Crohn's disease, unspecified, without complications; F41.9 Anxiety disorder, unspecified; Z87.891 Personal history of nicotine dependence; Z79.82 Long term (current) use of aspirin; Z79.899 Other long term (current) drug therapy; Z88.1 Allergy status to other antibiotic agents; Z88.0 Allergy status to penicillin; Z88.8 Allergy status to other drugs, medicaments and biological substances
CPT/HCPCS: 36415; 80053; 81003; 81015; 83605; 83690; 85025; 85610; 86140; 87040; 87086; 96360; 99283

== ENCOUNTER 2019-07-19 21:33 | Inpatient (IN) | payer MEDICARE ==
[2019-07-19] MEDS ORDERED: Lactated Ringers 1000 ml BAG IV.FLUID IV ONE (21:53)
[2019-07-19] MEDS ORDERED: Piperacillin/Tazobac ADVAN(*) 3.375 GM in NS 0.9% 100 ml BAG 100 ML IVPB ONE (21:56)
[2019-07-19] MEDS ORDERED: Morphine 4 MG/ML VIAL (1 ml) IV ONE (22:12)
[2019-07-19 22:40] LABS: Hematocrit 36 % (35-47); Hemoglobin 12.4 g/dL (12.0-16.0); Mean Corpuscular HGB Conc 34 g/dL (31-36); Mean Corpuscular Hemoglobin 31 pg (27-31); Mean Corpuscular Volume 89 fL (80-97); Platelet Count 239 10^3/uL (150-450); Red Blood Count 4.06 10^6 /uL (3.70-4.87); Red Cell Distribution Width 14 % (10-15); White Blood Count 16.8 10^3/uL (3.5-10.8)
[2019-07-19] MEDS ORDERED: NS 0.9% 1000 ml BAG 1,000 ML IV ONE (22:55)
[2019-07-19 23:03] LABS: ALT 6 U/L (7-52); AST 17 U/L (13-39); Albumin 3.3 g/dL (3.2-5.2); Albumin/Globulin Ratio 0.9 (1-3); Alkaline Phosphatase 104 U/L (34-104); Anion Gap 9 mmol/L (2-11); BUN/Creatinine Ratio 14.1 (8-20); Blood Urea Nitrogen 9 mg/dL (6-24); CO2 Carbon Dioxide 30 mmol/L (22-32); Calcium 8.4 mg/dL (8.6-10.3); Chloride 99 mmol/L (101-111); EGFR African American 108.9 (>60); Globulin 3.7 g/dL (2-4); Glucose 102 mg/dL (70-100); Potassium 4.2 mmol/L (3.5-5.0); Sodium 138 mmol/L (135-145)
[2019-07-19 23:08] LABS: Activated Partial Thrombo Time 20.9 seconds (26.0-38.0); INR 1.08 (0.82-1.09)
[2019-07-19] MEDS ORDERED: Iohexol 300 (CONTRAST) 10 ML SDV IV ONE (23:11)
[2019-07-19 23:19] LABS: Troponin I 0.03 ng/mL (<0.03)
[2019-07-19 23:26] LABS: ABS Basophils 0.1 10^3/ul (0-0.2); ABS Eosinophils 0.1 10^3/ul (0-0.6); ABS Lymphocytes 0.9 10^3/ul (1.0-4.8); ABS Monocytes 2.6 10^3/ul (0-0.8); Eosinophil % 0.5 %; Lymphocyte % 5.3 %
[2019-07-20] MEDS ORDERED: NS 0.9% 1000 ml BAG 1,000 ML IV ONE (00:44)
[2019-07-20] MEDS ORDERED: Morphine 2 MG/ML SYRINGE IV PRN (01:49)
[2019-07-20] MEDS ORDERED: Zosyn per Pharmacy NOTE FOLLOW UP SCH (02:00)
[2019-07-20] MEDS ORDERED: Ondansetron 4 mg VIAL 2 MG/ML 2 ml VIAL IV PRN (02:05)
[2019-07-20 02:18] LABS: C Reactive Protein 177.73 mg/L (<8.01)
[2019-07-20] MEDS: ZOSYN 3.375 GM Q8H per EXTENDED INFUSION IVPB SCH ×3 (03:29→18:32)
[2019-07-20] MEDS: NS 0.9% 1000 ml BAG 1,000 ML IV SCH ×3 (03:29→23:48)
[2019-07-20] MEDS: Heparin 5000 UNITS/ML 1 mL VIAL SUBCUT SCH ×3 (05:26→21:36)
[2019-07-20] MEDS ORDERED: Fluticasone-Salmeterol 500-50 DISKUS INH SCH (09:00)
[2019-07-20] MEDS: SPIRIVA Respimat (tiotropium) 2.5 mcg/inh Inhaler INH SCH (10:08)
[2019-07-20] MEDS: Mometasone/Formoter 100/5 MDI INH SCH ×2 (10:09→20:28)
[2019-07-20] MEDS: Aspirin EC 81 mg TAB.EC (enteric coated) PO SCH (10:12)
[2019-07-20 10:30] LABS: ABS Eosinophils 0.1 10^3/ul (0-0.6); ABS Lymphocytes 0.8 10^3/ul (1.0-4.8); ABS Monocytes 1.4 10^3/ul (0-0.8); Eosinophil % 0.4 %; Hematocrit 38 % (35-47); Hemoglobin 12.7 g/dL (12.0-16.0); Lymphocyte % 4.6 %; Mean Corpuscular HGB Conc 33 g/dL (31-36); Mean Corpuscular Hemoglobin 30 pg (27-31); Mean Corpuscular Volume 91 fL (80-97); Mean Platelet Volume 7.8 fL (7.4-10.4); Platelet Count 207 10^3/uL (150-450); Red Blood Count 4.18 10^6 /uL (3.70-4.87); Red Cell Distribution Width 14 % (10-15); White Blood Count 16.8 10^3/uL (3.5-10.8)
[2019-07-20 10:39] LABS: BUN/Creatinine Ratio 12.9 (8-20); C Reactive Protein 214.66 mg/L (<8.01); Calcium 7.5 mg/dL (8.6-10.3); EGFR African American 112.9 (>60); EGFR Non-African American 93.3 (>60); Potassium 3.8 mmol/L (3.5-5.0)
[2019-07-20] MEDS: Morphine 2 MG/ML SYRINGE IV PRN (12:22)
[2019-07-20 17:56] LABS: Urine Appearance Clear; Urine Bilirubin Negative (Negative); Urine Blood 1+ (Negative); Urine Color Yellow; Urine Glucose Negative (Negative); Urine Ketones Trace (Negative); Urine Nitrite Negative (Negative); Urine Protein Negative (Negative); Urine Urobilinogen Negative (Negative)
[2019-07-20 18:03] LABS: Urine Bacteria Absent (Absent); Urine Red Blood Cell Trace(0-2/hpf) (Absent); Urine Squamous Epithelial Cell Present (Absent); Urine White Blood Cell Trace(0-5/hpf) (Absent)
[2019-07-21] MEDS: ZOSYN 3.375 GM Q8H per EXTENDED INFUSION IVPB SCH ×3 (03:35→19:12)
[2019-07-21 04:10] LABS: Hematocrit 33 % (35-47); Mean Corpuscular HGB Conc 33 g/dL (31-36); Mean Corpuscular Hemoglobin 30 pg (27-31); Mean Corpuscular Volume 90 fL (80-97); Mean Platelet Volume 7.7 fL (7.4-10.4); Platelet Count 190 10^3/uL (150-450); Red Blood Count 3.66 10^6 /uL (3.70-4.87); Red Cell Distribution Width 14 % (10-15); White Blood Count 14.3 10^3/uL (3.5-10.8)
[2019-07-21 04:17] LABS: ABS Eosinophils 0.1 10^3/ul (0-0.6); ABS Monocytes 1.8 10^3/ul (0-0.8); Eosinophil % 0.8 %; Lymphocyte % 7.2 %
[2019-07-21 04:19] LABS: BUN/Creatinine Ratio 14.5 (8-20); C Reactive Protein 228.63 mg/L (<8.01); Calcium 6.8 mg/dL (8.6-10.3); EGFR African American 129.7 (>60); EGFR Non-African American 107.2 (>60); Potassium 3.2 mmol/L (3.5-5.0)
[2019-07-21] MEDS: Heparin 5000 UNITS/ML 1 mL VIAL SUBCUT SCH ×3 (06:24→21:59)
[2019-07-21] MEDS: Morphine 2 MG/ML SYRINGE IV PRN ×2 (07:22→22:08)
[2019-07-21] MEDS: KCL 10 MEQ/50 ML IVPREMIX 10 MEQ/50 ML BAG IV SCH ×4 (08:47→15:53)
[2019-07-21] MEDS: Mometasone/Formoter 100/5 MDI INH SCH ×2 (08:52→21:58)
[2019-07-21] MEDS: SPIRIVA Respimat (tiotropium) 2.5 mcg/inh Inhaler INH SCH (08:54)
[2019-07-21] MEDS: Aspirin EC 81 mg TAB.EC (enteric coated) PO SCH (08:55)
[2019-07-21] MEDS: NS 0.9% 1000 ml BAG 1,000 ML IV SCH (10:30)
[2019-07-21 11:48] LABS: Magnesium 1.4 mg/dL (1.9-2.7)
[2019-07-21] MEDS ORDERED: Magnesium Sulfate 2 gm BAG 2 GM/50 ML BAG IVPB ONE (14:02)
[2019-07-21] MEDS ORDERED: Potassium Chlor 20 meq TAB.ER PO ONE (15:48)
[2019-07-22] MEDS: ZOSYN 3.375 GM Q8H per EXTENDED INFUSION IVPB SCH ×3 (03:26→18:30)
[2019-07-22] MEDS: Heparin 5000 UNITS/ML 1 mL VIAL SUBCUT SCH ×3 (05:47→23:38)
[2019-07-22 06:05] LABS: ABS Eosinophils 0.2 10^3/ul (0-0.6); ABS Monocytes 1.5 10^3/ul (0-0.8); Eosinophil % 1.2 %; Hematocrit 31 % (35-47); Hemoglobin 10.4 g/dL (12.0-16.0); Lymphocyte % 7.2 %; Mean Corpuscular HGB Conc 34 g/dL (31-36); Mean Corpuscular Hemoglobin 31 pg (27-31); Mean Corpuscular Volume 90 fL (80-97); Mean Platelet Volume 7.6 fL (7.4-10.4); Platelet Count 213 10^3/uL (150-450); Red Blood Count 3.42 10^6 /uL (3.70-4.87); Red Cell Distribution Width 14 % (10-15); White Blood Count 14.5 10^3/uL (3.5-10.8)
[2019-07-22 06:20] LABS: C Reactive Protein 205.83 mg/L (<8.01); EGFR African American 144.8 (>60); EGFR Non-African American 119.6 (>60); Potassium 3.9 mmol/L (3.5-5.0)
[2019-07-22] MEDS: Mometasone/Formoter 100/5 MDI INH SCH ×2 (07:57→23:43)
[2019-07-22] MEDS: SPIRIVA Respimat (tiotropium) 2.5 mcg/inh Inhaler INH SCH (07:59)
[2019-07-22] MEDS: Aspirin EC 81 mg TAB.EC (enteric coated) PO SCH (08:09)
[2019-07-22 12:07] LABS: ABS Eosinophils 0.1 10^3/ul (0-0.6); ABS Lymphocytes 0.8 10^3/ul (1.0-4.8); ABS Monocytes 1.2 10^3/ul (0-0.8); Eosinophil % 1.1 %; Hematocrit 31 % (35-47); Hemoglobin 10.7 g/dL (12.0-16.0); Lymphocyte % 6.2 %; Mean Corpuscular HGB Conc 34 g/dL (31-36); Mean Corpuscular Hemoglobin 30 pg (27-31); Mean Corpuscular Volume 89 fL (80-97); Mean Platelet Volume 7.6 fL (7.4-10.4); Platelet Count 230 10^3/uL (150-450); Red Blood Count 3.53 10^6 /uL (3.70-4.87); Red Cell Distribution Width 14 % (10-15); White Blood Count 13.3 10^3/uL (3.5-10.8)
[2019-07-22 12:23] LABS: BUN/Creatinine Ratio 11.3 (8-20); Calcium 7.2 mg/dL (8.6-10.3); EGFR African American 135.3 (>60); EGFR Non-African American 111.9 (>60); Potassium 3.8 mmol/L (3.5-5.0)
[2019-07-22] MEDS: Morphine 2 MG/ML SYRINGE IV PRN (17:08)
[2019-07-22 19:08] LABS: Hematocrit 31 % (35-47); Hemoglobin 10.6 g/dL (12.0-16.0); Mean Corpuscular HGB Conc 34 g/dL (31-36); Mean Corpuscular Hemoglobin 30 pg (27-31); Mean Corpuscular Volume 89 fL (80-97); Mean Platelet Volume 7.4 fL (7.4-10.4); Platelet Count 239 10^3/uL (150-450); Red Blood Count 3.54 10^6 /uL (3.70-4.87); Red Cell Distribution Width 14 % (10-15); White Blood Count 17.6 10^3/uL (3.5-10.8)
[2019-07-22 19:09] LABS: ABS Eosinophils 0.1 10^3/ul (0-0.6); ABS Lymphocytes 0.4 10^3/ul (1.0-4.8); ABS Monocytes 1.7 10^3/ul (0-0.8); Eosinophil % 0.7 %; Lymphocyte % 2.5 %
[2019-07-22 19:24] LABS: Calcium 7.2 mg/dL (8.6-10.3); EGFR African American 144.8 (>60); EGFR Non-African American 119.6 (>60); Potassium 4.1 mmol/L (3.5-5.0)
[2019-07-22] MEDS ORDERED: NS 0.9% 1000 ml BAG 500 ML IV ONE (20:07)
[2019-07-22] MEDS ORDERED: NS 0.9% 500 ml BAG 500 ML IV ONE ×2 (20:45→21:33)
[2019-07-22] MEDS ORDERED: Iohexol 300 (CONTRAST) 10 ML SDV IV ONE (21:44)
[2019-07-22] MEDS: NS 0.9% 1000 ml BAG 1,000 ML IV SCH (22:36)
[2019-07-22] MEDS ORDERED: Vancomycin per Pharmacy 1 EA NOTE FOLLOW UP SCH (23:00)
[2019-07-22] MEDS ORDERED: Vancomycin 1,000 MG in NS 0.9% 250 ml 250 ML IVPB ONE (23:30)
[2019-07-23] MEDS: ZOSYN 3.375 GM Q8H per EXTENDED INFUSION IVPB SCH ×3 (03:12→19:23)
[2019-07-23 04:02] LABS: Urine Appearance Clear; Urine Bilirubin Negative (Negative); Urine Blood Negative (Negative); Urine Color Yellow; Urine Glucose Negative (Negative); Urine Ketones Trace (Negative); Urine Nitrite Negative (Negative); Urine Protein Negative (Negative); Urine Specific Gravity 1.034 (1.010-1.030); Urine Urobilinogen Negative (Negative)
[2019-07-23] MEDS: Heparin 5000 UNITS/ML 1 mL VIAL SUBCUT SCH ×3 (06:20→21:58)
[2019-07-23 06:53] LABS: Hematocrit 30 % (35-47); Hemoglobin 10.1 g/dL (12.0-16.0); Mean Corpuscular HGB Conc 33 g/dL (31-36); Mean Corpuscular Hemoglobin 30 pg (27-31); Mean Corpuscular Volume 90 fL (80-97); Mean Platelet Volume 7.7 fL (7.4-10.4); Platelet Count 249 10^3/uL (150-450); Red Blood Count 3.35 10^6 /uL (3.70-4.87); Red Cell Distribution Width 14 % (10-15); White Blood Count 21.9 10^3/uL (3.5-10.8)
[2019-07-23 07:09] LABS: ABS Eosinophils 0.1 10^3/ul (0-0.6); ABS Lymphocytes 0.7 10^3/ul (1.0-4.8); ABS Monocytes 1.6 10^3/ul (0-0.8); Eosinophil % 0.7 %; Lymphocyte % 3.4 %
[2019-07-23 07:12] LABS: BUN/Creatinine Ratio 13.3 (8-20); Calcium 6.8 mg/dL (8.6-10.3); EGFR African American 163.5 (>60); EGFR Non-African American 135.1 (>60); Potassium 3.6 mmol/L (3.5-5.0)
[2019-07-23] MEDS ORDERED: Iohexol 300 (CONTRAST) 10 ML SDV IV ONE (07:35)
[2019-07-23] MEDS: SPIRIVA Respimat (tiotropium) 2.5 mcg/inh Inhaler INH SCH (07:37)
[2019-07-23] MEDS: Mometasone/Formoter 100/5 MDI INH SCH ×2 (07:37→20:03)
[2019-07-23] MEDS: Aspirin EC 81 mg TAB.EC (enteric coated) PO SCH (10:32)
[2019-07-23] MEDS: NS 0.9% 1000 ml BAG 1,000 ML IV SCH (10:42)
[2019-07-23 11:10] LABS: C Reactive Protein 152.56 mg/L (<8.01)
[2019-07-23 15:04] LABS: ABS Eosinophils 0.1 10^3/ul (0-0.6); ABS Lymphocytes 0.9 10^3/ul (1.0-4.8); ABS Monocytes 1.5 10^3/ul (0-0.8); Eosinophil % 0.6 %; Hematocrit 33 % (35-47); Hemoglobin 11.2 g/dL (12.0-16.0); Lymphocyte % 4.4 %; Mean Corpuscular HGB Conc 33 g/dL (31-36); Mean Corpuscular Hemoglobin 30 pg (27-31); Mean Corpuscular Volume 90 fL (80-97); Mean Platelet Volume 7.6 fL (7.4-10.4); Platelet Count 288 10^3/uL (150-450); Red Blood Count 3.73 10^6 /uL (3.70-4.87); Red Cell Distribution Width 14 % (10-15); White Blood Count 21.3 10^3/uL (3.5-10.8)
[2019-07-23 15:21] LABS: BUN/Creatinine Ratio 11.4 (8-20); Calcium 7.3 mg/dL (8.6-10.3); EGFR African American 167.8 (>60); EGFR Non-African American 138.7 (>60); Potassium 3.6 mmol/L (3.5-5.0)
[2019-07-23] MEDS: Vancomycin 750 MG in NS 0.9% 250 ml 250 ML IVPB SCH (16:36)
[2019-07-24] MEDS: NS 0.9% 1000 ml BAG 1,000 ML IV SCH ×2 (00:54→05:57)
[2019-07-24] MEDS: ZOSYN 3.375 GM Q8H per EXTENDED INFUSION IVPB SCH ×3 (03:16→18:20)
[2019-07-24] MEDS: Heparin 5000 UNITS/ML 1 mL VIAL SUBCUT SCH ×3 (05:56→21:25)
[2019-07-24 07:18] LABS: Calcium 7.3 mg/dL (8.6-10.3); Potassium 3.4 mmol/L (3.5-5.0)
[2019-07-24 07:24] LABS: BUN/Creatinine Ratio 15.6 (8-20); EGFR African American 163.5 (>60); EGFR Non-African American 135.1 (>60)
[2019-07-24] MEDS: SPIRIVA Respimat (tiotropium) 2.5 mcg/inh Inhaler INH SCH (07:51)
[2019-07-24] MEDS: Mometasone/Formoter 100/5 MDI INH SCH ×2 (07:52→19:42)
[2019-07-24] MEDS: Aspirin EC 81 mg TAB.EC (enteric coated) PO SCH (08:45)
[2019-07-24 09:13] LABS: ABS Basophils 0.1 10^3/ul (0-0.2); ABS Eosinophils 0.1 10^3/ul (0-0.6); ABS Lymphocytes 0.7 10^3/ul (1.0-4.8); ABS Monocytes 1.1 10^3/ul (0-0.8); Eosinophil % 0.8 %; Hematocrit 31 % (35-47); Hemoglobin 10.3 g/dL (12.0-16.0); Lymphocyte % 4.2 %; Mean Corpuscular HGB Conc 33 g/dL (31-36); Mean Corpuscular Hemoglobin 30 pg (27-31); Mean Corpuscular Volume 90 fL (80-97); Mean Platelet Volume 8.2 fL (7.4-10.4); Platelet Count 316 10^3/uL (150-450); Red Blood Count 3.47 10^6 /uL (3.70-4.87); Red Cell Distribution Width 14 % (10-15); White Blood Count 17.1 10^3/uL (3.5-10.8)
[2019-07-24] MEDS ORDERED: Furosemide 20 mg/2 ml IV VIAL IV ONE (10:28)
[2019-07-24] MEDS: Vancomycin 750 MG in NS 0.9% 250 ml 250 ML IVPB SCH (16:02)
[2019-07-25] MEDS: ZOSYN 3.375 GM Q8H per EXTENDED INFUSION IVPB SCH ×3 (03:18→18:25)
[2019-07-25] MEDS: Heparin 5000 UNITS/ML 1 mL VIAL SUBCUT SCH ×3 (06:00→21:01)
[2019-07-25 06:16] LABS: Hematocrit 29 % (35-47); Mean Corpuscular HGB Conc 35 g/dL (31-36); Mean Corpuscular Hemoglobin 31 pg (27-31); Mean Corpuscular Volume 88 fL (80-97); Mean Platelet Volume 7.6 fL (7.4-10.4); Platelet Count 306 10^3/uL (150-450); Red Blood Count 3.23 10^6 /uL (3.70-4.87); Red Cell Distribution Width 15 % (10-15); White Blood Count 7.7 10^3/uL (3.5-10.8)
[2019-07-25 06:32] LABS: BUN/Creatinine Ratio 9.8 (8-20); Calcium 7.6 mg/dL (8.6-10.3); EGFR Non-African American 150.4 (>60); Potassium 3.1 mmol/L (3.5-5.0)
[2019-07-25] MEDS: Mometasone/Formoter 100/5 MDI INH SCH ×2 (07:47→19:36)
[2019-07-25] MEDS: SPIRIVA Respimat (tiotropium) 2.5 mcg/inh Inhaler INH SCH (07:47)
[2019-07-25] MEDS: Aspirin EC 81 mg TAB.EC (enteric coated) PO SCH (08:30)
[2019-07-25 14:35] VITALS: BP 105/49
[2019-07-25] MEDS ORDERED: Vancomycin Trough Check NOTE FOLLOW UP ONE (15:30)
[2019-07-25] MEDS ORDERED: Potassium Chlor 20 meq TAB.ER PO ONE (17:26)
[2019-07-26] MEDS: SPIRIVA Respimat (tiotropium) 2.5 mcg/inh Inhaler INH SCH (18:39)
[2019-07-26] MEDS: Mometasone/Formoter 100/5 MDI INH SCH (18:39)
[2019-07-27 00:59] LABS: Hematocrit 31 % (35-47); Hemoglobin 10.9 g/dL (12.0-16.0); Mean Corpuscular HGB Conc 35 g/dL (31-36); Mean Corpuscular Hemoglobin 31 pg (27-31); Mean Corpuscular Volume 87 fL (80-97); Red Blood Count 3.56 10^6 /uL (3.70-4.87); White Blood Count 5.2 10^3/uL (3.5-10.8)
[2019-07-27 01:00] LABS: ABS Basophils 0.1 10^3/ul (0-0.2); ABS Eosinophils 0.2 10^3/ul (0-0.6); ABS Lymphocytes 1.1 10^3/ul (1.0-4.8); ABS Monocytes 0.9 10^3/ul (0-0.8); Lymphocyte % 20.7 %; Mean Platelet Volume 7.6 fL (7.4-10.4); Platelet Count 338 10^3/uL (150-450); Red Cell Distribution Width 15 % (10-15)
[2019-07-27 01:01] LABS: Anion Gap 7 mmol/L (2-11); BUN/Creatinine Ratio 14.3 (8-20); Blood Urea Nitrogen 6 mg/dL (6-24); CO2 Carbon Dioxide 30 mmol/L (22-32); Chloride 106 mmol/L (101-111); EGFR Non-African American 146.3 (>60); Glucose 81 mg/dL (70-100); Sodium 143 mmol/L (135-145)
== END 2019-07-26 08:55 | disposition home or self-care (01) | DRG 871 ==
LOC: ED 21:33 → SSU 07-20 02:15
PROVIDERS: ADMIT Hospitalist; ATTEND Hospitalist

== ENCOUNTER 2022-02-18 11:55 | Inpatient (IN) ==
[2022-02-18] MEDS ORDERED: NS 0.9% 1000 ml BAG 1,000 ML IV ONE (12:22)
[2022-02-18 13:39] LABS: ABS Lymphocytes 0.6 10^3/ul (1.0-4.8); ABS Monocytes 1.2 10^3/ul (0-0.8); ABS Neutrophils 16.6 10^3/ul (1.5-7.7); Hematocrit 32 % (35-47); Hemoglobin 10.2 g/dL (12.0-16.0); Lymphocyte % 3.5 %; Mean Corpuscular HGB Conc 32 g/dL (31-36); Mean Corpuscular Hemoglobin 29 pg (27-31); Mean Corpuscular Volume 93 fL (80-97); Mean Platelet Volume 8.6 fL (7.4-10.4); Platelet Count 220 10^3/uL (150-450); Red Blood Count 3.49 10^6 /uL (3.70-4.87); Red Cell Distribution Width 15 % (10-15); White Blood Count 18.5 10^3/uL (3.5-10.8)
[2022-02-18 14:28] LABS: Albumin/Globulin Ratio 0.7 (1-3); C Reactive Protein 194.91 mg/L (<8.01); Calcium 9.2 mg/dL (8.6-10.3); Globulin 4.2 g/dL (2-4); Magnesium 1.6 mg/dL (1.9-2.7); Potassium 4.2 mmol/L (3.5-5.0); Total Bilirubin 0.8 mg/dL (0.2-1.0); Total Protein 7.2 g/dL (6.4-8.9); eGFR CKD-EPI 103.9 (>60)
[2022-02-18 14:42] LABS: TSH Ultra Thyroid Stim Horm 0.99 mcIU/mL (0.34-5.60)
[2022-02-18 15:44] LABS: High Sensitivity Troponin 1 Hr 6 pg/mL (<15)
[2022-02-18] MEDS ORDERED: cefTRIAXone 1 gm/50 mL D5W 1 GM/50 ML BAG IV ONE (15:46)
[2022-02-18 16:31] LABS: PCO2 Arterial 71 mmHg (35-45)
[2022-02-18 16:34] LABS: PO2 Arterial 44 mmHg (80-100)
[2022-02-18] MEDS ORDERED: Magnesium Sulfate IV 3 GM in NS 0.9% 100 ml BAG 100 ML IVPB ONE (16:50)
[2022-02-18 17:05] LABS: PCO2 Arterial 55 mmHg (35-45); PO2 Arterial 82 mmHg (80-100)
[2022-02-18] MEDS ORDERED: Iodixanol (CONTRAST) 320 MG/ML 100 ML SDV IV ONE (17:37)
[2022-02-18] MEDS ORDERED: Piperacillin/Tazobac ADVAN 3.375 GM in NS 0.9% 100 ml BAG 100 ML IV ONE (19:04)
[2022-02-18] MEDS ORDERED: Vancomycin 1,000 MG in NS 0.9% 250 ml 250 ML IVPB ONE (19:04)
[2022-02-18] MEDS ORDERED: methylPREDNISolone SOD SUCC 40 mg/ml 1 ml VIAL IV ONE (19:08)
[2022-02-18] MEDS ORDERED: Vancomycin 750 MG in NS 0.9% 250 ML IVPB ONE (19:17)
[2022-02-18] MEDS ORDERED: Albuterol 2.5mg/3 ml (0.083%) NEB.SOLN INH PRN (19:22)
[2022-02-18] MEDS ORDERED: Zosyn per Pharmacy NOTE FOLLOW UP SCH (20:00)
[2022-02-18] MEDS ORDERED: Vancomycin per Pharmacy 1 EA NOTE FOLLOW UP SCH (20:00)
[2022-02-18 23:18] LABS: Urine Appearance Clear; Urine Bilirubin Negative (Negative); Urine Blood Negative (Negative); Urine Color Yellow; Urine Glucose Negative (Negative); Urine Ketones 1+ (Negative); Urine Nitrite Negative (Negative); Urine Protein Negative (Negative); Urine Urobilinogen Negative (Negative)
[2022-02-18 23:25] LABS: Urine Specific Gravity 1.052 (1.002-1.030)
[2022-02-18] MEDS: NS 0.9% 1000 ml BAG 1,000 ML IV SCH (23:29)
[2022-02-19] MEDS: ZOSYN 3.375 GM Q8H per EXTENDED INFUSION IV SCH ×4 (03:17→17:31)
[2022-02-19] MEDS ORDERED: Vancomycin Trough Check NOTE FOLLOW UP ONE (04:00)
[2022-02-19] MEDS: FLUTICAS/UMECLI/VILANT 100-62.5-25 MDI (NF) INH SCH (07:09)
[2022-02-19] MEDS ORDERED: Albuterol/Ipratropium NEB.SOL (2.5/0.5 MG) 3 ML NEB.SOLN INH PRN (08:07)
[2022-02-19 08:14] LABS: ABS Lymphocytes 0.3 10^3/ul (1.0-4.8); ABS Monocytes 0.1 10^3/ul (0-0.8); ABS Neutrophils 13.5 10^3/ul (1.5-7.7); Hematocrit 29 % (35-47); Lymphocyte % 2.2 %; Mean Corpuscular HGB Conc 31 g/dL (31-36); Mean Corpuscular Hemoglobin 29 pg (27-31); Mean Corpuscular Volume 94 fL (80-97); Mean Platelet Volume 8.9 fL (7.4-10.4); Platelet Count 201 10^3/uL (150-450); Red Blood Count 3.09 10^6 /uL (3.70-4.87); Red Cell Distribution Width 15 % (10-15); White Blood Count 13.9 10^3/uL (3.5-10.8)
[2022-02-19 08:37] LABS: Anion Gap 14 mmol/L (2-11); Blood Urea Nitrogen 19 mg/dL (6-24); C Reactive Protein 163.98 mg/L (<8.01); CO2 Carbon Dioxide 27 mmol/L (22-32); Calcium 8.1 mg/dL (8.6-10.3); Chloride 104 mmol/L (101-111); Glucose 99 mg/dL (70-100); Potassium 3.7 mmol/L (3.5-5.0); Sodium 145 mmol/L (135-145)
[2022-02-19] MEDS ORDERED: Aspirin EC 81 mg TAB.EC (enteric coated) PO SCH (09:00)
[2022-02-19 09:01] LABS: eGFR CKD-EPI 107.8 (>60)
[2022-02-19] MEDS: Vancomycin 500 MG in NS 0.9% 250 ML IVPB SCH ×3 (09:08→18:15)
[2022-02-19] MEDS: NS 0.9% 1000 ml BAG 1,000 ML IV SCH (09:12)
[2022-02-19 10:38] LABS: Cholesterol 99 mg/dL; HDL Cholesterol 21.6 mg/dL; LDL Cholesterol 65 mg/dL; Triglycerides 62 mg/dL
[2022-02-19] MEDS: Pantoprazole VIAL 40 MG VIAL IV SCH (12:05)
[2022-02-20] MEDS: ZOSYN 3.375 GM Q8H per EXTENDED INFUSION IV SCH ×3 (00:07→15:52)
[2022-02-20] MEDS: Vancomycin 500 MG in NS 0.9% 250 ML IVPB SCH ×3 (02:15→16:37)
[2022-02-20] MEDS: FLUTICAS/UMECLI/VILANT 100-62.5-25 MDI (NF) INH SCH (07:31)
[2022-02-20] MEDS: Pantoprazole VIAL 40 MG VIAL IV SCH (09:11)
[2022-02-20] MEDS ORDERED: Vancomycin Trough Check NOTE FOLLOW UP ONE (09:30)
[2022-02-20 09:57] LABS: Hematocrit 28 % (35-47); Hemoglobin 8.5 g/dL (12.0-16.0); Mean Corpuscular HGB Conc 31 g/dL (31-36); Mean Corpuscular Hemoglobin 29 pg (27-31); Mean Corpuscular Volume 94 fL (80-97); Mean Platelet Volume 8.5 fL (7.4-10.4); Platelet Count 201 10^3/uL (150-450); Red Blood Count 2.94 10^6 /uL (3.70-4.87); Red Cell Distribution Width 15 % (10-15); White Blood Count 14.3 10^3/uL (3.5-10.8)
[2022-02-20 10:27] LABS: Calcium 7.9 mg/dL (8.6-10.3); Potassium 3.2 mmol/L (3.5-5.0)
[2022-02-20] MEDS ORDERED: Potassium Chlor 20 meq TAB.ER PO ONE (11:33)
[2022-02-20 12:00] LABS: Magnesium 1.6 mg/dL (1.9-2.7)
[2022-02-20] MEDS ORDERED: Potassium Chloride LIQUID 20 MEQ/15 ML LIQUID PO ONE (12:03)
[2022-02-20 14:03] LABS: ABS Lymphocytes 0.9 10^3/ul (1.0-4.8); ABS Monocytes 1.6 10^3/ul (0-0.8); ABS Neutrophils 11.7 10^3/ul (1.5-7.7); Lymphocyte % 6.4 %
[2022-02-20 14:14] LABS: Phosphorus 2.1 mg/dL (2.5-5.0)
[2022-02-20 14:39] LABS: PCO2 Arterial > 100 mmHg (35-45); PO2 Arterial 123 mmHg (80-100)
[2022-02-20 16:02] LABS: Hematocrit 30 % (35-47); Hemoglobin 9.1 g/dL (12.0-16.0); Mean Corpuscular HGB Conc 30 g/dL (31-36); Mean Corpuscular Hemoglobin 30 pg (27-31); Mean Corpuscular Volume 98 fL (80-97); Mean Platelet Volume 8.7 fL (7.4-10.4); Platelet Count 229 10^3/uL (150-450); Red Blood Count 3.08 10^6 /uL (3.70-4.87); Red Cell Distribution Width 15 % (10-15); White Blood Count 16.2 10^3/uL (3.5-10.8)
[2022-02-20 16:29] LABS: Calcium 7.5 mg/dL (8.6-10.3); Potassium 4.2 mmol/L (3.5-5.0)
[2022-02-20 18:16] LABS: ABS Lymphocytes 0.3 10^3/ul (1.0-4.8); ABS Monocytes 0.5 10^3/ul (0-0.8); ABS Neutrophils 15.4 10^3/ul (1.5-7.7); Lymphocyte % 2.1 %
[2022-02-20] MEDS: Albuterol/Ipratropium NEB.SOL (2.5/0.5 MG) 3 ML NEB.SOLN INH SCH (19:00)
[2022-02-20 21:14] LABS: PCO2 Arterial 65 mmHg (35-45); PO2 Arterial 72 mmHg (80-100)
[2022-02-21] MEDS: ZOSYN 3.375 GM Q8H per EXTENDED INFUSION IV SCH ×3 (00:35→16:55)
[2022-02-21] MEDS: Albuterol/Ipratropium NEB.SOL (2.5/0.5 MG) 3 ML NEB.SOLN INH SCH ×4 (00:50→20:23)
[2022-02-21] MEDS: Vancomycin 500 MG in NS 0.9% 250 ML IVPB SCH ×3 (02:30→18:36)
[2022-02-21 06:57] LABS: ABS Lymphocytes 0.7 10^3/ul (1.0-4.8); ABS Monocytes 1.2 10^3/ul (0-0.8); ABS Neutrophils 12.2 10^3/ul (1.5-7.7); Eosinophil % 0.1 %; Hematocrit 27 % (35-47); Hemoglobin 8.5 g/dL (12.0-16.0); Lymphocyte % 5.2 %; Mean Corpuscular HGB Conc 32 g/dL (31-36); Mean Corpuscular Hemoglobin 30 pg (27-31); Mean Corpuscular Volume 94 fL (80-97); Mean Platelet Volume 9.1 fL (7.4-10.4); Platelet Count 182 10^3/uL (150-450); Red Blood Count 2.88 10^6 /uL (3.70-4.87); Red Cell Distribution Width 14 % (10-15); White Blood Count 14.2 10^3/uL (3.5-10.8)
[2022-02-21 07:01] LABS: Magnesium 1.6 mg/dL (1.9-2.7); Potassium 3.2 mmol/L (3.5-5.0)
[2022-02-21 07:17] LABS: Phosphorus 1.6 mg/dL (2.5-5.0); eGFR CKD-EPI 108.7 (>60)
[2022-02-21] MEDS: FLUTICAS/UMECLI/VILANT 100-62.5-25 MDI (NF) INH SCH (07:38)
[2022-02-21] MEDS: Pantoprazole VIAL 40 MG VIAL IV SCH (08:30)
[2022-02-21] MEDS ORDERED: Potassium Chlor 20 meq TAB.ER PO ONE (08:43)
[2022-02-21] MEDS ORDERED: Magnesium Sulfate 2 gm BAG 2 GM/50 ML BAG IVPB ONE (08:43)
[2022-02-21] MEDS ORDERED: Potassium Phosphate IV 15 MMOLE in NS 0.9% 250 ml 250 ML IVPB ONE (09:00)
[2022-02-21 09:51] LABS: PO2 Arterial 160 mmHg (80-100)
[2022-02-21 10:07] LABS: PCO2 Arterial 88 mmHg (35-45)
[2022-02-21 16:22] LABS: PCO2 Arterial 64 mmHg (35-45); PO2 Arterial 66 mmHg (80-100)
[2022-02-22] MEDS: ZOSYN 3.375 GM Q8H per EXTENDED INFUSION IV SCH ×2 (00:42→08:37)
[2022-02-22] MEDS: Albuterol/Ipratropium NEB.SOL (2.5/0.5 MG) 3 ML NEB.SOLN INH SCH ×3 (01:06→12:44)
[2022-02-22] MEDS: Vancomycin 500 MG in NS 0.9% 250 ML IVPB SCH ×2 (02:34→11:09)
[2022-02-22 06:21] LABS: Hematocrit 28 % (35-47); Hemoglobin 8.9 g/dL (12.0-16.0); Mean Corpuscular HGB Conc 33 g/dL (31-36); Mean Corpuscular Hemoglobin 31 pg (27-31); Mean Corpuscular Volume 94 fL (80-97); Mean Platelet Volume 9.3 fL (7.4-10.4); Platelet Count 131 10^3/uL (150-450); Red Blood Count 2.93 10^6 /uL (3.70-4.87); Red Cell Distribution Width 15 % (10-15); White Blood Count 10.4 10^3/uL (3.5-10.8)
[2022-02-22 06:34] LABS: PCO2 Arterial 66 mmHg (35-45); PO2 Arterial 74 mmHg (80-100)
[2022-02-22] MEDS ORDERED: Magnesium Sulfate 2 gm BAG 2 GM/50 ML BAG IVPB ONE (07:32)
[2022-02-22 07:33] LABS: ABS Lymphocytes 0.3 10^3/ul (1.0-4.8); ABS Monocytes 0.6 10^3/ul (0-0.8); ABS Neutrophils 9.5 10^3/ul (1.5-7.7); Eosinophil % 0.1 %; Lymphocyte % 3.1 %; Nucleated Red Blood Cells % 0.1
[2022-02-22] MEDS ORDERED: D5LR 1000 ml BAG 1,000 ML IV SCH (08:00)
[2022-02-22] MEDS ORDERED: KCL 20 MEQ/100 ML IVPREMIX 20 MEQ/100 ML BAG IV SCH (08:00)
[2022-02-22 08:15] LABS: Calcium 7.2 mg/dL (8.6-10.3); Magnesium 1.7 mg/dL (1.9-2.7); Potassium 2.8 mmol/L (3.5-5.0)
[2022-02-22 08:26] LABS: eGFR CKD-EPI 110.6 (>60)
[2022-02-22] MEDS: Pantoprazole VIAL 40 MG VIAL IV SCH (08:37)
[2022-02-22] MEDS: Potassium Phosphate IV 15 MMOLE in NS 0.9% 250 ml 250 ML IVPB ONE ×3 (08:37→11:09)
[2022-02-22] MEDS: FLUTICAS/UMECLI/VILANT 100-62.5-25 MDI (NF) INH SCH (08:38)
[2022-02-22] MEDS ORDERED: D5W 1000 ml BAG 1,000 ML IV SCH (10:00)
[2022-02-22] MEDS: KCL 20 MEQ/100 ML IVPREMIX 20 MEQ/100 ML BAG IV SCH ×2 (13:05→14:31)
[2022-02-22] MEDS ORDERED: Atropine 1% (ORAL/SL) 15 ML BTL SL PRN (13:35)
[2022-02-22] MEDS ORDERED: LORazepam 2 mg VIAL 1 ml IV PUSH PRN (13:35)
[2022-02-22] MEDS ORDERED: Morphine 2 MG/ML SYRINGE IV PRN (13:35)
[2022-02-22] MEDS ORDERED: Scopolamine 1 mg/72hr PATCH TRANSDERM SCH (14:00)
[2022-02-22] MEDS ORDERED: Lorazepam PYXIS KEY ONE (14:36)
[2022-02-22] MEDS ORDERED: Lorazepam PYXIS KEY PRN (14:45)
[2022-02-22 15:19] VITALS: BP 81/38
[2022-02-23] MEDS ORDERED: Vancomycin Trough Check NOTE FOLLOW UP ONE (09:30)
== END 2022-02-22 15:36 | disposition expired | DRG 190 ==
LOC: EDHOLD 11:55 → ED 11:55 → SUATTDRO 18:38 → EDHOLD 02-19 04:33 → MEDTELE 02-19 04:43 → ICU 02-20 14:28
PROVIDERS: ADMIT Internal Medicine; ATTEND Internal Medicine